=== PATIENT | female | born 1955 | race Caucasian/White ===

== ENCOUNTER 2016-10-19 19:25 | Inpatient (IN) | payer OTHER, MEDICARE ==
[~2016-10-19] VITALS: Ht 167.6 cm; Wt 72.6 kg
[~2016-10-19 19:25] MED LIST: ACETAMINOPHEN500 M4 PO; ALBUTEROL0.09 MG/A1 INH; AMLODIPINE10 MG PO; AUGMENTIN 875-1 EACH PO; BISACODYL5 M1 PO; CHLORTHALIDONE25 M1 PO; DULCOLAX10 M1 RC; HYDROMORPHONE HC2 M1 PO; HYGROTON 25MG T25 MG PO; LISINOPRIL10 MG PO; LISINOPRIL20 M1 PO; METHADONE H5 MG/5 M2 PO; MIRALAX119 GM PO; MULTI-DAY VITA1 EACH PO; NAPROSYN 500 M500 MG PO; NICODERM CQ1 EAC1 TOP; NICOTINE PATCH1 EAC2 TOP; PRILOSEC 20MG C20 MG PO; PROVENTIL HFA6.7 GM INH; SENNA8.6 M3 PO; TRAMADOL50 MG PO; VIBRAMYCIN100 MG PO
--- NOTE | 2016-10-19 20:26 | ED GENERAL ADULT ---
History of Present Illness General Chief Complaint: Foot or Ankle Injury Stated Complaint: PT HAS SWOLLEN ANKLES AND LEGS WITH FLUID Source: patient Exam Limitations: no limitations Vital Signs & Intake/Output Vital Signs & Intake/Output Vital Signs Date Time Temp Pulse Resp B/P B/P Pulse O2 O2 Flow FiO2 Mean Ox Delivery Rate 10/20 1433 98.9 63 20 130/74 93 Nasal 3.0L Cannula 10/20 0800 Nasal 3.0L Cannula 10/20 0600 97.6 72 24 158/82 94 Nasal 3.0L Cannula 10/20 0519 72 156/82 10/20 0305 168/88 10/20 0134 98.1 79 20 184/100 94 Nasal 3.0L Cannula 10/20 0108 88 Room Air 10/20 0106 97.7 87 20 188/106 10/20 0040 94 Nasal 3.0L Cannula 10/20 0030 97.7 87 20 188/106 Room Air 10/19 2200 98.0 80 18 144/80 97 Room Air 10/19 1948 97.3 87 19 181/97 88 Room Air ED Intake and Output 10/20 0000 10/19 1200 Intake Total 100 Output Total Balance 100 Intake, IV 100 Patient 72.575 kg Weight Weight Estimated Measurement Method Allergies Coded Allergies: NO KNOWN ALLERGIES (01/20/11) Triage Note: RECEIVED 61 YO FEMALE WITH HX OF LOWER EXTREMITY CELLULITS, C/O WORSENING SYMPTOMS WITH SEROUS DRAINAGE ON LOWER EXTREMITY, RIGHT WORSE THAN LEFT. LOWER EXTREMITIES REDDENED, SCALY, FOUL ODOR NOTED. Triage Nurses Notes Reviewed? yes Onset: Gradual Duration: week(s): Timing: recent history Injury Environment: home Severity: moderate Modifying Factors: Improves With: rest. Associated Symptoms: redness, tenderness, swelling HPI: 61 yo woman, h/o recurrent cellulitis, h/o surgical debridement of left heel, h/ o skin graft/venous insufficiency of left leg, presents with redness, warmth, and swelling of her bilateral lower extremities for the past 2 weeks. She notes that Dr. Cross has been managing a left heel ulcer that has been slow to heal. She notes increased drainage from her left heel, as well as increased swelling of her bilateral lower extremities, along with redness and tenderness up to the knees bilaterally. She notes no fever, chills, nausea, vomiting, diarrhea. (CONCHANICKY SANTAMARIA MD) Reconcile Medications Amlodipine Besylate 10 MG TABLET 1 TAB PO DAILY HTN (Reported) Lisinopril 40 MG TABLET 1 TAB PO DAILY HTN (Reported) Methadone HCl 5 MG/5 ML SOLUTION 55 MG PO DAILY MENTAL HEALTH (Reported) Potassium Chloride (Klor-Con Sprinkle) 10 MEQ CAPSULE.ER 10 MEQ PO DAILY SUPPLEMENT (Reported) Prochlorperazine Maleate (Compazine) 10 MG TABLET 10 MG PO Q8 PRN NAUSEA ( Reported) (DOLLY HOWARD MD) Past History Travel History Traveled to [place] past 21 day No Medical History Any Pertinent Medical History? 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 Psychosocial History Who do you live with Daughter Services at Home Home Health Aide What is your primary language Kinyarwanda Tobacco Use: Current Daily Use Daily Tobacco Use Amount/Type: => 5 Cigarettes daily Family History Family History, If Any: FATHER (Diabetes, TIA). . MOTHER (OR, TIA). . Relation not specified for: FH: hypertension Heart attack Hx Contributory? No (NICKY KERN MD) Review of Systems Review of Systems Constitutional: Reports: no symptoms. EENTM: Reports: no symptoms. Respiratory: Reports: no symptoms. Cardiovascular: Reports: no symptoms. GI: Reports: no symptoms. Genitourinary: Reports: no symptoms. Musculoskeletal: Reports: no symptoms. Skin: Reports: no symptoms. Neurological/Psychological: Reports: no symptoms. Hematologic/Endocrine: Reports: no symptoms. Immunologic/Allergic: Reports: no symptoms. All Other Systems: Reviewed and Negative (NICKY KERN MD) Physical Exam Physical Exam General Appearance: well developed/nourished, mild distress Head: atraumatic, normal appearance Eyes: Bilateral: normal appearance. Ears, Nose, Throat: normal pharynx, normal ENT inspection Neck: normal inspection, supple Respiratory: normal breath sounds, chest non-tender, no respiratory distress, quiet respiration Cardiovascular: regular rate/rhythm Gastrointestinal: normal bowel sounds, soft, non-tender Back: normal inspection Extremities: left calcaneous with draining ulceration, very tender to palpation. bilateral extremities with chronic skin changes, severely flaking skin due to fungal infection, also with "rubor, calor, dolor," to the knees bilaterally, with induration, left worse than right. Core Measures ACS in differential dx? No CVA/TIA Diagnosis: No Severe Sepsis Present: No Septic Shock Present: No (CONCHA LARIOS,NICKY Reyes) Progress Differential Diagnoses I considered the following diagnoses in my evaluation of the patient: cellulitis vs abscess vs osteo vs fungal skin infection. Plan of Care: Orders Procedure Date/time Status Regular Diet 10/20 B Active CULTURE,BODY FLUID 10/20 1710 Active SYNOVIAL FLUID CELL COUNT 10/20 1700 Active Lab Add-on Test 10/20 0614 Active PHYSICIAN CONSULT 10/20 0513 Active Skin/Pressure Ulcer Assess (Sk 10/20 0351 Active Skin Integrity Protocol 10/20 0349 Active NUTRITIONAL CONSULT 10/20 0349 Active Teach/Educate 10/20 0306 Active Pain Treatment and Response 10/20 0306 Active Nutritional Intake, Monitor 10/20 0306 Active Isolation 10/20 0306 Active Patient Care Conference 10/20 0306 Active Activity/Ambulation 10/20 0306 Active Pathway - chart 10/20 0059 Active Pathway - chart 10/20 0013 Active XRY-HEEL, LEFT 10/20 UNK Active House Staff 10/20 UNK Active Precautions 10/20 UNK Active Elevate 10/20 UNK Active Patient Data 10/19 2318 Active Saline Lock 10/19 2312 Active Misc Message 10/19 2312 Active ED Holding Orders 10/19 2312 Active Admit to inpatient 10/19 2312 Active Vital Signs 10/19 2312 Active Code Status 10/19 2312 Active Intake & Output 10/19 2218 Active BLOOD CULTURE 10/19 2153 Active C-REACTIVE PROTEIN 10/19 2100 Complete BLOOD CULTURE 10/19 2034 Active BLOOD CULTURE 10/19 2032 Active URINALYSIS 10/20 2031 Complete WESTERGREN SED RATE 10/20 2031 Complete COMPREHENSIVE METABOLIC PANEL 10/20 2031 Complete CBC WITHOUT DIFFERENTIAL 10/20 2031 Complete Current Medications Sig/Ora Start time Last Medication Dose Stop Time Status Admin Nicotine 21 MG DAILY 10/20 1439 AC (Nicoderm) Methadone HCl 55 MG DAILY 10/20 1000 AC 10/20 (Dolophine) 0958 Potassium Chloride 10 MEQ DAILY 10/20 1000 AC 10/20 (K-Dur) 0958 Cefazolin Sodium 1,000 MG Q8 10/20 0600 AC 10/20 (Kefzol-Ancef Inj) 1331 Heparin Sodium 5,000 UNIT Q8 10/20 0600 AC 10/20 (Porcine) 1331 Lisinopril 40 MG DAILY 10/20 0315 AC 10/20 (Prinivil) 0519 Acetaminophen 650 MG Q6P PRN 10/20 0100 AC (Tylenol) Acetaminophen/ 1 TAB Q6P PRN 10/20 0100 AC 10/20 Hydrocodone Bitart 1333 (Vicodin) Amlodipine Besylate 10 MG DAILY 10/20 0100 AC 10/20 (Norvasc) 010 Ketorolac 15 MG Q6P PRN 10/20 0100 AC 10/20 Tromethamine 0258 (Toradol) Laboratory Tests 10/20/16 1700: Fluid WBC Pending, Fld Total RBCs Counted Pending 10/19/16 2100: Anion Gap 7, Estimated GFR > 60, BUN/Creatinine Ratio 26.3 H, Glucose 115 H, Calcium 8.6, Total Bilirubin 0.4, AST 25, ALT 33, Alkaline Phosphatase 52, C- Reactive Prot, Quant < 0.5, Total Protein 7.3, Albumin 3.1 L, Globulin 4.2, Albumin/Globulin Ratio 0.7 L, CBC w Diff NO MAN DIFF REQ, RBC 5.14, MCV 79.7 L , MCH 24.5 L, RDW 15.9 H, MPV 8.1, Gran % 60.0, Lymphocytes % 29.4, Monocytes % 9.2, Eosinophils % 1.1, Basophils % 0.3, Absolute Granulocytes 4.0, Absolute Lymphocytes 2.0, Absolute Monocytes 0.6, Absolute Eosinophils 0.1, Absolute Basophils 0, PUBS MCHC 30.7 L, ESR [place] 31 H, Urinalysis LIGHT H, Urine Color YEL, Urine Clarity CLEAR, Urine pH 6.0, Ur Specific [place] 1.025, Urine Protein >=300 H, Urine Ketones NEG, Urine Nitrite NEG, Urine Bilirubin NEG, Urine Urobilinogen 0.2, Ur Leukocyte Esterase NEG, Ur Microscopic SEDIMENT EXAMINED, Urine RBC RARE, Ur Epithelial Cells FEW, Urine Hemoglobin SMALL H, Urine Glucose NEG Microbiology 10/20 1700 BODY FLUID: Body Fluid Culture - RECD 10/20 170 BODY FLUID: Gram Stain - RECD 10/19 220 BLOOD: Blood Culture - RES 10/19 213 BLOOD: Blood Culture - RES 10/19 2100 BLOOD: Blood Culture - RES Initial ED EKG: none (CONCHA LARIOS,NICKY Reyes) Departure Departure Disposition: STILL A PATIENT Clinical Impression Primary Impression: Cellulitis Secondary Impressions: Chronic ulcer of ankle, Fungal skin infection Departure Forms: Customer Survey General Discharge Information Admission Note Spoke With: RAKEL BE MD Documentation of Exam: Documentation of any treatments & extenuating circumstances including Concerns Regarding Discharge (functional status, medication knowledge or non-compliance, living conditions, etc.) that warrant an admission rather than observation: pt with failure of outpatient antibiotics with dense induration of both lower extremities "rubor, calor, dolor," Pt also with recurrence of cellulitis, with poor circulation, s/p skin grafting due to infection... pt merits iv abx, id consult, podiatry consult... would also treat antifungal component of infection. will try cefazolin and monitor response. (CONCHA LARIOS,NICKY Reyes) Departure Condition: Stable Referrals: NIC PEARCE MD (PCP/Family) (DOLLY HOWARD MD) Critical Care Note Critical Care Note Critical Care Time: non-applicable (CONCHA LARIOS,NICKY Reyes)
[2016-10-19] MEDS ORDERED: METHADONE H5 MG/5 M2 PO (20:35)
[2016-10-19 21:26] LABS: ABSOLUTE BASOPHIL COUNT 0 /CUMM (0.0-0.2); ABSOLUTE EOSINOPHIL COUNT 0.1 /CUMM (0.0-0.7); ABSOLUTE MONOCYTE COUNT 0.6 /CUMM (0.10-0.60); BASOPHIL % 0.3 % (0.0-2.0); EOSINOPHIL % 1.1 % (0-5); MEAN PLATELET VOLUME 8.1 FL (7.4-10.4); PLATELET COUNT 201 /CUMM (130-400)
[2016-10-19 21:56] LABS: MEAN CORPUSCULAR VOLUME 79.7 FL (81.0-99.0); RED BLOOD CELL CT 5.14 /CUMM (4.20-5.40); WHITE BLOOD CELL COUNT 6.4 /CUMM (4.8-10.8)
[2016-10-19 21:57] LABS: MEAN CORPUSCULAR HGB 24.5 PG (27.0-31.0); MEAN CORPUSCULAR HGB CONC 30.7 G/DL (33.0-37.0); RBC DISTRIBUTION WIDTH 15.9 % (11.5-14.5)
--- NOTE | 2016-10-19 23:17 | History & Physical ---
MICAH LARIOS,[facility] [place] 10/19/16 2316: General Information and HPI MD Statement: I have seen and personally examined CHUNG KRISHNA and documented this H&P. The patient is a 61 year old F who presented with a patient stated chief complaint of leg drainage. Source of Information: patient, old records Exam Limitations: poor historian History of Present Illness: Ms. 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 Of note patient is a poor historian, therefore quality of the history is limited. She reports that her legs are very painful but this is baseline for her. Pain is 9 out of 10 in severity, constant and burning in quality, however she does not take any medications for it. She denies fever, chills, nausea or vomiting. Patient has a longstanding history of non-healing wounds affecting her bilateral lower extremities complicated by recurrent episodes of cellulitis requiring multiple operations and skin grafts. Her problems started in 1989, when she developed cellulitis around the site in her left lower extremity where she injected IV drugs and subsequently required skin graft placement. Patient had been following up with high school music instructor Dr. Cross and has received multiple wound care modalities including negative pressure wound therapy and allograft applications without any significant improvement. Since 2012 patient has undergone multiple I&D procedures for bilateral lower extremity nonhealing ulcers performed by Dr. Cross. Her most recent hospitalization was here at [place] approximately one year ago ( 11/16/15-11/23/15) for chronic ulcer of the left heel during which time she underwent I&D and subsequent wound VAC placement. An MRI was performed which was negative for osteomyelitis. After being discharged she followed up with Dr. Cross for placement of skin graft to left heel (01/01/16). However since that procedure she has not been following up with Dr. Cross. She also has not been taking any of her medications, including amlodipine, chlorthalidone and lisinopril, since November 2015. The only medication that she takes on a regular basis is her methadone. Patient has hepatitis C which she states was treated by her PCP Dr. Nic Kasper at some point in the past but she does not recall the details. Allergies/Medications Allergies: Coded Allergies: NO KNOWN ALLERGIES (01/20/11) Home Med list Amlodipine Besylate 10 MG TABLET 1 TAB PO DAILY HTN (Reported) Lisinopril 40 MG TABLET 1 TAB PO DAILY HTN (Reported) Methadone HCl 5 MG/5 ML SOLUTION 55 MG PO DAILY MENTAL HEALTH (Reported) Potassium Chloride (Klor-Con Sprinkle) 10 MEQ CAPSULE.ER 10 MEQ PO DAILY SUPPLEMENT (Reported) Prochlorperazine Maleate (Compazine) 10 MG TABLET 10 MG PO Q8 PRN NAUSEA ( Reported) Compliance With Home Meds: POOR Past History Travel History Traveled to [place] past 21 day No Medical History Neurological: NONE EENT: NONE Cardiovascular: chronic venous insuff, hypertension, PVD Respiratory: COPD Gastrointestinal: NONE Hepatic: hepatitis C Renal: NONE Musculoskeletal: NONE Psychiatric: opioid dependence (maintained on methadone) Endocrine: NONE Blood Disorders: NONE Cancer(s): NONE AUTOMATIC BLOCKER/Reproductive: NONE Other Medical Hx: non-healing ulcers of bilateral lower extremities History of MRSA: No History of VRE: No History of CDIFF: No Surgical History Surgical History: appendectomy, cholecystectomy, hip replacement (left), left lower extremity skin graft placement, right lower extremity I&D, left lower extremity I&D Past Family/Social History Family History Relations & Conditions if any FATHER (Diabetes, TIA). . MOTHER ([place], TIA). . Relation not specified for: FH: hypertension Heart attack Psychosocial History Who Do You Live With? child Services at Home: Home Health Aide Primary Language: Romanian Smoking Status: Current Some Day Smoker (Smokes 1/2 PPD, 24 Pack Years) ETOH Use: denies use (Hx of IVDU,Last Use 20 Yrs Ago) Illicit Drug Use: denies illicit drug use (history of IVDU) Functional Ability ADLs Independent: dressing, eating, toileting, bathing. Ambulation: walker IADLs Independent: shopping, housework, finances, food prep, telephone, transportation , medication admin. Review of Systems Review of Systems Constitutional: Denies: chills, fever. EENTM: Reports: no symptoms. Cardiovascular: Reports: no symptoms. Denies: chest pain, palpitations. Respiratory: Reports: no symptoms. Denies: short of breath. GI: Reports: no symptoms. Denies: abdominal pain. Genitourinary: Reports: no symptoms. Denies: dysuria. Musculoskeletal: Reports: no symptoms. Skin: Reports: see HPI. Neurological/Psychological: Reports: no symptoms. Hematologic/Endocrine: Reports: no symptoms. Immunologic/Allergic: Reports: no symptoms. All Other Systems: Reviewed and Negative Exam & Diagnostic Data Last 24 Hrs of Vital Signs/I&O Vital Signs Date Time Temp Pulse Resp B/P B/P Pulse O2 O2 Flow FiO2 Mean Ox Delivery Rate 10/20 0134 98.1 79 20 184/100 94 Nasal 3.0L Cannula 10/20 0108 88 Room Air 10/20 0106 97.7 87 20 188/106 10/20 0030 97.7 87 20 188/106 Room Air 10/19 2200 98.0 80 18 144/80 97 Room Air 10/19 1948 97.3 87 19 181/97 88 Room Air Intake & Output 10/20 0800 10/20 0000 10/19 1600 Intake Total 100 Output Total Balance 100 Intake, IV 100 Patient 72.575 kg Weight Weight Estimated Measurement Method Physical Exam General Appearance Alert, Oriented X3, No Acute Distress Skin No Rashes HEENT Atraumatic, Mucous Membr. moist/pink Neck Supple Cardiovascular Regular Rate, Normal S1, Normal S2, No Murmurs, Gallops, Rubs Lungs Clear to Auscultation Abdomen Soft, No Tenderness, Positive Bowel Sounds Extremities No Clubbing, No Cyanosis, Bilateral Lower Extremities with Swelling and Serous Drainage, R >> L, Skin Changes Consistent with Chronic Venous Stasis and Thick Scale, Area of Open Denuded Skin on the Lateral Aspect of Right Lower Extremity Noted, Petechial Rash Involving Bilateral Knees, Right Knee Swelling, Bilateral Toenails with Onychomycosis Last 24 Hrs of Labs/Chad: Laboratory Tests 10/19/16 2100: Anion Gap 7, Estimated GFR > 60, BUN/Creatinine Ratio 26.3 H, Glucose 115 H, Calcium 8.6, Total Bilirubin 0.4, AST 25, ALT 33, Alkaline Phosphatase 52, Total Protein 7.3, Albumin 3.1 L, Globulin 4.2, Albumin/Globulin Ratio 0.7 L, CBC w Diff NO MAN DIFF REQ, RBC 5.14, MCV 79.7 L, MCH 24.5 L, RDW 15.9 H, MPV 8.1, Gran % 60.0, Lymphocytes % 29.4, Monocytes % 9.2, Eosinophils % 1.1, Basophils % 0.3, Absolute Granulocytes 4.0, Absolute Lymphocytes 2.0, Absolute Monocytes 0.6 , Absolute Eosinophils 0.1, Absolute Basophils 0, PUBS MCHC 30.7 L, ESR Westergren 31 H, Urinalysis LIGHT H, Urine Color YEL, Urine Clarity CLEAR, Urine pH 6.0, Ur Specific [place] 1.025, Urine Protein >=300 H, Urine Ketones NEG, Urine Nitrite NEG, Urine Bilirubin NEG, Urine Urobilinogen 0.2, Ur Leukocyte Esterase NEG, Ur Microscopic SEDIMENT EXAMINED, Urine RBC RARE, Ur Epithelial Cells FEW, Urine Hemoglobin SMALL H, Urine Glucose NEG Microbiology 10/19 2204 BLOOD: Blood Culture - RECD 10/19 2134 BLOOD: Blood Culture - RECD 10/19 2099 BLOOD: Blood Culture - RECD Assessment/Plan Assessment: Ms. 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 #Right lower extremity cellulitis: Right lower extremity with swelling and serous discharge concerning for cellulitis superimposed on bilateral chronic venous insufficiency, though patient is afebrile and without leukocytosis. Associated with onychomycosis of bilateral toes. Longstanding history of chronic non-healing ulcers involving bilateral lower extremities with recurrent episodes of cellulitis s/p multiple I&D procedures and skin grafts. Patient is noncompliant with follow-up. S/p 1 g of IV cefazolin in the ED. * Admit to General Medicine. * Podiatry and wound care consult to be placed in the AM. Appreciate their recs. * Start cefazolin 1 g IV Q8H. * Check blood cultures. * BLE Doppler US to rule out DVT. * Check CRP. * Right knee XR to evaluate for arthritic changes given right knee swelling on exam. #Uncontrolled HTN: BP elevated to 180s/100s on admission, likely secondary to noncompliance with her antihypertensive medications which she had not been taking since November 2015. * Start [id number] amlodipine 10 mg PO daily and lisinopril 40 mg PO daily. #Lung nodule: CT Chest on previous admission (11/16/15) had shown 2.2 cm mass involving the right middle lobe increased in size compared to 2014, with either PET/CT or biopsy suggested according to Fleischner guidelines. * CXR PA/Lateral for further characterization of lung nodule. * Outpatient referral to pulmonology for follow-up. #Opioid dependence: Maintained on methadone 55 mg PO daily. * Continue [id number] methadone 55 mg PO daily. Diet: Regular Pain: Tylenol 650 mg PO Q6H PRN for mild pain (scale 1-3) Vicodin 1 tab PO Q6H PRN for moderate pain (scale 4-6) Toradol 15 mg IV Q6H PRN for severe pain (scale 7-10) DVT PPx: HSQ for DVT PPx CODE: FULL As Ranked By This Provider Problem List: 1. Cellulitis of right lower extremity 2. Opioid dependence 3. Uncontrolled hypertension 4. Chronic venous insufficiency Core Measures/Miscellaneous Acute Coronary Syndrome ACS Diagnosis: No Cerebrovascular Accident CVA/TIA Diagnosis: No Congestive Heart Failure CHF Diagnosis: No VTE (View Protocol) VTE Risk Factors: Acute medical illness, Age > 40, Smoking [facility] prophylaxis d/t: Dermatitis, LE Edema No VTE Pharm Prophylaxis d/t: No contraindications VTE Diagnosis: No VTE Type: NONE VTE Confirmed by (Test): NONE Sepsis (View Protocol) Severe Sepsis Present: No Septic Shock Septic Shock Present: No Miscellaneous Documentation Attending Case Discussed With: RAKEL BE MD Primary Care Physician: NIC KASPER MD Patient sees these Specialists Assembly Riveter Graham Cross DPM Level of Patient Care: General Medicine KIT CISNEROS 10/20/16 0009: Resident Review Statement Resident Statement: examined this patient, discussed with financial analyst intern, agreed with financial analyst intern, amended to note Other Findings: This is a 61 years old lady with past medical history of recurrent cellulitis, hypertension, IV drug abuse currently on methadone maintenance therapy, lung mass who presented today with 1 week off increased lower limb swelling, pain and discharge. The patient was last admitted here in November 20 with and lower limb wound and was discharged on a wound VAC after which she received a skin graft and volunteers [facility] recovery. Patient is reporting the hospital for the past few weeks she has been experiencing more pain in her legs and for the one week has noted discharge which is clear predominantly from the right lower limb. Pain in the lower limbs is more pronounced with walking 9 out of 10. She reports chills but denies any fevers. The patient is currently on maintenance methadone 55 mg daily and despite having several medication on her claim list she is not taking her antihypertensive medications or any other from the claim list. It is a long time since when she saw Dr. Tay johnson although she cannot give specific time span or dates. Patient denies any chest pain palpitation or shortness of breath. She has no dizziness lightheadedness or blurring of vision. She has no change in urine frequency or dysuria. Vitals on arrival: Afebrile 97.3 pulse of 87 respiration 19 blood pressure 181/ 97 saturating 97% on room air Physical examination: Seated comfortably on the bed not in any acute distress alert and oriented to time place and person Chest: Transmitted sounds bilaterally no overt crackles on and off coughing during examination Heart: RRR, S1-S2 normal no murmurs Extremities: Bilateral scales extending to just below the knee joint right lower limb more swollen than the left no overt new skin opening, onychomycosis involving several toe nails. Both posterior tibialis arteries are not palpable dorsalis pedis on the right has good pulse but is weak on the left. The right knee is more swollen than the left. Labs: Normal white count of 6.4, H&H 12.6 and 41.0 MCV 79.1 slightly low, high BUN of 21 with increased BUN/creatinine ratio of 26.3 UA positive for proteinuria and hemoglobin Assessment and plan This is a 61 years old lady with recurrent cellulitis, peripheral vascular disease who is an active smoker and presenting with one-week history of discharge from the right lower limb associated with chills but no fevers. On the same duration has noted slightly swelling of her lower limbs and increase in pain. Cellulitis Fungal infection of the toe nails Peripheral vascular disease with decreased pulses Hypertension not adherent to medications Admitted to general medicine floor, vital signs every shift Continue cefurozamine 1000 mg every 8 Right knee x-ray and bilateral Doppler ultrasound to rule out DVT Restart antihypertensive medication amlodipine tonight at 10 mg and if pressures remain on the higher side start lisinopril at home dose of 40 mg daily Continue methadone 55 mg daily Podiatry review, wound consult a.m. Heparin for DVT prophylaxis Patient is full code Pain pathway HAILE LARIOS, [facility] 10/20/16 0014: Attending MD Review Statement Attending Statement Attending MD Statement: examined this patient, discuss w/resident/PA/CITY PLANNING ENGINEER, agreed w/resident/PA/CITY PLANNING ENGINEER Attending Assessment/Plan: 61 yo F smoker, with h/o HTN, previous IVDA now on methadone maintenance, Hep C (?untreated), venous insufficiency, chronic wounds of both LE with recurrent cellulitis, chronic nonhealing left heel ulcer s/p skin graft (2016), who never followed up with Dr. Cross, is here with c/o bilateral LE erythema, pain, swelling and recently noted serous discharge from right lower extremity. She is noncompliant with her BP meds. Patient denies any chest pain palpitation or shortness of breath. She has no dizziness lightheadedness or blurring of vision. She has no change in urine frequency or dysuria. Vitals stable except for uncontrolled BP 184/100 --> 168/88. LE: bilateral LE chronic venous stasis changes with desquamation of skin, edema++, open denuded skin to right lateral aspect of lower extremity, left calcaneus chronic wound but no draining ulcer as noted in ER documentation. Right knee swollen, no erythema or tenderness. Labs: no leukocytosis, ESR 31, BUN 21. UA proteinuria. 1. Bilateral LE chronic venous insufficiency with venous stasis, with superimposed LE cellulitis (R>L) associated with onychomycosis. GM admit, blood culture, check CRP, continue IV cefazolin for now, obtain Podiatry and Wound consult. Check LE doppler to rule out DVT. Obtain right knee Xray to assess for effusion/ arthritis/ pseudogout. 2. Uncontrolled hypertension. Resume home meds amlodipine and lisinopril. 3. Nonproductive cough in this patient who is a smoker. Patient has a h/o lung nodule (noted in 2016), this needs outpatient Pulmonary and CT follow up. For now, will obtain CXR. Smoking cessation counseling. 4. Resume methadone 55 mg APT foundation. DVT ppx Hep SC. Full code.
[2016-10-20] MEDS ORDERED: LISINOPRIL40 M1 PO (00:14)
[2016-10-20] MEDS ORDERED: AMLODIPINE BESY10 M1 PO (00:15)
--- NOTE | 2016-10-20 00:15 | Admission Certification ---
Admission Certification Certification Statement - As attending physician, I certify that at the time of - admission, based on clinical presentation, severity of - symptoms, need for further diagnostic testing and - therapeutic interventions, and risk of adverse outcomes - without in-hospital treatment, in my clinical assessment, - this patient requires an acute hospital stay for a minimum - of two nights or longer. I have also considered psychsocial - factors such as support system, advanced age, financial - issues, cognitive issues, and failed out-patient treatments, - past re-admission history, safety of patient, and lack of - compliance as applicable. Specific rationale supporting this admission is: Lower extremity cellulitis.
[2016-10-20] MEDS ORDERED: [UNRECOGNIZED DRUG - OTHER] PO (00:16)
[2016-10-20] MEDS ORDERED: COMPAZINE10 M1 PO (00:17)
[2016-10-20 01:34] VITALS: BP 184/100
[2016-10-20 03:05] VITALS: BP 168/88
[2016-10-20 06:00] VITALS: BP 158/82
--- NOTE | 2016-10-20 07:33 | PN- Housestaff ---
Subjective Follow-up For: Bilateral leg weeping wounds; cellulitis Subjective: I followed up and examined the patient today. She is resting comfortably in bed , with both her legs elevated. She is not in apparent distress, does not offer any complaints. Her vitals have been stable overnight except for blood pressure which has been maximum of 188/106. She is asymptomatic, and afebrile. Review of Systems Constitutional: Reports: see HPI. Objective Last 24 Hrs of Vital Signs/I&O Vital Signs Date Time Temp Pulse Resp B/P B/P Pulse O2 O2 Flow FiO2 Mean Ox Delivery Rate 10/20 1433 98.9 63 20 130/74 93 Nasal 3.0L Cannula 10/20 0800 Nasal 3.0L Cannula 10/20 0600 97.6 72 24 158/82 94 Nasal 3.0L Cannula 10/20 0519 72 156/82 10/20 0305 168/88 10/20 0134 98.1 79 20 184/100 94 Nasal 3.0L Cannula 10/20 0108 88 Room Air 10/20 0106 97.7 87 20 188/106 10/20 0040 94 Nasal 3.0L Cannula 10/20 0030 97.7 87 20 188/106 Room Air 10/19 2200 98.0 80 18 144/80 97 Room Air 10/19 1948 97.3 87 19 181/97 88 Room Air Intake & Output 10/20 1600 10/20 0800 10/20 0000 Intake Total 500 200 100 Output Total 500 Balance 0 200 100 Intake, IV 100 Intake, Oral 500 200 Number 0 Bowel Movements Output, Urine 500 Patient 72.575 kg 72.575 kg 72.575 kg Weight Weight Reported by Patient Estimated Measurement Method Physical Exam General Appearance: Alert, Oriented X3, Cooperative, No Acute Distress Other Physical Findings: Skin skin lesions consistent with chronic venous statis in b/l lower ext. with thisck scaly lesions. HEENT Atraumatic, Mucous Membr. moist/pink Neck Supple Cardiovascular Regular Rate, Normal S1, Normal S2, No Murmurs Lungs Clear to Auscultation Abdomen Soft, No Tenderness, Positive Bowel Sounds Extremities No Clubbing, No Cyanosis, Bilateral Lower Extremities with Swelling (decreasing) and Serous Drainage, Skin Changes Consistent with Chronic Venous Stasis and Thick Scale, One Ulcer Noted at the base of left heel, Right Knee Swelling, Bilateral Toenails with severe Onychomycosis and toe deformity. Current Medications: Current Medications Sig/Ora Start time Last Medication Dose Route Stop Time Status Admin Acetaminophen 650 MG Q6P PRN 10/20 010 AC PO Acetaminophen/ 1 TAB Q6P PRN 10/20 0100 AC 10/20 Hydrocodone Bitart PO 1903 Amlodipine Besylate 0 .STK-MED ONE 10/20 0107 DC PO Amlodipine Besylate 10 MG DAILY 10/20 0100 AC 10/20 PO 0106 Cefazolin Sodium 1,000 MG Q8 10/20 06 AC 10/20 IV 1331 Cefazolin Sodium 1,000 MG ONCE ONE 10/19 2044 DC 10/19 IV 10/19 2045 2217 Ceftriaxone Sodium 0 .STK-MED ONE 10/19 2155 DC .ROUTE Clotrimazole 1 JULIA ONCE ONE 10/19 2315 DC 10/20 TOP 10/19 231 0135 Heparin Sodium 5,000 UNIT Q8 10/20 599 10/20 (Porcine) SC 1331 Ketorolac 30 MG .STK-MED ONE 10/20 0255 DC Tromethamine IM 10/20 0256 Ketorolac 15 MG Q6P PRN 10/20 0100 AC 10/20 Tromethamine IV 0258 Lisinopril 40 MG DAILY 10/20 1000 DC PO Lisinopril 40 MG DAILY 10/20 0315 AC 10/20 PO 0519 Methadone HCl 55 MG DAILY 10/20 1000 AC 10/20 PO 0958 Nicotine 21 MG DAILY 10/20 1439 AC TOP Potassium Chloride 10 MEQ DAILY 10/20 1000 AC 10/20 PO 0958 Last 24 Hrs of Lab/Chad Results Last 24 Hrs of Labs/Mics: Laboratory Tests 10/20/16 1700: Lymphocytes 22, % Normal PMNs 30, Misc Hematology Test , Fluid WBC 203 H, Fld Total RBCs Counted 411 H 10/19/16 2100: Anion Gap 7, Estimated GFR > 60, BUN/Creatinine Ratio 26.3 H, Glucose 115 H, Calcium 8.6, Total Bilirubin 0.4, AST 25, ALT 33, Alkaline Phosphatase 52, C- Reactive Prot, Quant < 0.5, Total Protein 7.3, Albumin 3.1 L, Globulin 4.2, Albumin/Globulin Ratio 0.7 L, CBC w Diff NO MAN DIFF REQ, RBC 5.14, MCV 79.7 L , MCH 24.5 L, RDW 15.9 H, MPV 8.1, Gran % 60.0, Lymphocytes % 29.4, Monocytes % 9.2, Eosinophils % 1.1, Basophils % 0.3, Absolute Granulocytes 4.0, Absolute Lymphocytes 2.0, Absolute Monocytes 0.6, Absolute Eosinophils 0.1, Absolute Basophils 0, PUBS MCHC 30.7 L, ESR Westergren 31 H, Urinalysis LIGHT H, Urine Color YEL, Urine Clarity CLEAR, Urine pH 6.0, Ur Specific [place] 1.025, Urine Protein >=300 H, Urine Ketones NEG, Urine Nitrite NEG, Urine Bilirubin NEG, Urine Urobilinogen 0.2, Ur Leukocyte Esterase NEG, Ur Microscopic SEDIMENT EXAMINED, Urine RBC RARE, Ur Epithelial Cells FEW, Urine Hemoglobin SMALL H, Urine Glucose NEG Microbiology 10/20 170 BODY FLUID: Body Fluid Culture - RECD 10/20 170 BODY FLUID: Gram Stain - RECD 10/19 2205 BLOOD: Blood Culture - RES 10/19 2135 BLOOD: Blood Culture - RES 10/19 2100 BLOOD: Blood Culture - RES Assessment/Plan Assessment: 61-year-old female with past medical history of chronic venous insufficiency and nonhealing ulcers of both lower extremities, peripheral vascular disease, hepatitis C, IV drug abuse, is currently being managed in the general medical floor for the following issues: #Possible cellulitis DVT of lower ext ruled out by b/l Doppler studies. Clinically, appeared to be cellulitis thus was placed on cefazolin 1 g every 8 hours IV. We'll continue the antibiotic pending blood cultures. Continue leg elevation. #Chronic nonhealing ulcers, including over heel Patient has chronic nonhealing ulcers, secondary to peripheral vascular disease and chronic venous stasis. Dr. Cross has been consulting on the patient in the past. Awaiting recommendations. #Right knee swelling/pain Patient has long-standing history of right knee osteoarthritis but her swelling and pain has worsened in the last month. X-ray of her right knee shows effusion on the suprapatellar space. Orthopedic service with Dr Mason has been consulted for the same reason. Osteoarthritis with effusion is likely. On clinical examination, the joint does not appear to be septic (no warmth, redness ) locally. #Right lung mass According to radiologist, the right lung mass is enlarging and there is a possibility of some lymphadenopathy. He should have been recommended outpatient PET scan in 2016. Records not available to us currently. Pulmonary consultation placed for the same reason. Awaiting recommendations. #Pain management: Vicodin dose increased for moderate pain as necessary. #Diet regular diet #DVT prophylaxis with SQ Heparin #CODE STATUS: Full code Problem List: 1. Cellulitis of left lower extremity 2. Cellulitis of right lower extremity 3. Skin ulcer 4. Mass of right lung 5. Fungal skin infection 6. Opioid dependence 7. PVD (peripheral vascular disease) 8. Chronic venous stasis dermatitis of both lower extremities 9. History of hepatitis C Pain Ratin Pain Location: b/l legs Pain Goal: Pain 4 or less Pain Plan: prn, vicodin dose increased today Tomorrow's Labs & Rationales: CBC to follow up in infection
--- NOTE | 2016-10-20 11:09 | ULTRASOUND REPORT ---
EXAMINATION: US TRIPLEX OF LOWER EXTREMITIES, BILATERAL CLINICAL INFORMATION: Swollen, tender legs. COMPARISON: 04/23/2016 TECHNIQUE: Color-flow triplex imaging with spectral analysis and compression Doppler were performed on the lower extremities. FINDINGS: The common femoral vein is compressible and exhibits a normal phasic waveform, bilaterally; this suggests that the iliac veins are widely patent above. Within each proximal thigh, the visualized profunda femoris vein is patent. The visualized greater saphenous vein and saphenofemoral junction are normal, bilaterally. Superficial femoral vein is patent in the proximal, mid and distal aspect of each thigh. Popliteal vein appears normal to the level of the trifurcation, bilaterally, and on color Doppler images the visualized calf veins are grossly unremarkable. No evidence of Morrison's cyst. IMPRESSION: No evidence of deep vein thrombosis in either lower extremity.
--- NOTE | 2016-10-20 12:02 | PN- Att Addend ---
See Addendum Attending Addendum Attending Brief Note Patient seen and examined, not feeling well. She still remaining in pain in her bilateral lower extremities. Currently she is ordered Toradol as well as Vicodin for pain management. Lower extremity Doppler is negative. Patient has bilateral lower extremity cellulitis. Vital Signs Date Time Temp Pulse Resp B/P B/P Pulse O2 O2 Flow FiO2 Mean Ox Delivery Rate 10/20 0800 Nasal 3.0L Cannula 10/20 0600 97.6 72 24 158/82 94 Nasal 3.0L Cannula 10/20 0519 72 156/82 10/20 0305 168/88 10/20 0134 98.1 79 20 184/100 94 Nasal 3.0L Cannula 10/20 0108 88 Room Air 10/20 0106 97.7 87 20 188/106 10/20 0040 94 Nasal 3.0L Cannula 10/20 0030 97.7 87 20 188/106 Room Air 10/19 2200 98.0 80 18 144/80 97 Room Air 10/19 1948 97.3 87 19 181/97 88 Room Air on exam; aox3, mild distress 2/2 to pain. cv; s1,s2, rrr resp; clear abd; soft, nt bs+ ext + 2+ edema. skin; + erythema, scaling with cracks on b/l lower ext. Laboratory Tests 10/19 2100 Chemistry Sodium (137 - 145 mmol/L) 138 Potassium (3.5 - 5.1 mmol/L) 3.7 Chloride (98 - 107 mmol/L) 96 L Carbon Dioxide (22 - 30 mmol/L) 35 H Anion Gap (5 - 16) 7 BUN (7 - 17 mg/dL) 21 H Creatinine (0.5 - 1.0 mg/dL) 0.8 Estimated GFR (>60 ml/min) > 60 BUN/Creatinine Ratio (7 - 25 %) 26.3 H Glucose (65 - 99 mg/dL) 115 H Calcium (8.4 - 10.2 mg/dL) 8.6 Total Bilirubin (0.2 - 1.3 mg/dL) 0.4 AST (14 - 36 U/L) 25 ALT (9 - 52 U/L) 33 Alkaline Phosphatase (<127 U/L) 52 C-Reactive Prot, Quant (<1.0 mg/dL) < 0.5 Total Protein (6.3 - 8.2 g/dL) 7.3 Albumin (3.5 - 5.0 g/dL) 3.1 L Globulin (1.9 - 4.2 gm/dL) 4.2 Albumin/Globulin Ratio (1.1 - 2.2 %) 0.7 L Hematology CBC w Diff NO MAN DIFF REQ WBC (4.8 - 10.8 /CUMM) 6.4 RBC (4.20 - 5.40 /CUMM) 5.14 Hgb (12.0 - 16.0 G/DL) 12.6 Hct (37 - 47 %) 41.0 MCV (81.0 - 99.0 FL) 79.7 L MCH (27.0 - 31.0 PG) 24.5 L RDW (11.5 - 14.5 %) 15.9 H Plt Count (130 - 400 /CUMM) 201 MPV (7.4 - 10.4 FL) 8.1 Gran % (42.2 - 75.2 %) 60.0 Lymphocytes % (20.5 - 51.1 %) 29.4 Monocytes % (1.7 - 9.3 %) 9.2 Eosinophils % (0 - 5 %) 1.1 Basophils % (0.0 - 2.0 %) 0.3 Absolute Granulocytes (1.4 - 6.5 /CUMM) 4.0 Absolute Lymphocytes (1.2 - 3.4 /CUMM) 2.0 Absolute Monocytes (0.10 - 0.60 /CUMM) 0.6 Absolute Eosinophils (0.0 - 0.7 /CUMM) 0.1 Absolute Basophils (0.0 - 0.2 /CUMM) 0 PUBS MCHC (33.0 - 37.0 G/DL) 30.7 L ESR Westergren (0 - 20 MM) 31 H Urines Urinalysis LIGHT H Urine Color (YEL,AMB,STR) YEL Urine Clarity (CLEAR) CLEAR Urine pH (5.0 - 8.0) 6.0 Ur Specific [place] (1.001 - 1.035) 1.025 Urine Protein (NEG,<30 MG/DL) >=300 H Urine Ketones (NEG) NEG Urine Nitrite (NEG) NEG Urine Bilirubin (NEG) NEG Urine Urobilinogen (0.1 - 1.0 EU/dl) 0.2 Ur Leukocyte Esterase (NEG) NEG Ur Microscopic SEDIMENT EXAMINED Urine RBC (0 - 5 /HPF) RARE Ur Epithelial Cells (NONE,FEW) FEW Urine Hemoglobin (NEG) SMALL H Urine Glucose (N MG/DL) NEG A/P; 61 F with pmh sig for 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 She also has nonhealing wound at the left heel. Patient currently treated with cefazolin. Follow-up on blood cultures. Lower extremities Doppler negative. She needs wound care consult. Podiatry consult is ordered. Please increase her Vicodin to 2 tablets every 6 hours when necessary. Patient still remains in pain, but my need to add a second narcotic as she is on methadone and opiates likely are not working as well for her. DVT px; hep sq.
--- NOTE | 2016-10-20 12:49 | RADIOLOGY REPORT ---
EXAMINATION: XR KNEE, RIGHT CLINICAL INFORMATION: Swollen knee. Knee arthritis. COMPARISON: None TECHNIQUE: Four views of the right knee performed on 5 images. FINDINGS: Diffuse osteopenia. No acute fracture or dislocation. Large suprapatellar knee joint effusion. Severe degenerative change in the patellofemoral and lateral femoral compartments with joint space narrowing, bulky spur formation, and sclerotic and cystic changes seen. There is chondrocalcinosis in the medial femoral compartment with associated moderate spurring and mild cystic changes of the medial femoral condyle and medial tibial plateau and slight widening of the medial joint space height. No erosive changes are noted. Arteriovascular calcifications is seen in the soft tissues. IMPRESSION: 1. Osteopenia. No acute fracture or dislocation. 2. Moderate size suprapatellar knee joint effusion. 3. Advanced osteoarthritic change in the patellofemoral and lateral femoral compartments. 4. Chondrocalcinosis and mild degenerative change in medial femoral compartment.
--- NOTE | 2016-10-20 13:49 | RADIOLOGY REPORT ---
EXAMINATION: XR CHEST CLINICAL INFORMATION: Pulmonary nodule. Rule out infection. Cough. COMPARISON: CT scan of the chest dated 11/16/2015. Portable chest x-ray dated 11/16/2015 and 07/26/2013. TECHNIQUE: 2 views of the chest were obtained on 3 images. FINDINGS: The cardiomediastinal silhouette is borderline enlarged. Calcification of the aortic arch is seen. Fullness of the right pulmonary hilum is seen, suspicious for adenopathy. There has been marked interval increase in size of the previously seen right middle lobe mass, now measuring 8.4 x 6.5 cm versus 2.5 x 2.4 cm on 11/16/2015. The small pleural-based nodular density seen on prior CT scan in the posterior right lung apex is not appreciated on plain film. No pleural effusion or pneumothorax is seen. Osteopenia with multilevel degenerative changes in the mid and lower thoracic spine are noted. There is severe destruction of the left shoulder joint with flattening, complex cystic and sclerotic changes of the humeral head and associated glenohumeral joint space narrowing and calcifications, unchanged from prior CT scan. IMPRESSION: Interval significant increase in size of right middle lobe mass is seen, highly suspicious for a growing lung cancer. There is likely associated right hilar adenopathy. Findings discussed with Dr. Sophy Aguilar 10/20/2016, 1:15 PM.
[2016-10-20 14:33] VITALS: BP 130/74
--- NOTE | 2016-10-20 17:14 | Cons- Orthopedic ---
General Information and HPI Consulting Request Date of Consult: 10/20/16 Requested By: HAILE LARIOS,RAKEL History of Present Illness: 61 year old female with long standing right knee pain. She has had worsening pain over the last month. She is admitted with bilateral lower extremity cellulitis. I have been asked to evaluate the patient for possible septic joint. She denies any fevers or chills. She has a history of hepatitis C from IV drug abuse. She has chronic venous insufficiency with nonhealing ulcers in her lower extremity. Allergies/Medications Allergies: Coded Allergies: NO KNOWN ALLERGIES (01/20/11) Home Med List: Amlodipine Besylate 10 MG TABLET 1 TAB PO DAILY HTN (Reported) Lisinopril 40 MG TABLET 1 TAB PO DAILY HTN (Reported) Methadone HCl 5 MG/5 ML SOLUTION 55 MG PO DAILY MENTAL HEALTH (Reported) Potassium Chloride (Klor-Con Sprinkle) 10 MEQ CAPSULE.ER 10 MEQ PO DAILY SUPPLEMENT (Reported) Prochlorperazine Maleate (Compazine) 10 MG TABLET 10 MG PO Q8 PRN NAUSEA ( Reported) Past History Medical History Blood Transfusion Hx: No Neurological: NONE EENT: NONE Cardiovascular: chronic venous insuff, hypertension, PVD Respiratory: COPD Gastrointestinal: NONE Hepatic: hepatitis C Renal: NONE Musculoskeletal: NONE Psychiatric: opioid dependence (maintained on methadone) Endocrine: NONE Blood Disorders: NONE Cancer(s): NONE COPY LATHE TENDER/Reproductive: NONE Other Medical Hx: non-healing ulcers of bilateral lower extremities Surgical History Pertinent Surgical History: appendectomy, cholecystectomy, hip replacement (left ), left lower extremity skin graft placement right lower extremity I&D left lower extremity I&D Family History Relations & Conditions If Any: FATHER (Diabetes, TIA). . MOTHER (SC, TIA). . Relation not specified for: FH: hypertension Heart attack Psychosocial History Where Do You Live? Home Who Do You Live With? child Services at Home: Home Health Aide Primary Language: Romansh Smoking Status: Current Some Day Smoker (Smokes 1/2 PPD, 24 Pack Years) ETOH Use: denies use (Hx of IVDU,Last Use 20 Yrs Ago) Illicit Drug Use: denies illicit drug use (history of IVDU) Functional Ability ADLs Independent: dressing, eating, toileting, bathing. Ambulation: walker IADLs Independent: shopping, housework, finances, food prep, telephone, transportation , medication admin. Review of Systems Review of Systems Musculoskeletal: Reports: see HPI, joint pain, joint swelling. Skin: Reports: change in skin color. All Other Systems: Reviewed and Negative Exam & Diagnostic Data Vital Signs and I&O Vital Signs Date Time Temp Pulse Resp B/P B/P Pulse O2 O2 Flow FiO2 Mean Ox Delivery Rate 10/20 1433 98.9 63 20 130/74 93 Nasal 3.0L Cannula 10/20 0800 Nasal 3.0L Cannula 10/20 0600 97.6 72 24 158/82 94 Nasal 3.0L Cannula 10/20 0519 72 156/82 10/20 0305 168/88 10/20 0134 98.1 79 20 184/100 94 Nasal 3.0L Cannula 10/20 0108 88 Room Air 10/20 0106 97.7 87 20 188/106 10/20 0040 94 Nasal 3.0L Cannula 10/20 0030 97.7 87 20 188/106 Room Air 10/19 2200 98.0 80 18 144/80 97 Room Air 10/19 1948 97.3 87 19 181/97 88 Room Air Intake & Output 10/20 1600 10/20 0800 10/20 0000 10/19 1600 10/19 0800 10/19 0000 Intake Total 500 200 100 Output Total 500 Balance 0 200 100 Intake, IV 100 Intake, Oral 500 200 Number 0 Bowel Movements Output, Urine 500 Patient 160 lb 160 lb 160 lb Weight Weight Reported by Patient Estimated Measurement Method Physical Exam: Right knee has mild warmth. Moderate effusion is palpable. She has full extension. Flexion to 90. He is tender to palpation over the lateral joint line. Mild erythema is noted over the anterior patella. Knee stable to varus and valgus stress of full extension 30 of flexion. Bilateral lower extremities demonstrates cellulitis and chronic venous insufficiency changes from the proximal tibia distal. Imaging Results: Right knee x-ray demonstrates severe knee DJD Assessment/Plan Assessment/Plan This is a 61 year olf with right knee DJD, bilateral lower extremity cellulitis. She does not appear to have an infected knee joint. The right knee was aspirated under sterile conditions of 20 mL of straw-colored fluid. We'll send this to the lab for culture, cell count, crystal analysis. If negative she we treated conservatively with anti-inflammatories. Consult Acknowledgment - Thank you for your consult request.
[2016-10-20 20:13] VITALS: BP 110/58
--- NOTE | 2016-10-20 22:23 | RADIOLOGY REPORT ---
EXAMINATION: XR CALCANEUS, LEFT CLINICAL INFORMATION: Nonhealing left heel ulcer. COMPARISON: 10/17/2015 TECHNIQUE: Lateral and axial views of the left calcaneus were obtained. FINDINGS: A smaller superficial wound is identified overlying the calcaneal tuberosity without evidence of cortical destruction to suggest osteomyelitis at this time. There are small osseous spurs with possible tiny osseous fragments most notably inferiorly with focal lucency at the inferior aspect of the calcaneal tuberosity which could represent postoperative versus evolving osteomyelitis. These findings are new compared with the previous exam. IMPRESSION: No definite cortical destruction, questionable lucency and small osseous fragments. MR or 3-phase bone scan imaging could be performed to further evaluate.
[2016-10-20 23:04] VITALS: BP 154/99
[2016-10-21 06:30] VITALS: BP 153/84
--- NOTE | 2016-10-21 07:12 | PN- Housestaff ---
MARY LOU LARIOS,HENRIETTA 10/21/16 0712: Subjective Follow-up For: Bilateral leg weeping wounds; cellulitis; left heel ulcer. Complaints: pain over legs Subjective: I followed up and examined the patient today. She is resting in bed, appears in mild distress due to pain in her legs. She mentioned that her pain is not completely control. Her blood pressure is still running high, this morning at 153/84, rest of vitals are normal. No overnight issues. Legs remain elevated. Review of Systems Constitutional: Reports: no symptoms. Objective Last 24 Hrs of Vital Signs/I&O Vital Signs Date Time Temp Pulse Resp B/P B/P Pulse O2 O2 Flow FiO2 Mean Ox Delivery Rate 10/21 1446 93 Nasal 2.0L Cannula 10/21 1420 Nasal 1.0L Cannula 10/21 1411 98.0 71 20 154/86 90 Nasal 1.0L Cannula 10/21 1345 Nasal 1.0L Cannula 10/21 0914 93 Nasal 1.0L Cannula 10/21 0911 97 Nasal 3.0L Cannula 10/21 0907 68 140/80 10/21 0907 68 140/80 10/21 0800 Nasal 3.0L Cannula 10/21 0630 97.9 64 20 153/84 92 Nasal 3.0L Cannula 10/21 0000 Nasal 3.0L Cannula 10/20 2304 98.5 67 20 154/99 97 Nasal 3.0L Cannula 10/20 2012 98.7 97 20 110/58 98 Room Air Intake & Output 10/21 1600 10/21 0800 10/21 0000 Intake Total 400 20 Output Total Balance 400 20 Intake, IV 0 20 Intake, Oral 400 Number 0 Bowel Movements Physical Exam General Appearance: Alert, Oriented X3, Cooperative, Mild Distress (due to pain) Other Physical Findings: Skin skin lesions consistent with chronic venous statis in b/l lower ext. with thick scaly lesions. Scales are much reduced from the nursing and wound care this morning. HEENT Atraumatic, Mucous Membr. moist/pink Neck Supple Cardiovascular Regular Rate, Normal S1, Normal S2, No Murmurs Lungs Clear to Auscultation Abdomen Soft, No Tenderness, Positive Bowel Sounds Extremities No Clubbing, No Cyanosis, Bilateral Lower Extremities with Swelling (decreasing) and Serous Drainage, Skin Changes Consistent with Chronic Venous Stasis and Thick Scale, One Ulcer Noted at the base of left heel, Right Knee Swelling, Bilateral Toenails with severe Onychomycosis and toe deformity. Current Medications: Current Medications Sig/Ora Start time Last Medication Dose Route Stop Time Status Admin Acetaminophen 650 MG Q6P PRN 10/20 0100 AC PO Acetaminophen/ 2 TAB Q6P PRN 10/20 1930 AC 10/21 Hydrocodone Bitart PO 0609 Acetaminophen/ 1 TAB Q6P PRN 10/20 0100 DC 10/20 Hydrocodone Bitart PO 1903 Amlodipine Besylate 10 MG DAILY 10/20 0100 AC 10/21 PO 0907 Cefazolin Sodium 1,000 MG Q8 10/20 06 AC 10/21 IV 1358 Heparin Sodium 5,000 UNIT Q8 10/20 06 AC 10/21 (Porcine) SC 1358 Hydromorphone HCl 0.4 MG Q6P PRN 10/21 1000 AC 10/21 IV 1126 Ketorolac 30 MG .STK-MED ONE 10/20 2129 DC Tromethamine IM 10/20 2130 Ketorolac 15 MG Q6P PRN 10/20 0100 DC 10/21 Tromethamine IV 0752 Lisinopril 40 MG DAILY 10/20 0315 AC 10/21 PO 0907 Methadone HCl 55 MG DAILY 10/20 1000 AC 10/21 PO 0907 Nicotine 21 MG DAILY 10/20 1439 AC 10/21 TOP 0907 Potassium Chloride 10 MEQ DAILY 10/20 1000 AC 10/21 PO 0907 Last 24 Hrs of Lab/Chad Results Last 24 Hrs of Labs/Mics: Laboratory Tests 10/21/16 0635: CBC w Diff NO MAN DIFF REQ, RBC 4.99, MCV 81.3, MCH 24.6 L, RDW 16.7 H, MPV 8.5, Gran % 53.9, Lymphocytes % 33.4, Monocytes % 9.5 H, Eosinophils % 2.8, Basophils % 0.4, Absolute Granulocytes 3.2, Absolute Lymphocytes 2.0, Absolute Monocytes 0.6, Absolute Eosinophils 0.2, Absolute Basophils 0, PUBS MCHC 30.3 L 10/20/16 1700: Lymphocytes 22, % Normal PMNs 30, Misc Hematology Test , Fluid WBC 203 H, Fld Total RBCs Counted 411 H Microbiology 10/20 170 BODY FLUID: Body Fluid Culture - RES 10/20 1699 BODY FLUID: Gram Stain - RES Assessment/Plan Assessment: 61-year-old female with past medical history of chronic venous insufficiency and nonhealing ulcers of both lower extremities, peripheral vascular disease, hepatitis C, IV drug abuse, is currently being managed in the general medical floor for the following issues: #Possible cellulitis DVT of lower ext ruled out by b/l Doppler studies. Clinically, appeared to be cellulitis thus was placed on cefazolin 1 g every 8 hours IV. We'll continue the antibiotic pending blood cultures. One set of blood culture collected on is growing gram-positive david today. Continue leg elevation. #Chronic nonhealing ulcers, including over heel Patient has chronic nonhealing ulcers, secondary to peripheral vascular disease and chronic venous stasis. Dr. Cross has been consulting on the patient in the past. Awaiting recommendations. #Right knee swelling/pain Patient has long-standing history of right knee osteoarthritis but her swelling and pain has worsened in the last month. X-ray of her right knee showed effusion on the suprapatellar space which was drained and sent for studies by Orthopedic surgeon Dr Mason. Negative for septic arthritis. Osteoarthritis with effusion is the likely diagnosis. This can be followed up as an outpatient basis. #Right lung mass Her right lung mass has increased significantly from 2-8 cm over the course of one year, for which she was supposed to follow up with Dr. Romo. She only saw Dr. Romo once, when she was recommended a PET scan by him. She did not receive PET scan, and nor did follow up with a lung doctor. This time, her right lung lesion appears to be much bigger in size, raising suspicion of malignancy. She understands the condition, but is still not fully motivated to comply for that reason. Pulmonary consultation requested, appreciated. * Per pulmonary consultation, patient is getting CAT scan of chest with IV contrast to assess for the tumor, possible biopsy later. #Pain management: As necessary. #Diet regular diet #DVT prophylaxis with SQ Heparin #CODE STATUS: Full code Problem List: 1. Cellulitis of right lower extremity 2. Cellulitis of left lower extremity 3. Skin ulcer 4. Mass of right lung 5. Fungal skin infection 6. Opioid dependence 7. PVD (peripheral vascular disease) 8. Chronic venous stasis dermatitis of both lower extremities 9. History of hepatitis C 10. Lung nodule Pain Ratin Pain Location: b/l legs/feet Pain Goal: Pain 4 or less Pain Plan: prn, pain meds increased to dilaudid Tomorrow's Labs & Rationales: CBC for low plt, and BEP for high BUN and BUN/cr ratio f/u VASU LARIOSZI 10/21/16 1204: Attending Review Statement Attending Statement Attending MD Statement: examined this patient, discuss w/resident/PA/GOVERNMENT GUARD, agreed w/resident/PA/GOVERNMENT GUARD, reviewed EMR data (avail), discussed with nursing, discussed with case mgmt, reviewed images, amended to note Attending Assessment/Plan: Patient seen and examined, still complaining of significant amount of pain in bilateral lower extremities. I discussed with patient about her lung mass which and distends. She said that she was upstairs to hard for her to come downstairs for follow-up with a doctor. She continues to smoke and understands that smoking is putting her at a very high risk of developing lung cancer. She still does not want to quit smoking because according to her "everybody in the house smokes". Patient is originally admitted with cellulitis of bilateral lower extremities. Had arthrocentesis of the right knee done yesterday but Dr. Mason. Fluid was not consistent with septic joint. No crystal studies were sent. Patient is currently getting treated with IV cefazolin. We'll continue that and follow-up on cultures. Podiatry has been consulted. Wound care has been consulted. Please follow recommendations. Appreciate pulmonology input, outpatient workup including PET scan and CT-guided biopsy was recommended by Dr. Ramos. Patient was already on Vicodin for her pain management. We have stopped her Toradol and added low-dose IV Dilaudid as her pain was not controlled and she was going 8-10 on the pain score. DVT prophylaxis: Heparin subcutaneous. Please obtain PT evaluation.
[2016-10-21 08:25] LABS: ABSOLUTE BASOPHIL COUNT 0 /CUMM (0.0-0.2); ABSOLUTE EOSINOPHIL COUNT 0.2 /CUMM (0.0-0.7); ABSOLUTE GRANULOCYTE CT 3.2 /CUMM (1.4-6.5); ABSOLUTE MONOCYTE COUNT 0.6 /CUMM (0.10-0.60); BASOPHIL % 0.4 % (0.0-2.0); EOSINOPHIL % 2.8 % (0-5); GRANULOCYTE % 53.9 % (42.2-75.2); HEMATOCRIT 40.6 % (37-47); MEAN CORPUSCULAR HGB 24.6 PG (27.0-31.0); MEAN CORPUSCULAR HGB CONC 30.3 G/DL (33.0-37.0); MEAN CORPUSCULAR VOLUME 81.3 FL (81.0-99.0); MEAN PLATELET VOLUME 8.5 FL (7.4-10.4); PLATELET COUNT 172 /CUMM (130-400); RBC DISTRIBUTION WIDTH 16.7 % (11.5-14.5); RED BLOOD CELL CT 4.99 /CUMM (4.20-5.40); WHITE BLOOD CELL COUNT 5.9 /CUMM (4.8-10.8)
--- NOTE | 2016-10-21 10:07 | Discharge Summary ---
Visit Information Visit Dates Admission Date: 10/19/16 Discharge Date: 11/07/2016 Hospital Course Course Attending Physician: AISLINN VILLARREAL MD Primary Care Physician: NIC PEARCE MD Hospital Course: 61 yo F smoker, with h/o HTN, previous IVDA now on methadone maintenance, Hep C (?untreated), venous insufficiency, chronic wounds of both LE with recurrent cellulitis, chronic nonhealing left heel ulcer s/p skin graft (2016), who never followed up with Dr. Cross, is here with c/o bilateral LE erythema, pain, swelling and recently noted serous discharge from right lower extremity. She is noncompliant with her BP meds. Patient was admitted and treated for the following medical problems/findings. List of active problems 1. Osteomyelitis of left heel MRI done on 10/22/16 showed osteomyelitis of left heel. Graham Cross DPM, web site developer, suggested holding antibiotics, pending further decision for left heel debridement, biopsy and culture; and a ID consult request. Per ID consult, antibiotics should be stopped ideally for at least 72 hours to get a good yield of bacteria from the bone culture, but given the short duration of exposure, she can go for surgery after 48 hrs as well. by podiatery service. Bone debridement on 10/28/2016 was done and results from the OR tissues were sent to guide the antibiotic therapy. Samples grew STAPH COAGULASE NEGATIVE and blood Cx grew Diphtheroids. Patient was kept off antibiotics. * Con't follow up with wound care and podiatry * Con't to follow off antibiotics 2. right middle lobe mass: On October 21 pulmonology consult was requested for chrnic cough. cxr was obtained that showed growing lung mass from 2 cm on previous CXr to 8 cm to recent CXR. Considering her prololnged Hx of heavy smoking and active smoking, pulmonology consultanat request a CT-scan guided biopsy of the lung mass. On10/24/2016 patient underwent the needle biopsy of the lung under Ct giude, which was complicated with which was complicated by hemorrhage and hemothorax and hypoxia. Patient was trasfered to ICU for further management from 10/24-to-10/26. During her ICU stay patient was mainly treated with pain management management medication for right sidede pluritic chest pain and also hypoxia. Patient remained stable. On 26 of October, repeat CXray showed stable hemothorax and patient was down graded to GM floor. Her clinical status rmained stable but failry serious, considering her multiple co-morbid conditions and newly discovered lung mass. 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 Patient was seen by hemotologist/ oncologist on 10/27/2016 who requested brain MRI for staging of the CA and R/O brain meetastasis. Patient remained stable and on 10/28 she underwent bone debridment of the the Left lower extremities with web site developer. Per oncology recommendation MRI of the brain was obtained (on ), which was remarkable for " Scattered enhancing brain parenchymal lesions as described with associatedvasogenic edema. No significant mass effect or midline shift. Imaging findings are most suspicious for intracranial metastatic disease". pATIENT WAS clinically stage IV considering sinclair to brain. Samples from lung biopsy was sent to [place] for pathology re-confirmation, which came back + for small cell carcinoma. The goal of care and prognosis was discussed with the daughter and the patient. Patient decided to persue full treatement, which consisits of chemoradiation. On 10/30 patient was assessed by STEPHANIE LARIOS,MARY GRACE Ahmadi MD, radio-oncologist. On 10/31 patient was taken for, accordingly, whole brain radiation [address] stimulation in [facility]. Has port placed for chemo on 11/05. * Follow up with oncologist for chemotherapy * Follow up with radiation-onc for radiation Still requiring O2 and should stay on O2. 3. Right knee swelling/pain: Osteoarthritis vs pseudogout Patient has long-standing history of right knee osteoarthritis but her swelling and pain has worsened in the last month. X-ray of her right knee showed effusion on the suprapatellar space which was drained and sent for studies by Orthopedic surgeon Dr Mason. Negative for septic arthritis. Osteoarthritis with effusion, or pseudogout is the likely diagnosis. This can be followed up as an outpatient basis. * Follow up outpatient. Chronic methadone dependence: Continue Methadone at home dose. HTn: was uncontrolld initially, later improved with adjustment of antihypertensive regimen. Complications: none Allergies: Coded Allergies: NO KNOWN ALLERGIES (01/20/11) Disposition Summary Disposition Principal Diagnosis: SCC stage IV Additional Diagnosis: opiate dependence Uncontrolled HTN Discharge Disposition: SNF Discharge Instructions General Discharge Information Code Status: Full Code Patient's Diet: HEART HEALTHY DIET Patient's Activity: TOLERATED Follow-Up Instructions/Appts: WITH Dr. Cross Follow up with Dr. Florinda Graf MD Follow up Dr. Romo Medications at Discharge Discharge Medications: Continue taking these medications: Methadone HCl (Methadone HCl) 5 MG/5 ML SOLUTION 55 Milligram ORAL DAILY Comments: Last Taken: 11/07/16 Time: 10AM Lisinopril (Lisinopril) 40 MG TABLET 1 Tablet ORAL DAILY Comments: Last Taken: 11/07/16 Time: 10AM Amlodipine Besylate (Amlodipine Besylate) 10 MG TABLET 1 Tablet ORAL DAILY Comments: Last Taken: 11/07/16 Time: 10AM Potassium Chloride (Klor-Con Sprinkle) 10 MEQ CAPSULE.ER 10 Millequivalent ORAL DAILY Qty = 30 Comments: Last Taken: 11/07/16 Time: 10AM Prochlorperazine Maleate (Compazine) 10 MG TABLET 10 Milligram ORAL EVERY 8 HOURS as needed for NAUSEA Qty = 30 Comments: NOT GIVEN IN HOSPITAL Start taking the following new medications: Insulin Regular, Human (NovoLIN R) 100 UNIT/ML VIAL 0 Units Inject into fatty tissue EVERY SIX HOURS as needed for STEROID INDUCED HYPERGLYCEMIA Qty = 1 Refills = 3 Instructions: BEFORE MEALS Blood Insulin Sugar Units <80 0 81-100 0 101-200 1 201-250 2 251-300 3 301-350 4 351-400 5 >400 Call Doctor AT BEDTIME Blood Insulin Sugar Units <80 0 81-100 0 101-200 0 201-250 1 251-300 2 301-350 3 351-400 4 >400 Call Doctor Comments: Last Taken: 11/07/16 Time: 1 PM Chlorthalidone (Chlorthalidone) 25 MG TABLET 12.5 Milligram ORAL DAILY Qty = 30 No Refills Comments: Last Taken: 11/07/16 Time: 10AM Hydrocodone/Acetaminophen (Hydrocodon-Acetaminophen 5-325) 5 MG-325 MG TABLET 2 Tablet ORAL EVERY SIX HOURS NEEDED as needed for PAIN SCALE 4-6 ( MODERATE) Qty = 24 No Refills Comments: Last Taken: 11/07/16 Time: 1245 PM Dexamethasone (Dexamethasone) 4 MG TABLET 4 Milligram ORAL SEE ADMIN Qty = 30 No Refills Instructions: On Take 11/07-11/10 3 TAB. FOR 12 MG/DAY 11/11-11/15 2 TAB. FOR 8 MG/DAY 11/16-11/20 1 TAB. FOR 4 MG/DAY 11/21-11/25 EVERY OTHER DAY 1 TAB. FOR 4 MG EVERY OTHER DAY THEN STOP Comments: Last Taken: 11/07/16 Time: 1400 Copies To: NIC PEARCE MD Attending Review Statement Documenting Attending: AISLINN VILLARREAL MD Other Findings: PATIENT: CHUNG KRISHNA PRESENT AGE: 61 PATIENT ACCOUNT NO: [id number] : 54 LOCATION: 2NA ORDERING PHYSICIAN: HENRIETTA BARRETO MD SERVICE DATE: 10/29/16- EXAM TYPE: MRI - MRI-HEAD W & W/O PRO EXAMINATION: MR BRAIN WITHOUT AND WITH CONTRAST CLINICAL INFORMATION: Rule out metastatic disease from lung cancer. COMPARISON: None. TECHNIQUE: Multiplanar, multisequence imaging of the brain was performed before and after the intravenous administration of 7.5 mL of Gadavist. The study is limited due to patient motion artifacts. FINDINGS: Scattered enhancing lesions are present in the brain parenchyma, most suspicious for metastatic disease. There is a 1.2 cm cortically based lesion in the right occipital lobe with mild surrounding vasogenic edema. A 1 cm lesion is present in the subcortical white matter of the posterior right parietal lobe with mild vasogenic edema. There is a dominant 1.3 x 1.5 cm enhancing mass in the premotor cortex of the right frontal lobe at the high convexity with a moderate amount of surrounding edema. There is a small 0.3 cm lesion anterior right frontal lobe subcortical white matter. A 0.3 cm enhancing lesion is visible in the right aspect of the posterior body of the corpus callosum. There is a 0.7 cm lesion in the subcortical frontal lobe. Additional small subtle lesions may be present, though assessment is limited by motion. No diffusion abnormalities are identified to suggest an acute or subacute infarct. The ventricles are normal in size. No significant mass effect or midline shift is seen. Nonspecific mild white matter signal changes are noted. No extra-axial fluid collections are seen. The brainstem and cerebellum are normal. On postcontrast imaging, there is no abnormal leptomeningeal enhancement. There is a mild amount of susceptibility artifact in the dominant right frontal lobe lesion which may be due to intratumoral blood products. The craniovertebral junction, marrow signal, and midline structures are normal. The major intracranial flow voids at the level of the jamul of [place] are preserved. The dural venous sinus flow voids are maintained. The mastoid air cells and paranasal sinuses are well aerated. IMPRESSION: Scattered enhancing brain parenchymal lesions as described with associated vasogenic edema. No significant mass effect or midline shift. Imaging findings are most suspicious for intracranial metastatic disease. DICTATED BY: LIBRADO BALLARD MD DATE/TIME DICTATED:10/29/16931 MARINE CARGO SPECIALIST:OLIVIER DATE/TIME TRANSCRIBED:10/29/16931 CONFIDENTIAL, DO NOT COPY WITHOUT APPROPRIATE AUTHORIZATION. <Electronically signed in Other Vendor System> SIGNED BY: LIBRADO BALLARD MD [id number]
--- NOTE | 2016-10-21 10:55 | Cons- Pulmonary ---
General Information and HPI Consulting Request Date of Consult: 10/21/16 Requested By: cody Reason for Consult: Right lung mass History of Present Illness: Patient is 61-year-old woman with COPD actively smoking admitted for ongoing issues related to chronic lower extremity ulceration. In 2016 she had a 2.2 cm right middle lobe mass. Chest x-ray today now shows it to have increased to approximately 8 cm. Patient has a dry cough but denies hemoptysis. Patient was to have had a PET scan which does not appear to have been performed. Patient reports that she will be going to short-term rehabilitation. Allergies/Medications Allergies: Coded Allergies: NO KNOWN ALLERGIES (01/20/11) Home Med List: Amlodipine Besylate 10 MG TABLET 1 TAB PO DAILY HTN (Reported) Lisinopril 40 MG TABLET 1 TAB PO DAILY HTN (Reported) Methadone HCl 5 MG/5 ML SOLUTION 55 MG PO DAILY MENTAL HEALTH (Reported) Potassium Chloride (Klor-Con Sprinkle) 10 MEQ CAPSULE.ER 10 MEQ PO DAILY SUPPLEMENT (Reported) Prochlorperazine Maleate (Compazine) 10 MG TABLET 10 MG PO Q8 PRN NAUSEA ( Reported) Review of Systems Review of Systems Constitutional: Denies: chills, fever. Cardiovascular: Denies: chest pain. Respiratory: Reports: cough, short of breath. Denies: hemoptysis. GI: Denies: abdominal pain, diarrhea, melena. Past History Travel History Traveled to [place] past 21 day No Medical History Blood Transfusion Hx: No Neurological: NONE EENT: NONE Cardiovascular: chronic venous insuff, hypertension, PVD Respiratory: COPD Gastrointestinal: NONE Hepatic: hepatitis C Renal: NONE Musculoskeletal: NONE Psychiatric: opioid dependence (maintained on methadone) Endocrine: NONE Blood Disorders: NONE Cancer(s): NONE PROGRAM/MUSIC DIRECTOR/Reproductive: NONE Other Medical Hx: non-healing ulcers of bilateral lower extremities Surgical History Surgical History: appendectomy, cholecystectomy, hip replacement (left), left lower extremity skin graft placement right lower extremity I&D left lower extremity I&D Family History Relations & Conditions If Any: FATHER (Diabetes, TIA). . MOTHER ([place], TIA). . Relation not specified for: FH: hypertension Heart attack Psychosocial History Where Do You Live? Home Who Do You Live With? child Services at Home: Home Health Aide Primary Language: Paraguayan Smoking Status: Current Some Day Smoker (Smokes 1/2 PPD, 24 Pack Years) ETOH Use: denies use (Hx of IVDU,Last Use 20 Yrs Ago) Illicit Drug Use: denies illicit drug use (history of IVDU) Functional Ability ADLs Independent: dressing, eating, toileting, bathing. Ambulation: walker IADLs Independent: shopping, housework, finances, food prep, telephone, transportation , medication admin. Exam & Diagnostic Data Last 24 Hrs of Vital Signs/I&O Vital Signs Date Time Temp Pulse Resp B/P B/P Pulse O2 O2 Flow FiO2 Mean Ox Delivery Rate 10/21 0914 93 Nasal 1.0L Cannula 10/21 0911 97 Nasal 3.0L Cannula 10/21 0907 68 140/80 10/21 0907 68 140/80 10/21 0800 Nasal 3.0L Cannula 10/21 0630 97.9 64 20 153/84 92 Nasal 3.0L Cannula 10/21 0000 Nasal 3.0L Cannula 10/20 2304 98.5 67 20 154/99 97 Nasal 3.0L Cannula 10/20 2012 98.7 97 20 110/58 98 Room Air 10/20 1433 98.9 63 20 130/74 93 Nasal 3.0L Cannula Intake & Output 10/21 1600 10/21 0800 10/21 0000 Intake Total 20 Output Total Balance 20 Intake, IV 20 Oxygen saturation 1 L 93% exam for chest shows decreased breath sounds are no wheezes cardiac exam shows regular S1 and S2 abdomen is soft nontender. Extremities have edema and weeping wounds Last 48 Hrs of Labs/Chad: Laboratory Tests 10/21/16 0635: CBC w Diff NO MAN DIFF REQ, RBC 4.99, MCV 81.3, MCH 24.6 L, RDW 16.7 H, MPV 8.5, Gran % 53.9, Lymphocytes % 33.4, Monocytes % 9.5 H, Eosinophils % 2.8, Basophils % 0.4, Absolute Granulocytes 3.2, Absolute Lymphocytes 2.0, Absolute Monocytes 0.6, Absolute Eosinophils 0.2, Absolute Basophils 0, PUBS MCHC 30.3 L 10/20/16 1700: Lymphocytes 22, % Normal PMNs 30, Misc Hematology Test , Fluid WBC 203 H, Fld Total RBCs Counted 411 H 10/19/16 2100: Anion Gap 7, Estimated GFR > 60, BUN/Creatinine Ratio 26.3 H, Glucose 115 H, Calcium 8.6, Total Bilirubin 0.4, AST 25, ALT 33, Alkaline Phosphatase 52, C- Reactive Prot, Quant < 0.5, Total Protein 7.3, Albumin 3.1 L, Globulin 4.2, Albumin/Globulin Ratio 0.7 L, CBC w Diff NO MAN DIFF REQ, RBC 5.14, MCV 79.7 L , MCH 24.5 L, RDW 15.9 H, MPV 8.1, Gran % 60.0, Lymphocytes % 29.4, Monocytes % 9.2, Eosinophils % 1.1, Basophils % 0.3, Absolute Granulocytes 4.0, Absolute Lymphocytes 2.0, Absolute Monocytes 0.6, Absolute Eosinophils 0.1, Absolute Basophils 0, PUBS MCHC 30.7 L, ESR Westergren 31 H, Urinalysis LIGHT H, Urine Color YEL, Urine Clarity CLEAR, Urine pH 6.0, Ur Specific Minerva 1.025, Urine Protein >=300 H, Urine Ketones NEG, Urine Nitrite NEG, Urine Bilirubin NEG, Urine Urobilinogen 0.2, Ur Leukocyte Esterase NEG, Ur Microscopic SEDIMENT EXAMINED, Urine RBC RARE, Ur Epithelial Cells FEW, Urine Hemoglobin SMALL H, Urine Glucose NEG Assessment/Plan Impression/Plan: 61-year-old actively smoking COPD apparently not follow-up with a 2 cm right lung nodule which now is an 8 cm mass worrisome for primary lung cancer. Patient will need PET scanning and biopsy. In view of its size CT-guided needle biopsy would be appropriate. Recommendations: Recommend follow-up with Dr. Romo after discharge to short-term rehabilitation for PET scan and CT guided biopsy. Would repeat CT scan of the chest in preparation for biopsy. Patient is been counseled regarding the need for smoking cessation Consult Acknowledgment - Thank you for your consult request.
--- NOTE | 2016-10-21 12:13 | PN- Orthopedic ---
Subjective Subjective: - Objective Vital Signs and I&Os Vital Signs Date Time Temp Pulse Resp B/P B/P Pulse O2 O2 Flow FiO2 Mean Ox Delivery Rate 10/21 0914 93 Nasal 1.0L Cannula 10/21 0911 97 Nasal 3.0L Cannula 10/21 0907 68 140/80 10/21 0907 68 140/80 10/21 0800 Nasal 3.0L Cannula 10/21 0630 97.9 64 20 153/84 92 Nasal 3.0L Cannula 10/21 0000 Nasal 3.0L Cannula 10/20 2304 98.5 67 20 154/99 97 Nasal 3.0L Cannula 10/20 2012 98.7 97 20 110/58 98 Room Air 10/20 1433 98.9 63 20 130/74 93 Nasal 3.0L Cannula Intake & Output 10/21 1600 10/21 0800 10/21 0000 10/20 1600 10/20 0800 10/20 0000 Intake Total 20 500 200 100 Output Total 500 Balance 20 0 200 100 Intake, IV 20 100 Intake, Oral 500 200 Number 0 Bowel Movements Output, Urine 500 Patient 160 lb 160 lb 160 lb Weight Weight Reported by Patient Estimated Measurement Method Assessment/Plan Assessment/Plan Right knee pain - osteoarthrisits Tap negative. No orthopaedic intervention at this time. Can treat with antiinflammatories. Follow up as needed.
[2016-10-21 14:11] VITALS: BP 154/86
--- NOTE | 2016-10-21 20:19 | CT SCAN REPORT ---
EXAMINATION: CT CHEST WITH CONTRAST CLINICAL INFORMATION: Chronic cough in a smoker with increasing right middle lobe mass on plain films. COMPARISON: CT dated 11/16/2015. TECHNIQUE: Multidetector volumetric CT imaging of the chest was obtained after the administration of 95 mL of Optiray 320 intravenous contrast without immediate adverse reactions. Axial MIP volume rendering provided. Sagittal and coronal reformatted images were obtained. DLP: 189 mGy-cm FINDINGS: The right middle lobe mass has increased in size currently measuring 7 cm in maximal AP dimension by 6 cm in maximal transverse dimension with surrounding moderate groundglass opacity at the remaining right middle lobe which is is nonspecific and may represent evolving infiltrate and/or atelectasis in the proper clinical setting. Lymphangitic spread of tumor is not entirely excluded. Clinical correlation recommended. There is new subcarinal lymphadenopathy measuring 3 cm AP dimension by 4.4 cm transverse dimension on image 26 series 2. A smaller right hilar node is also suspected. Findings are highly concerning for malignancy. There is no evidence of other suspicious appearing pulmonary nodules or nodules to suggest metastatic disease. Imaging through the heart suggests circumferential right ventricular hypertrophy. No focal destructive or sclerotic lesions are identified to suggest metastatic osseous lesions. AXILLA: No lymphadenopathy is identified. There is nonspecific soft tissue stranding involving the left breast compared with the right. Clinical correlation recommended. UPPER ABDOMEN: No evidence of metastatic disease. Liver and spleen appear at least mildly enlarged. OSSEOUS STRUCTURES: No aggressive appearing osseous lesions to suggest metallic metastatic disease. There are advanced degenerative changes in the left shoulder. IMPRESSION: 1. There is a right middle lobe mass which is increased in size compared with the previous examination with nonspecific surrounding groundglass opacity, question inflammatory or atelectasis versus lymphangitic spread of tumor. 2. Subcarinal and right hilar adenopathy concerning for metastatic disease. 3. Asymmetry in the breast parenchyma on the left more than right. This is also a new finding. 4. Circumferential ventricular hypertrophy, question cardiomyopathy.
[2016-10-21 23:18] VITALS: BP 155/85
--- NOTE | 2016-10-22 06:26 | PN- Housestaff ---
MARY LOU LARIOS,HENRIETTA 10/22/16 0626: Subjective Follow-up For: Bilateral leg weeping wounds; cellulitis; left heel ulcer; right lung mass. Complaints: no complaints Subjective: I followed up and examined the patient today. She is resting comfortably in her bed, not in distress, does not offer any complaints. Vitals have been stable overnight. I spoke at length about her right lung mass that has increased in size significantly since last year. Patient seems to understand the situation, but somewhat not interested in pursuing a follow-up. HTN at 0840 hrs: I was called by nursing staff because patient blood pressure was 200/100. She was asymptomatic, and her repeat blood pressure was still high at 170/92, she was still asymptomatic. After discussing with attending, we added a blood pressure medication chlorthalidone 12.5 mg PO daily starting today. Review of Systems Constitutional: Reports: no symptoms. Objective Last 24 Hrs of Vital Signs/I&O Vital Signs Date Time Temp Pulse Resp B/P B/P Pulse O2 O2 Flow FiO2 Mean Ox Delivery Rate 10/22 1314 94 Nasal 2.0L Cannula 10/22 0842 80 190/100 10/22 0841 80 190/100 10/22 0800 94 Nasal 2.5L Cannula 10/22 0630 98.2 70 20 175/80 96 Nasal 2.0L Cannula 10/22 0000 95 Nasal 2.0L Cannula 10/21 2318 98.6 68 18 155/85 95 Nasal 2.0L Cannula 10/21 1931 94 Nasal 2.0L Cannula Intake & Output 10/22 1600 10/22 0800 10/22 0000 Intake Total 120 725 Output Total 400 Balance -400 120 725 Intake, Oral 120 725 Number 2 Bowel Movements Output, Urine 400 Physical Exam General Appearance: Alert, Oriented X3, Cooperative, No Acute Distress Other Physical Findings: Skin skin lesions consistent with chronic venous statis in b/l lower ext. SCALES ARE SIGNIFICANTLY LESS TODAY DUE TO WOUND CARE AND NURSING CARE. HEENT Atraumatic, Mucous Membr. moist/pink Neck Supple Cardiovascular Regular Rate, Normal S1, Normal S2, No Murmurs Lungs Clear to Auscultation, except for occ crepts over right lung, no wheeze though, pt NOT in resp distress. Abdomen Soft, No Tenderness, Positive Bowel Sounds Extremities No Clubbing, No Cyanosis, Bilateral Lower Extremities with Swelling (decreasing) and Serous Drainage, Skin Changes Consistent with Chronic Venous Stasis and Thick Scale, One Ulcer Noted at the base of left heel, Right Knee Swelling, Bilateral Toenails with severe Onychomycosis and toe deformity. Current Medications: Current Medications Sig/Ora Start time Last Medication Dose Route Stop Time Status Admin Acetaminophen 650 MG Q6P PRN 10/20 0100 AC PO Acetaminophen/ 2 TAB Q6P PRN 10/20 1930 AC 10/22 Hydrocodone Bitart PO 1624 Albuterol Sulfate 3 ML Q4P PRN 10/21 1930 AC 10/21 INH 1928 Amlodipine Besylate 10 MG DAILY 10/20 0100 AC 10/22 PO 0841 Cefazolin Sodium 1,000 MG Q8 10/20 0600 AC 10/22 IV 1616 Chlorthalidone 12.5 MG DAILY 10/22 1350 AC 10/22 PO 1616 Heparin Sodium 5,000 UNIT Q8 10/20 0600 AC 10/22 (Porcine) SC 1616 Hydromorphone HCl 2 MG Q6P PRN 10/22 1430 AC PO Hydromorphone HCl 0.4 MG Q4P PRN 10/21 1615 DC 10/22 IV 0913 Lisinopril 40 MG DAILY 10/20 0315 AC 10/22 PO 0842 Methadone HCl 55 MG DAILY 10/20 1000 AC 10/22 PO 1102 Nicotine 21 MG DAILY 10/20 1439 AC 10/22 TOP 1102 Potassium Chloride 10 MEQ DAILY 10/20 1000 AC 10/22 PO 1101 Last 24 Hrs of Lab/Chad Results Last 24 Hrs of Labs/Mics: Laboratory Tests 10/22/16 0630: Anion Gap 1 L, Estimated GFR > 60, BUN/Creatinine Ratio 22.9, CBC w Diff NO MAN DIFF REQ, RBC 5.16, MCV 80.5 L, MCH 24.6 L, RDW 17.0 H, MPV 8.4, Gran % 60.5, Lymphocytes % 28.3, Monocytes % 8.3, Eosinophils % 2.6, Basophils % 0.3, Absolute Granulocytes 3.3, Absolute Lymphocytes 1.5, Absolute Monocytes 0.4, Absolute Eosinophils 0.1, Absolute Basophils 0, PUBS MCHC 30.5 L Assessment/Plan Assessment: 61-year-old female with past medical history of chronic venous insufficiency and nonhealing ulcers of both lower extremities, peripheral vascular disease, hepatitis C, IV drug abuse, is currently being managed in the general medical floor for the following issues: #Osteomyelitis of left heel MRI done today shows osteomyelitis of left heel. Patient is currently on IV antibiotics. Patient will need possible debridement/bone biopsy and culture. However question remains whether antibiotics should be stopped for at least 72 hours to get a good yield of bacteria from the bone culture or to continue it. Dr. Cross from podiatry services on board, will give us the recommendations. #Possible cellulitis DVT of lower ext ruled out by b/l Doppler studies. Clinically, appeared to be cellulitis thus was placed on cefazolin 1 g every 8 hours IV. We'll continue the antibiotic pending blood cultures. One set of blood culture collected on grew Diptheroids, possible a contaminant. Continue leg elevation. #Chronic nonhealing ulcers Patient has chronic nonhealing ulcers, secondary to peripheral vascular disease and chronic venous stasis. Wound nurse has been taking care of the ulcers. Appreciate the input. #Right knee swelling/pain Patient has long-standing history of right knee osteoarthritis but her swelling and pain has worsened in the last month. X-ray of her right knee showed effusion on the suprapatellar space which was drained and sent for studies by Orthopedic surgeon Dr Mason. Negative for septic arthritis. Osteoarthritis with effusion is the likely diagnosis. This can be followed up as an outpatient basis. #Right lung mass Her right lung mass has increased significantly from 2-8 cm over the course of one year, for which she was supposed to follow up with Dr. Romo. She only saw Dr. Romo once, when she was recommended a PET scan by him. She did not receive PET scan, and nor did follow up with a lung doctor. This time, her right lung lesion appears to be much bigger in size, raising suspicion of malignancy. She understands the condition, but is still not fully motivated to comply for that reason. Pulmonary consultation requested, appreciated. * Per pulmonary consultation, patient got CAT scan of chest which shows progression of the mass, possibly malignant tumor, with lymphatic spread, along with interval breast size change. This finding has been shared with the patient, who understands the condition and agrees to follow up with Recovery Coordinator and get a biopsy of the tissue for further plan of care. However, she does not seem to be much concerned at this point. Will reassess her understanding the seriousness of the situation again. #Pain management: As necessary. #Diet regular diet #DVT prophylaxis with SQ Heparin #CODE STATUS: Full code Problem List: 1. Osteomyelitis 2. Cellulitis 3. PVD (peripheral vascular disease) 4. Chronic venous stasis dermatitis of both lower extremities 5. History of hepatitis C 6. Lung nodule 7. Ulcer 8. Uncontrolled hypertension Pain Ratin Pain Location: b/l feet Pain Goal: Pain 4 or less Pain Plan: prn Tomorrow's Labs & Rationales: - ZI LEONE MD 10/22/16 1306: Attending MD Review Statement Attending Statement Attending MD Statement: examined this patient, discuss w/resident/PA/CONTRACT ASSOCIATE MANAGER, agreed w/resident/PA/CONTRACT ASSOCIATE MANAGER, discussed with family, reviewed EMR data (avail), discussed with nursing, discussed with case mgmt, reviewed images, amended to note Attending Assessment/Plan: Patient seen and examined, claims that she feels the same. Her legs are less swollen and less erythematous but she claims that she's feeling the same. Still waiting for podiatry evaluation. BP was very high this am, pt recieved her BP meds. on exam; the b/l lower ext are less swolln and less erythematous. Laboratory Tests 10/22 0630 Chemistry Sodium (137 - 145 mmol/L) 139 Potassium (3.5 - 5.1 mmol/L) 4.7 Chloride (98 - 107 mmol/L) 98 Carbon Dioxide (22 - 30 mmol/L) 40 H Anion Gap (5 - 16) 1 L BUN (7 - 17 mg/dL) 16 Creatinine (0.5 - 1.0 mg/dL) 0.7 Estimated GFR (>60 ml/min) > 60 BUN/Creatinine Ratio (7 - 25 %) 22.9 Hematology CBC w Diff NO MAN DIFF REQ WBC (4.8 - 10.8 /CUMM) 5.4 RBC (4.20 - 5.40 /CUMM) 5.16 Hgb (12.0 - 16.0 G/DL) 12.7 Hct (37 - 47 %) 41.5 MCV (81.0 - 99.0 FL) 80.5 L MCH (27.0 - 31.0 PG) 24.6 L RDW (11.5 - 14.5 %) 17.0 H Plt Count (130 - 400 /CUMM) 171 MPV (7.4 - 10.4 FL) 8.4 Gran % (42.2 - 75.2 %) 60.5 Lymphocytes % (20.5 - 51.1 %) 28.3 Monocytes % (1.7 - 9.3 %) 8.3 Eosinophils % (0 - 5 %) 2.6 Basophils % (0.0 - 2.0 %) 0.3 Absolute Granulocytes (1.4 - 6.5 /CUMM) 3.3 Absolute Lymphocytes (1.2 - 3.4 /CUMM) 1.5 Absolute Monocytes (0.10 - 0.60 /CUMM) 0.4 Absolute Eosinophils (0.0 - 0.7 /CUMM) 0.1 Absolute Basophils (0.0 - 0.2 /CUMM) 0 PUBS MCHC (33.0 - 37.0 G/DL) 30.5 L A/P; 61 F with pmh sig for HCV 2/2 IVDA, PVD, ch methadone dependance, chronic venous insufficiency c/b non-healing ulcers of both lower extremities admitted with bilateral lower extremity cellulitis. She also has nonhealing wound at the left heel found to have enlarging lung mass on imaging and seen by pulmonology. At this point awaiting podiatry/wound care evaluation. Continue current antibiotics. Blood pressure was very high this morning. Patient received medications. These check repeat blood pressure and and if continues to remain high then add low- dose thiazide diuretics. We'll try to switch her IV Dilaudid to oral 2 mg every 6 hours when necessary. Pending podiatry eval, will make further decisions about patient's disposition plan. PT recommends rehabilitation. Podiatry does not recommend any further intervention patient be ready for discharge soon. Her pulmonology workup will be done as an outpatient which includes PET scan as well as lung biopsy. DVt px: hep sq.
[2016-10-22 06:30] VITALS: BP 175/80
--- NOTE | 2016-10-22 07:44 | PN- Pulmonary ---
Subjective HPI/Critical Care Issues: She feels well without complaints CAT scan reviewed which showed significant increase in right lung mass associated adenopathy Objective Current Medications: Current Medications Sig/Ora Start time Last Medication Dose Route Stop Time Status Admin Acetaminophen 650 MG Q6P PRN 10/20 0100 AC PO Acetaminophen/ 2 TAB Q6P PRN 10/20 1930 AC 10/22 Hydrocodone Bitart PO 0531 Albuterol Sulfate 3 ML Q4P PRN 10/21 1930 AC 10/21 INH 1928 Amlodipine Besylate 10 MG DAILY 10/20 0100 AC 10/21 PO 0907 Cefazolin Sodium 1,000 MG Q8 10/20 0600 AC 10/22 IV 0630 Heparin Sodium 5,000 UNIT Q8 10/20 0600 AC 10/22 (Porcine) SC 0527 Hydromorphone HCl 0.4 MG Q4P PRN 10/21 1615 AC 10/22 IV 0300 Hydromorphone HCl 0.4 MG Q6P PRN 10/21 1000 DC 10/21 IV 1126 Ketorolac 30 MG .STK-MED ONE 10/21 0751 DC Tromethamine IM 10/21 0752 Ketorolac 15 MG Q6P PRN 10/20 0100 DC 10/21 Tromethamine IV 0752 Lisinopril 40 MG DAILY 10/20 0315 AC 10/21 PO 0907 Methadone HCl 55 MG DAILY 10/20 1000 AC 10/21 PO 0907 Nicotine 21 MG DAILY 10/20 1439 AC 10/21 TOP 0907 Potassium Chloride 10 MEQ DAILY 10/20 1000 AC 10/21 PO 0907 Vital Signs & I&O Last 24 Hrs of Vitals and I&O: Vital Signs Date Time Temp Pulse Resp B/P B/P Pulse O2 O2 Flow FiO2 Mean Ox Delivery Rate 10/22 0000 95 Nasal 2.0L Cannula 10/21 2318 98.6 68 18 155/85 95 Nasal 2.0L Cannula 10/21 1931 94 Nasal 2.0L Cannula 10/21 1600 Nasal 2.0L Cannula 10/21 1446 93 Nasal 2.0L Cannula 10/21 1420 Nasal 1.0L Cannula 10/21 1411 98.0 71 20 154/86 90 Nasal 1.0L Cannula 10/21 1345 Nasal 1.0L Cannula 10/21 0914 93 Nasal 1.0L Cannula 10/21 0911 97 Nasal 3.0L Cannula 10/21 0907 68 140/80 10/21 0907 68 140/80 10/21 0800 Nasal 3.0L Cannula Intake & Output 10/22 0800 10/22 0000 10/21 1600 Intake Total 120 725 400 Output Total Balance 120 725 400 Intake, IV 0 Intake, Oral 120 725 400 Number 0 Bowel Movements Oxygen saturation on 2 L 95% exam for chest shows no focal wheezing Impression/Plan Impression/Plan Impression/Plan: 61-year-old actively smoking COPD apparently not follow-up with a 2 cm right lung nodule which now is an 8 cm mass worrisome for primary lung cancer. Patient will need PET scanning and biopsy. In view of its size CT-guided needle biopsy would be appropriate. The patient is to remain in the hospital CT-guided biopsy of right lung mass should easily afford a diagnosis. Note coagulation studies would need to be done prior to biopsy Recommendations: Recommend follow-up with Dr. Romo after discharge to short-term rehabilitation for PET scan and CT guided biopsy. Would repeat CT scan of the chest in preparation for biopsy. Patient is been counseled regarding the need for smoking cessation
[2016-10-22 08:08] LABS: ABSOLUTE BASOPHIL COUNT 0 /CUMM (0.0-0.2); ABSOLUTE EOSINOPHIL COUNT 0.1 /CUMM (0.0-0.7); ABSOLUTE GRANULOCYTE CT 3.3 /CUMM (1.4-6.5); ABSOLUTE LYMPH COUNT 1.5 /CUMM (1.2-3.4); ABSOLUTE MONOCYTE COUNT 0.4 /CUMM (0.10-0.60); BASOPHIL % 0.3 % (0.0-2.0); EOSINOPHIL % 2.6 % (0-5); GRANULOCYTE % 60.5 % (42.2-75.2); HEMATOCRIT 41.5 % (37-47); MEAN CORPUSCULAR HGB 24.6 PG (27.0-31.0); MEAN CORPUSCULAR HGB CONC 30.5 G/DL (33.0-37.0); MEAN CORPUSCULAR VOLUME 80.5 FL (81.0-99.0); MEAN PLATELET VOLUME 8.4 FL (7.4-10.4); PLATELET COUNT 171 /CUMM (130-400); RED BLOOD CELL CT 5.16 /CUMM (4.20-5.40); WHITE BLOOD CELL COUNT 5.4 /CUMM (4.8-10.8)
[2016-10-22] MEDS ORDERED: CHLORTHALIDONE25 M1 PO (14:32)
--- NOTE | 2016-10-22 16:45 | MRI REPORT ---
EXAMINATION: MRI FOOT WITHOUT CONTRAST, LEFT CLINICAL INFORMATION: 61-year-old female with left heel pain. Nonhealing ulcer. Evaluate for osteomyelitis. COMPARISON: Radiographs of the heel from 10/20/2016. MRI of the left foot from 11/19/2015. TECHNIQUE: Noncontrast multiplanar, multisequence MR imaging examination of the left foot was performed on a high-field 1.5 Delfina magnet. The images were focused on the hindfoot region. FINDINGS: Muscles/tendons: Chronic, moderate atrophy and partial fatty replacement of the examined muscles of the extremity. The muscles demonstrate T2 signal hyperintensity, as may be seen in diabetic neuropathy/myopathy. Edema within subcutaneous tissues without focal, organized fluid collection. The Achilles tendon is intact. Mild tendinosis of the peroneus brevis and longus. The flexor, extensor and tibialis tendons are unremarkable. Sinus tarsi , tarsal tunnel and plantar fascia: Fat signal is preserved within the sinus tarsi. Tarsal tunnel is unremarkable. Plantar calcaneal enthesophyte. Central cord of plantar aponeurosis measures 0.6 cm thick adjacent to its calcaneal insertion and there is T2 signal hyperintensity from focal tear in the aponeurosis (image 12, series 3). Bones and joints: Soft tissue ulcer of the heel extends to the surface of the calcaneal tuberosity and plantar surface of the calcaneus where there is cortical erosion and underlying bone marrow edema, consistent with osteomyelitis. The talar dome is well-positioned within the intact ankle mortise. Small, physiologic amount of fluid is present in the ankle joint and there is no evidence of ankle synovitis. There are small osteophytes of the subtalar joint. Again noted is osteophyte formation at degenerated talonavicular, naviculocuneiform and calcaneocuboid joints. There is chronic hindfoot valgus deformity. IMPRESSION: 1. Deep soft tissue ulcer of the heel and osteomyelitis involving the plantar aspect of the calcaneal tuberosity. 2. Chronic plantar fasciosis and focal tear in the plantar aponeurosis adjacent to its calcaneal attachment (image 12, series 3). 3. Chronic atrophy and fatty replacement of muscles of the examined extremity/foot, possibly on the basis of diabetic neuropathy. 4. Other findings, as note above.
--- NOTE | 2016-10-22 17:56 | Cons- Podiatry ---
General Information and HPI Consulting Request Date of Consult: 10/22/16 Requested By: HAILE LARIOS,RAKEL History of Present Illness: Magda is a 61-year-old female with an extensive past medical history, including prolonged history of bilateral venous stasis disease with associated ulcerations. The patient was admitted for bilateral lower extremity cellulitis. Patient has also been complaining of pain to the plantar aspect of the left heel. Patient denies systemic signs of infection. Patient denies nausea vomiting fever chills. Allergies/Medications Allergies: Coded Allergies: NO KNOWN ALLERGIES (01/20/11) Home Med List: Amlodipine Besylate 10 MG TABLET 1 TAB PO DAILY HTN (Reported) Chlorthalidone 25 MG TABLET 12.5 MG PO DAILY HIGH BLOOD PRESSURE Lisinopril 40 MG TABLET 1 TAB PO DAILY HTN (Reported) Methadone HCl 5 MG/5 ML SOLUTION 55 MG PO DAILY MENTAL HEALTH (Reported) Potassium Chloride (Klor-Con Sprinkle) 10 MEQ CAPSULE.ER 10 MEQ PO DAILY SUPPLEMENT (Reported) Prochlorperazine Maleate (Compazine) 10 MG TABLET 10 MG PO Q8 PRN NAUSEA ( Reported) Past History Medical History Blood Transfusion Hx: No Neurological: NONE EENT: NONE Cardiovascular: chronic venous insuff, hypertension, PVD Respiratory: COPD Gastrointestinal: NONE Hepatic: hepatitis C Renal: NONE Musculoskeletal: NONE Psychiatric: opioid dependence (maintained on methadone) Endocrine: NONE Blood Disorders: NONE Cancer(s): NONE VASCULAR SPECIALISTS/Reproductive: NONE Other Medical Hx: non-healing ulcers of bilateral lower extremities Surgical History Pertinent Surgical History: appendectomy, cholecystectomy, hip replacement (left ), left lower extremity skin graft placement right lower extremity I&D left lower extremity I&D Family History Relations & Conditions If Any: FATHER (Diabetes, TIA). . MOTHER (IA, TIA). . Relation not specified for: FH: hypertension Heart attack Psychosocial History Where Do You Live? Home Who Do You Live With? child Services at Home: Home Health Aide Primary Language: Gambian Smoking Status: Current Some Day Smoker (Smokes 1/2 PPD, 24 Pack Years) ETOH Use: denies use (Hx of IVDU,Last Use 20 Yrs Ago) Illicit Drug Use: denies illicit drug use (history of IVDU) Functional Ability ADLs Independent: dressing, eating, toileting, bathing. Ambulation: walker IADLs Independent: shopping, housework, finances, food prep, telephone, transportation , medication admin. Review of Systems Review of Systems: Unremarkable except for that noted discharge as well as Exam & Diagnostic Data Vital Signs and I&O Vital Signs Date Time Temp Pulse Resp B/P B/P Pulse O2 O2 Flow FiO2 Mean Ox Delivery Rate 10/22 1314 94 Nasal 2.0L Cannula 10/22 0842 80 190/100 10/22 0841 80 190/100 10/22 0800 94 Nasal 2.5L Cannula 10/22 0630 98.2 70 20 175/80 96 Nasal 2.0L Cannula 10/22 0000 95 Nasal 2.0L Cannula 10/21 2318 98.6 68 18 155/85 95 Nasal 2.0L Cannula 10/21 1931 94 Nasal 2.0L Cannula Intake & Output 10/22 1600 10/22 0800 10/22 0000 10/21 1600 10/21 0800 10/21 0000 Intake Total 120 725 400 20 Output Total 400 Balance -400 120 725 400 20 Intake, IV 0 20 Intake, Oral 120 725 400 Number 2 0 Bowel Movements Output, Urine 400 Physical Exam: Necrotic ulcer noted to the plantar aspect of the left heel with probing identified centrally. Moderate amount of serous drainage identified into the dressings. No crepitus or fluctuance identified. Assessment/Plan Assessment/Plan Nonhealing ulcer left heel with underlying osteomyelitis. Recommend discontinuing the IV antibiotics effective immediately. Patient will require a bone biopsy to be performed either Thursday or Thursday pending and put from the infectious disease service. For now continue offloading and daily Xeroform and dry sterile dressing changes. Consult Acknowledgment - Thank you for your consult request. Attending MD Review Statement Attending Statement Attending MD Statement: examined this patient
[2016-10-22 22:37] VITALS: BP 172/90
[2016-10-23 03:11] VITALS: BP 154/80
[2016-10-23 07:05] VITALS: BP 158/116
--- NOTE | 2016-10-23 07:26 | PN- Housestaff ---
MARY LOU LARIOS,HENRIETTA 10/23/16 0726: Subjective Follow-up For: Bilateral leg weeping wounds; cellulitis; left heel ulcer; right lung mass. Complaints: no complaints Subjective: I followed up and examined the patient today. She is resting comfortably in bed , bilateral legs elevated, says that she still has pain on moving her legs. Vitals have been stable overnight, with blood pressure getting better on the additional blood pressure medication that was started yesterday. No overnight issues. Graham Cross DPM (licsw) saw her yesterday, and is planning a surgery soon, after consulting ID. Review of Systems Constitutional: Reports: no symptoms. Objective Last 24 Hrs of Vital Signs/I&O Vital Signs Date Time Temp Pulse Resp B/P B/P Pulse O2 O2 Flow FiO2 Mean Ox Delivery Rate 10/23 1356 98.3 70 18 154/80 93 Nasal Cannula 10/23 1121 96 Nasal 2.0L Cannula 10/23 0823 158/80 10/23 0822 158/80 10/23 0800 Nasal 2.0L Cannula 10/23 0705 97.6 74 20 158/116 95 Nasal Cannula 10/23 0311 154/80 10/23 0000 Nasal 2.0L Cannula 10/22 2237 98.0 81 20 172/90 95 Nasal Cannula 10/22 2100 97 Nasal 2.0L Cannula 10/22 1600 Nasal 2.0L Cannula Intake & Output 10/23 1600 10/23 0800 10/23 0000 Intake Total 950 480 120 Output Total 600 500 250 Balance 350 -20 -130 Intake, Oral 950 480 120 Output, Urine 600 500 250 Physical Exam General Appearance: Alert, Oriented X3, Cooperative, Mild Distress (because of pain) Other Physical Findings: Skin skin lesions consistent with chronic venous statis in b/l lower ext. SCALES ARE SIGNIFICANTLY LESS TODAY DUE TO WOUND CARE AND NURSING CARE. HEENT Atraumatic, Mucous Membr. moist/pink Neck Supple Cardiovascular Regular Rate, Normal S1, Normal S2, No Murmurs Lungs Clear to Auscultation, except for occ crepts over right lung, no wheeze though, pt NOT in resp distress. Abdomen Soft, No Tenderness, Positive Bowel Sounds Extremities No Clubbing, No Cyanosis, Bilateral Lower Extremities with Swelling (decreasing) and Serous Drainage, Skin Changes Consistent with Chronic Venous Stasis and Thick Scale, One Ulcer 2x2 cm ulcer noted at the base of left heel, Right Knee Swelling, Bilateral Toenails with severe Onychomycosis and toe deformity. Current Medications: Current Medications Sig/Ora Start time Last Medication Dose Route Stop Time Status Admin Acetaminophen 650 MG Q6P PRN 10/20 0100 AC PO Acetaminophen/ 2 TAB Q6P PRN 10/20 1930 AC 10/23 Hydrocodone Bitart PO 1225 Albuterol Sulfate 3 ML Q4P PRN 10/21 1930 AC 10/21 INH 1928 Amlodipine Besylate 10 MG DAILY 10/20 0100 AC 10/23 PO 0822 Cefazolin Sodium 1,000 MG Q8 10/20 0600 DC 10/22 IV 1616 Chlorthalidone 12.5 MG DAILY 10/22 1350 AC 10/23 PO 0823 Dextrose/Sodium 1,000 ML Q10H 10/24 0000 AC Chloride IV Dextrose/Sodium 1,000 ML Q10H 10/23 0915 DC Chloride IV Heparin Sodium 5,000 UNIT Q8 10/20 0600 AC 10/23 (Porcine) SC 10/24 0000 1225 Hydromorphone HCl 2 MG Q6P PRN 10/22 1430 AC 10/23 PO 0846 Lisinopril 40 MG DAILY 10/20 0315 AC 10/23 PO 0823 Methadone HCl 55 MG DAILY 10/20 1000 AC 10/23 PO 0823 Nicotine 21 MG DAILY 10/20 1439 AC 10/23 TOP 0823 Potassium Chloride 10 MEQ DAILY 10/20 1000 AC 10/23 PO 0825 Last 24 Hrs of Lab/[place] Results Last 24 Hrs of Labs/Mics: Laboratory Tests 10/23/16 0912: PT 10.8, INR 1.03 Assessment/Plan Assessment: 61-year-old female with past medical history of chronic venous insufficiency and nonhealing ulcers of both lower extremities, peripheral vascular disease, hepatitis C, IV drug abuse, is currently being managed in the general medical floor for the following issues: #Osteomyelitis of left heel MRI done on 10/22/16 showed osteomyelitis of left heel. Graham Cross DPM, licsw, suggested holding antibiotics, pending further decision for left heel debridement, biopsy and culture; and a ID consult request. Per ID consult, antibiotics should be stopped ideally for at least 72 hours to get a good yield of bacteria from the bone culture, but given the short duration of exposure, she can go for surgery after 48 hrs as well. Appreciate Podiatry and ID recommendations. * Patient has been kept nothing by mouth, and plan for surgery tomorrow afternoon in place. #Possible cellulitis DVT of lower ext ruled out by b/l Doppler studies. Patient's presentation initially resembled cellulitis clinically, but was never febrile, or had leukocytosis, suggesting possible changes due to chronic venous stasis. IV antibiotics have been held since yesterday afternoon. Will watch her off antibiotics for now. Of note, one set of blood culture collected on 10/19/2016 grew Diptheroids, possible a contaminant. Continue leg elevation. #Chronic nonhealing ulcers Patient has chronic nonhealing ulcers, secondary to peripheral vascular disease and chronic venous stasis. Wound nurse has been taking care of the ulcers. Appreciate the input. #Right knee swelling/pain Patient has long-standing history of right knee osteoarthritis but her swelling and pain has worsened in the last month. X-ray of her right knee showed effusion on the suprapatellar space which was drained and sent for studies by Orthopedic surgeon Dr Mason. Negative for septic arthritis. Osteoarthritis with effusion is the likely diagnosis. This can be followed up as an outpatient basis. #Right lung mass Her right lung mass has increased significantly from 2-8 cm over the course of one year, for which she was supposed to follow up with Dr. Romo. She only saw Dr. Romo once, when she was recommended a PET scan by him. She did not receive PET scan, and nor did follow up with a lung doctor. This time, her right lung lesion appears to be much bigger in size, raising suspicion of malignancy. She understands the condition, but is still not fully motivated to comply for that reason. Pulmonary consultation requested, appreciated. * Per pulmonary consultation, patient got CAT scan of chest which shows progression of the mass, possibly malignant tumor, with lymphatic spread, along with interval breast size change. This finding has been shared with the patient, who understands the condition and agrees to follow up with [employer]. * Patient is scheduled to go for interventional radiology she did, CT-guided right lung biopsy tomorrow morning. #Pain management: adjusting per patient's feedback. #Diet regular diet, NPO from [place]. #DVT prophylaxis with SQ Heparin #CODE STATUS: Full code Problem List: 1. Osteomyelitis 2. Lung nodule 3. Chronic venous stasis dermatitis of both lower extremities 4. History of hepatitis C 5. Ulcer 6. Cellulitis 7. PVD (peripheral vascular disease) Pain Ratin Pain Location: feet, lt heel Pain Goal: Pain 4 or less Pain Plan: prn Tomorrow's Labs & Rationales: CBC, BEP pre operative. VASU LARIOS,ZI 10/23/16 1342: Attending MD Review Statement Attending Statement Attending MD Statement: examined this patient, discuss w/resident/PA/RIB KNITTER, agreed w/resident/PA/RIB KNITTER, reviewed EMR data (avail), discussed with nursing, discussed with case mgmt, reviewed images, amended to note Attending Assessment/Plan: Patient seen and examined, she claims that she still and pain. She is getting Dilaudid as well as Vicodin for pain. She is also on methadone. MRI of the left foot yesterday showed osteomyelitis. As discussed with Dr. Cross, he is planning to take her to our tomorrow. Also as per infectious disease recommendations, antibiotics were held yesterday and it is okay to proceed with surgery tomorrow. Patient will undergo CT-guided lung biopsy for the lung mass. Continue current regimen. Blood pressure has improved after the addition off from has a diuretic. Continue all other current medications. DVT prophylaxis: Heparin subcutaneous
--- NOTE | 2016-10-23 08:52 | PN- Pulmonary ---
Subjective HPI/Critical Care Issues: Patient feels well and denies short of breath she is willing to undergo CT- guided biopsy of right lung mass. Objective Current Medications: Current Medications Sig/Ora Start time Last Medication Dose Route Stop Time Status Admin Acetaminophen 650 MG Q6P PRN 10/20 0100 AC PO Acetaminophen/ 2 TAB Q6P PRN 10/20 1930 AC 10/23 Hydrocodone Bitart PO 0630 Albuterol Sulfate 3 ML Q4P PRN 10/21 1930 AC 10/21 INH 1928 Amlodipine Besylate 10 MG DAILY 10/20 0100 AC 10/23 PO 0822 Cefazolin Sodium 1,000 MG Q8 10/20 0600 DC 10/22 IV 1616 Chlorthalidone 12.5 MG DAILY 10/22 1350 AC 10/23 PO 0823 Heparin Sodium 5,000 UNIT Q8 10/20 0600 AC 10/23 (Porcine) SC 0536 Hydromorphone HCl 2 MG Q6P PRN 10/22 1430 AC 10/23 PO 0846 Hydromorphone HCl 0.4 MG Q4P PRN 10/21 1615 DC 10/22 IV 0913 Lisinopril 40 MG DAILY 10/20 0315 AC 10/23 PO 0823 Methadone HCl 55 MG DAILY 10/20 1000 AC 10/23 PO 0823 Nicotine 21 MG DAILY 10/20 1439 AC 10/23 TOP 0823 Potassium Chloride 10 MEQ DAILY 10/20 1000 AC 10/23 PO 0825 Vital Signs & I&O Last 24 Hrs of Vitals and I&O: Vital Signs Date Time Temp Pulse Resp B/P B/P Pulse O2 O2 Flow FiO2 Mean Ox Delivery Rate 10/23 0823 158/80 10/23 0822 158/80 10/23 0705 97.6 74 20 158/116 95 Nasal Cannula 10/23 0311 154/80 10/23 0000 Nasal 2.0L Cannula 10/22 2237 98.0 81 20 172/90 95 Nasal Cannula 10/22 2100 97 Nasal 2.0L Cannula 10/22 1600 Nasal 2.0L Cannula 10/22 1314 94 Nasal 2.0L Cannula Intake & Output 10/23 1600 10/23 0800 10/23 0000 Intake Total 480 120 Output Total 500 250 Balance -20 -130 Intake, Oral 480 120 Output, Urine 500 250 Oxygen saturation 2 L 95% exam for chest shows diminished breath sounds are no wheezes heard Impression/Plan Impression/Plan Impression/Plan: .61-year-old actively smoking COPD apparently not follow-up with a 2 cm right lung nodule which now is an 8 cm mass worrisome for primary lung cancer. Patient will need PET scanning and biopsy. In view of its size CT-guided needle biopsy would be appropriate. The patient is to remain in the hospital CT-guided biopsy of right lung mass should easily afford a diagnosis. Note coagulation studies would need to be done prior to biopsy. If patient is to remain in the hospital and arrange for CT-guided lung biopsy if she is to be discharged today this will be pursued as an outpatient Recommendations: Recommend follow-up with Dr. Romo after discharge to short-term rehabilitation for PET scan and CT guided biopsy. Would repeat CT scan of the chest in preparation for biopsy. Patient is been counseled regarding the need for smoking cessation
[2016-10-23 10:42] LABS: PT 10.8 SEC (9.4-12.5)
[2016-10-23 13:56] VITALS: BP 154/80
--- NOTE | 2016-10-23 15:01 | Patient Discharge Instructions ---
Discharge Instructions General Discharge Information You were seen/treated for: Left heel osteomyelitis; Right chest mass; Cellulitis. You had these procedures: CT guided right lung biopsy Left heel chronic ulcer debridement, biopsy, and culture Port-a-cath placement Whole brain radiation Watch for these problems: fever cp nausea vomiting seizure Special Instructions: 1. Follow up with your oncologist in one week 2. Follow up with you pcp in one week 3. follow up with wound care and podiatry for foot Diet Continue normal diet: Yes Activity Activity Self Limited: Yes Acute Coronary Syndrome Inclusion Criteria At DC or during hospital stay patient has or had the following: ACS DIAGNOSIS No Discharge Core Measures Meds if any: Prescribed or Continued at Discharge Meds if any: NOT Prescribed or Continued at Discharge Congestive Heart Failure Inclusion Criteria At DC or during hospital stay patient has or had the following: CHF DIAGNOSIS No Discharge Core Measures Meds if any: Prescribed or Continued at Discharge Meds if any: NOT Prescribed or Continued at Discharge Cerebrovascular accident Inclusion Criteria At DC or during hospital stay patient has or had the following: CVA/TIA Diagnosis No Discharge Core Measures Meds if any: Prescribed or Continued at Discharge Meds if any: NOT Prescribed or Continued at Discharge Venous thromboembolism Inclusion Criteria VTE Diagnosis No VTE Type NONE VTE Confirmed by (Test) NONE Discharge Core Measures - Per Current guidelines, there needs to be overlap - treatment for the first 5 days of Warfarin therapy. - If discharged on Warfarin prior to 5 days of - overlap therapy, the patient will need to be - assessed for post discharge needs including - *Post discharge parental anticoagulation - *Warfarin and/or parental anticoagulation education - *Follow up date to check INR post discharge At least 5 days overlap therapy as Inpatient No Meds if any: Prescribed or Continued at Discharge Note: Overlap Therapy is Warfarin and Anticoagulant Meds if any: NOT Prescribed or Continued at Discharge
--- NOTE | 2016-10-23 16:35 | Cons- Infect Disease ---
General Information and HPI Consulting Request Date of Consult: 10/23/16 Requested By: HAILE LARIOS,RAKEL Reason for Consult: Left heel osteomyelitis Source of Information: patient, old records History of Present Illness: This is a 61-year-old woman with venous insufficiency, chronic bilateral lower extremity ulcerations and recurrent cellulitis of both lower extremities, last hospitalized one year prior to admission with a left heel infection, with MRI negative for osteomyelitis, status post I&D of the superficial tissues of her left heel, followed by one week of antibiotics, with a CT of the chest on that admission revealing a right middle lobe mass concerning for malignancy, with further workup recommended but not followed by patient, status post split thickness skin graft to the left heel one month after discharge, with a nonhealing left heel wound since then, admitted on October 19 with bilateral lower extremity erythema, scaliness and foul-smelling drainage and chronic right knee pain and swelling. On admission she was afebrile. Laboratory data revealed a white blood count of 6000, ESR 31, BUN/creatinine 21 and 0.8, with normal liver enzymes. Urinalysis rare RBCs. Dopplers of both lower extremities were negative for DVT. X-ray of the right knee revealed a moderate-sized suprapatellar joint effusion, advanced osteoarthritic changes and chondrocalcinosis in the medial femoral compartment. Chest x-ray revealed an interval significant increase in size of the right middle lobe mass. X-ray of the left heel revealed no definite cortical destruction, but did reveal a questionable lucency at the inferior aspect of the calcaneal tuberosity and small osseous fragments most notable inferiorly. She was given Ceftriaxone in the emergency room and was then placed on Cefazolin. An MRI of the left foot October 22 revealed a soft tissue ulcer extending to the surface of the calcaneal tuberosity and plantar surface of the calcaneus, with cortical erosion and underlying bone marrow edema consistent with osteomyelitis. She was evaluated by Podiatry and the Cefazolin was discontinued in anticipation of a possible bone biopsy. She has been afebrile since admission and her white blood cell count has remained normal. She complains of chronic pain in the left heel and both legs. Allergies/Medications Allergies: Coded Allergies: NO KNOWN ALLERGIES (01/20/11) Home Med List: Amlodipine Besylate 10 MG TABLET 1 TAB PO DAILY HTN (Reported) Chlorthalidone 25 MG TABLET 12.5 MG PO DAILY HIGH BLOOD PRESSURE Lisinopril 40 MG TABLET 1 TAB PO DAILY HTN (Reported) Methadone HCl 5 MG/5 ML SOLUTION 55 MG PO DAILY MENTAL HEALTH (Reported) Potassium Chloride (Klor-Con Sprinkle) 10 MEQ CAPSULE.ER 10 MEQ PO DAILY SUPPLEMENT (Reported) Prochlorperazine Maleate (Compazine) 10 MG TABLET 10 MG PO Q8 PRN NAUSEA ( Reported) Past History Travel History Traveled to [place] past 21 day No Medical History Blood Transfusion Hx: No Neurological: NONE EENT: NONE Cardiovascular: chronic venous insuff, hypertension Respiratory: COPD Gastrointestinal: NONE Hepatic: hepatitis C Renal: NONE Musculoskeletal: NONE Psychiatric: opioid dependence (maintained on methadone) Endocrine: NONE Blood Disorders: NONE Cancer(s): NONE DATA MODELING ARCHITECT/Reproductive: NONE Other Medical Hx: non-healing ulcers of bilateral lower extremities History of MRSA: No History of VRE: No History of CDIFF: No Isolation History: Standard Surgical History Surgical History: appendectomy, cholecystectomy, hip replacement (left), left lower extremity skin graft placement, status post multiple surgeries on both lower extremities Family History Relations & Conditions If Any: FATHER (Diabetes, TIA). . MOTHER (CA, TIA). . Relation not specified for: FH: hypertension Heart attack Psychosocial History Where Do You Live? Home Who Do You Live With? child Services at Home: Home Health Aide Primary Language: Arabic Smoking Status: Current Some Day Smoker (Smokes 1/2 PPD, 24 Pack Years) ETOH Use: denies use (Hx of IVDU,Last Use 20 Yrs Ago) Illicit Drug Use: denies illicit drug use (history of IVDU) Functional Ability ADLs Independent: dressing, eating, toileting, bathing. Ambulation: walker IADLs Independent: shopping, housework, finances, food prep, telephone, transportation , medication admin. Review of Systems Review of Systems All Other Systems: Reviewed and Negative Exam & Diagnostic Data Last 24 Hrs of Vital Signs/I&O Vital Signs Date Time Temp Pulse Resp B/P B/P Pulse O2 O2 Flow FiO2 Mean Ox Delivery Rate 10/23 1356 98.3 70 18 154/80 93 Nasal Cannula 10/23 1121 96 Nasal 2.0L Cannula 10/23 0823 158/80 10/23 0822 158/80 10/23 0800 Nasal 2.0L Cannula 10/23 0705 97.6 74 20 158/116 95 Nasal Cannula 10/23 0311 154/80 10/23 0000 Nasal 2.0L Cannula 10/22 2237 98.0 81 20 172/90 95 Nasal Cannula 10/22 2100 97 Nasal 2.0L Cannula Intake & Output 10/23 1600 10/23 0800 10/23 0000 Intake Total 950 480 120 Output Total 600 500 250 Balance 350 -20 -130 Intake, Oral 950 480 120 Output, Urine 600 500 250 Physical Exam Other Physical Findings: She is awake and alert in no acute distress. She is afebrile. Skin reveals no rash. HEENT exam is negative. Neck is supple with no adenopathy. Lungs scattered rhonchi bilaterally. Heart regular rhythm with no murmur. Abdomen is soft, tender over the epigastrium, with positive bowel sounds. Back no CVA tenderness. Extremities superficial ulcerations both lower extremities, with diffuse mild erythema; left heel wound with no surrounding inflammation, tender to palpation; right knee mild swelling and warmth, with no erythema or tenderness, but with some limitation to full range of motion. Neuro is without focality. Last 24 Hours of Lab Results: Laboratory Tests 10/23 0912 Coagulation PT (9.4 - 12.5 SEC) 10.8 INR (0.90 - 1.19) 1.03 Last 24 Hours of [place] Results: Blood cultures October 19 1 bottle positive for diphtheroids with 2 additional sets negative Right knee synovial fluid culture October 20 negative Diagnostic Data Recent Imaging Findings: Dopplers of both lower extremities October 20 negative for DVT. X-ray of the right knee October 20 revealed a moderate-sized suprapatellar joint effusion, advanced osteoarthritic changes and chondrocalcinosis in the medial femoral compartment. Chest x-ray October 20 revealed an interval significant increase in size of the right middle lobe mass. X-ray of the left heel October 20 revealed no definite cortical destruction, but did reveal a questionable lucency at the inferior aspect of the calcaneal tuberosity and small osseous fragments, most notable inferiorly. CT of the chest October 21 reveals a right middle lobe mass which has increased in size compared with the previous exam, with subcarinal and right hilar adenopathy concerning for metastatic disease MRI of the left foot October 22 revealed a soft tissue ulcer extending to the surface of the calcaneal tuberosity and plantar surface of the calcaneus, with cortical erosion and underlying bone marrow edema consistent with osteomyelitis. Assessment/Plan Assessment/Plan Impression: This is a 61-year-old woman with venous insufficiency, chronic bilateral lower extremity ulcerations and a chronic, nonhealing left heel wound, last hospitalized one year prior to admission for debridement of the left heel, with an MRI at that time negative for osteomyelitis, and with a chest x-ray and CT of the chest at that time revealing a right middle lobe mass suspicious for malignancy, with no follow-up pursued by the patient, admitted on October 19 with increasing pain, erythema and edema of both lower extremities, treated initially for cellulitis, and with an MRI of the left heel suspicious for osteomyelitis. She has little evidence at this time for cellulitis, with no fever or leukocytosis and with what appears to be chronic changes of both lower extremities; therefore feel she can continue to be followed off antibodies. She will require a bone biopsy of the left heel to rule out osteomyelitis and this is scheduled for the a.m.. As she was only on antibiotics for several days this hopefully will not affect her bone cultures, though, ideally, she should be off antibiotics for 72 hours. Her right knee inflammation may represent pseudogout, with chondrocalcinosis seen on the x-ray. Her right middle lobe mass has been evaluated by Pulmonary, with plans for workup, possibly on this admission. Suggestion: 1. Await bone biopsy of the left heel in the a.m. 2. Consider treatment for pseudogout of the right knee 3. Further evaluation of the right middle lobe mass per Pulmonary 4. Continue to follow off antibiotics pending above Consult Acknowledgment - Thank you for your consult request.
[2016-10-23 22:25] VITALS: BP 140/82
[2016-10-24 06:25] VITALS: BP 148/89
[2016-10-24 08:44] LABS: ABSOLUTE BASOPHIL COUNT 0 /CUMM (0.0-0.2); GRANULOCYTE % 55.8 % (42.2-75.2); MEAN CORPUSCULAR VOLUME 80.1 FL (81.0-99.0); MEAN PLATELET VOLUME 7.9 FL (7.4-10.4)
--- NOTE | 2016-10-24 08:45 | PN- Housestaff ---
MARY LOU LARIOS,HENRIETTA 10/24/16 0845: Subjective Follow-up For: Bilateral leg weeping wounds; cellulitis; left heel osteomyelitis; right lung mass. Complaints: no complaints Subjective: I followed up and examined the patient today. She is resting comfortably in bed , legs elevated, still has the pain on moving around. Vitals are stable, no overnight issues. She is currently nothing by mouth, pending CT-guided Rt sided lung biopsy this AM, then after Left heel debridement, biopsy, culture later this PM. Review of Systems Constitutional: Reports: no symptoms. Objective Last 24 Hrs of Vital Signs/I&O Vital Signs Date Time Temp Pulse Resp B/P B/P Pulse O2 O2 Flow FiO2 Mean Ox Delivery Rate 10/24 0925 Nasal 1.0L Cannula 10/24 0821 77 148/89 10/24 0821 77 148/89 10/24 0800 Nasal 2.0L Cannula 10/24 0625 98.9 77 22 148/89 95 Nasal 2.0L Cannula 10/24 0000 Nasal 2.0L Cannula 10/23 2225 99.0 73 20 140/82 94 Nasal 2.0L Cannula 10/23 1940 95 Nasal 2.0L Cannula 10/23 1356 98.3 70 18 154/80 93 Nasal Cannula Intake & Output 10/24 1600 10/24 0800 10/24 0000 Intake Total 600 Output Total 400 Balance 600 -400 Intake, IV 600 Output, Urine 400 Physical Exam General Appearance: Alert, Oriented X3, Cooperative, No Acute Distress Other Physical Findings: Skin skin lesions consistent with chronic venous statis in b/l lower ext. SCALES ARE SIGNIFICANTLY LESS TODAY DUE TO WOUND CARE AND NURSING CARE. HEENT Atraumatic, Mucous Membr. moist/pink Neck Supple Cardiovascular Regular Rate, Normal S1, Normal S2, No Murmurs Lungs Clear to Auscultation, except for occ crepts over right lung, no wheeze though, pt NOT in resp distress. Abdomen Soft, No Tenderness, Positive Bowel Sounds Extremities No Clubbing, No Cyanosis, Bilateral Lower Extremities with Swelling (decreasing) and Serous Drainage, Skin Changes Consistent with Chronic Venous Stasis and Thick Scale, One Ulcer 2x2 cm ulcer noted at the base of left heel, Right Knee Swelling, Bilateral Toenails with severe Onychomycosis and toe deformity. Current Medications: Current Medications Sig/Ora Start time Last Medication Dose Route Stop Time Status Admin Acetaminophen 650 MG .STK-MED ONE 10/23 1921 DC PO 10/23 192 Acetaminophen 650 MG Q6P PRN 10/20 0100 AC 10/23 PO 1922 Acetaminophen/ 2 TAB Q6P PRN 10/20 1930 AC 10/24 Hydrocodone Bitart PO 0600 Albuterol Sulfate 3 ML Q4P PRN 10/21 1930 AC 10/23 INH 1940 Amlodipine Besylate 10 MG DAILY 10/20 0100 AC 10/24 PO 0821 Chlorthalidone 12.5 MG DAILY 10/22 1350 AC 10/24 PO 0820 Dextrose/Sodium 1,000 ML Q10H 10/24 0000 AC 10/24 Chloride IV 0833 Fentanyl Citrate 0 .STK-MED ONE 10/24 1134 DC .ROUTE Heparin Sodium 5,000 UNIT Q8 10/20 0600 DC 10/23 (Porcine) SC 10/24 0000 2059 Hydromorphone HCl 2 MG Q6P PRN 10/22 1430 10/24 PO 0300 Lisinopril 40 MG DAILY 10/20 0315 AC 10/24 PO 0821 Methadone HCl 55 MG DAILY 10/20 1000 AC 10/24 PO 0826 Midazolam HCl 0 .STK-MED ONE 10/24 1134 DC .ROUTE Nicotine 21 MG DAILY 10/20 1439 10/24 TOP 0821 Potassium Chloride 10 MEQ DAILY 10/20 1000 AC 10/24 PO 0821 Last 24 Hrs of Lab/Chad Results Last 24 Hrs of Labs/Mics: Laboratory Tests 10/24/16 0650: Anion Gap 4 L, Estimated GFR > 60, BUN/Creatinine Ratio 21.7, CBC w Diff NO MAN DIFF REQ, RBC 5.54 H, MCV 80.1 L, MCH 24.6 L, RDW 16.4 H, MPV 7.9, Gran % 55.8, Lymphocytes % 29.2, Monocytes % 11.4 H, Eosinophils % 3.1, Basophils % 0.5, Absolute Granulocytes 2.6, Absolute Lymphocytes 1.4, Absolute Monocytes 0.5 , Absolute Eosinophils 0.1, Absolute Basophils 0, PUBS MCHC 30.7 L Microbiology 10/24 1313 UPPER RESP: Surveillance Culture - ORD 10/24 131 GI: Surveillance Culture - ORD Assessment/Plan Assessment: 61-year-old female with past medical history of chronic venous insufficiency and nonhealing ulcers of both lower extremities, peripheral vascular disease, hepatitis C, IV drug abuse, is currently being managed in the general medical floor for the following issues: #Osteomyelitis of left heel MRI done on 10/22/16 showed osteomyelitis of left heel. Graham Cross DPM, silk spreader, suggested holding antibiotics, pending further decision for left heel debridement, biopsy and culture; and a ID consult request. Per ID consult, antibiotics should be stopped ideally for at least 72 hours to get a good yield of bacteria from the bone culture, but given the short duration of exposure, she can go for surgery after 48 hrs as well. Appreciate Podiatry and ID recommendations. * Patient has been kept nothing by mouth since midnight, with a plan for surgery. * Surgery cancelled due to patient's hemothorax complication during CT guided lung biopsy. * patient is being transferred to the ICU. #Right lung mass #Hemothorax and hypoxia following Ct guided Right lung biopsy Her right lung mass has increased significantly from 2-8 cm over the course of one year, for which she was supposed to follow up with Dr. Romo. She only saw Dr. Romo once, when she was recommended a PET scan by him. She did not receive PET scan, and nor did follow up with a lung doctor. This time, her right lung lesion appears to be much bigger in size, raising suspicion of malignancy. She understands the condition, but is still not fully motivated to comply for that reason. Pulmonary consultation requested, appreciated. * Per pulmonary consultation with Dr Ramos, patient got CAT scan of chest which shows progression of the mass, possibly malignant tumor, with lymphatic spread, along with interval breast size change. This finding has been shared with the patient, who understands the condition and agrees to follow up with Auto Mechanic Supervisor. * Patient went for interventional radiology procedure (CT-guided right lung biopsy) this morning. According to the radiologist, who contacted the primary team immediately, the patient appears to have right sided hemothorax and hypoxia following the procedure. * This critical finding was shared with the attending, and a decision made to transfer the patient to ICU directly from the recovery room. * ICU team has been signed out about the condition of the patient, and the patient's plan of care. #Possible cellulitis DVT of lower ext ruled out by b/l Doppler studies. Patient's presentation initially resembled cellulitis clinically, but was never febrile, or had leukocytosis, suggesting possible changes due to chronic venous stasis. IV antibiotics have been held since 10/22/16 4pm. Will watch her off antibiotics for now. Of note, one set of blood culture collected on 10/19/2016 grew Diptheroids, possible a contaminant. Continue leg elevation. Continuing pain management. #Chronic nonhealing ulcers Patient has chronic nonhealing ulcers, secondary to peripheral vascular disease and chronic venous stasis. Wound nurse has been taking care of the ulcers. Appreciate the input. Continue the care. #Chronic fungal nail infection Not pursuing any retirement antifungal treatment currently. #Right knee swelling/pain: Osteoarthritis vs pseudogout Patient has long-standing history of right knee osteoarthritis but her swelling and pain has worsened in the last month. X-ray of her right knee showed effusion on the suprapatellar space which was drained and sent for studies by Orthopedic surgeon Dr Mason. Negative for septic arthritis. Osteoarthritis with effusion, or pseudogout is the likely diagnosis. This can be followed up as an outpatient basis. #Pain management: adjusting per patient's feedback. This has been achallenge, as the patient says she is fine with the current regimen, but is still reporting pain of 8-9/10 most of the times to the nurse. She is on Methadone, and we had to start her on Dilaudid due to severe pain initially. Plan to tailor according to the patient. #Diet regular diet, NPO from [place]. #DVT prophylaxis with SQ Heparin, HELD FROM THIS AM FOR THE PROCEDURE. Would hold now given the hemothorax. ALPS would be the choice of DVT prophylaxis now. #CODE STATUS: Full code. Problem List: 1. Osteomyelitis 2. Lung nodule 3. Chronic venous stasis dermatitis of both lower extremities 4. PVD (peripheral vascular disease) 5. History of hepatitis C 6. Uncontrolled hypertension 7. Fungal skin infection Pain Ratin Pain Location: over the legs, and only upon movement Pain Goal: Pain 4 or less Pain Plan: as noted above Tomorrow's Labs & Rationales: CBC in the evening to recheck H/H status. CXR to follow up in the evening with hemithorax. ABG if vitals detiriotating. ORDERS TO BE PLACED BY THE ICU ETAM PER THEIR DISCRETION. SIGNED OUT THE SUGGESTIONS TO THE TEAM ALREADY. VASU LARIOS,ZI 10/24/16 1312: Attending MD Review Statement Attending Statement Attending MD Statement: examined this patient, discuss w/resident/PA/FUNERAL ARRANGER, agreed w/resident/PA/FUNERAL ARRANGER, reviewed EMR data (avail), discussed with nursing, reviewed images, amended to note Attending Assessment/Plan: Patient seen and examined earlier today. She felt almost the same and continued to complain of pain in her lower extremities. She has been kept on Dilaudid as well as Vicodin. Patient scheduled for CT-guided lung biopsy for the lung mass as well as bone biopsy for osteomyelitis of the left foot. Vital Signs Date Time Temp Pulse Resp B/P B/P Pulse O2 O2 Flow FiO2 Mean Ox Delivery Rate 10/24 0925 Nasal 1.0L Cannula 10/24 0821 77 148/89 10/24 0821 77 148/89 10/24 0800 Nasal 2.0L Cannula 10/24 0625 98.9 77 22 148/89 95 Nasal 2.0L Cannula 10/24 0000 Nasal 2.0L Cannula 10/23 2225 99.0 73 20 140/82 94 Nasal 2.0L Cannula 10/23 1940 95 Nasal 2.0L Cannula 10/23 1356 98.3 70 18 154/80 93 Nasal Cannula on exam; aox3, nad. cv; s1,s2, rrr resp; clear abd; soft, nt, bs+ ext; edema improvedso is the erythema. dresisngs on b/l legs. Laboratory Tests 10/24 0650 Chemistry Sodium (137 - 145 mmol/L) 138 Potassium (3.5 - 5.1 mmol/L) 4.5 Chloride (98 - 107 mmol/L) 92 L Carbon Dioxide (22 - 30 mmol/L) 42 H Anion Gap (5 - 16) 4 L BUN (7 - 17 mg/dL) 13 Creatinine (0.5 - 1.0 mg/dL) 0.6 Estimated GFR (>60 ml/min) > 60 BUN/Creatinine Ratio (7 - 25 %) 21.7 Hematology CBC w Diff NO MAN DIFF REQ WBC (4.8 - 10.8 /CUMM) 4.7 L RBC (4.20 - 5.40 /CUMM) 5.54 H Hgb (12.0 - 16.0 G/DL) 13.6 Hct (37 - 47 %) 44.3 MCV (81.0 - 99.0 FL) 80.1 L MCH (27.0 - 31.0 PG) 24.6 L RDW (11.5 - 14.5 %) 16.4 H Plt Count (130 - 400 /CUMM) 163 MPV (7.4 - 10.4 FL) 7.9 Gran % (42.2 - 75.2 %) 55.8 Lymphocytes % (20.5 - 51.1 %) 29.2 Monocytes % (1.7 - 9.3 %) 11.4 H Eosinophils % (0 - 5 %) 3.1 Basophils % (0.0 - 2.0 %) 0.5 Absolute Granulocytes (1.4 - 6.5 /CUMM) 2.6 Absolute Lymphocytes (1.2 - 3.4 /CUMM) 1.4 Absolute Monocytes (0.10 - 0.60 /CUMM) 0.5 Absolute Eosinophils (0.0 - 0.7 /CUMM) 0.1 Absolute Basophils (0.0 - 0.2 /CUMM) 0 PUBS MCHC (33.0 - 37.0 G/DL) 30.7 L A/P; 61 F with pmh sig for HCV 2/2 IVDA, PVD and chronic venous insufficiency c/b non-healing ulcers of both lower extremities admitted with bilateral lower extremity cellulitis. Patient also had a nonhealing left heel wound which is found to be ostial pneumonitis according to MRI and she was originally scheduled for bone biopsy today with Dr. Cross. She had been followed by Dr. Mohamud for the enlarging lung mass who had recommended initially to get a CT chest and then the CT-guided lung biopsy which patient underwent today. Unfortunately the procedure but complicated by bleeding into the pleural space and hemothorax. I had spoken with interventional radiologist Dr. Marshall. At this point the bone biopsy has been canceled. Patient will be transferred to ICU secondary to developing hemothorax as well as more hypoxia. I have also notified Dr. Waldron from pulmonology who was covering Dr. Ramos today. Patient will require urgent CT surgery consult. Dr. Stone mention that she will call Dr. Lockwood. Overall her blood pressure was better after the addition of chlorthalidone. Her antibiotics were held 2 days ago in anticipation for this bone biopsy. Further management off hemothorax will be as per pulmonology as well as CT surgery. DVT px; Hep sq which was held in anticipation for the above mentioned procedure.
[2016-10-24 08:53] LABS: ABSOLUTE EOSINOPHIL COUNT 0.1 /CUMM (0.0-0.7); ABSOLUTE GRANULOCYTE CT 2.6 /CUMM (1.4-6.5); ABSOLUTE LYMPH COUNT 1.4 /CUMM (1.2-3.4); ABSOLUTE MONOCYTE COUNT 0.5 /CUMM (0.10-0.60); BASOPHIL % 0.5 % (0.0-2.0); EOSINOPHIL % 3.1 % (0-5); HEMATOCRIT 44.3 % (37-47); MEAN CORPUSCULAR HGB 24.6 PG (27.0-31.0); MEAN CORPUSCULAR HGB CONC 30.7 G/DL (33.0-37.0); PLATELET COUNT 163 /CUMM (130-400); RBC DISTRIBUTION WIDTH 16.4 % (11.5-14.5); RED BLOOD CELL CT 5.54 /CUMM (4.20-5.40); WHITE BLOOD CELL COUNT 4.7 /CUMM (4.8-10.8)
--- NOTE | 2016-10-24 13:19 | Cons- CRCU ---
See Addendum General Information and HPI Consulting Request Date of Consult: 10/24/16 Requested By: MD VASU Exam Limitations: no limitations History of Present Illness: This is a 61-year-old woman with venous insufficiency, chronic bilateral lower extremity ulcerations and recurrent cellulitis of both lower extremities, last hospitalized one year prior to admission with a left heel infection, with MRI negative for osteomyelitis, status post I&D of the superficial tissues of her left heel, followed by one week of antibiotics, with a CT of the chest on that admission revealing a right middle lobe mass concerning for malignancy, with further workup recommended but not followed by patient, status post split thickness skin graft to the left heel one month after discharge, with a nonhealing left heel wound since then, admitted on October 19 with bilateral lower extremity erythema, scaliness and foul-smelling drainage and chronic right knee pain and swelling. On admission she was afebrile. Allergies/Medications Allergies: Coded Allergies: NO KNOWN ALLERGIES (01/20/11) Home Med List: Amlodipine Besylate 10 MG TABLET 1 TAB PO DAILY HTN (Reported) Chlorthalidone 25 MG TABLET 12.5 MG PO DAILY HIGH BLOOD PRESSURE Lisinopril 40 MG TABLET 1 TAB PO DAILY HTN (Reported) Methadone HCl 5 MG/5 ML SOLUTION 55 MG PO DAILY MENTAL HEALTH (Reported) Potassium Chloride (Klor-Con Sprinkle) 10 MEQ CAPSULE.ER 10 MEQ PO DAILY SUPPLEMENT (Reported) Prochlorperazine Maleate (Compazine) 10 MG TABLET 10 MG PO Q8 PRN NAUSEA ( Reported) Past History Travel History Traveled to [place] past 21 day No Medical History Blood Transfusion Hx: No Neurological: NONE EENT: NONE Cardiovascular: chronic venous insuff, hypertension, PVD Respiratory: COPD Gastrointestinal: NONE Hepatic: hepatitis C Renal: NONE Musculoskeletal: NONE Psychiatric: opioid dependence (maintained on methadone) Endocrine: NONE Blood Disorders: NONE Cancer(s): NONE 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 . MOTHER (MD, TIA). . Relation not specified for: FH: hypertension Heart attack Psychosocial History Where Do You Live? Home Who Do You Live With? child Services at Home: Home Health Aide Primary Language: [place] Zealander Smoking Status: Current Some Day Smoker (Smokes 1/2 PPD, 24 Pack Years) ETOH Use: denies use (Hx of IVDU,Last Use 20 Yrs Ago) Illicit Drug Use: denies illicit drug use (history of IVDU) Functional Ability ADLs Independent: dressing, eating, toileting, bathing. Ambulation: walker IADLs Independent: shopping, housework, finances, food prep, telephone, transportation , medication admin. Exam & Diagnostic Data Last 24 Hrs of Vital Signs/I&O Vital Signs Date Time Temp Pulse Resp B/P B/P Pulse O2 O2 Flow FiO2 Mean Ox Delivery Rate 10/24 0925 Nasal 1.0L Cannula 10/24 0821 77 148/89 10/24 0821 77 148/89 10/24 0800 Nasal 2.0L Cannula 10/24 0625 98.9 77 22 148/89 95 Nasal 2.0L Cannula 10/24 0000 Nasal 2.0L Cannula 10/23 2225 99.0 73 20 140/82 94 Nasal 2.0L Cannula 10/23 1940 95 Nasal 2.0L Cannula 10/23 1356 98.3 70 18 154/80 93 Nasal Cannula Intake & Output 10/24 1600 10/24 0800 10/24 0000 Intake Total 600 Output Total 400 Balance 600 -400 Intake, IV 600 Output, Urine 400 Assessment/Plan Impression/Plan: #Osteomyelitis of left heel MRI done on 10/22/16 showed osteomyelitis of left heel. Graham Cross DPM, fabrication technician, suggested holding antibiotics, pending further decision for left heel debridement, biopsy and culture; and a ID consult request. Per ID consult, antibiotics should be stopped ideally for at least 72 hours to get a good yield of bacteria from the bone culture, but given the short duration of exposure, she can go for surgery after 48 hrs as well. Appreciate Podiatry and ID recommendations. * Patient has been kept nothing by mouth, and plan for surgery today afternoon in place. #Possible cellulitis DVT of lower ext ruled out by b/l Doppler studies. Patient's presentation initially resembled cellulitis clinically, but was never febrile, or had leukocytosis, suggesting possible changes due to chronic venous stasis. IV antibiotics have been held since yesterday afternoon. Will watch her off antibiotics for now. Of note, one set of blood culture collected on 10/19/2016 grew Diptheroids, possible a contaminant. Continue leg elevation. #Chronic nonhealing ulcers Patient has chronic nonhealing ulcers, secondary to peripheral vascular disease and chronic venous stasis. Wound nurse has been taking care of the ulcers. Appreciate the input. #Right knee swelling/pain Patient has long-standing history of right knee osteoarthritis but her swelling and pain has worsened in the last month. X-ray of her right knee showed effusion on the suprapatellar space which was drained and sent for studies by Orthopedic surgeon Dr Mason. Negative for septic arthritis. Osteoarthritis with effusion is the likely diagnosis. This can be followed up as an outpatient basis. #Right lung mass Her right lung mass has increased significantly from 2-8 cm over the course of one year, for which she was supposed to follow up with Dr. Romo. She only saw Dr. Romo once, when she was recommended a PET scan by him. She did not receive PET scan, and nor did follow up with a lung doctor. This time, her right lung lesion appears to be much bigger in size, raising suspicion of malignancy. She understands the condition, but is still not fully motivated to comply for that reason. Pulmonary consultation requested, appreciated. * Per pulmonary consultation, patient got CAT scan of chest which shows progression of the mass, possibly malignant tumor, with lymphatic spread, along with interval breast size change. This finding has been shared with the patient, who understands the condition and agrees to follow up with Bushing And Broach Operator. * Patient is scheduled to go for interventional radiology she did, CT-guided right lung biopsy tomorrow morning. Consult Acknowledgment - Thank you for your consult request.
[2016-10-24 13:20] VITALS: BP 172/84
--- NOTE | 2016-10-24 15:16 | Acceptance Note - Resident/Int ---
IZABEL LARIOS,TONY 10/24/16 1500: Subjective Background: 61-year-old female with past medical history of chronic venous insufficiency and nonhealing ulcers of both lower extremities, peripheral vascular disease, hepatitis C, IV drug abuse,Pulmonary nodule and active smoker,was admitted to general medicine floor for management of cellulitis and osteomyelitis. Pt had MRI finding of Osteomyelitis. He was scheduled for Debridement today. However, she has right lung mass that she was suppose to follow up previously. Medical team had pt undergo a CT guided biopsy for assesment of her mass. The procedure was complicated by possible hemothorax, therefore pt was transferred to ICU for close monitoring of hemothorax. #Hemothorax and hypoxia following Ct guided Right lung biopsy Her right lung mass has increased significantly from 2-8 cm over the course of one year, for which she was supposed to follow up with Dr. Romo. She understands the condition, but is still not fully motivated to comply for that reason. Pulmonary consultation requested, appreciated. * Per pulmonary consultation with Dr Ramos, patient got CAT scan of chest which shows progression of the mass, possibly malignant tumor, with lymphatic spread, along with interval breast size change. This finding has been shared with the patient, who understands the condition and agrees to follow up with Pipe Buffer. * Patient went for interventional radiology procedure (CT-guided right lung biopsy) this morning. According to the radiologist, who contacted the primary team immediately, the patient appears to have right sided hemothorax and hypoxia following the procedure. * This critical finding was shared with the attending, and a decision made to transfer the patient to ICU directly from the recovery room. * Will obtain serial CXR 1 HR AND 4 HR Later to assess possible growth of hemothorax. #Osteomyelitis of left heel MRI done on 10/22/16 showed osteomyelitis of left heel. Graham Cross DPM, framing machine tender, suggested holding antibiotics, pending further decision for left heel debridement, biopsy and culture; and a ID consult request. Per ID consult, antibiotics should be stopped ideally for at least 72 hours to get a good yield of bacteria from the bone culture, but given the short duration of exposure, she can go for surgery after 48 hrs as well. Appreciate Podiatry and ID recommendations. * Patient has been kept nothing by mouth since midnight, with a plan for surgery. * Surgery cancelled due to patient's hemothorax complication during CT guided lung biopsy. * patient is being transferred to the ICU. #Right lung mass #Possible cellulitis DVT of lower ext ruled out by b/l Doppler studies. Patient's presentation initially resembled cellulitis clinically, but was never febrile, or had leukocytosis, suggesting possible changes due to chronic venous stasis. IV antibiotics have been held since 10/22/16 4pm. Will watch her off antibiotics for now. Of note, one set of blood culture collected on 10/19/2016 grew Diptheroids, possible a contaminant. Continue leg elevation. Continuing pain management. #Chronic nonhealing ulcers Patient has chronic nonhealing ulcers, secondary to peripheral vascular disease and chronic venous stasis. Wound nurse has been taking care of the ulcers. Appreciate the input. Continue the care. #Chronic fungal nail infection Not pursuing any penitentiary antifungal treatment currently. #Right knee swelling/pain: Osteoarthritis vs pseudogout Patient has long-standing history of right knee osteoarthritis but her swelling and pain has worsened in the last month. X-ray of her right knee showed effusion on the suprapatellar space which was drained and sent for studies by Orthopedic surgeon Dr Mason. Negative for septic arthritis. Osteoarthritis with effusion, or pseudogout is the likely diagnosis. This can be followed up as an outpatient basis. #Pain management: adjusting per patient's feedback. This has been achallenge, as the patient says she is fine with the current regimen, but is still reporting pain of 8-9/10 most of the times to the nurse. She is on Methadone, and we had to start her on Dilaudid due to severe pain initially. Plan to tailor according to the patient. Review of Systems Constitutional: Reports: see HPI. Objective Last 24 Hrs of Vital Signs/I&O Vital Signs Date Time Temp Pulse Resp B/P B/P Pulse O2 O2 Flow FiO2 Mean Ox Delivery Rate 10/24 1419 94 Nasal 5.0L Cannula 10/24 0925 Nasal 1.0L Cannula 10/24 0821 77 148/89 10/24 0821 77 148/89 10/24 0800 Nasal 2.0L Cannula 10/24 0625 98.9 77 22 148/89 95 Nasal 2.0L Cannula 10/24 0000 Nasal 2.0L Cannula 10/23 2225 99.0 73 20 140/82 94 Nasal 2.0L Cannula 10/23 1940 95 Nasal 2.0L Cannula Intake & Output 10/24 1600 10/24 0800 10/24 0000 Intake Total 600 Output Total 400 Balance 600 -400 Intake, IV 600 Output, Urine 400 Physical Exam General Appearance: awake and alert Other Physical Findings: Skin skin lesions consistent with chronic venous statis in b/l lower ext. SCALES ARE SIGNIFICANTLY LESS TODAY DUE TO WOUND CARE AND NURSING CARE. HEENT Atraumatic, Mucous Membr. moist/pink Neck Supple Cardiovascular Regular Rate, Normal S1, Normal S2, No Murmurs Lungs Clear to Auscultation, except for occ crepts over right lung, no wheeze though, pt NOT in resp distress. Abdomen Soft, No Tenderness, Positive Bowel Sounds Extremities No Clubbing, No Cyanosis, Bilateral Lower Extremities with Swelling (decreasing) and Serous Drainage, Skin Changes Consistent with Chronic Venous Stasis and Thick Scale, One Ulcer 2x2 cm ulcer noted at the base of left heel, Right Knee Swelling, Bilateral Toenails with severe Onychomycosis and toe deformity. Current Medications: Current Medications Sig/Ora Start time Last Medication Dose Route Stop Time Status Admin Acetaminophen 650 MG .STK-MED ONE 10/23 1921 DC PO 10/23 1922 Acetaminophen 650 MG Q6P PRN 10/20 0100 AC 10/23 PO 1922 Acetaminophen/ 2 TAB Q6P PRN 10/20 1930 10/24 Hydrocodone Bitart PO 0600 Albuterol Sulfate 3 ML BID 10/24 2200 AC INH Albuterol Sulfate 3 ML Q4P PRN 10/21 1930 DC 10/24 INH 1347 Amlodipine Besylate 10 MG DAILY 10/20 0100 10/24 PO 0821 Chlorthalidone 12.5 MG DAILY 10/22 1350 AC 10/24 PO 0820 Dextrose/Sodium 1,000 ML Q10H 10/24 0000 AC 10/24 Chloride IV 0833 Fentanyl Citrate 0 .STK-MED ONE 10/24 1134 DC .ROUTE Heparin Sodium 5,000 UNIT Q8 10/20 06 DC 10/23 (Porcine) SC 10/24 0000 2059 Hydromorphone HCl 2 MG Q6P PRN 10/22 1430 AC 10/24 PO 0300 Lidocaine 1 ML .STK-MED ONE 10/24 1341 DC ID 10/24 1342 Lisinopril 40 MG DAILY 10/20 0315 10/24 PO 0821 Methadone HCl 55 MG DAILY 10/20 1000 AC 10/24 PO 0826 Midazolam HCl 0 .STK-MED ONE 10/24 1134 DC .ROUTE Morphine Sulfate 2 MG ONCE ONE 10/24 1400 DC 10/24 IV 10/24 1401 1355 Nicotine 21 MG DAILY 10/20 1439 AC 10/24 TOP 0821 Potassium Chloride 10 MEQ DAILY 10/20 1000 AC 10/24 PO 0821 Last 24 Hrs of Lab/Chad Results Last 24 Hrs of Labs/Mics: Laboratory Tests 10/24/16 0650: Anion Gap 4 L, Estimated GFR > 60, BUN/Creatinine Ratio 21.7, CBC w Diff NO MAN DIFF REQ, RBC 5.54 H, MCV 80.1 L, MCH 24.6 L, RDW 16.4 H, MPV 7.9, Gran % 55.8, Lymphocytes % 29.2, Monocytes % 11.4 H, Eosinophils % 3.1, Basophils % 0.5, Absolute Granulocytes 2.6, Absolute Lymphocytes 1.4, Absolute Monocytes 0.5 , Absolute Eosinophils 0.1, Absolute Basophils 0, PUBS MCHC 30.7 L Microbiology 10/24 1330 UPPER RESP: Surveillance Culture - RECD 10/24 1329 GI: Surveillance Culture - RECD Assessment/Plan Assessment: 61-year-old female with past medical history of chronic venous insufficiency and nonhealing ulcers of both lower extremities, peripheral vascular disease, hepatitis C, IV drug abuse, is currently being managed in the general medical floor for the following issues: #Osteomyelitis of left heel MRI done on 10/22/16 showed osteomyelitis of left heel. Graham Cross DPM, framing machine tender, suggested holding antibiotics, pending further decision for left heel debridement, biopsy and culture; and a ID consult request. Per ID consult, antibiotics should be stopped ideally for at least 72 hours to get a good yield of bacteria from the bone culture, but given the short duration of exposure, she can go for surgery after 48 hrs as well. Appreciate Podiatry and ID recommendations. * Patient has been kept nothing by mouth since midnight, with a plan for surgery. * Surgery cancelled due to patient's hemothorax complication during CT guided lung biopsy. * patient is being transferred to the ICU. #Right lung mass #Hemothorax and hypoxia following Ct guided Right lung biopsy Her right lung mass has increased significantly from 2-8 cm over the course of one year, for which she was supposed to follow up with Dr. Romo. She only saw Dr. Romo once, when she was recommended a PET scan by him. She did not receive PET scan, and nor did follow up with a lung doctor. This time, her right lung lesion appears to be much bigger in size, raising suspicion of malignancy. She understands the condition, but is still not fully motivated to comply for that reason. Pulmonary consultation requested, appreciated. * Per pulmonary consultation with Dr Ramos, patient got CAT scan of chest which shows progression of the mass, possibly malignant tumor, with lymphatic spread, along with interval breast size change. This finding has been shared with the patient, who understands the condition and agrees to follow up with Pipe Buffer. * Patient went for interventional radiology procedure (CT-guided right lung biopsy) this morning. According to the radiologist, who contacted the primary team immediately, the patient appears to have right sided hemothorax and hypoxia following the procedure. * This critical finding was shared with the attending, and a decision made to transfer the patient to ICU directly from the recovery room. * ICU team has been signed out about the condition of the patient, and the patient's plan of care. #Possible cellulitis DVT of lower ext ruled out by b/l Doppler studies. Patient's presentation initially resembled cellulitis clinically, but was never febrile, or had leukocytosis, suggesting possible changes due to chronic venous stasis. IV antibiotics have been held since 10/22/16 4pm. Will watch her off antibiotics for now. Of note, one set of blood culture collected on 10/19/2016 grew Diptheroids, possible a contaminant. Continue leg elevation. Continuing pain management. #Chronic nonhealing ulcers Patient has chronic nonhealing ulcers, secondary to peripheral vascular disease and chronic venous stasis. Wound nurse has been taking care of the ulcers. Appreciate the input. Continue the care. #Chronic fungal nail infection Not pursuing any rat exterminator antifungal treatment currently. #Right knee swelling/pain: Osteoarthritis vs pseudogout Patient has long-standing history of right knee osteoarthritis but her swelling and pain has worsened in the last month. X-ray of her right knee showed effusion on the suprapatellar space which was drained and sent for studies by Orthopedic surgeon Dr Mason. Negative for septic arthritis. Osteoarthritis with effusion, or pseudogout is the likely diagnosis. This can be followed up as an outpatient basis. #Pain management: adjusting per patient's feedback. This has been achallenge, as the patient says she is fine with the current regimen, but is still reporting pain of 8-9/10 most of the times to the nurse. She is on Methadone, and we had to start her on Dilaudid due to severe pain initially. Plan to tailor according to the patient. #Diet regular diet, NPO from [place]. #DVT prophylaxis with SQ Heparin, HELD FROM THIS AM FOR THE PROCEDURE. Would hold now given the hemothorax. ALPS would be the choice of DVT prophylaxis now. #CODE STATUS: Full code. Problem List: 1. Osteomyelitis 2. Lung nodule Pain Ratin Pain Location: DIFFUSE Pain Goal: Pain 4 or less Pain Plan: PER PATHWAY Tomorrow's Labs & Rationales: ICU BUNDLE AJ LARIOS,Ally GWEN 10/24/16 1528: Attending MD Review Statement Attending Statement Attending MD Statement: examined this patient, discuss w/resident/PA/BLUE LINE HANGER, agreed w/resident/PA/BLUE LINE HANGER, reviewed EMR data (avail), reviewed images
--- NOTE | 2016-10-24 15:17 | PN- Infect Dx ---
Subjective Subjective: Afebrile. She complains of pain in the right chest status post a CT-guided lung biopsy earlier today. She also continues to complain of left heel pain. Objective Last 24 Hrs of Vital Signs/I&O Vital Signs Date Time Temp Pulse Resp B/P B/P Pulse O2 O2 Flow FiO2 Mean Ox Delivery Rate 10/24 1419 94 Nasal 5.0L Cannula 10/24 0925 Nasal 1.0L Cannula 10/24 0821 77 148/89 10/24 0821 77 148/89 10/24 0800 Nasal 2.0L Cannula 10/24 0625 98.9 77 22 148/89 95 Nasal 2.0L Cannula 10/24 0000 Nasal 2.0L Cannula 10/23 2225 99.0 73 20 140/82 94 Nasal 2.0L Cannula 10/23 1940 95 Nasal 2.0L Cannula Intake & Output 10/24 1600 10/24 0800 10/24 0000 Intake Total 600 Output Total 400 Balance 600 -400 Intake, IV 600 Output, Urine 400 Physical Exam Other Physical Findings: She appears in mild distress secondary to pain Lungs decreased breath sounds bilaterally Heart regular rhythm with no murmur Extremities left foot dressing intact Results Last 24 Hours of Lab Results: Laboratory Tests 10/24 0650 Chemistry Sodium (137 - 145 mmol/L) 138 Potassium (3.5 - 5.1 mmol/L) 4.5 Chloride (98 - 107 mmol/L) 92 L Carbon Dioxide (22 - 30 mmol/L) 42 H Anion Gap (5 - 16) 4 L BUN (7 - 17 mg/dL) 13 Creatinine (0.5 - 1.0 mg/dL) 0.6 Estimated GFR (>60 ml/min) > 60 BUN/Creatinine Ratio (7 - 25 %) 21.7 Hematology CBC w Diff NO MAN DIFF REQ WBC (4.8 - 10.8 /CUMM) 4.7 L RBC (4.20 - 5.40 /CUMM) 5.54 H Hgb (12.0 - 16.0 G/DL) 13.6 Hct (37 - 47 %) 44.3 MCV (81.0 - 99.0 FL) 80.1 L MCH (27.0 - 31.0 PG) 24.6 L RDW (11.5 - 14.5 %) 16.4 H Plt Count (130 - 400 /CUMM) 163 MPV (7.4 - 10.4 FL) 7.9 Gran % (42.2 - 75.2 %) 55.8 Lymphocytes % (20.5 - 51.1 %) 29.2 Monocytes % (1.7 - 9.3 %) 11.4 H Eosinophils % (0 - 5 %) 3.1 Basophils % (0.0 - 2.0 %) 0.5 Absolute Granulocytes (1.4 - 6.5 /CUMM) 2.6 Absolute Lymphocytes (1.2 - 3.4 /CUMM) 1.4 Absolute Monocytes (0.10 - 0.60 /CUMM) 0.5 Absolute Eosinophils (0.0 - 0.7 /CUMM) 0.1 Absolute Basophils (0.0 - 0.2 /CUMM) 0 PUBS MCHC (33.0 - 37.0 G/DL) 30.7 L Last 24 Hours of Chad Results: No recent cultures Assessment/Plan Impression: Respiratory distress status post CT-guided biopsy of the right middle lobe mass earlier today, which was complicated by a hemothorax. She was originally scheduled for a bone biopsy of the left heel today to rule out osteomyelitis, but this has been deferred. She remains afebrile with white blood cell count normal now off antibiotics, and she can continue to be followed off antibiotics pending the bone biopsy. Suggestion: 1. Await thoracic surgery evaluation regarding her hemothorax 1. Await bone biopsy of the left heel next week 3. Continue to follow off antibiotics pending above
--- NOTE | 2016-10-24 15:38 | RADIOLOGY REPORT ---
PROCEDURE: CT GUIDED BIOPSY, LUNG CLINICAL INFORMATION: 7.3 cm lung mass in the right minimal lobe. Presents for biopsy.. COMPARISON: CT chest with contrast 10/21/2016 CONSENT: Informed consent was obtained from the patient prior to the procedure. During this process, the procedure and potential alternatives were explained, along with the intended outcome and benefits. The risks of the procedure, including pneumothorax with the potential for chest tube placement, were discussed. Additionally, the risks of not doing the procedure were discussed. The patient was given the opportunity to ask questions regarding the procedure and appeared competent to make medical decisions. A signed consent form which documents this discussion was Placed in the medical record. DLP: 618 mGy-cm. TECHNIQUE/FINDINGS: Following obtaining informed consent, the patient was placed in supine with the right side up position on the CT table. Using sterile technique, under local anesthesia, a 20-gauge core biopsy needle was advanced into the lung nodule. Confirmation of the optimal position of the needle tip was performed using real-time CT fluoroscopy. Subsequently, 2 core biopsies were obtained from the nodule. Both core biopsies were placed in formalin and was sent to the pathology department for further evaluation. Post biopsy CT scan revealed the a small hemothorax. There was no immediate pneumothorax. The patient complained of mild right-sided chest pain with a drop in O2 saturation to 85% on 2 L oxygen post biopsy. Given the symptomatic hemothorax, the patient was quickly repositioned to a right lateral decubitus position on top of a towel roll at the site of biopsy. Repeat CT exams were performed at 12:30, 12:42, at 12:57, which demonstrates stabilization of the hemothorax. The patient improved on a Venti mask with oxygen saturation achieved between 94-97%. Case was discussed with the attending physician on the inpatient floor, who felt more comfortable with ICU monitoring for a short period of time. A follow-up PA chest x-ray was performed one hour postprocedure, which demonstrated expected postbiopsy changes with a small right pleural effusion, not changed in size compared to CT guided for modality.. Additionally, a chest x-ray 4 hours post biopsy is planned. COMPLICATIONS: Small hemothorax. MONITORING: SEDATION: The procedure was performed with intravenous conscious sedation, standard monitoring with a certified nurse for a total of 6.2 minutes. 0.5 mg Versed and 25 mcg Fentanyl were utilized. IMPRESSION: 1. Technically successful biopsy of a 7 cm lung mass in the right middle lobe. 2. Small postbiopsy hemothorax developed, which stabilized under intermittent CT monitoring for 40 minutes post procedure. 3. One hour post biopsy CXR demonstrates expected postbiopsy changes with a small pleural effusion, compatible with stable hemothorax. There is no pneumothorax
[2016-10-24 16:00] VITALS: BP 176/80
--- NOTE | 2016-10-24 16:45 | Cons- Thoracic Surgery ---
General Information and HPI Consulting Request Date of Consult: 10/24/16 Requested By: HAILE LARIOS,RAKEL Reason for Consult: Evaluation of a right lung mass which is now complicated by a procedural related hemothorax. Source of Information: patient, old records, PCP Exam Limitations: no limitations History of Present Illness: I was asked to evaluate the patient was 61-year-old woman admitted with lower extremity and foot problems. The patient had been evaluated 1 year ago by pulmonary with a finding of a right middle lobe lung mass that was a new finding on a chest x-ray. She was recommended for outpatient follow-up with did not keep those plans. She is admitted this time primarily with lower extremity, complications and was scheduled for up podiatric procedure today. Pulmonary consultation was obtained when the right lung mass had grown significantly in size. Recommendations was made for CT-guided needle biopsy which was done earlier today and complicated by some degree of bleeding. Thoracic surgical evaluation is asked for help in management and treatment. Allergies/Medications Allergies: Coded Allergies: NO KNOWN ALLERGIES (01/20/11) Home Med List: Amlodipine Besylate 10 MG TABLET 1 TAB PO DAILY HTN (Reported) Chlorthalidone 25 MG TABLET 12.5 MG PO DAILY HIGH BLOOD PRESSURE Lisinopril 40 MG TABLET 1 TAB PO DAILY HTN (Reported) Methadone HCl 5 MG/5 ML SOLUTION 55 MG PO DAILY MENTAL HEALTH (Reported) Potassium Chloride (Klor-Con Sprinkle) 10 MEQ CAPSULE.ER 10 MEQ PO DAILY SUPPLEMENT (Reported) Prochlorperazine Maleate (Compazine) 10 MG TABLET 10 MG PO Q8 PRN NAUSEA ( Reported) Current Medications: Current Medications Sig/Ora Start time Last Medication Dose Route Stop Time Status Admin Acetaminophen 650 MG .STK-MED ONE 10/23 1920 DC PO 10/23 1921 Acetaminophen 650 MG Q6P PRN 10/20 0100 AC 10/23 PO 192 Acetaminophen/ 2 TAB Q6P PRN 10/20 193 AC 10/24 Hydrocodone Bitart PO 0600 Albuterol Sulfate 3 ML BID 10/24 2200 AC INH Albuterol Sulfate 3 ML Q4P PRN 10/21 1930 DC 10/24 INH 1347 Amlodipine Besylate 10 MG DAILY 10/20 0100 AC 10/24 PO 0821 Chlorthalidone 12.5 MG DAILY 10/22 1350 AC 10/24 PO 0820 Dextrose/Sodium 1,000 ML Q10H 10/24 0000 AC 10/24 Chloride IV 0833 Fentanyl Citrate 0 .STK-MED ONE 10/24 1134 DC .ROUTE Heparin Sodium 5,000 UNIT Q8 10/20 0600 DC 10/23 (Porcine) SC 10/24 0000 2059 Hydromorphone HCl 2 MG Q6P PRN 10/22 1430 AC 10/24 PO 0300 Lidocaine 1 ML .STK-MED ONE 10/24 1341 DC ID 10/24 1342 Lisinopril 40 MG DAILY 10/20 0315 AC 10/24 PO 0821 Methadone HCl 55 MG DAILY 10/20 1000 AC 10/24 PO 0826 Midazolam HCl 0 .STK-MED ONE 10/24 1134 DC .ROUTE Morphine Sulfate 2 MG ONCE ONE 10/24 1400 DC 10/24 IV 10/24 1401 1355 Nicotine 21 MG DAILY 10/20 1439 10/24 TOP 0821 Potassium Chloride 10 MEQ DAILY 10/20 1000 AC 10/24 PO 0821 Past History Medical History Blood Transfusion Hx: No Neurological: NONE EENT: NONE Cardiovascular: chronic venous insuff, hypertension, PVD Respiratory: COPD Gastrointestinal: NONE Hepatic: hepatitis C Renal: NONE Musculoskeletal: NONE Psychiatric: opioid dependence (maintained on methadone) Endocrine: NONE Blood Disorders: NONE Cancer(s): NONE 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 . MOTHER (AR, TIA). . Relation not specified for: FH: hypertension Heart attack Psychosocial History Where Do You Live? Home Who Do You Live With? child Services at Home: Home Health Aide Primary Language: Montenegrin Smoking Status: Current Some Day Smoker (Smokes 1/2 PPD, 24 Pack Years) ETOH Use: denies use (Hx of IVDU,Last Use 20 Yrs Ago) Illicit Drug Use: denies illicit drug use (history of IVDU) Functional Ability ADLs Independent: dressing, eating, toileting, bathing. Ambulation: walker IADLs Independent: shopping, housework, finances, food prep, telephone, transportation , medication admin. Review of Systems Review of Systems: This systems notable for her right now having no significant respirations symptoms. She is having no dyspnea and no pleuritic chest pain. Her symptoms are mainly relate related to her lower extremity with weeping and significant increase in edema. The rest of the 12 point review of systems unremarkable. Exam & Diagnostic Data Vital Signs and I&O Vital Signs Date Time Temp Pulse Resp B/P B/P Pulse O2 O2 Flow FiO2 Mean Ox Delivery Rate 10/24 1419 94 Nasal 5.0L Cannula 10/24 1320 92 Venti Mask 40% 10/24 1320 98.6 81 24 172/84 92 Venti Mask 40% 10/24 0925 Nasal 1.0L Cannula 10/24 0821 77 148/89 10/24 0821 77 148/89 10/24 0800 Nasal 2.0L Cannula 10/24 0625 98.9 77 22 148/89 95 Nasal 2.0L Cannula 10/24 0000 Nasal 2.0L Cannula 10/23 2225 99.0 73 20 140/82 94 Nasal 2.0L Cannula 10/23 1940 95 Nasal 2.0L Cannula Intake & Output 10/24 1600 10/24 0800 10/24 0000 10/23 1600 10/23 0800 10/23 0000 Intake Total 300 600 950 480 120 Output Total 700 400 600 500 250 Balance -400 600 -400 350 -20 -130 Intake, IV 300 600 Intake, Oral 950 480 120 Output, Urine 700 400 600 500 250 Physical Exam: Physical examination she is lying in bed breathing comfortably. Her skin is warm and well perfused no suspicious lesions noted. The sclerae are anicteric and mucous membranes are moist. There is no cervical or subclavicular lymphadenopathy. Her breath sounds are fairly clear bilaterally and I do not appreciate any wheezes or rhonchi. Cardiac exam shows regular rhythm and rate with no murmurs or sounds. Her abdomen is soft and nontender with no masses. The periphery shows significant lower extremity edema with the wrappings that I did not take down. By report are showing significant weepage. Her neurologic exam is grossly normal motor and sensory function. Last 24 Hours of Labs: Laboratory Tests 10/24 0650 Chemistry Sodium (137 - 145 mmol/L) 138 Potassium (3.5 - 5.1 mmol/L) 4.5 Chloride (98 - 107 mmol/L) 92 L Carbon Dioxide (22 - 30 mmol/L) 42 H Anion Gap (5 - 16) 4 L BUN (7 - 17 mg/dL) 13 Creatinine (0.5 - 1.0 mg/dL) 0.6 Estimated GFR (>60 ml/min) > 60 BUN/Creatinine Ratio (7 - 25 %) 21.7 Hematology CBC w Diff NO MAN DIFF REQ WBC (4.8 - 10.8 /CUMM) 4.7 L RBC (4.20 - 5.40 /CUMM) 5.54 H Hgb (12.0 - 16.0 G/DL) 13.6 Hct (37 - 47 %) 44.3 MCV (81.0 - 99.0 FL) 80.1 L MCH (27.0 - 31.0 PG) 24.6 L RDW (11.5 - 14.5 %) 16.4 H Plt Count (130 - 400 /CUMM) 163 MPV (7.4 - 10.4 FL) 7.9 Gran % (42.2 - 75.2 %) 55.8 Lymphocytes % (20.5 - 51.1 %) 29.2 Monocytes % (1.7 - 9.3 %) 11.4 H Eosinophils % (0 - 5 %) 3.1 Basophils % (0.0 - 2.0 %) 0.5 Absolute Granulocytes (1.4 - 6.5 /CUMM) 2.6 Absolute Lymphocytes (1.2 - 3.4 /CUMM) 1.4 Absolute Monocytes (0.10 - 0.60 /CUMM) 0.5 Absolute Eosinophils (0.0 - 0.7 /CUMM) 0.1 Absolute Basophils (0.0 - 0.2 /CUMM) 0 PUBS MCHC (33.0 - 37.0 G/DL) 30.7 L Imaging Results: CT scan of the chest shows significant increase in the right middle lobe lung mass with now significant subcarinal lymphadenopathy. Status post CT-guided needle biopsy there is a stable chest x-ray with no significant right pleural effusion. There is a mild rim of fluid on the CT lung biopsy film. Assessment/Plan Assessment/Plan In regards to the current problem which is a procedural related bleeding I think given the location of the lesion other will clearly be tympanotomy and no concerns about further problems. We will follow with serial hematocrits and a chest x-ray in the morning. The patient became unstable we would need to consider allergy coiling of the brachial artery supplying the lesion. In regards to the right lung biopsy this is clearly a neoplasm with now mediastinal lymph node involvement. I will would get a oncology evaluation and if staging mediastinoscopy is necessary we can do that as part of her hospitalization. For now serial hematocrits and a chest x-ray in the morning to rule out any further hemothorax. Consult Acknowledgment - Thank you for your consult request.
[2016-10-24 18:44] LABS: ABSOLUTE BASOPHIL COUNT 0 /CUMM (0.0-0.2); ABSOLUTE EOSINOPHIL COUNT 0.1 /CUMM (0.0-0.7); ABSOLUTE GRANULOCYTE CT 3.4 /CUMM (1.4-6.5); ABSOLUTE MONOCYTE COUNT 0.4 /CUMM (0.10-0.60); BASOPHIL % 0.5 % (0.0-2.0); EOSINOPHIL % 1.6 % (0-5); GRANULOCYTE % 69.1 % (42.2-75.2); MEAN CORPUSCULAR HGB 24.5 PG (27.0-31.0); MEAN CORPUSCULAR HGB CONC 30.9 G/DL (33.0-37.0); MEAN CORPUSCULAR VOLUME 79.3 FL (81.0-99.0); MEAN PLATELET VOLUME 7.7 FL (7.4-10.4); PLATELET COUNT 176 /CUMM (130-400); RBC DISTRIBUTION WIDTH 16.4 % (11.5-14.5); RED BLOOD CELL CT 5.08 /CUMM (4.20-5.40); WHITE BLOOD CELL COUNT 4.9 /CUMM (4.8-10.8)
--- NOTE | 2016-10-24 18:50 | RADIOLOGY REPORT ---
EXAMINATION:\H\ \N\XR CHEST CLINICAL INFORMATION: Follow-up right lung biopsy. COMPARISON: 10/24/2016 at 1417 hours TECHNIQUE: AP erect portable view of the chest was obtained. FINDINGS: Heart appears enlarged. No pneumothorax or evidence of effusion. Large mass right lower lung with associated atelectasis less likely infiltrate. Left lung remains clear. There are degenerative changes left shoulder. IMPRESSION: No pneumothorax or effusion.
[2016-10-24 18:52] LABS: HEMATOCRIT 40.2 % (37-47)
[2016-10-25] VITALS: BP 160/80
[2016-10-25 01:53] LABS: ABSOLUTE BASOPHIL COUNT 0 /CUMM (0.0-0.2); ABSOLUTE EOSINOPHIL COUNT 0.1 /CUMM (0.0-0.7); ABSOLUTE MONOCYTE COUNT 0.5 /CUMM (0.10-0.60); EOSINOPHIL % 1.8 % (0-5)
[2016-10-25 02:05] LABS: ABSOLUTE LYMPH COUNT 1.5 /CUMM (1.2-3.4); BASOPHIL % 0.6 % (0.0-2.0); GRANULOCYTE % 59.5 % (42.2-75.2); HEMATOCRIT 40.2 % (37-47); MEAN CORPUSCULAR HGB 24.7 PG (27.0-31.0); MEAN CORPUSCULAR HGB CONC 30.9 G/DL (33.0-37.0); MEAN CORPUSCULAR VOLUME 79.8 FL (81.0-99.0); MEAN PLATELET VOLUME 7.9 FL (7.4-10.4); PLATELET COUNT 176 /CUMM (130-400); RBC DISTRIBUTION WIDTH 16.6 % (11.5-14.5); RED BLOOD CELL CT 5.05 /CUMM (4.20-5.40); WHITE BLOOD CELL COUNT 5.1 /CUMM (4.8-10.8)
[2016-10-25 08:00] VITALS: BP 170/80
--- NOTE | 2016-10-25 08:42 | PN- Resident CRCU ---
Subjective HPI/CRCU Issues: Afebrile, hemodynamically stable, saturating well 4 L of oxygen. No acute overnight events were reported. Lateral inferior side chest pain. Her dyspnea improved and she denies any other current active complaints. Objective Vital Signs & I&O Last 8 Hrs of Vitals and I&O: Vital Signs Date Time Temp Pulse Resp B/P B/P Pulse O2 O2 Flow FiO2 Mean Ox Delivery Rate 10/25 1144 92 Nasal 4.0L Cannula 10/25 1000 80 165/76 10/25 1000 80 160/76 10/25 0831 94 Nasal 5.0L Cannula 10/25 0800 99.6 77 16 170/80 93 Nasal 4.0L Cannula 10/25 0800 88 Nasal 4.0L Cannula 10/25 0400 94 Nasal 4.0L Cannula 10/25 0000 99.0 80 18 160/80 92 Nasal 5.0L Cannula 10/25 0000 92 Nasal 5.0L Cannula 10/24 2147 92 Nasal 5.0L Cannula 10/24 2000 92 Nasal 5.0L Cannula 10/24 1600 97.9 79 18 176/80 95 Nasal 5.0L Cannula 10/24 1600 95 Nasal 5.0L Cannula 10/24 1419 94 Nasal 5.0L Cannula 10/24 1320 92 Venti Mask 40% 10/24 1320 98.6 81 24 172/84 92 Venti Mask 40% Intake & Output 10/25 1600 10/25 0800 10/25 0000 Intake Total 60 400 Output Total 1650 1550 Balance -1590 -1150 Intake, IV 400 Intake, Oral 60 0 Number 0 0 Bowel Movements Output, Urine 1650 1550 Exam General Appearance: no apparent distress, alert, awake, comfortable Head: atraumatic, normal appearance Cardiovascular: regular rate/rhythm Gastrointestinal: soft, non-tender Extremities: no edema, mild erythema over both knees, legs are covered with dressing below knee level Current Medications: Current Medications Sig/Ora Start time Last Medication Dose Route Stop Time Status Admin Acetaminophen 650 MG .STK-MED ONE 10/25 0057 DC PO 10/25 0058 Acetaminophen 650 MG Q6P PRN 10/20 0100 AC 10/25 PO 0056 Acetaminophen/ 2 TAB Q6P PRN 10/20 1930 AC 10/25 Hydrocodone Bitart PO 0751 Albuterol Sulfate 3 ML BID 10/24 2200 AC 10/25 INH 0829 Albuterol Sulfate 3 ML Q4P PRN 10/21 1930 DC 10/24 INH 1347 Amlodipine Besylate 10 MG DAILY 10/20 0100 AC 10/25 PO 1000 Chlorthalidone 12.5 MG DAILY 10/22 1350 AC 10/25 PO 1000 Dextrose/Sodium 1,000 ML Q10H 10/24 0000 DC 10/24 Chloride IV 0833 Fentanyl Citrate 100 MCG .STK-MED ONE 10/24 1236 DC IM 10/24 1237 Hydromorphone HCl 2 MG Q6P PRN 10/22 1430 AC 10/25 PO 1148 Ketorolac 15 MG ONCE ONE 10/25 0845 DC 10/25 Tromethamine IV 10/25 0846 0851 Lidocaine 1 ML .STK-MED ONE 10/24 1341 DC ID 10/24 1342 Lisinopril 40 MG DAILY 10/20 0315 AC 10/25 PO 1000 Magnesium Oxide 400 MG .STK-MED ONE 10/25 0007 DC PO 10/25 0008 Magnesium Sulfate 2 GM .STK-MED ONE 10/25 0009 DC IV 10/25 0010 Magnesium Sulfate 1 GM Q2H 10/24 2345 DC 10/25 Dextrose/Water 100 ML IV 10/25 0344 0115 Methadone HCl 55 MG DAILY 10/20 1000 AC 10/25 PO 1001 Midazolam HCl 2 MG .STK-MED ONE 10/24 1236 DC IM 10/24 1237 Morphine Sulfate 2 MG ONCE ONE 10/24 1400 DC 10/24 IV 10/24 1401 1355 Nicotine 21 MG DAILY 10/20 1439 AC 10/25 TOP 1000 Potassium Chloride 10 MEQ DAILY 10/20 1000 AC 10/25 PO 1000 Impression/Plan Impression/Problem List Impression: 61-year-old female with past medical history of chronic venous insufficiency and nonhealing ulcers of both lower extremities, peripheral vascular disease, hepatitis C, IV drug abuse,Pulmonary nodule and active smoker,was admitted to general medicine floor for management of cellulitis and osteomyelitis. Pt had MRI finding of Osteomyelitis. He was scheduled for Debridement today. However, she has right lung mass that she was suppose to follow up previously. Medical team had pt undergo a CT guided biopsy for assesment of her mass. The procedure was complicated by possible hemothorax, therefore pt was transferred to ICU for close monitoring of hemothorax. #Lung biopsy status post status post lung biopsy dated by Hemothorax She was found to have a small mass one year ago, she did not follow up as was instructed that time, mass increased significantly on size since then, patient was send for lung biopsy yesterday and the procedure was complicated with hemothorax * We repeat chest x-ray this morning * We will follow pathology results * Avoid oversedation * We'll follow oncology recommendations #Osteomyelitis of left heel MRI done on 10/22/16 showed osteomyelitis of left heel. 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 * She will be rescheduled to obtain the biopsy #Possible cellulitis DVT of lower ext ruled out by b/l Doppler studies. Patient's presentation initially resembled cellulitis clinically, but was never febrile, or had leukocytosis, suggesting possible changes due to chronic venous stasis. IV antibiotics have been held since 10/22/16 4pm. Will watch her off antibiotics for now. Of note, one set of blood culture collected on 10/19/2016 grew Diptheroids, possible a contaminant. Continue leg elevation. Continuing pain management. #Chronic nonhealing ulcers Patient has chronic nonhealing ulcers, secondary to peripheral vascular disease and chronic venous stasis. Wound nurse has been taking care of the ulcers. Appreciate the input. Continue the care. #Chronic fungal nail infection Not pursuing any adult education teacher antifungal treatment currently. #Right knee swelling/pain: Osteoarthritis vs pseudogout Patient has long-standing history of right knee osteoarthritis but her swelling and pain has worsened in the last month. X-ray of her right knee showed effusion on the suprapatellar space which was drained and sent for studies by Orthopedic surgeon Dr Mason. Negative for septic arthritis. Osteoarthritis with effusion, or pseudogout is the likely diagnosis. * Followed up as an outpatient. Regular diet Full code Problem List: 1. Osteomyelitis Pain Ratin Tomorrow's Labs & Rationales: CBC and ICU bundle Plan DVT/Prophylaxis: mechanical, pharmacological Pain Ratin Tomorrow's Labs & Rationales: CBC and ICU bundle Plan DVT/Prophylaxis: mechanical, pharmacological
--- NOTE | 2016-10-25 08:51 | PN- CRCU ---
Subjective HPI/Critical Care Issues: The patient is awake and alert. She continues to have ongoing right-sided chest pain, noting she is receiving Dilaudid and Toradol. She feels less short of breath today. Overall, she feels that she is improving and offers no new complaints today. Objective Current Medications: Current Medications Sig/Ora Start time Last Medication Dose Route Stop Time Status Admin Acetaminophen 650 MG Q6P PRN 10/20 0100 AC 10/25 PO 0056 Acetaminophen/ 2 TAB Q6P PRN 10/20 1930 AC 10/25 Hydrocodone Bitart PO 0751 Albuterol Sulfate 3 ML BID 10/24 2200 AC 10/25 INH 0829 Albuterol Sulfate 3 ML Q4P PRN 10/21 1930 DC 10/24 INH 1347 Amlodipine Besylate 10 MG DAILY 10/20 0100 AC 10/24 PO 0821 Chlorthalidone 12.5 MG DAILY 10/22 1350 AC 10/24 PO 0820 Dextrose/Sodium 1,000 ML Q10H 10/24 0000 DC 10/24 Chloride IV 0833 Fentanyl Citrate 100 MCG .STK-MED ONE 10/24 1236 DC IM 10/24 1237 Fentanyl Citrate 0 .STK-MED ONE 10/24 1134 DC .ROUTE Hydromorphone HCl 2 MG Q6P PRN 10/22 1430 AC 10/25 PO 0546 Ketorolac 15 MG ONCE ONE 10/25 0845 DC Tromethamine IV 10/25 0846 Lidocaine 1 ML .STK-MED ONE 10/24 1341 DC ID 10/24 1342 Lisinopril 40 MG DAILY 10/20 0315 AC 10/24 PO 0821 Magnesium Oxide 400 MG .STK-MED ONE 10/25 0007 DC PO 10/25 0008 Magnesium Sulfate 2 GM .STK-MED ONE 10/25 0009 DC IV 10/25 0010 Magnesium Sulfate 1 GM Q2H 10/24 2345 DC 10/25 Dextrose/Water 100 ML IV 10/25 0344 0115 Methadone HCl 55 MG DAILY 10/20 1000 AC 10/24 PO 0826 Midazolam HCl 2 MG .STK-MED ONE 10/24 1236 DC IM 10/24 1237 Midazolam HCl 0 .STK-MED ONE 10/24 1134 DC .ROUTE Morphine Sulfate 2 MG ONCE ONE 10/24 1400 DC 10/24 IV 10/24 1401 1355 Nicotine 21 MG DAILY 10/20 1439 10/24 TOP 0821 Potassium Chloride 10 MEQ DAILY 10/20 1000 10/24 PO 0821 Vital Signs & I&O Last 24 Hrs of Vitals and I&O: Vital Signs Date Time Temp Pulse Resp B/P B/P Pulse O2 O2 Flow FiO2 Mean Ox Delivery Rate 10/25 0831 94 Nasal 5.0L Cannula 10/25 0800 99.6 77 16 170/80 93 Nasal 4.0L Cannula 10/25 0400 94 Nasal 4.0L Cannula 10/25 0000 99.0 80 18 160/80 92 Nasal 5.0L Cannula 10/25 0000 92 Nasal 5.0L Cannula 10/24 2147 92 Nasal 5.0L Cannula 10/24 2000 92 Nasal 5.0L Cannula 10/24 1600 97.9 79 18 176/80 95 Nasal 5.0L Cannula 10/24 1600 95 Nasal 5.0L Cannula 10/24 1419 94 Nasal 5.0L Cannula 10/24 1320 92 Venti Mask 40% 10/24 1320 98.6 81 24 172/84 92 Venti Mask 40% 10/24 0925 Nasal 1.0L Cannula Intake & Output 10/25 1600 10/25 0800 10/25 0000 Intake Total 60 400 Output Total 1650 1550 Balance -1590 -1150 Intake, IV 400 Intake, Oral 60 0 Number 0 0 Bowel Movements Output, Urine 1650 1550 Physical Exam General Appearance: awake and alert Other Physical Findings: Skin skin lesions consistent with chronic venous statis in b/l lower ext. HEENT Atraumatic, Mucous Membr. moist/pink Neck Supple Cardiovascular Regular Rate, Normal S1, Normal S2, No Murmurs Lungs anterior bilateral rhonchi heard Abdomen Soft, No Tenderness, Positive Bowel Sounds Extremities No Clubbing, No Cyanosis, Bilateral Lower Extremities with Swelling (decreasing) and Serous Drainage, Skin Changes Consistent with Chronic Venous Stasis and Thick Scale, One Ulcer 2x2 cm ulcer noted at the base of left heel, Right Knee Swelling, Bilateral Toenails with severe Onychomycosis and toe deformity. Impression/Plan Impression/Plan Impression/Plan: 1. Right lung mass, with hemothorax status post lung biopsy. Results are pending. The patient's hemoglobin has been stable. 2. Osteomyelitis of the left heel. 3. Lower extremity cellulitis. 4. Chronic nonhealing ulcers. 5. Chronic fungal nail infection. 6. Chronic pain. Recommendations: * Will continue to follow ID recommendations. * Check a chest x-ray today for monitoring of hemothorax. * Follow-up pathology results. * Continue nebs/TRC. * Continue medications for pain control, but avoid oversedation. * Electrolyte repletion as ordered. * Advance diet as tolerated. * Continue with blood pressure control. * DVT prophylaxis at all times. * Continue all supportive care.
--- NOTE | 2016-10-25 09:40 | RADIOLOGY REPORT ---
EXAMINATION: CHEST 1 VIEW CLINICAL INFORMATION: Increased supplemental oxygen requirement. Chest pain. COMPARISON: 10/24/2016. TECHNIQUE: An AP view of the chest is provided. FINDINGS: The cardiac silhouette is not enlarged. The mediastinal and hilar contours are unremarkable. There are neither pleural effusions nor pneumothoraces. There is a persistent mass identified in the right lung base. There is a slight increase in surrounding airspace disease. The osseous structures are stable. IMPRESSION: Persistent mass within the right lung base. There is a slight increase in adjacent airspace disease.
[2016-10-25 16:00] VITALS: BP 140/60
[2016-10-25 23:00] VITALS: BP 144/78
[2016-10-26 08:00] VITALS: BP 156/80
--- NOTE | 2016-10-26 08:05 | PN- Resident CRCU ---
Subjective HPI/CRCU Issues: Hemothorax status post lung biopsy Osteomyelitis of left heel - off antibiotics Chronic nonhealing lower extremity ulcers with questionable superimposed cellulitis Chronic pain - on methadone 24 Hour Events: She is comfortably sitting on the chair and having her lunch. She claims severe pain in both her lower extremities, not help much with pain medications (On methadone, Vicodin, Tylenol). She denies any difficulty with breathing, chest pain, nausea/vomiting/diarrhea. Her last bowel movement was today morning. No acute overnight events. Objective Vital Signs & I&O Last 8 Hrs of Vitals and I&O: MAXIMUM TEMPERATURE 99.6, heart rate 70-80 normal sinus rhythm, blood pressure 170/80 to 158/84 mmHg, currently on 4 L of nasal cannula Exam General Appearance: well developed/nourished, no apparent distress, alert, awake , comfortable Head: atraumatic, normal appearance Ears, Nose, Throat: normal pharynx Neck: normal inspection, supple Respiratory: chest non-tender, decreased breath sounds, wheezing Cardiovascular: regular rate/rhythm, normal peripheral pulses Gastrointestinal: normal bowel sounds, soft, non-tender Extremities: normal inspection, normal capillary refill, swelling, tenderness, erythema Cranial Nerves: normal hearing, normal speech, PERRL Skin: intact Skin Temp/Moisture Exam: Warm/Dry IV Drips IV Drips: None Nutrition Nutrition: P.O. diet Current Medications: Current Medications Sig/Ora Start time Last Medication Dose Route Stop Time Status Admin Acetaminophen 650 MG Q6P PRN 10/20 0100 AC 10/25 PO 0056 Acetaminophen/ 2 TAB Q6P PRN 10/20 1930 AC 10/26 [place]codone Bitart PO 0811 Albuterol Sulfate 3 ML BID 10/24 2200 AC 10/26 INH 1105 Amlodipine Besylate 10 MG DAILY 10/20 0100 AC 10/26 PO 0928 Chlorthalidone 12.5 MG DAILY 10/22 1350 AC 10/26 PO 0929 Hydromorphone HCl 2 MG Q6P PRN 10/22 1430 AC 10/26 PO 0633 Lisinopril 40 MG DAILY 10/20 0315 AC 10/26 PO 0928 Magnesium Oxide 400 MG BID 10/26 1000 AC 10/26 PO 10/26 2201 1121 Methadone HCl 55 MG DAILY 10/20 1000 AC 10/26 PO 0929 Nicotine 21 MG DAILY 10/20 1439 AC 10/26 [facility] 0928 Potassium Chloride 10 MEQ DAILY 10/20 1000 AC 10/26 PO 0928 Antibiotics Antibiotics? none Results Results: 1 set of Blood cultures positive for gram-positive rods (diphtheroids) on October 19 --possibly contaminant. CXR Findings: IMPRESSION: Persistent right lung mass with stable adjacent airspace disease. Impression/Plan Impression/Problem List Impression: 61-year-old female with PMH of chronic venous insufficiency and nonhealing ulcers of bilateral lower extremities, PVD, hepatitis C secondary to IV drug abuse,Pulmonary nodule and active smoker,was admitted to general medicine floor for management of cellulitis and osteomyelitis. MRI of foot on 10/22/16 were consistent with heel osteomyelitis - however debridment was postponed as patient received 3 day course of cefazolin. she has right lung mass that she was suppose to follow up previously, but wasnt and the mass increased from 2.2 to 7cm in size within a year. She underwent CT guided biopsy for assesment of her mass. The procedure was complicated by hemothorax, therefore pt was transferred to ICU for closer monitoring. Hemothorax s/p CT guided biopsy She was found to have a 2.2cm nodule an year ago, she did not follow up as was instructed that time, mass increased significantly to 7cm in the right middle lobe since then, patient was send for CT guided lung biopsy (10/24/16) and the procedure was complicated with hemothorax * Thoracic surgery consulted - recommended coiling of brachial artery in the setting of decompensation/becoming unstable. * oncology consult requested in case staging medianoscopy necessary in this admission. * CXR - shows stable hemothorax today * Daily CBC - monitor serial hemtocrits ---stable so far H&H today * Follow up pathology results * Avoid oversedation Osteomyelitis of left heel MRI done on 10/22/16 showed osteomyelitis of left heel. Intially patient received a 3 day course of antibiotics. Insulation Power Unit Tender and ID recommended holding antibiotic until biopsy and culture obtained, Surgery was planned yesterday however it was cancelled complication developed secondary to lung biopsy. * She will be rescheduled for debridement and biopsy -- probably thursday Possible cellulitis DVT of lower ext ruled out by b/l Doppler studies. she remianed afebrile without leukocytosis since admission suggesting possible changes due to chronic venous stasis, however cellulitis is one of the differentials. IV antibiotics have been held since 10/22/16 4pm. Will watch her off antibiotics for now. Of note, one set of blood culture collected on 10/19/2016 grew Diptheroids, possible a contaminant. Continue leg elevation. Continuing pain management. * Pain management with Tylenol, Vicodin 2 tab Q6, Methadone 55mg daily Chronic nonhealing ulcers Patient has chronic nonhealing ulcers, secondary to peripheral vascular disease and chronic venous stasis. Wound care with daily dressing Appreciate the input. Continue the care. Chronic fungal nail infection Not pursuing any long term care administrator antifungal treatment currently. Right knee swelling/pain: Osteoarthritis Patient has long-standing history of right knee osteoarthritis but her swelling and pain has worsened in the last month. X-ray of her right knee showed effusion on the suprapatellar space which was drained and sent for studies by Orthopedic surgeon Dr Mason. Negative for septic arthritis. Osteoarthritis with effusion is the most likely diagnosis. * Ibuprofen 400mg Q6PRN for pain * Followed up as an outpatient. Regular diet DVT prophylaxis -- NONE (hemothorax with leg wounds) Full code Problem List: 1. Skin ulcer 2. Mass of right lung 3. Acute osteomyelitis of left calcaneus 4. Fungal skin infection 5. PVD (peripheral vascular disease) 6. Opioid dependence 7. History of hepatitis C Pain Ratin Pain Goal: Pain 4 or less Pain Plan: Tyelnol Vicodine Methadone Tomorrow's Labs & Rationales: cbc and ICU bundle Plan DVT/Prophylaxis: mechanical, pharmacological possible a contaminant. Continue leg elevation. Continuing pain management. #Chronic nonhealing ulcers Patient has chronic nonhealing ulcers, secondary to peripheral vascular disease and chronic venous stasis. Wound nurse has been taking care of the ulcers. Appreciate the input. Continue the care. #Chronic fungal nail infection Not pursuing any long term care administrator antifungal treatment currently. #Right knee swelling/pain: Osteoarthritis vs pseudogout Patient has long-standing history of right knee osteoarthritis but her swelling and pain has worsened in the last month. X-ray of her right knee showed effusion on the suprapatellar space which was drained and sent for studies by Orthopedic surgeon Dr Mason. Negative for septic arthritis. Osteoarthritis with effusion, or pseudogout is the likely diagnosis. * Followed up as an outpatient. Regular diet Full code Plan DVT/Prophylaxis: mechanical, pharmacological
--- NOTE | 2016-10-26 08:43 | PN- CRCU ---
Subjective HPI/Critical Care Issues: The patient is awake and alert. She denies any new complaints. There were no overnight events reported. Objective Current Medications: Current Medications Sig/Ora Start time Last Medication Dose Route Stop Time Status Admin Acetaminophen 650 MG Q6P PRN 10/20 0100 AC 10/25 PO 0056 Acetaminophen/ 2 TAB Q6P PRN 10/20 1930 AC 10/26 Hydrocodone Bitart PO 0811 Albuterol Sulfate 3 ML BID 10/24 2200 AC 10/25 INH 7 Amlodipine Besylate 10 MG DAILY 10/20 0100 AC 10/25 PO 1000 Chlorthalidone 12.5 MG DAILY 10/22 1350 AC 10/25 PO 1000 Hydromorphone HCl 2 MG Q6P PRN 10/22 1430 AC 10/26 PO 0633 Ketorolac 15 MG ONCE ONE 10/25 0845 DC 10/25 Tromethamine IV 10/25 0846 0851 Lisinopril 40 MG DAILY 10/20 0315 AC 10/25 PO 1000 Methadone HCl 55 MG DAILY 10/20 1000 AC 10/25 PO 1001 Nicotine 21 MG DAILY 10/20 1439 AC 10/25 TOP 1000 Potassium Chloride 10 MEQ DAILY 10/20 1000 AC 10/25 PO 1000 Vital Signs & I&O Last 24 Hrs of Vitals and I&O: Vital Signs Date Time Temp Pulse Resp B/P B/P Pulse O2 O2 Flow FiO2 Mean Ox Delivery Rate 10/26 0800 93 Nasal 4.0L Cannula 10/26 0800 99.6 74 24 156/80 91 Nasal 4.0L Cannula 10/26 0400 91 Nasal 4.0L Cannula 10/26 0000 94 Nasal 4.0L Cannula 10/25 2300 98.8 71 20 144/78 91 Nasal 4.0L Cannula 10/25 2039 94 Nasal 4.0L Cannula 10/25 2000 Nasal 4.0L Cannula 10/25 1600 95 Nasal 4.0L Cannula 10/25 1600 98.0 77 20 140/60 97 Nasal 4.0L Cannula 10/25 1144 92 Nasal 4.0L Cannula 10/25 1000 80 165/76 10/25 1000 80 160/76 Intake & Output 10/26 1600 10/26 0800 10/26 0000 Intake Total 500 150 Output Total 1200 200 Balance -700 -50 Intake, IV Intake, Oral 500 150 Output, Urine 1200 200 Physical Exam General Appearance: awake and alert Other Physical Findings: Skin skin lesions consistent with chronic venous statis in b/l lower ext. HEENT Atraumatic, Mucous Membr. moist/pink Neck Supple Cardiovascular Regular Rate, Normal S1, Normal S2, No Murmurs Lungs anterior bilateral rhonchi heard Abdomen Soft, No Tenderness, Positive Bowel Sounds Extremities No Clubbing, No Cyanosisth Swelling Results Last 24 Hrs of Lab Results: Laboratory Tests 10/26/16 0530: Sodium Pending, Potassium Pending, Chloride Pending, Carbon Dioxide Pending, Anion Gap Pending, BUN Pending, Creatinine Pending, Glucose Pending, Calcium Pending, Phosphorus Pending, Magnesium Pending, Total Bilirubin Pending, AST Pending, ALT Pending, Albumin Pending, CBC w Diff Pending, WBC Pending, RBC Pending, Hgb Pending, Hct Pending, MCV Pending, MCH Pending, RDW Pending, Plt Count Pending, MPV Pending, PUBS MCHC Pending Impression/Plan Impression/Plan Impression/Plan: 1. Right lung mass, with hemothorax status post lung biopsy. Results are pending. The patient's hemoglobin has been stable. 2. Osteomyelitis of the left heel. 3. Lower extremity cellulitis. 4. Chronic nonhealing ulcers. 5. Chronic fungal nail infection. 6. Chronic pain. Recommendations: * Will continue to follow ID recommendations. Await bone biopsy of the left heel next week. * Check a chest x-ray today once again, for monitoring of hemothorax. * Follow-up pathology results. * Continue nebs/TRC. * Continue medications for pain control, but avoid oversedation. * Continue with blood pressure control. * DVT prophylaxis at all times. * Out of bed to chair. * Continue all supportive care. * If the patient's chest x-ray does not show an increasing hemothorax, will downgrade later today.
[2016-10-26 09:14] LABS: ABSOLUTE BASOPHIL COUNT 0 /CUMM (0.0-0.2); ABSOLUTE EOSINOPHIL COUNT 0.1 /CUMM (0.0-0.7); ABSOLUTE GRANULOCYTE CT 2.7 /CUMM (1.4-6.5); ABSOLUTE LYMPH COUNT 1.5 /CUMM (1.2-3.4); ABSOLUTE MONOCYTE COUNT 0.5 /CUMM (0.10-0.60); BASOPHIL % 0.4 % (0.0-2.0); EOSINOPHIL % 2.5 % (0-5); GRANULOCYTE % 54.4 % (42.2-75.2); HEMATOCRIT 41.9 % (37-47); MEAN CORPUSCULAR HGB 24.7 PG (27.0-31.0); MEAN CORPUSCULAR HGB CONC 30.7 G/DL (33.0-37.0); MEAN CORPUSCULAR VOLUME 80.4 FL (81.0-99.0); PLATELET COUNT 173 /CUMM (130-400); RBC DISTRIBUTION WIDTH 16.7 % (11.5-14.5); RED BLOOD CELL CT 5.21 /CUMM (4.20-5.40); WHITE BLOOD CELL COUNT 4.9 /CUMM (4.8-10.8)
--- NOTE | 2016-10-26 09:26 | RADIOLOGY REPORT ---
EXAMINATION: CHEST 1 VIEW CLINICAL INFORMATION: Follow-up abnormal exam. Follow-up hemothorax. Right lung mass. COMPARISON: Multiple prior exams are reviewed. The most recent is from 10/25/2016. TECHNIQUE: An AP view of the chest is provided. FINDINGS: The cardiac silhouette is not enlarged. The mediastinal and hilar contours are unremarkable. There is a persistent mass at the right lung base with stable adjacent airspace disease. The osseous structures are stable with degenerative change noted in the left glenohumeral joint. IMPRESSION: Persistent right lung mass with stable adjacent airspace disease.
[2016-10-26 15:48] VITALS: BP 110/68
[2016-10-26 17:30] VITALS: BP 120/68
[2016-10-26 22:34] VITALS: BP 130/70
--- NOTE | 2016-10-27 07:19 | PN- Housestaff ---
MARY LOU LARIOS,HENRIETTA 10/27/16 0718: Subjective Follow-up For: Hemothorax status post right lung biopsy; Osteomyelitis of left heel; Chronic pain on methadone; Bilateral leg swelling, chronic venous stasis Complaints: no complaints Subjective: I followed up and examined the patient today. She is resting comfortably in bed , having her breakfast, does not appear to be in distress, does not have any complaints. Overnight her vitals have been stable, she is still using additional oxygen via nasal cannula at 4 L/m. Review of Systems Constitutional: Reports: no symptoms. Objective Last 24 Hrs of Vital Signs/I&O Vital Signs Date Time Temp Pulse Resp B/P B/P Pulse O2 O2 Flow FiO2 Mean Ox Delivery Rate 10/27 0721 98.0 79 20 130/70 92 Nasal 4.0L Cannula 10/27 0000 Nasal 4.0L Cannula 10/26 2234 98.1 78 20 130/70 90 Nasal Cannula 10/26 1938 93 Nasal 4.0L Cannula 10/26 1730 97.9 74 19 120/68 91 Nasal 4.0L Cannula 10/26 1548 98.7 82 18 110/68 92 Nasal 4.0L Cannula 10/26 1544 94 Nasal 4.0L Cannula 10/26 1126 92 Nasal 4.0L Cannula 10/26 1100 90 Nasal 4.0L Cannula 10/26 0928 75 155/71 10/26 0928 75 155/71 Intake & Output 10/27 1600 10/27 0800 10/27 0000 Intake Total 240 240 Output Total 100 Balance 240 140 Intake, Oral 240 240 Number 0 Bowel Movements Output, Urine 100 Physical Exam General Appearance: Alert, Oriented X3, Cooperative, No Acute Distress Other Physical Findings: Skin skin lesions consistent with chronic venous statis in b/l lower ext. HEENT Atraumatic, Mucous Membr. moist/pink Neck Supple Cardiovascular Regular Rate, Normal S1, Normal S2, No Murmurs Lungs Clear to Auscultation, except for occ crepts over right lung, pt NOT in resp distress. Abdomen Soft, No Tenderness, Positive Bowel Sounds Extremities No Clubbing, No Cyanosis, Bilateral Lower Extremities with Swelling (decreasing) and Serous Drainage, Chronic Venous Stasis and Thick Scale, dressing over left ankle, Right Knee Swelling, Bilateral Toenails with severe Onychomycosis and toe deformity. Current Medications: Current Medications Sig/Ora Start time Last Medication Dose Route Stop Time Status Admin Acetaminophen 650 MG Q6P PRN 10/20 0100 AC 10/25 PO 0056 Acetaminophen/ 2 TAB Q6P PRN 10/20 1930 AC 10/27 Hydrocodone Bitart PO 0315 Albuterol Sulfate 3 ML BID 10/24 2200 AC 10/26 INH 1934 Amlodipine Besylate 10 MG DAILY 10/20 0100 AC 10/26 PO 0928 Chlorthalidone 12.5 MG DAILY 10/22 1350 AC 10/26 PO 0929 Hydromorphone HCl 2 MG Q6P PRN 10/22 1430 AC 10/27 PO 0655 Ibuprofen 400 MG Q6P PRN 10/26 1330 AC 10/26 PO 1750 Lisinopril 40 MG DAILY 10/20 0315 AC 10/26 PO 0928 Magnesium Oxide 400 MG BID 10/26 1000 DC 10/26 PO 10/26 2201 2101 Methadone HCl 55 MG DAILY 10/20 1000 AC 10/26 PO 0929 Nicotine 21 MG DAILY 10/20 1439 AC 10/26 TOP 0928 Potassium Chloride 10 MEQ DAILY 10/20 1000 AC 10/26 PO 0928 Last 24 Hrs of Lab/Chad Results Last 24 Hrs of Labs/Mics: Laboratory Tests 10/27/16 0712: Sodium Pending, Potassium Pending, Chloride Pending, Carbon Dioxide Pending, Anion Gap Pending, BUN Pending, Creatinine Pending, Glucose Pending, Calcium Pending, Phosphorus Pending, Magnesium Pending, Total Bilirubin Pending, AST Pending, ALT Pending, Albumin Pending, CBC w Diff Pending, WBC Pending, RBC Pending, Hgb Pending, Hct Pending, MCV Pending, MCH Pending, RDW Pending, Plt Count Pending, MPV Pending, PUBS MCHC Pending Assessment/Plan Assessment: 61-year-old female with PMH of chronic venous insufficiency and nonhealing ulcers of bilateral lower extremities, PVD, hepatitis C secondary to IV drug abuse,Pulmonary nodule and active smoker,was admitted to general medicine floor for management of cellulitis and osteomyelitis. MRI of foot on 10/22/16 were consistent with heel osteomyelitis - however debridment was postponed as patient received 3 day course of cefazolin. she has right lung mass that she was suppose to follow up previously, but wasnt and the mass increased from 2.2 to 7cm in size within a year. She underwent CT guided biopsy for assesment of her mass. The procedure was complicated by hemothorax, therefore pt was transferred to ICU for closer monitoring. later after the patient stablized, she was transferred back to the general medical floor. Currently she is being managed in the general medical floor for the following issues: Hemothorax s/p CT guided biopsy She was found to have a 2.2cm nodule an year ago, she did not follow up as was instructed that time, mass increased significantly to 7cm in the right middle lobe since then, patient was send for CT guided lung biopsy (10/24/16) and the procedure was complicated with hemothorax. * Thoracic surgery consulted - recommended coiling of brachial artery in the setting of decompensation/becoming unstable. * Oncology consult requested in case staging medianoscopy necessary in this admission. * CXR -no large pleural effusion, no pneumothorax and persistent right lung mass seen. * Daily CBC - monitor serial hemtocrits --stable so far H&H today is 12.8/41.9 * Follow up pathology results * Avoid oversedation Osteomyelitis of left heel MRI done on 10/22/16 showed osteomyelitis of left heel. Intially patient received a 3 day course of antibiotics. Risk Control Product Liability Director and ID recommended holding antibiotic until biopsy and culture obtained, Surgery was planned yesterday however it was cancelled complication developed secondary to lung biopsy. * She will be rescheduled for debridement and biopsy -- tomorrow on thursday * Patient has been ordered to be kept nothing by mouth from midnight. Possible cellulitis DVT of lower ext ruled out by b/l Doppler studies. she remianed afebrile without leukocytosis since admission suggesting possible changes due to chronic venous stasis, however cellulitis is one of the differentials. IV antibiotics have been held since 10/22/16 4pm. Will watch her off antibiotics for now. Of note, one set of blood culture collected on 10/19/2016 grew Diptheroids, possible a contaminant. Continue leg elevation. Continuing pain management. * Pain management with Tylenol, Vicodin 2 tab Q6, Methadone 55mg daily, dilaudid 2mg q6P PO as well. Chronic nonhealing ulcers Patient has chronic nonhealing ulcers, secondary to peripheral vascular disease and chronic venous stasis. Wound care with daily dressing Appreciate the input. Continue the care. Chronic fungal nail infection Not pursuing any custodial antifungal treatment currently. Right knee swelling/pain: Osteoarthritis Patient has long-standing history of right knee osteoarthritis but her swelling and pain has worsened in the last month. X-ray of her right knee showed effusion on the suprapatellar space which was drained and sent for studies by Orthopedic surgeon Dr Mason. Negative for septic arthritis. Osteoarthritis with effusion is the most likely diagnosis. * Ibuprofen 400mg Q6PRN for pain * Followed up as an outpatient. Regular diet DVT prophylaxis -- NONE (hemothorax with leg wounds) Full code Problem List: 1. Hemothorax on right 2. Osteomyelitis 3. Lung nodule 4. PVD (peripheral vascular disease) 5. History of hepatitis C 6. Chronic venous stasis dermatitis of both lower extremities Pain Ratin Pain Location: feet Pain Goal: Pain 4 or less Pain Plan: prn, including dilaudid and methadone Tomorrow's Labs & Rationales: CBC, BEP pre op baseline AISLINN VILLARREAL MD 10/27/16 4713: Attending MD Review Statement Attending Statement Attending MD Statement: examined this patient, discuss w/resident/PA/SOFTWARE QA SYSTEM SPECIALIST, agreed w/resident/PA/SOFTWARE QA SYSTEM SPECIALIST, reviewed EMR data (avail), discussed with nursing, amended to note Attending Assessment/Plan: The patient was seen and discussed with house staff. Agree with the plan of care as outlined. Await Podiatry input/surgery on foot.
[2016-10-27 07:21] VITALS: BP 130/70
--- NOTE | 2016-10-27 08:09 | RADIOLOGY REPORT ---
EXAMINATION: XR PORTABLE CHEST CLINICAL INFORMATION: Follow-up hemothorax. COMPARISON: Multiple chest x-rays, the most recent from 10/26/2016. TECHNIQUE: Portable AP 45 degree semierect view of the chest was obtained. FINDINGS: The study redemonstrates the mass at the right base, with adjacent slightly more confluent airspace disease. The cardiac silhouette is normal in size. The aortic arch is calcified. The central structures appear normal. There are no large pleural effusions. No pneumothorax is demonstrated. There are no acute osseous findings; there are severe degenerative changes in the left glenohumeral joint. IMPRESSION: 1. Slightly more confluent airspace disease at the right lung base. 2. Persistent right lung mass.
[2016-10-27 09:25] LABS: ABSOLUTE BASOPHIL COUNT 0 /CUMM (0.0-0.2); ABSOLUTE EOSINOPHIL COUNT 0.1 /CUMM (0.0-0.7); ABSOLUTE GRANULOCYTE CT 2.7 /CUMM (1.4-6.5); ABSOLUTE LYMPH COUNT 1.7 /CUMM (1.2-3.4); ABSOLUTE MONOCYTE COUNT 0.6 /CUMM (0.10-0.60); BASOPHIL % 0.4 % (0.0-2.0); EOSINOPHIL % 2.7 % (0-5); GRANULOCYTE % 52.6 % (42.2-75.2); HEMATOCRIT 41.9 % (37-47); MEAN CORPUSCULAR HGB 24.5 PG (27.0-31.0); MEAN CORPUSCULAR HGB CONC 30.6 G/DL (33.0-37.0); MEAN CORPUSCULAR VOLUME 80.3 FL (81.0-99.0); MEAN PLATELET VOLUME 7.9 FL (7.4-10.4); PLATELET COUNT 160 /CUMM (130-400); RBC DISTRIBUTION WIDTH 17.2 % (11.5-14.5); RED BLOOD CELL CT 5.22 /CUMM (4.20-5.40); WHITE BLOOD CELL COUNT 5.2 /CUMM (4.8-10.8)
--- NOTE | 2016-10-27 10:12 | Cons- Oncology ---
General Information and HPI Consulting Request Date of Consult: 10/27/16 Requested By: AISLINN VILLARREAL MD Reason for Consult: Lung cancer Source of Information: patient, old records Exam Limitations: no limitations History of Present Illness: Ms. Louie is a 61-year-old female with history HCV, chronic venous insufficiency complicated by recurrent cellulitis and ulcerations of the lower extremity, hypertension, COPD, and tobacco user who presented to the hospital with leg pain, swelling, and drainage for 1 week. She has a history of non- healing wound in her lower extremities and is followed by Dr. Cross. She was admitted for evaluation of cellulitis. MRI of the left heel was done and concerning for possible osteomyelitis. ID is following patient. She is tentatively scheduled to have bone biopsy of the left heel. During admission, she had chest x-ray done which demonstrated an interval increase in the size of a known right middle lobe mass. Chest x-ray on 2016 demonstarted an 8.4 x 6.5 cm mass which was 2.5 x 2.4 cm in 11/16/2015. Follow up CT scan on 10/21/2016 demonstrated a right middle lobe mass with subcarinal and right hilar adenopathy. She underwent CT guided biopsy on 2016 but proceed was complicated by hemothorax. Thoracic surgery was consulted and following patient. Her hemoglobin and hematocrit were stable. She remains on 4 L NC. Allergies/Medications Allergies: Coded Allergies: NO KNOWN ALLERGIES (01/20/11) Home Med List: Amlodipine Besylate 10 MG TABLET 1 TAB PO DAILY HTN (Reported) Chlorthalidone 25 MG TABLET 12.5 MG PO DAILY HIGH BLOOD PRESSURE Lisinopril 40 MG TABLET 1 TAB PO DAILY HTN (Reported) Methadone HCl 5 MG/5 ML SOLUTION 55 MG PO DAILY MENTAL HEALTH (Reported) Potassium Chloride (Klor-Con Sprinkle) 10 MEQ CAPSULE.ER 10 MEQ PO DAILY SUPPLEMENT (Reported) Prochlorperazine Maleate (Compazine) 10 MG TABLET 10 MG PO Q8 PRN NAUSEA ( Reported) Current Medications: Current Medications Sig/Ora Start time Last Medication Dose Route Stop Time Status Admin Acetaminophen 650 MG Q6P PRN 10/20 0100 AC 10/25 PO 0056 Acetaminophen/ 2 TAB Q6P PRN 10/20 1930 AC 10/27 Hydrocodone Bitart PO 0315 Albuterol Sulfate 3 ML BID 10/24 2200 AC 10/26 INH 1934 Amlodipine Besylate 10 MG DAILY 10/20 0100 AC 10/26 PO 0928 Chlorthalidone 12.5 MG DAILY 10/22 1350 AC 10/26 PO 0929 Hydromorphone HCl 2 MG Q6P PRN 10/22 1430 AC 10/27 PO 0655 Ibuprofen 400 MG Q6P PRN 10/26 1330 AC 10/26 PO 1750 Lisinopril 40 MG DAILY 10/20 0315 AC 10/26 PO 0928 Magnesium Oxide 400 MG BID 10/26 1000 DC 10/26 PO 10/26 2201 2101 Methadone HCl 55 MG DAILY 10/20 1000 AC 10/26 PO 0929 Nicotine 21 MG DAILY 10/20 1439 AC 10/26 TOP 0928 Potassium Chloride 10 MEQ DAILY 10/20 1000 AC 10/26 PO 0928 Review of Systems Review of Systems Constitutional: Reports: weakness. Denies: chills, fever. Cardiovascular: Denies: chest pain. Respiratory: Denies: short of breath. GI: Denies: abdominal pain. Genitourinary: Denies: dysuria. Musculoskeletal: Reports: back pain, joint pain. Skin: Reports: lesions. Hematologic/Endocrine: Denies: bruising, bleeding. 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 . MOTHER (RI, TIA). . Relation not specified for: FH: hypertension Heart attack Psychosocial History Where Do You Live? Home Who Do You Live With? child Services at Home: Home Health Aide Primary Language: Maltese Smoking Status: Current Some Day Smoker (Smokes 1/2 PPD, 24 Pack Years) ETOH Use: denies use (Hx of IVDU,Last Use 20 Yrs Ago) Illicit Drug Use: denies illicit drug use (history of IVDU) Functional Ability ADLs Independent: dressing, eating, toileting, bathing. Ambulation: walker IADLs Independent: shopping, housework, finances, food prep, telephone, transportation , medication admin. Exam & Diagnostic Data Vital Signs and I&O Vital Signs Date Time Temp Pulse Resp B/P B/P Pulse O2 O2 Flow FiO2 Mean Ox Delivery Rate 10/27 0721 98.0 79 20 130/70 92 Nasal 4.0L Cannula 10/27 0000 Nasal 4.0L Cannula 10/26 2234 98.1 78 20 130/70 90 Nasal Cannula 10/26 1938 93 Nasal 4.0L Cannula 10/26 1730 97.9 74 19 120/68 91 Nasal 4.0L Cannula 10/26 1548 98.7 82 18 110/68 92 Nasal 4.0L Cannula 10/26 1544 94 Nasal 4.0L Cannula 10/26 1126 92 Nasal 4.0L Cannula 10/26 1100 90 Nasal 4.0L Cannula 10/26 0928 75 155/71 10/26 0928 75 155/71 Intake & Output 10/27 1600 10/27 0800 10/27 0000 Intake Total 240 240 Output Total 100 Balance 240 140 Intake, Oral 240 240 Number 0 Bowel Movements Output, Urine 100 Physical Exam General Appearance: no apparent distress, alert, awake, comfortable Head: atraumatic Eyes: Bilateral: PERRL. Ears, Nose, Throat: normal pharynx Neck: supple Respiratory: chest non-tender, no respiratory distress, quiet respiration, decreased breath sounds (RLL), crackles Cardiovascular: regular rate/rhythm Gastrointestinal: normal bowel sounds, soft, non-tender, no organomegaly Extremities: pedal edema, swelling, tenderness, dressing in bilateral lower extremities Neurologic/Psych: awake, alert, oriented x 3 Lymphatic: no anterior cervical jana Last 48 Hours of Lab Results: Laboratory Tests 10/27 10/26 0712 0530 Chemistry Sodium (137 - 145 mmol/L) Pending 137 Potassium (3.5 - 5.1 mmol/L) Pending 4.3 Chloride (98 - 107 mmol/L) Pending 92 L Carbon Dioxide (22 - 30 mmol/L) Pending 41 H Anion Gap (5 - 16) Pending 4 L BUN (7 - 17 mg/dL) Pending 16 Creatinine (0.5 - 1.0 mg/dL) Pending 0.8 Estimated GFR (>60 ml/min) > 60 Glucose (65 - 99 mg/dL) Pending 100 H Calcium (8.4 - 10.2 mg/dL) Pending 8.3 L Phosphorus (2.5 - 4.5 mg/dL) Pending 3.8 Magnesium (1.6 - 2.3 mg/dL) Pending 1.7 Total Bilirubin (0.2 - 1.3 mg/dL) Pending 0.3 AST (14 - 36 U/L) Pending 40 H ALT (9 - 52 U/L) Pending 35 Albumin (3.5 - 5.0 g/dL) Pending 2.9 L Hematology CBC w Diff Pending NO MAN DIFF REQ WBC (4.8 - 10.8 /CUMM) Pending 4.9 RBC (4.20 - 5.40 /CUMM) Pending 5.21 Hgb (12.0 - 16.0 G/DL) Pending 12.9 Hct (37 - 47 %) Pending 41.9 MCV (81.0 - 99.0 FL) Pending 80.4 L MCH (27.0 - 31.0 PG) Pending 24.7 L RDW (11.5 - 14.5 %) Pending 16.7 H Plt Count (130 - 400 /CUMM) Pending 173 MPV (7.4 - 10.4 FL) Pending 8.0 Gran % (42.2 - 75.2 %) 54.4 Lymphocytes % (20.5 - 51.1 %) 31.7 Monocytes % (1.7 - 9.3 %) 11.0 H Eosinophils % (0 - 5 %) 2.5 Basophils % (0.0 - 2.0 %) 0.4 Absolute Granulocytes (1.4 - 6.5 /CUMM) 2.7 Absolute Lymphocytes (1.2 - 3.4 /CUMM) 1.5 Absolute Monocytes (0.10 - 0.60 /CUMM) 0.5 Absolute Eosinophils (0.0 - 0.7 /CUMM) 0.1 Absolute Basophils (0.0 - 0.2 /CUMM) 0 PUBS MCHC (33.0 - 37.0 G/DL) Pending 30.7 L Imaging/Other Studies: CT chest 10/21/2016: 1. There is a right middle lobe mass which is increased in size compared with the previous examination with nonspecific surrounding groundglass opacity, question inflammatory or atelectasis versus lymphangitic spread of tumor. 2. Subcarinal and right hilar adenopathy concerning for metastatic disease. 3. Asymmetry in the breast parenchyma on the left more than right. This is also a new finding. 4. Circumferential ventricular hypertrophy, question cardiomyopathy. CT chest 11/16/2015: 2.2 cm mass involving the right middle lobe abutting the major fissure. Given interval development since 2013, either PET/CT or biopsy is suggested. Fleischner guidelines are listed below. 6 mm nodule abutting the posterior pleural surface within the right upper lobe. MRI foot 10/22/2016: 1. Deep soft tissue ulcer of the heel and osteomyelitis involving the plantar aspect of the calcaneal tuberosity. 2. Chronic plantar fasciosis and focal tear in the plantar aponeurosis adjacent to its calcaneal attachment (image 12, series 3). 3. Chronic atrophy and fatty replacement of muscles of the examined extremity/ foot, possibly on the basis of diabetic neuropathy. Assessment/Plan Assessment: Ms. Louie is a 61-year female with PVD complicated by recurrent cellulitis and ulcerations, HCV, lung nodule, and tobacco abuse who presented to the hospital with worsening left leg edema, drainage, and pain. MRI of the left foot is concerning for osteomyelitis. Bone biopsy is pending. During admission, chest x-ray demonstrated worsening of known right middle lobe lung mass. She had chest x-ray and CT scan in 11/2014 with a 2.2 cm RML mass. She was lost to follow up. CT scan currently demonstrated a 7 cm mass with right hilar and subcarinal mass. Biopsy was done on 11/23/2016. This was complicated by hemothorax. Currently, she is clinically stage IIIA disease with subcarinal adenopathy. She will need to complete staging scan with PET scan and MRI of the brain. If this is small cell, she would likely not need mediastinal staging. She would need pathologic confirmation if it is non-small cell. If it is stage IIIA, she will need definitive chemoradiation. Recommendations: Lung neoplasm: 1. Follow up on pathology on biopsy 2. MRI brain with and without contrast for metastatic evaluation 3. PET scan to evaluate metastatic disease 4. Pending pathology (NSCLC vs SCLC), she may need mediastinal staging 5. Likely will need definitive concurrent chemoradiation Problem List: 1. Hemothorax on right 2. Osteomyelitis 3. Lung nodule 4. History of hepatitis C 5. Chronic venous stasis dermatitis of both lower extremities Other Findings/Comments: Please call [phone] with any questions or concerns. Consult Acknowledgment - Thank you for your consult request.
--- NOTE | 2016-10-27 10:39 | PN- Pulmonary ---
Subjective HPI/Critical Care Issues: The patient is alert and oriented. She offers no new complaints today. She denies any increased shortness of breath or chest pain. She feels she is improving overall. Pathology is pending. Objective Current Medications: Current Medications Sig/Ora Start time Last Medication Dose Route Stop Time Status Admin Acetaminophen 650 MG Q6P PRN 10/20 0100 AC 10/25 PO 0056 Acetaminophen/ 2 TAB Q6P PRN 10/20 1930 AC 10/27 Hydrocodone Bitart PO 0315 Albuterol Sulfate 3 ML BID 10/24 2200 AC 10/27 INH 1017 Amlodipine Besylate 10 MG DAILY 10/20 0100 AC 10/26 PO 0928 Chlorthalidone 12.5 MG DAILY 10/22 1350 AC 10/26 PO 0929 Hydromorphone HCl 2 MG Q6P PRN 10/22 1430 AC 10/27 PO 0655 Ibuprofen 400 MG Q6P PRN 10/26 1330 AC 10/26 PO 1750 Lisinopril 40 MG DAILY 10/20 0315 AC 10/26 PO 0928 Magnesium Oxide 400 MG BID 10/26 1000 DC 10/26 PO 10/26 2201 2101 Methadone HCl 55 MG DAILY 10/20 1000 AC 10/26 PO 0929 Nicotine 21 MG DAILY 10/20 1439 AC 10/26 TOP 0928 Potassium Chloride 10 MEQ DAILY 10/20 1000 AC 10/26 PO 0928 Vital Signs & I&O Last 24 Hrs of Vitals and I&O: Vital Signs Date Time Temp Pulse Resp B/P B/P Pulse O2 O2 Flow FiO2 Mean Ox Delivery Rate 10/27 1022 92 Nasal 4.0L Cannula 10/27 0721 98.0 79 20 130/70 92 Nasal 4.0L Cannula 10/27 0000 Nasal 4.0L Cannula 10/26 2234 98.1 78 20 130/70 90 Nasal Cannula 10/26 1938 93 Nasal 4.0L Cannula 10/26 1730 97.9 74 19 120/68 91 Nasal 4.0L Cannula 10/26 1548 98.7 82 18 110/68 92 Nasal 4.0L Cannula 10/26 1544 94 Nasal 4.0L Cannula 10/26 1126 92 Nasal 4.0L Cannula 10/26 1100 90 Nasal 4.0L Cannula Intake & Output 10/27 1600 10/27 0800 10/27 0000 Intake Total 240 240 Output Total 400 100 Balance -400 240 140 Intake, Oral 240 240 Number 0 Bowel Movements Output, Urine 400 100 Physical Exam General Appearance: awake and alert Other Physical Findings: Skin skin lesions consistent with chronic venous statis in b/l lower ext. HEENT Atraumatic, Mucous Membr. moist/pink Neck Supple Cardiovascular Regular Rate, Normal S1, Normal S2, No Murmurs Lungs anterior bilateral rhonchi heard Abdomen Soft, No Tenderness, Positive Bowel Sounds Extremities No Clubbing, No Cyanosis, Bilateral Lower Extremities with dressings in place Results Last 24 Hrs of Lab Results: Laboratory Tests 10/27/16 0712: Anion Gap 4 L, Estimated GFR > 60, Glucose 77, Calcium 8.7, Phosphorus 3.6, Magnesium 2.0, Total Bilirubin 0.3, AST 39 H, ALT 32, Albumin 2.9 L, CBC w Diff NO MAN DIFF REQ, RBC 5.22, MCV 80.3 L, MCH 24.5 L, RDW 17.2 H, MPV 7.9, Gran % 52.6, Lymphocytes % 32.6, Monocytes % 11.7 H, Eosinophils % 2.7, Basophils % 0.4, Absolute Granulocytes 2.7, Absolute Lymphocytes 1.7, Absolute Monocytes 0.6, Absolute Eosinophils 0.1, Absolute Basophils 0, PUBS MCHC 30.6 L Impression/Plan Impression/Plan Impression/Plan: 1. Right lung mass, with hemothorax status post lung biopsy. Results are pending. The patient's hemoglobin has been stable and the hemothorax does not appear to have clinically progressed. 2. Osteomyelitis of the left heel. 3. Lower extremity cellulitis. 4. Chronic nonhealing ulcers. 5. Chronic fungal nail infection. 6. Chronic pain. Recommendations: * Will continue to follow ID recommendations, monitor off antibiotics. Await bone biopsy of the left heel. * Follow-up pathology results. * Continue nebs/TRC. * Continue medications for pain control, avoid oversedation. * Continue with blood pressure control. * DVT prophylaxis at all times. * Out of bed to chair. * Continue all supportive care.
--- NOTE | 2016-10-27 13:45 | PN- Infect Dx ---
Subjective Subjective: Afebrile. She notes some right chest discomfort. She also continues to complain of left foot pain. Objective Last 24 Hrs of Vital Signs/I&O Vital Signs Date Time Temp Pulse Resp B/P B/P Pulse O2 O2 Flow FiO2 Mean Ox Delivery Rate 10/27 1047 79 130/70 10/27 1046 79 130/70 10/27 1022 92 Nasal 4.0L Cannula 10/27 0800 93 Nasal 4.0L Cannula 10/27 0721 98.0 79 20 130/70 92 Nasal 4.0L Cannula 10/27 0000 Nasal 4.0L Cannula 10/26 2234 98.1 78 20 130/70 90 Nasal Cannula 10/26 1938 93 Nasal 4.0L Cannula 10/26 1730 97.9 74 19 120/68 91 Nasal 4.0L Cannula 10/26 1548 98.7 82 18 110/68 92 Nasal 4.0L Cannula 10/26 1544 94 Nasal 4.0L Cannula Intake & Output 10/27 1600 10/27 0800 10/27 0000 Intake Total 240 240 Output Total 600 100 Balance -600 240 140 Intake, Oral 240 240 Number 0 Bowel Movements Output, Urine 600 100 Physical Exam Other Physical Findings: She appears comfortable in no acute distress Lungs decreased breath sounds at the right base Heart regular rhythm with no murmur Extremities left foot dressing intact Results Last 24 Hours of Lab Results: Laboratory Tests 10/28 711 Chemistry Sodium (137 - 145 mmol/L) 138 Potassium (3.5 - 5.1 mmol/L) 4.5 Chloride (98 - 107 mmol/L) 92 L Carbon Dioxide (22 - 30 mmol/L) 42 H Anion Gap (5 - 16) 4 L BUN (7 - 17 mg/dL) 20 H Creatinine (0.5 - 1.0 mg/dL) 0.8 Estimated GFR (>60 ml/min) > 60 Glucose (65 - 99 mg/dL) 77 Calcium (8.4 - 10.2 mg/dL) 8.7 Phosphorus (2.5 - 4.5 mg/dL) 3.6 Magnesium (1.6 - 2.3 mg/dL) 2.0 Total Bilirubin (0.2 - 1.3 mg/dL) 0.3 AST (14 - 36 U/L) 39 H ALT (9 - 52 U/L) 32 Albumin (3.5 - 5.0 g/dL) 2.9 L Hematology CBC w Diff NO MAN DIFF REQ WBC (4.8 - 10.8 /CUMM) 5.2 RBC (4.20 - 5.40 /CUMM) 5.22 Hgb (12.0 - 16.0 G/DL) 12.8 Hct (37 - 47 %) 41.9 MCV (81.0 - 99.0 FL) 80.3 L MCH (27.0 - 31.0 PG) 24.5 L RDW (11.5 - 14.5 %) 17.2 H Plt Count (130 - 400 /CUMM) 160 MPV (7.4 - 10.4 FL) 7.9 Gran % (42.2 - 75.2 %) 52.6 Lymphocytes % (20.5 - 51.1 %) 32.6 Monocytes % (1.7 - 9.3 %) 11.7 H Eosinophils % (0 - 5 %) 2.7 Basophils % (0.0 - 2.0 %) 0.4 Absolute Granulocytes (1.4 - 6.5 /CUMM) 2.7 Absolute Lymphocytes (1.2 - 3.4 /CUMM) 1.7 Absolute Monocytes (0.10 - 0.60 /CUMM) 0.6 Absolute Eosinophils (0.0 - 0.7 /CUMM) 0.1 Absolute Basophils (0.0 - 0.2 /CUMM) 0 PUBS MCHC (33.0 - 37.0 G/DL) 30.6 L Last 24 Hours of [place] Results: No recent cultures Recent Imaging Studies: Chest x-ray October 27, personally reviewed, reveals a persistent right lung mass with slightly more confluent airspace disease at the right lung base Assessment/Plan Impression: Stable with temperatures and white blood cell count remaining normal off antibiotics status post CT-guided biopsy of her right middle lobe mass 3 days ago, which was complicated by a hemothorax, but with her respiratory status stable. Her pathology results are pending, but she has been evaluated by Oncology. She is awaiting bone biopsy of the left heel, possibly in the a.m., to rule out osteomyelitis. Suggestion: 1. Await bone biopsy of the left heel 2. Continue to follow off antibiotics pending above
[2016-10-27 14:18] VITALS: BP 140/60
[2016-10-27 22:20] VITALS: BP 154/80
[2016-10-28 06:30] VITALS: BP 150/80
--- NOTE | 2016-10-28 07:13 | PN- Housestaff ---
MARY LOU LARIOS,HENRIETTA 10/28/16 0713: Subjective Follow-up For: Hemothorax status post right lung biopsy; Osteomyelitis of left heel; Chronic pain on methadone; Bilateral leg swelling, chronic venous stasis Complaints: no complaints Subjective: I followed up and examined the patient today. She is resting comfortably in bed , does not appear to be in distress, does not have any complaints. Overnight her vitals have been stable, she is still using additional oxygen via nasal cannula at 4 L/m. I examined the patient along with Oncologist today. She is kpet NPO pending Podiatry surgery later today. Review of Systems Constitutional: Reports: no symptoms. Objective Last 24 Hrs of Vital Signs/I&O Vital Signs Date Time Temp Pulse Resp B/P B/P Pulse O2 O2 Flow FiO2 Mean Ox Delivery Rate 10/28 1315 98.1 78 18 142/72 94 Nasal 4.0L Cannula 10/28 1010 94 Nasal 4.0L Cannula 10/28 0949 74 158/80 10/28 0800 Nasal Cannula 10/28 0630 98.0 79 20 150/80 92 Nasal 4.0L Cannula 10/28 0000 90 Nasal 4.0L Cannula 10/27 2220 98.3 64 20 154/80 90 10/27 2000 93 Nasal 4.0L Cannula 10/27 1600 Nasal 4.0L Cannula 10/27 1418 98.0 78 20 140/60 93 Nasal 4.0L Cannula Intake & Output 10/28 1600 10/28 0800 10/28 0000 Intake Total 300 250 530 Output Total 654 523 7441 Balance -350 -250 -670 Intake, IV 300 0 Intake, Oral 250 530 Number 0 Bowel Movements Output, Stool 0 Output, Urine 407 390 0783 Physical Exam General Appearance: Alert, Oriented X3, Cooperative, No Acute Distress Other Physical Findings: Skin skin lesions consistent with chronic venous statis in b/l lower ext. HEENT Atraumatic, Mucous Membr. moist/pink Neck Supple Cardiovascular Regular Rate, Normal S1, Normal S2, No Murmurs Lungs Clear to Auscultation, except for occ crepts over right lung, pt NOT in resp distress. Abdomen Soft, No Tenderness, Positive Bowel Sounds Extremities No Clubbing, No Cyanosis, Bilateral Lower Extremities with Swelling (decreasing) and Serous Drainage, Chronic Venous Stasis and Thick Scale, dressing over left ankle, Right Knee Swelling, Bilateral Toenails with severe Onychomycosis and toe deformity. Current Medications: Current Medications Sig/Ora Start time Last Medication Dose Route Stop Time Status Admin Acetaminophen 650 MG Q6P PRN 10/20 0100 AC 10/25 PO 0056 Acetaminophen/ 2 TAB Q6P PRN 10/20 1930 AC 10/28 Hydrocodone Bitart PO 0645 Albuterol Sulfate 3 ML BID 10/24 2200 AC 10/28 INH 1008 Amlodipine Besylate 10 MG DAILY 10/20 0100 AC 10/28 PO 0949 Chlorthalidone 12.5 MG DAILY 10/22 1350 AC 10/28 PO 0949 Hydromorphone HCl 2 MG Q6P PRN 10/22 1430 AC 10/28 PO 1002 Ibuprofen 400 MG Q6P PRN 10/26 1330 AC 10/26 PO 1750 Lisinopril 40 MG DAILY 10/20 0315 AC 10/28 PO 0949 Methadone HCl 55 MG DAILY 10/20 1000 AC 10/28 PO 0950 Nicotine 21 MG DAILY 10/20 1439 AC 10/27 TOP 1047 Potassium Chloride 10 MEQ DAILY 10/20 1000 AC 10/28 PO 0949 Sodium Chloride 1,000 ML ONCE ONE 10/28 0845 AC 10/28 IV 10/28 2204 0950 Last 24 Hrs of Lab/Chad Results Last 24 Hrs of Labs/Mics: Laboratory Tests 10/28/16 0730: Anion Gap 5, Estimated GFR > 60, BUN/Creatinine Ratio 35.0 H, CBC w Diff NO MAN DIFF REQ, RBC 5.18, MCV 79.8 L, MCH 24.6 L, RDW 16.5 H, MPV 7.9, Gran % 52.6, Lymphocytes % 32.1, Monocytes % 11.6 H, Eosinophils % 3.0, Basophils % 0.7, Absolute Granulocytes 2.5, Absolute Lymphocytes 1.5, Absolute Monocytes 0.6, Absolute Eosinophils 0.1, Absolute Basophils 0, PUBS MCHC 30.8 L Assessment/Plan Assessment: 61-year-old female with PMH of chronic venous insufficiency and nonhealing ulcers of bilateral lower extremities, PVD, hepatitis C secondary to IV drug abuse,Pulmonary nodule and active smoker,was admitted to general medicine floor for management of cellulitis and osteomyelitis. MRI of foot on 10/22/16 were consistent with heel osteomyelitis - however debridment was postponed as patient received 3 day course of cefazolin. she has right lung mass that she was suppose to follow up previously, but wasnt and the mass increased from 2.2 to 7cm in size within a year. She underwent CT guided biopsy for assesment of her mass. The procedure was complicated by hemothorax, therefore pt was transferred to ICU for closer monitoring. later after the patient stablized, she was transferred back to the general medical floor. Currently she is being managed in the general medical floor for the following issues: Hemothorax s/p CT guided biopsy, stable now She was found to have a 2.2cm nodule an year ago, she did not follow up as was instructed that time, mass increased significantly to 7cm in the right middle lobe since then, patient was send for CT guided lung biopsy (10/24/16) and the procedure was complicated with hemothorax. * Thoracic surgery consulted - recommended coiling of brachial artery in the setting of decompensation/becoming unstable. * Oncology consult requested in case staging medianoscopy necessary in this admission. * CXR -no large pleural effusion, no pneumothorax and persistent right lung mass seen. 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 Will follow recommendations. * Avoid oversedation Osteomyelitis of left heel, surgery today MRI done on 10/22/16 showed osteomyelitis of left heel. Intially patient received a 3 day course of antibiotics. Marble Carver and ID recommended holding antibiotic until biopsy and culture obtained, Surgery was planned yesterday however it was cancelled complication developed secondary to lung biopsy. * She is scheduled for debridement and biopsy TODAY. * Patient has been kept nothing by mouth from midnight. Possible cellulitis DVT of lower ext ruled out by b/l Doppler studies. she remianed afebrile without leukocytosis since admission suggesting possible changes due to chronic venous stasis, however cellulitis is one of the differentials. IV antibiotics have been held since 10/22/16 4pm. Will watch her off antibiotics for now. Of note, one set of blood culture collected on 10/19/2016 grew Diptheroids, possible a contaminant. Continue leg elevation. Continuing pain management. * Pain management with Tylenol, Vicodin 2 tab Q6, Methadone 55mg daily, dilaudid 2mg q6P PO as well. Chronic nonhealing ulcers Patient has chronic nonhealing ulcers, secondary to peripheral vascular disease and chronic venous stasis. Wound care with daily dressing Appreciate the input. Continue the care. Chronic fungal nail infection Not pursuing any retirement antifungal treatment currently. Right knee swelling/pain: Osteoarthritis Patient has long-standing history of right knee osteoarthritis but her swelling and pain has worsened in the last month. X-ray of her right knee showed effusion on the suprapatellar space which was drained and sent for studies by Orthopedic surgeon Dr Mason. Negative for septic arthritis. Osteoarthritis with effusion is the most likely diagnosis. * Ibuprofen 400mg Q6PRN for pain * Followed up as an outpatient. Regular diet DVT prophylaxis -- NONE (hemothorax with leg wounds) Full code Problem List: 1. Osteomyelitis 2. Lung cancer 3. Hemothorax on right Pain Ratin Pain Location: feet Pain Goal: Pain 4 or less Pain Plan: prn Tomorrow's Labs & Rationales: bep, cbc PHIL LARIOS,AISLINN 10/28/162055: Attending MD Review Statement Attending Statement Attending MD Statement: examined this patient, discuss w/resident/PA/CERTIFIED MEDICAL CODING SPECIALIST, agreed w/resident/PA/CERTIFIED MEDICAL CODING SPECIALIST, reviewed EMR data (avail), discussed with case mgmt, amended to note Attending Assessment/Plan: The patient was seen and discussed with house staff. Agree with the plan of care as outlined. Patient has small cell cancer. Will obtain MRI of brain tomorrow. Need to have goals of care discussion with family.
[2016-10-28 08:29] LABS: ABSOLUTE BASOPHIL COUNT 0 /CUMM (0.0-0.2); ABSOLUTE EOSINOPHIL COUNT 0.1 /CUMM (0.0-0.7); ABSOLUTE GRANULOCYTE CT 2.5 /CUMM (1.4-6.5); ABSOLUTE LYMPH COUNT 1.5 /CUMM (1.2-3.4); ABSOLUTE MONOCYTE COUNT 0.6 /CUMM (0.10-0.60); BASOPHIL % 0.7 % (0.0-2.0); GRANULOCYTE % 52.6 % (42.2-75.2); HEMATOCRIT 41.3 % (37-47); MEAN CORPUSCULAR HGB 24.6 PG (27.0-31.0); MEAN CORPUSCULAR HGB CONC 30.8 G/DL (33.0-37.0); MEAN CORPUSCULAR VOLUME 79.8 FL (81.0-99.0); MEAN PLATELET VOLUME 7.9 FL (7.4-10.4); PLATELET COUNT 163 /CUMM (130-400); RBC DISTRIBUTION WIDTH 16.5 % (11.5-14.5); RED BLOOD CELL CT 5.18 /CUMM (4.20-5.40); WHITE BLOOD CELL COUNT 4.8 /CUMM (4.8-10.8)
--- NOTE | 2016-10-28 09:09 | PN- Oncology ---
Subjective Subjective: She continues to have pain in the feet. Her breathing is about the same. She has no new symptoms. Review of Systems: Constitutional: Reports: weakness. Denies: chills, fever. Cardiovascular: Denies: chest pain. Respiratory: Denies: short of breath. GI: Denies: abdominal pain. Genitourinary: Denies: dysuria. Musculoskeletal: Reports: back pain, joint pain. Hematologic/Endocrine: Denies: bruising, bleeding. All Other Systems: Reviewed and Negative Objective Vital Signs and I&Os Vital Signs Date Time Temp Pulse Resp B/P B/P Pulse O2 O2 Flow FiO2 Mean Ox Delivery Rate 10/28 0630 98.0 79 20 150/80 92 Nasal 4.0L Cannula 10/28 0000 90 Nasal 4.0L Cannula 10/27 2220 98.3 64 20 154/80 90 10/27 2000 93 Nasal 4.0L Cannula 10/27 1600 Nasal 4.0L Cannula 10/27 1418 98.0 78 20 140/60 93 Nasal 4.0L Cannula 10/27 1047 79 130/70 10/27 1046 79 130/70 10/27 1022 92 Nasal 4.0L Cannula Intake & Output 10/28 1600 10/28 0800 10/28 0000 10/27 1600 10/27 0800 10/27 0000 Intake Total 100 530 480 240 240 Output Total 500 1200 800 100 Balance -400 -670 -320 240 140 Intake, IV 0 Intake, Oral 100 530 480 240 240 Number 0 2 0 Bowel Movements Output, Stool 0 Output, Urine 500 1200 800 100 Physical Exam: General Appearance: no apparent distress, alert, awake, comfortable Ears, Nose, Throat: normal pharynx Respiratory: chest non-tender, no respiratory distress, quiet respiration, decreased breath sounds (RLL), crackles Cardiovascular: regular rate/rhythm Gastrointestinal: normal bowel sounds, soft, non-tender, no organomegaly Extremities: pedal edema, swelling, tenderness, dressing in bilateral lower extremities Neurologic/Psych: awake, alert, oriented Lymphatic: no anterior cervical jana Current Medications: Current Medications Sig/Ora Start time Last Medication Dose Route Stop Time Status Admin Acetaminophen 650 MG Q6P PRN 10/20 0100 AC 10/25 PO 0056 Acetaminophen/ 2 TAB Q6P PRN 10/20 1930 AC 10/28 Hydrocodone Bitart PO 0645 Albuterol Sulfate 3 ML BID 10/24 2200 AC 10/27 INH 2000 Amlodipine Besylate 10 MG DAILY 10/20 0100 AC 10/27 PO 1047 Chlorthalidone 12.5 MG DAILY 10/22 1350 AC 10/27 PO 1047 Hydromorphone HCl 2 MG Q6P PRN 10/22 1430 AC 10/28 PO 0255 Ibuprofen 400 MG Q6P PRN 10/26 1330 AC 10/26 PO 1750 Lisinopril 40 MG DAILY 10/20 0315 AC 10/27 PO 1046 Methadone HCl 55 MG DAILY 10/20 1000 AC 10/27 PO 1047 Nicotine 21 MG DAILY 10/20 1439 AC 10/27 TOP 1047 Patient Medication 1 ED .STK-MED ONE 10/27 1357 DC Teaching ED 10/27 1358 Potassium Chloride 10 MEQ DAILY 10/20 1000 AC 10/27 PO 1046 Sodium Chloride 1,000 ML ONCE ONE 10/28 0845 AC IV 10/28 2204 Results Last 24 Hours of Lab Results: Laboratory Tests 10/28 0730 Chemistry Sodium (137 - 145 mmol/L) 137 Potassium (3.5 - 5.1 mmol/L) 4.5 Chloride (98 - 107 mmol/L) 92 L Carbon Dioxide (22 - 30 mmol/L) 40 H Anion Gap (5 - 16) 5 BUN (7 - 17 mg/dL) 21 H Creatinine (0.5 - 1.0 mg/dL) 0.6 Estimated GFR (>60 ml/min) > 60 BUN/Creatinine Ratio (7 - 25 %) 35.0 H Hematology CBC w Diff NO MAN DIFF REQ WBC (4.8 - 10.8 /CUMM) 4.8 RBC (4.20 - 5.40 /CUMM) 5.18 Hgb (12.0 - 16.0 G/DL) 12.7 Hct (37 - 47 %) 41.3 MCV (81.0 - 99.0 FL) 79.8 L MCH (27.0 - 31.0 PG) 24.6 L RDW (11.5 - 14.5 %) 16.5 H Plt Count (130 - 400 /CUMM) 163 MPV (7.4 - 10.4 FL) 7.9 Gran % (42.2 - 75.2 %) 52.6 Lymphocytes % (20.5 - 51.1 %) 32.1 Monocytes % (1.7 - 9.3 %) 11.6 H Eosinophils % (0 - 5 %) 3.0 Basophils % (0.0 - 2.0 %) 0.7 Absolute Granulocytes (1.4 - 6.5 /CUMM) 2.5 Absolute Lymphocytes (1.2 - 3.4 /CUMM) 1.5 Absolute Monocytes (0.10 - 0.60 /CUMM) 0.6 Absolute Eosinophils (0.0 - 0.7 /CUMM) 0.1 Absolute Basophils (0.0 - 0.2 /CUMM) 0 PUBS MCHC (33.0 - 37.0 G/DL) 30.8 L Assessment/Plan Assessment/Recommendations: Ms. Louie is a 61-year female with PVD complicated by recurrent cellulitis and ulcerations, HCV, lung nodule, and tobacco abuse who presented to the hospital with worsening left leg edema, drainage, and pain. MRI of the left foot is concerning for osteomyelitis. Bone biopsy is pending. During admission, chest x-ray demonstrated worsening of known right middle lobe lung mass. She had chest x-ray and CT scan in 11/2014 with a 2.2 cm RML mass. She was lost to follow up. CT scan currently demonstrated a 7 cm mass with right hilar and subcarinal mass. Biopsy was done on 11/23/2016. This was complicated by hemothorax. Currently, she is clinically stage IIIA (T3N2Mx) disease with subcarinal adenopathy. Prelim result suggest necrotic tissue with possible small cell histology. She will need complete staging with MRI brain with contrast and PET scan. Mediastinal staging may not be needed if it is truly small cell. She would need pathologic confirmation if it is non-small cell. If it is stage IIIA, she will need definitive chemoradiation. Recommendations: Lung neoplasm: 1. Follow up on pathology on biopsy 2. MRI brain with and without contrast for metastatic evaluation 3. PET scan to evaluate metastatic disease Please call [phone] with any question or concerns. Problem List: 1. Osteomyelitis 2. Hemothorax on right 3. PVD (peripheral vascular disease) 4. Chronic venous stasis dermatitis of both lower extremities 5. Mass of right lung 6. History of hepatitis C
--- NOTE | 2016-10-28 10:51 | PN- Pulmonary ---
Subjective HPI/Critical Care Issues: pt seen and examined she appears comfortable she is on 4LNC her legs are in dressings she understands that she likely has a malignancy Objective Current Medications: Current Medications Sig/Ora Start time Last Medication Dose Route Stop Time Status Admin Acetaminophen 650 MG Q6P PRN 10/20 0100 AC 10/25 PO 0056 Acetaminophen/ 2 TAB Q6P PRN 10/20 1930 AC 10/28 Hydrocodone Bitart PO 0645 Albuterol Sulfate 3 ML BID 10/24 2200 AC 10/28 INH 1008 Amlodipine Besylate 10 MG DAILY 10/20 0100 AC 10/28 PO 0949 Chlorthalidone 12.5 MG DAILY 10/22 1350 AC 10/28 PO 0949 Hydromorphone HCl 2 MG Q6P PRN 10/22 1430 AC 10/28 PO 1002 Ibuprofen 400 MG Q6P PRN 10/26 1330 AC 10/26 PO 1750 Lisinopril 40 MG DAILY 10/20 0315 AC 10/28 PO 0949 Methadone HCl 55 MG DAILY 10/20 1000 AC 10/28 PO 0950 Nicotine 21 MG DAILY 10/20 1439 10/27 TOP 1047 Patient Medication 1 ED .STK-MED ONE 10/27 1357 DC Teaching ED 10/27 1358 Potassium Chloride 10 MEQ DAILY 10/20 1000 AC 10/28 PO 0949 Sodium Chloride 1,000 ML ONCE ONE 10/28 0845 AC 10/28 IV 10/28 2204 0950 Vital Signs & I&O Last 24 Hrs of Vitals and I&O: Vital Signs Date Time Temp Pulse Resp B/P B/P Pulse O2 O2 Flow FiO2 Mean Ox Delivery Rate 10/28 1010 94 Nasal 4.0L Cannula 10/28 0949 74 158/80 10/28 0630 98.0 79 20 150/80 92 Nasal 4.0L Cannula 10/28 0000 90 Nasal 4.0L Cannula 10/27 2220 98.3 64 20 154/80 90 10/28 1999 93 Nasal 4.0L Cannula 10/27 1600 Nasal 4.0L Cannula 10/27 1418 98.0 78 20 140/60 93 Nasal 4.0L Cannula 10/27 1047 79 130/70 10/27 1046 79 130/70 Intake & Output 10/28 1600 10/28 0800 10/28 0000 Intake Total 250 530 Output Total 500 1200 Balance -250 -670 Intake, IV 0 Intake, Oral 250 530 Number 0 Bowel Movements Output, Stool 0 Output, Urine 500 1200 Exam Other Physical Findings: gen awake and alert heent ncat cvs s1, s2 lungs bibasilar rhonchi abd soft bs+ ext dressings intact Results Last 24 Hrs of Lab Results: Laboratory Tests 10/28/16 0730: Anion Gap 5, Estimated GFR > 60, BUN/Creatinine Ratio 35.0 H, CBC w Diff NO MAN DIFF REQ, RBC 5.18, MCV 79.8 L, MCH 24.6 L, RDW 16.5 H, MPV 7.9, Gran % 52.6, Lymphocytes % 32.1, Monocytes % 11.6 H, Eosinophils % 3.0, Basophils % 0.7, Absolute Granulocytes 2.5, Absolute Lymphocytes 1.5, Absolute Monocytes 0.6, Absolute Eosinophils 0.1, Absolute Basophils 0, PUBS MCHC 30.8 L Impression/Plan Impression/Plan Impression/Plan: Impression 61 year old woman * osteomyelitis * right hemothorax * right lung mass Plan -patient unclear if she would want therapy for likely malignancy, however in the meantime please follow up Dr. Neely's recommendations for an MRI brain w/wo contrast and PET scan -taper o2 as allowed DVT prophylaxis at all times
[2016-10-28 13:15] VITALS: BP 142/72
--- NOTE | 2016-10-28 14:36 | Operative Report ---
Operative/Inv Procedure Report Surgery Date: 10/28/16 Name of Procedure: 1 open incision and drainage deep to the deep fascia with exposure of the flexor tendon tension multiple sites plantar left heel 2 closure of nonhealing ulcer plantar left heel 3 debridement of necrotic bone left heel 4 intraoperative administration of ankle block anesthesia 5 excisional debridement Pre-Operative Diagnosis: 1 open necrotic wound left heel 2 osteomyelitis left heel 3 peripheral arterial disease Post-Operative Diagnosis: The same Estimated Blood Loss: less than 50ml Surgeon/Head Of Sales: ROBERT MORENO DPM Anesthesia: moderate sedation, block Operative/Procedure Note Note: After obtaining informed consent the patient was brought to the operating room and placed on the operating table in the supine position. The patient was then securely fastened to the operating table utilizing safety belt. After administration of IV sedation, 10 mL of 0.5% Marcaine plain was infiltrated about the patient's left ankle. Left foot and ankle within scrubbed prepped and draped in usual aseptic manner. Attention was directed to the plantar aspect the left heel where a full-thickness necrotic was identified. A 15 blade visualized sharply revised skin margins. The dissection was then carried down deep to the fashion with exposure of the flexor tendon and tendon sheath multiple sites, both proximally and distally. All necrotic nonviable infected tissue sharply evacuated from the wound bed. Centrally, exposed bone was identified and this was debrided and specimen was harvested for both microbiologic and pathologic inspection. The open wound was then irrigated with 3 L of normal sterile saline fissure 50,000 units of bacitracin. Following this , the foot was redraped and the surgeon's top was changed clean gloves. Any bleeding vessels identified were cauterized or ligated as encountered. A plantar distal and plantar proximal flap was then developed with undermining, release of the morning ligaments and mobilization adjacent tissues. The distal plantar flap was rotated proximally and secured at its central aspect with 3-0 Vicryl. The proximal plantar flap was mobilized and rotated distally and again held at its central aspect with 3-0 Vicryl. The skin edges were then reapproximated with 3-0 nylon. Incision was dressed with Xeroform 4 x 4's Kerlix and an Imer wrap. The patient was noted to tolerate both procedure and anesthesia well and the patient was transported from the operating room to recovery with vital signs stable best assess intact all digits left foot.
[2016-10-28 17:00] VITALS: BP 134/74
[2016-10-28 19:00] VITALS: BP 154/78
[2016-10-28 21:00] VITALS: BP 146/76
[2016-10-29 06:39] VITALS: BP 138/80
--- NOTE | 2016-10-29 08:37 | PN- Housestaff ---
MICHELE LARIOS,MAGDA 10/29/16 0837: Subjective Follow-up For: Anmol Heel osteomyelitis scc cancer Subjective: Saw pt at bedside this AM. She is still confused. She went for MRI this AM for further staging of her cancer. No acute overnight events and no complaints. prelim cx of heel results are showing gram positive cocci. Objective Last 24 Hrs of Vital Signs/I&O Vital Signs Date Time Temp Pulse Resp B/P B/P Pulse O2 O2 Flow FiO2 Mean Ox Delivery Rate 10/29 1436 Nasal 1.0L Cannula 10/29 1415 98.0 72 20 152/72 91 10/29 1102 92 Nasal 4.0L Cannula 10/29 0910 74 136/82 10/29 0910 72 136/84 10/29 0800 Nasal 4.0L Cannula 10/29 0639 98.2 85 20 138/80 96 Nasal Cannula 10/29 0000 97 Nasal 4.0L Cannula 10/28 2100 98.5 81 20 146/76 97 Nasal 1.5L Cannula 10/28 2031 92 Nasal 4.0L Cannula 10/28 1900 98.7 83 24 154/78 91 Nasal 4.0L Cannula 10/28 1700 94 Nasal 3.0L Cannula 10/28 1700 98.4 76 20 134/74 95 Nasal 3.0L Cannula Intake & Output 10/29 1600 10/29 0800 10/29 0000 Intake Total 475 600 Output Total 850 700 Balance -375 -100 Intake, IV 375 600 Intake, Oral 100 0 Number 0 1 Bowel Movements Output, Urine 850 700 Physical Exam General Appearance: Alert, No Acute Distress Skin: LLE has significant venous stasis changes. wrapped in bandage HEENT: Atraumatic, PERRLA, EOMI Neck: Supple Cardiovascular: Normal S1, Normal S2 Lungs: Normal Air Movement Abdomen: Soft, No Tenderness Current Medications: Current Medications Sig/Ora Start time Last Medication Dose Route Stop Time Status Admin Acetaminophen 650 MG Q6P PRN 10/20 010 AC 10/25 PO 0056 Acetaminophen/ 2 TAB Q6P PRN 10/20 1930 AC 10/29 Hydrocodone Bitart PO 0952 Albuterol Sulfate 3 ML BID 10/24 2200 AC 10/29 INH 1059 Amlodipine Besylate 10 MG DAILY 10/20 010 AC 10/29 PO 0910 Chlorthalidone 12.5 MG DAILY 10/22 1350 AC 10/29 PO 0911 Hydromorphone HCl 2 MG Q6P PRN 10/22 1430 10/29 PO 1258 Ibuprofen 400 MG Q6P PRN 10/26 1330 10/26 PO 1750 Lisinopril 40 MG DAILY 10/20 0315 10/29 PO 0910 Methadone HCl 55 MG DAILY 10/20 1000 AC 10/29 PO 0909 Nicotine 21 MG DAILY 10/20 1439 10/29 TOP 0909 Patient Medication 1 ED .STK-MED ONE 10/29 1335 DC Teaching ED 10/29 1336 Potassium Chloride 10 MEQ DAILY 10/20 1000 10/29 PO 0910 Sodium Chloride 1,000 ML ONCE ONE 10/28 0845 DC 10/28 IV 10/28 2204 0950 Last 24 Hrs of Lab/[place] Results Last 24 Hrs of Labs/Mics: Laboratory Tests 10/29/16 1054: Anion Gap 6, Estimated GFR > 60, BUN/Creatinine Ratio 22.9, CBC w Diff NO MAN DIFF REQ, RBC 5.40, MCV 79.6 L, MCH 24.6 L, RDW 16.6 H, MPV 7.9, Gran % 64.3, Lymphocytes % 23.3, Monocytes % 10.0 H, Eosinophils % 1.9, Basophils % 0.5, Absolute Granulocytes 2.9, Absolute Lymphocytes 1.0 L, Absolute Monocytes 0.4, Absolute Eosinophils 0.1, Absolute Basophils 0, PUBS MCHC 30.9 L Assessment/Plan Assessment: 61-year-old female with PMH of chronic venous insufficiency and nonhealing ulcers of bilateral lower extremities, PVD, hepatitis C secondary to IV drug abuse,Pulmonary nodule and active smoker,was admitted to general medicine floor for management of cellulitis and osteomyelitis. MRI of foot on 10/22/16 were consistent with heel osteomyelitis - however debridment was postponed as patient received 3 day course of cefazolin. she has right lung mass that she was suppose to follow up previously, but wasnt and the mass increased from 2.2 to 7cm in size within a year. She underwent CT guided biopsy for assesment of her mass. The procedure was complicated by hemothorax, therefore pt was transferred to ICU for closer monitoring. later after the patient stablized, she was transferred back to the general medical floor. Currently she is being managed in the general medical floor for the following issues: Hemothorax s/p CT guided biopsy, stable now She was found to have a 2.2cm nodule an year ago, she did not follow up as was instructed that time, mass increased significantly to 7cm in the right middle lobe since then, patient was send for CT guided lung biopsy (10/24/16) and the procedure was complicated with hemothorax. * Thoracic surgery consulted - recommended coiling of brachial artery in the setting of decompensation/becoming unstable. * Oncology consult requested in case staging medianoscopy necessary in this admission. * CXR -no large pleural effusion, no pneumothorax and persistent right lung mass seen. 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 Will follow recommendations. * Went for MRI of brain 10/29 * Pending PET scan * Avoid oversedation Osteomyelitis of left heel MRI done on 10/22/16 showed osteomyelitis of left heel. Intially patient received a 3 day course of antibiotics. Accounts Supervisor and ID recommended holding antibiotic until biopsy and culture obtained. * Prelim culture showing GPC (Likely coag negative staph). Remain off abx * Thank you for ID recs Chronic nonhealing ulcers Patient has chronic nonhealing ulcers, secondary to peripheral vascular disease and chronic venous stasis. Wound care with daily dressing Appreciate the input. Continue the care. Chronic fungal nail infection Not pursuing any mcc antifungal treatment currently. Right knee swelling/pain: Osteoarthritis Patient has long-standing history of right knee osteoarthritis but her swelling and pain has worsened in the last month. X-ray of her right knee showed effusion on the suprapatellar space which was drained and sent for studies by Orthopedic surgeon Dr Mason. Negative for septic arthritis. Osteoarthritis with effusion is the most likely diagnosis. * Ibuprofen 400mg Q6PRN for pain * Followed up as an outpatient. Regular diet DVT prophylaxis -- NONE (hemothorax with leg wounds) Full code Problem List: 1. Lung cancer 2. Hemothorax on right 3. Osteomyelitis Pain Ratin Pain Location: none Pain Goal: Remain pain free Pain Plan: none Tomorrow's Labs & Rationales: cbc regisp AISLINN VILLARREAL MD 10/29/162110: Subjective Review of Systems Constitutional: Reports: weakness. Attending MD Review Statement Attending Statement Attending MD Statement: examined this patient, discuss w/resident/PA/TEACHERS AIDE, agreed w/resident/PA/TEACHERS AIDE, reviewed EMR data (avail), discussed with nursing, discussed with case mgmt, reviewed images, amended to note Attending Assessment/Plan: The patient was seen and discussed with house staff and ID. 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 Bone biopsy/culture done and pending. Observing off of antibiotics as per ID. Will attempt to reach daughter again tomorrow to arrange meeting regarding care and code status with new diagnosis as above.
--- NOTE | 2016-10-29 09:06 | PN- Pulmonary ---
Subjective HPI/Critical Care Issues: pt seen and examined afebrile hemodynamically stable on nc s/p podiatry procedure Objective Current Medications: Current Medications Sig/Ora Start time Last Medication Dose Route Stop Time Status Admin Acetaminophen 650 MG Q6P PRN 10/20 0100 AC 10/25 PO 0056 Acetaminophen/ 2 TAB Q6P PRN 10/20 1930 AC 10/29 Hydrocodone Bitart PO 0330 Albuterol Sulfate 3 ML BID 10/24 2200 AC 10/28 INH 2030 Amlodipine Besylate 10 MG DAILY 10/20 0100 AC 10/28 PO 0949 Chlorthalidone 12.5 MG DAILY 10/22 1350 AC 10/28 PO 0949 Hydromorphone HCl 2 MG Q6P PRN 10/22 1430 AC 10/29 PO 0600 Ibuprofen 400 MG Q6P PRN 10/26 1330 AC 10/26 PO 1750 Lisinopril 40 MG DAILY 10/20 0315 AC 10/28 PO 0949 Methadone HCl 5 MG .STK-MED ONE 10/28 0936 DC PO 10/28 0937 Methadone HCl 55 MG DAILY 10/20 1000 AC 10/28 PO 0950 Midazolam HCl 2 MG .STK-MED ONE 10/28 1347 DC IM 10/28 1348 Nicotine 21 MG DAILY 10/20 1439 AC 10/27 TOP 1047 Potassium Chloride 10 MEQ DAILY 10/20 1000 AC 10/28 PO 0949 Sodium Chloride 1,000 ML ONCE ONE 10/28 0845 DC 10/28 IV 10/28 2204 0950 Vital Signs & I&O Last 24 Hrs of Vitals and I&O: Vital Signs Date Time Temp Pulse Resp B/P B/P Pulse O2 O2 Flow FiO2 Mean Ox Delivery Rate 10/29 0639 98.2 85 20 138/80 96 Nasal Cannula 10/29 0000 97 Nasal 4.0L Cannula 10/28 2100 98.5 81 20 146/76 97 Nasal 1.5L Cannula 10/28 2031 92 Nasal 4.0L Cannula 10/28 1900 98.7 83 24 154/78 91 Nasal 4.0L Cannula 10/28 1700 94 Nasal 3.0L Cannula 10/28 1700 98.4 76 20 134/74 95 Nasal 3.0L Cannula 10/28 1315 98.1 78 18 142/72 94 Nasal 4.0L Cannula 10/28 1010 94 Nasal 4.0L Cannula 10/28 0949 74 158/80 Intake & Output 10/29 1600 10/29 0800 10/29 0000 Intake Total 375 600 Output Total 600 700 Balance -225 -100 Intake, IV 375 600 Intake, Oral 0 Number 0 1 Bowel Movements Output, Urine 600 700 Exam Other Physical Findings: gen awake and alert heent ncat cvs s1, s2 lungs bibasilar rhonchi abd soft bs+ ext dressings intact Impression/Plan Impression/Plan Impression/Plan: Impression 61 year old woman * osteomyelitis * right hemothorax * right lung mass Plan -patient unclear if she would want therapy for likely malignancy, however in the meantime please follow up Dr. Neely's recommendations for an MRI brain w/wo contrast and PET scan -taper o2 as allowed DVT prophylaxis at all times
--- NOTE | 2016-10-29 09:55 | MRI REPORT ---
EXAMINATION: MR BRAIN WITHOUT AND WITH CONTRAST CLINICAL INFORMATION: Rule out metastatic disease from lung cancer. COMPARISON: None. TECHNIQUE: Multiplanar, multisequence imaging of the brain was performed before and after the intravenous administration of 7.5 mL of Gadavist. The study is limited due to patient motion artifacts. FINDINGS: Scattered enhancing lesions are present in the brain parenchyma, most suspicious for metastatic disease. There is a 1.2 cm cortically based lesion in the right occipital lobe with mild surrounding vasogenic edema. A 1 cm lesion is present in the subcortical white matter of the posterior right parietal lobe with mild vasogenic edema. There is a dominant 1.3 x 1.5 cm enhancing mass in the premotor cortex of the right frontal lobe at the high convexity with a moderate amount of surrounding edema. There is a small 0.3 cm lesion anterior right frontal lobe subcortical white matter. A 0.3 cm enhancing lesion is visible in the right aspect of the posterior body of the corpus callosum. There is a 0.7 cm lesion in the subcortical frontal lobe. Additional small subtle lesions may be present, though assessment is limited by motion. No diffusion abnormalities are identified to suggest an acute or subacute infarct. The ventricles are normal in size. No significant mass effect or midline shift is seen. Nonspecific mild white matter signal changes are noted. No extra-axial fluid collections are seen. The brainstem and cerebellum are normal. On postcontrast imaging, there is no abnormal leptomeningeal enhancement. There is a mild amount of susceptibility artifact in the dominant right frontal lobe lesion which may be due to intratumoral blood products. The craniovertebral junction, marrow signal, and midline structures are normal. The major intracranial flow voids at the level of the [place] are preserved. The dural venous sinus flow voids are maintained. The mastoid air cells and paranasal sinuses are well aerated. IMPRESSION: Scattered enhancing brain parenchymal lesions as described with associated vasogenic edema. No significant mass effect or midline shift. Imaging findings are most suspicious for intracranial metastatic disease.
--- NOTE | 2016-10-29 09:56 | PN- Oncology ---
Subjective Subjective: She feels about the same. She underwent I&D yesterday. Review of Systems: Constitutional: Reports: weakness. Denies: chills, fever. Cardiovascular: Denies: chest pain. Respiratory: Denies: short of breath. GI: Denies: abdominal pain. Genitourinary: Denies: dysuria. Musculoskeletal: Reports: back pain, joint pain. Hematologic/Endocrine: Denies: bruising, bleeding. All Other Systems: Reviewed and Negative Objective Vital Signs and I&Os Vital Signs Date Time Temp Pulse Resp B/P B/P Pulse O2 O2 Flow FiO2 Mean Ox Delivery Rate 10/29 0910 74 136/82 10/29 0910 72 136/84 10/29 0639 98.2 85 20 138/80 96 Nasal Cannula 10/29 0000 97 Nasal 4.0L Cannula 10/28 2100 98.5 81 20 146/76 97 Nasal 1.5L Cannula 10/28 2031 92 Nasal 4.0L Cannula 10/28 1900 98.7 83 24 154/78 91 Nasal 4.0L Cannula 10/28 1700 94 Nasal 3.0L Cannula 10/28 1700 98.4 76 20 134/74 95 Nasal 3.0L Cannula 10/28 1315 98.1 78 18 142/72 94 Nasal 4.0L Cannula 10/28 1010 94 Nasal 4.0L Cannula Intake & Output 10/29 1600 10/29 0800 10/29 0000 10/28 1600 10/28 0800 10/28 0000 Intake Total 475 600 300 250 530 Output Total 850 700 785 436 9525 Balance -375 -100 -350 -250 -670 Intake, IV 375 600 300 0 Intake, Oral 100 0 250 530 Number 0 1 0 Bowel Movements Output, Stool 0 Output, Urine 850 700 010 658 2351 Physical Exam: General Appearance: no apparent distress, alert, awake, comfortable Ears, Nose, Throat: normal pharynx Respiratory: chest non-tender, no respiratory distress, quiet respiration, decreased breath sounds (RLL), crackles Cardiovascular: regular rate/rhythm Gastrointestinal: normal bowel sounds, soft, non-tender, no organomegaly Extremities: trace pedal edema, swelling, tenderness, dressing in bilateral lower extremities, EL dression on LLE Neurologic/Psych: awake, alert, oriented Lymphatic: no anterior cervical jana Current Medications: Current Medications Sig/Ora Start time Last Medication Dose Route Stop Time Status Admin Acetaminophen 650 MG Q6P PRN 10/20 0100 AC 10/25 PO 0056 Acetaminophen/ 2 TAB Q6P PRN 10/20 1930 AC 10/29 Hydrocodone Bitart PO 0330 Albuterol Sulfate 3 ML BID 10/24 2200 AC 10/28 INH 2030 Amlodipine Besylate 10 MG DAILY 10/20 0100 AC 10/29 PO 0910 Chlorthalidone 12.5 MG DAILY 10/22 1350 AC 10/29 PO 0911 Hydromorphone HCl 2 MG Q6P PRN 10/22 1430 AC 10/29 PO 0600 Ibuprofen 400 MG Q6P PRN 10/26 1330 AC 10/26 PO 1750 Lisinopril 40 MG DAILY 10/20 0315 AC 10/29 PO 0910 Methadone HCl 55 MG DAILY 10/20 1000 AC 10/29 PO 0909 Midazolam HCl 2 MG .STK-MED ONE 10/28 1347 DC IM 10/28 1348 Nicotine 21 MG DAILY 10/20 1439 AC 10/29 TOP 0909 Potassium Chloride 10 MEQ DAILY 10/20 1000 AC 10/29 PO 0910 Sodium Chloride 1,000 ML ONCE ONE 10/28 0845 DC 10/28 IV 10/28 2204 0950 Assessment/Plan Assessment/Recommendations: Ms. Louie is a 61-year female with PVD complicated by recurrent cellulitis and ulcerations, HCV, lung nodule, and tobacco abuse who presented to the hospital with worsening left leg edema, drainage, and pain. MRI of the left foot is concerning for osteomyelitis. Bone biopsy is pending. During admission, chest x-ray demonstrated worsening of known right middle lobe lung mass. She had chest x-ray and CT scan in 11/2014 with a 2.2 cm RML mass. She was lost to follow up. CT scan currently demonstrated a 7 cm mass with right hilar and subcarinal mass. Biopsy was done on 11/23/2016. This was complicated by hemothorax. Currently, she is clinically stage IIIA (T3N2Mx) disease with subcarinal adenopathy. Prelim result suggests possible small cell histology but still pending staining and review. She will need complete staging with MRI brain with contrast and PET scan. Lung neoplasm: 1. Follow up on pathology on biopsy 2. MRI brain with and without contrast for metastatic evaluation 3. PET scan to evaluate metastatic disease Left LLE osteomyelitis: 1. ID following 2. Podiatry following 3. Off antibiotic Please call [phone] with any question or concerns. Problem List: 1. Osteomyelitis 2. Lung cancer
[2016-10-29 11:40] LABS: ABSOLUTE BASOPHIL COUNT 0 /CUMM (0.0-0.2); ABSOLUTE EOSINOPHIL COUNT 0.1 /CUMM (0.0-0.7); ABSOLUTE GRANULOCYTE CT 2.9 /CUMM (1.4-6.5); MEAN PLATELET VOLUME 7.9 FL (7.4-10.4); WHITE BLOOD CELL COUNT 4.5 /CUMM (4.8-10.8)
[2016-10-29 11:43] LABS: ABSOLUTE MONOCYTE COUNT 0.4 /CUMM (0.10-0.60); BASOPHIL % 0.5 % (0.0-2.0); EOSINOPHIL % 1.9 % (0-5); GRANULOCYTE % 64.3 % (42.2-75.2); MEAN CORPUSCULAR HGB 24.6 PG (27.0-31.0); MEAN CORPUSCULAR VOLUME 79.6 FL (81.0-99.0); PLATELET COUNT 180 /CUMM (130-400); RBC DISTRIBUTION WIDTH 16.6 % (11.5-14.5)
[2016-10-29 12:03] LABS: MEAN CORPUSCULAR HGB CONC 30.9 G/DL (33.0-37.0)
--- NOTE | 2016-10-29 13:09 | PN- Infect Dx ---
Subjective Subjective: Afebrile. She continues to complain of left heel and bilateral lower extremity pain. She has no further chest pain. Objective Last 24 Hrs of Vital Signs/I&O Vital Signs Date Time Temp Pulse Resp B/P B/P Pulse O2 O2 Flow FiO2 Mean Ox Delivery Rate 10/29 1102 92 Nasal 4.0L Cannula 10/29 0910 74 136/82 10/29 0910 72 136/84 10/29 0800 Nasal 4.0L Cannula 10/29 0639 98.2 85 20 138/80 96 Nasal Cannula 10/29 0000 97 Nasal 4.0L Cannula 10/28 2100 98.5 81 20 146/76 97 Nasal 1.5L Cannula 10/28 2031 92 Nasal 4.0L Cannula 10/28 1900 98.7 83 24 154/78 91 Nasal 4.0L Cannula 10/28 1700 94 Nasal 3.0L Cannula 10/28 1700 98.4 76 20 134/74 95 Nasal 3.0L Cannula 10/28 1315 98.1 78 18 142/72 94 Nasal 4.0L Cannula Intake & Output 10/29 1600 10/29 0800 10/29 0000 Intake Total 475 600 Output Total 850 700 Balance -375 -100 Intake, IV 375 600 Intake, Oral 100 0 Number 0 1 Bowel Movements Output, Urine 850 700 Physical Exam Other Physical Findings: She appears comfortable in no acute distress Lungs bilateral wheezes Heart regular rhythm with no murmur Extremities left foot dressing intact Results Last 24 Hours of Lab Results: Laboratory Tests 10/29 1054 Chemistry Sodium (137 - 145 mmol/L) 136 L Potassium (3.5 - 5.1 mmol/L) 4.2 Chloride (98 - 107 mmol/L) 91 L Carbon Dioxide (22 - 30 mmol/L) 39 H Anion Gap (5 - 16) 6 BUN (7 - 17 mg/dL) 16 Creatinine (0.5 - 1.0 mg/dL) 0.7 Estimated GFR (>60 ml/min) > 60 BUN/Creatinine Ratio (7 - 25 %) 22.9 Hematology CBC w Diff NO MAN DIFF REQ WBC (4.8 - 10.8 /CUMM) 4.5 L RBC (4.20 - 5.40 /CUMM) 5.40 Hgb (12.0 - 16.0 G/DL) 13.3 Hct (37 - 47 %) 43.0 MCV (81.0 - 99.0 FL) 79.6 L MCH (27.0 - 31.0 PG) 24.6 L RDW (11.5 - 14.5 %) 16.6 H Plt Count (130 - 400 /CUMM) 180 MPV (7.4 - 10.4 FL) 7.9 Gran % (42.2 - 75.2 %) 64.3 Lymphocytes % (20.5 - 51.1 %) 23.3 Monocytes % (1.7 - 9.3 %) 10.0 H Eosinophils % (0 - 5 %) 1.9 Basophils % (0.0 - 2.0 %) 0.5 Absolute Granulocytes (1.4 - 6.5 /CUMM) 2.9 Absolute Lymphocytes (1.2 - 3.4 /CUMM) 1.0 L Absolute Monocytes (0.10 - 0.60 /CUMM) 0.4 Absolute Eosinophils (0.0 - 0.7 /CUMM) 0.1 Absolute Basophils (0.0 - 0.2 /CUMM) 0 PUBS MCHC (33.0 - 37.0 G/DL) 30.9 L Last 24 Hours of [place] Results: Left heel bone culture October 28 positive for coag-negative Staph Recent Imaging Studies: MRI of the head October 29 reveals scattered enhancing brain parenchymal lesions suspicious for metastatic disease Assessment/Plan Impression: Stable with temperatures and white blood cell count remaining normal off antibiotics status post CT-guided biopsy of her right middle lobe mass 3 days ago, complicated by a hemothorax, with the pathology suggesting possible small cell histology and with the MRI of the head suggesting metastatic disease. She did undergo a left heel bone biopsy yesterday to rule out osteomyelitis, with the preliminary culture growing coag-negative Staph, suggestive of a contaminant , and, therefore, feel that she can be followed off antibiotics pending final cultures. Suggestion: 1. Follow-up final cultures and pathology of the left heel bone biopsy 2. Continue to follow off antibiotics pending above
[2016-10-29 14:15] VITALS: BP 152/72
[2016-10-29 23:04] VITALS: BP 150/74
[2016-10-30 06:51] VITALS: BP 144/82
--- NOTE | 2016-10-30 07:05 | PN- Housestaff ---
See Addendum Subjective Follow-up For: SCC of R lung, mets to brain; Hemothorax status post right lung biopsy; better Osteomyelitis of left heel; Chronic pain on methadone; Bilateral leg swelling, chronic venous stasis. Complaints: no complaints Subjective: I followed up and examined the patient today. She is resting comfortably in her bed, not in distress, requiring oxygen via nasal cannula at 4 L/m. She does not offer any complaints, but the overnight nurse reported frequency in micturition. When questioned, patient denies any burning or pain sensation, but does say that she "just has to pee multiple times" (?hyperactive bladder). Vitals otherwise have remained stable. Review of Systems Constitutional: Reports: see HPI. Genitourinary: Reports: frequency, nocturia, urgency. Denies: dysuria, hematuria, pain. Objective Last 24 Hrs of Vital Signs/I&O Vital Signs Date Time Temp Pulse Resp B/P B/P Pulse O2 O2 Flow FiO2 Mean Ox Delivery Rate 10/30 0858 92 Nasal 4.0L Cannula 10/30 0651 98.0 69 20 144/82 94 Nasal 4.0L Cannula 10/29 2304 99.0 75 20 150/74 93 Nasal Cannula 10/29 1846 97 Nasal 4.0L Cannula 10/29 1600 Nasal 4.0L Cannula 10/29 1436 Nasal 1.0L Cannula 10/29 1415 98.0 72 20 152/72 91 10/29 1102 92 Nasal 4.0L Cannula 10/29 0910 74 136/82 10/29 0910 72 136/84 Intake & Output 10/30 1600 10/30 0800 10/30 0000 Intake Total Output Total 500 Balance -500 Output, Urine 500 Physical Exam General Appearance: Alert, Oriented X3, Cooperative, No Acute Distress Other Physical Findings: Skin skin lesions consistent with chronic venous statis in b/l lower ext. HEENT Atraumatic, Mucous Membr. moist/pink Neck Supple Cardiovascular Regular Rate, Normal S1, Normal S2, No Murmurs Lungs Clear to Auscultation, except for occ crepts over right lung, pt NOT in resp distress. Abdomen Soft, No Tenderness, Positive Bowel Sounds Extremities No Clubbing, No Cyanosis, Bilateral Lower Extremities with Swelling (decreasing) and Serous Drainage, Chronic Venous Stasis and Thick Scale, dressing over left ankle, Right Knee Swelling, Bilateral Toenails with severe Onychomycosis and toe deformity. Psychiatric Patient is calm, coherant, is able to understand her condition. No agitation, anxiety, no hallucination, or delusion. Current Medications: Current Medications Sig/Ora Start time Last Medication Dose Route Stop Time Status Admin Acetaminophen 650 MG Q6P PRN 10/20 0100 AC 10/25 PO 0056 Acetaminophen/ 2 TAB Q6P PRN 10/20 1930 AC 10/30 Hydrocodone Bitart PO 0615 Albuterol Sulfate 3 ML BID 10/24 2200 AC 10/30 INH 0836 Amlodipine Besylate 10 MG DAILY 10/20 0100 AC 10/29 PO 0910 Chlorthalidone 12.5 MG DAILY 10/22 1350 AC 10/29 PO 0911 Hydromorphone HCl 2 MG Q6P PRN 10/22 1430 AC 10/30 PO 0833 Ibuprofen 400 MG Q6P PRN 10/26 1330 AC 10/26 PO 1750 Lisinopril 40 MG DAILY 10/20 0315 AC 10/29 PO 0910 Methadone HCl 55 MG DAILY 10/20 1000 AC 10/29 PO 0909 Nicotine 21 MG DAILY 10/20 1439 10/29 TOP 0909 Patient Medication 1 ED .STK-MED ONE 10/29 1335 DC Teaching ED 10/29 1336 Potassium Chloride 10 MEQ DAILY 10/20 1000 AC 10/29 PO 0910 Last 24 Hrs of Lab/Chad Results Last 24 Hrs of Labs/Mics: Laboratory Tests 10/30/16 0705: Anion Gap 4 L, Estimated GFR > 60, BUN/Creatinine Ratio 24.3, CBC w Diff NO MAN DIFF REQ, RBC 5.46 H, MCV 79.5 L, MCH 24.6 L, RDW 16.9 H, MPV 8.0, Gran % 54.4, Lymphocytes % 32.4, Monocytes % 10.4 H, Eosinophils % 2.4, Basophils % 0.4, Absolute Granulocytes 2.7, Absolute Lymphocytes 1.6, Absolute Monocytes 0.5 , Absolute Eosinophils 0.1, Absolute Basophils 0, PUBS MCHC 30.9 L 10/29/16 1054: Anion Gap 6, Estimated GFR > 60, BUN/Creatinine Ratio 22.9, CBC w Diff NO MAN DIFF REQ, RBC 5.40, MCV 79.6 L, MCH 24.6 L, RDW 16.6 H, MPV 7.9, Gran % 64.3, Lymphocytes % 23.3, Monocytes % 10.0 H, Eosinophils % 1.9, Basophils % 0.5, Absolute Granulocytes 2.9, Absolute Lymphocytes 1.0 L, Absolute Monocytes 0.4, Absolute Eosinophils 0.1, Absolute Basophils 0, PUBS MCHC 30.9 L Assessment/Plan Assessment: 61-year-old female with PMH of chronic venous insufficiency and nonhealing ulcers of bilateral lower extremities, PVD, hepatitis C secondary to IV drug abuse, Pulmonary nodule and active smoker, was admitted to general medicine floor for management of cellulitis and osteomyelitis. MRI of foot on 10/22/16 were consistent with heel osteomyelitis - however debridment was postponed as patient received 3 day course of cefazolin. She has right lung mass that she was supposed to follow up but didn't and the mass now has increased from 2.2 to 7cm in size within a year. She underwent CT guided biopsy for assesment of her mass. The procedure was complicated by hemothorax, therefore pt was transferred to ICU for closer monitoring. Later after the patient stablized, she was transferred back to the general medical floor. Currently she is being managed in the general medical floor for the following issues: # Hemothorax s/p CT guided biopsy, stable now Stable now. * Thoracic surgery consulted - recommended coiling of brachial artery in the setting of decompensation/becoming unstable. * Daily CBC - monitor serial hemtocrits --stable so far H&H today is 13.4/43.4. #Small cell carcinoma with mets Patient's right lung biopsy revealed small cell carcinoma. Patient has been told about, and discussed about the cancer multiple times by multiple providers during this admission, but the patient either does not seem interested, or does not understand the gravity of the situation. Patient's family member/daughter has been contacted several times by my attending physician, with no success. We need to have a meeting regarding future plan of care, as compliance is an issue with the patient, one with this diagnosis she still holds a full code. * MRI of brain 10/29 shows mets * Pending PET scan, probably will be done as an out patient as this is done only on Tuesdays here, and also does not change the current management dractically. * Avoid oversedation * The patient complains of severe headache, she might require steroids * We'll consider neurosurgical input if she has focal symptoms. Osteomyelitis of left heel MRI done on 10/22/16 showed osteomyelitis of left heel. Intially patient received a 3 day course of antibiotics. [facility] Track and ID recommended holding antibiotic until biopsy and culture obtained. * Culture showing GPC (coag negative staph). Remain off abx * Thank you for ID recs Chronic nonhealing ulcers Patient has chronic nonhealing ulcers, secondary to peripheral vascular disease and chronic venous stasis. Wound care with daily dressing Appreciate the input. Continue the care. Chronic fungal nail infection Not pursuing any jail antifungal treatment currently. Right knee swelling/pain: Osteoarthritis Patient has long-standing history of right knee osteoarthritis but her swelling and pain has worsened in the last month. X-ray of her right knee showed effusion on the suprapatellar space which was drained and sent for studies by Orthopedic surgeon Dr Mason. Negative for septic arthritis. Osteoarthritis with effusion is the most likely diagnosis. * Ibuprofen 400mg Q6PRN for pain * Followed up as an outpatient. Regular diet DVT prophylaxis -- NONE (hemothorax with leg wounds) Full code Problem List: 1. Osteomyelitis 2. Lung cancer 3. Mass of brain Pain Ratin Pain Location: legs Pain Goal: Pain 4 or less Pain Plan: prn, as of today Tomorrow's Labs & Rationales: CBC
[2016-10-30 07:56] LABS: ABSOLUTE BASOPHIL COUNT 0 /CUMM (0.0-0.2); ABSOLUTE EOSINOPHIL COUNT 0.1 /CUMM (0.0-0.7); ABSOLUTE GRANULOCYTE CT 2.7 /CUMM (1.4-6.5); ABSOLUTE LYMPH COUNT 1.6 /CUMM (1.2-3.4); ABSOLUTE MONOCYTE COUNT 0.5 /CUMM (0.10-0.60); BASOPHIL % 0.4 % (0.0-2.0); EOSINOPHIL % 2.4 % (0-5); GRANULOCYTE % 54.4 % (42.2-75.2); HEMATOCRIT 43.4 % (37-47); MEAN CORPUSCULAR HGB 24.6 PG (27.0-31.0); MEAN CORPUSCULAR HGB CONC 30.9 G/DL (33.0-37.0); MEAN CORPUSCULAR VOLUME 79.5 FL (81.0-99.0); PLATELET COUNT 178 /CUMM (130-400); RBC DISTRIBUTION WIDTH 16.9 % (11.5-14.5); RED BLOOD CELL CT 5.46 /CUMM (4.20-5.40); WHITE BLOOD CELL COUNT 4.9 /CUMM (4.8-10.8)
--- NOTE | 2016-10-30 08:53 | PN- Pulmonary ---
Subjective HPI/Critical Care Issues: pt seen and examined MRI - Scattered enhancing brain parenchymal lesions as described with associated vasogenic edema. No significant mass effect or midline shift. Imaging findings are most suspicious for intracranial metastatic disease. afebrile, on 4LNC Objective Current Medications: Current Medications Sig/Ora Start time Last Medication Dose Route Stop Time Status Admin Acetaminophen 650 MG Q6P PRN 10/20 0100 AC 10/25 PO 0056 Acetaminophen/ 2 TAB Q6P PRN 10/20 1930 AC 10/30 Hydrocodone Bitart PO 0615 Albuterol Sulfate 3 ML BID 10/24 2200 AC 10/30 INH 0836 Amlodipine Besylate 10 MG DAILY 10/20 0100 AC 10/29 PO 0910 Chlorthalidone 12.5 MG DAILY 10/22 1350 AC 10/29 PO 0911 Hydromorphone HCl 2 MG Q6P PRN 10/22 1430 AC 10/30 PO 0833 Ibuprofen 400 MG Q6P PRN 10/26 1330 AC 10/26 PO 1750 Lisinopril 40 MG DAILY 10/20 0315 AC 10/29 PO 0910 Methadone HCl 55 MG DAILY 10/20 1000 AC 10/29 PO 0909 Nicotine 21 MG DAILY 10/20 1439 10/29 TOP 0909 Patient Medication 1 ED .STK-MED ONE 10/29 1335 DC Teaching ED 10/29 1336 Potassium Chloride 10 MEQ DAILY 10/20 1000 10/29 PO 0910 Vital Signs & I&O Last 24 Hrs of Vitals and I&O: Vital Signs Date Time Temp Pulse Resp B/P B/P Pulse O2 O2 Flow FiO2 Mean Ox Delivery Rate 10/30 0651 98.0 69 20 144/82 94 Nasal 4.0L Cannula 10/29 2304 99.0 75 20 150/74 93 Nasal Cannula 10/29 1846 97 Nasal 4.0L Cannula 10/29 1600 Nasal 4.0L Cannula 10/29 1436 Nasal 1.0L Cannula 10/29 1415 98.0 72 20 152/72 91 10/29 1102 92 Nasal 4.0L Cannula 10/29 0910 74 136/82 10/29 0910 72 136/84 Intake & Output 10/30 1600 10/30 0800 10/30 0000 Intake Total Output Total 500 Balance -500 Output, Urine 500 Exam Other Physical Findings: gen awake and alert heent ncat cvs s1, s2 lungs bibasilar rhonchi abd soft bs+ ext dressings intact Results Last 24 Hrs of Lab Results: Laboratory Tests 10/30/16 0705: Anion Gap 4 L, Estimated GFR > 60, BUN/Creatinine Ratio 24.3, CBC w Diff NO MAN DIFF REQ, RBC 5.46 H, MCV 79.5 L, MCH 24.6 L, RDW 16.9 H, MPV 8.0, Gran % 54.4, Lymphocytes % 32.4, Monocytes % 10.4 H, Eosinophils % 2.4, Basophils % 0.4, Absolute Granulocytes 2.7, Absolute Lymphocytes 1.6, Absolute Monocytes 0.5 , Absolute Eosinophils 0.1, Absolute Basophils 0, PUBS MCHC 30.9 L 10/29/16 1054: Anion Gap 6, Estimated GFR > 60, BUN/Creatinine Ratio 22.9, CBC w Diff NO MAN DIFF REQ, RBC 5.40, MCV 79.6 L, MCH 24.6 L, RDW 16.6 H, MPV 7.9, Gran % 64.3, Lymphocytes % 23.3, Monocytes % 10.0 H, Eosinophils % 1.9, Basophils % 0.5, Absolute Granulocytes 2.9, Absolute Lymphocytes 1.0 L, Absolute Monocytes 0.4, Absolute Eosinophils 0.1, Absolute Basophils 0, PUBS MCHC 30.9 L Impression/Plan Impression/Plan Impression/Plan: Impression 61 year old woman * osteomyelitis * right hemothorax * right lung mass Plan -MRI suggestive of intracranial metastatic disease, f/u oncology recs -patient unclear of goals of care, recommend addressing full goals of care with patient at this time -taper o2 as allowed DVT prophylaxis at all times
--- NOTE | 2016-10-30 10:54 | PN- Oncology ---
Subjective Subjective: She has no new pain. Pain is still in the feet. She has no fever or chills. She has no nausea or vomiting. She denies any confusion. She has no new weakness or numbness. Review of Systems Constitutional: Reports: weakness. Denies: chills, fever. Cardiovascular: Denies: chest pain. Gastrointestinal: Denies: abdominal pain. Musculoskeletal: Reports: back pain, muscle pain, muscle stiffness. Neurological/Psychological: Denies: anxiety, headache, numbness, paresthesia, tingling. Hematologic/Endocrine: Denies: bruising, bleeding. Immunologic/Allergic: Denies: lymphadenopathy. All Other Systems: Reviewed and Negative Objective Vital Signs and I&Os Vital Signs Date Time Temp Pulse Resp B/P B/P Pulse O2 O2 Flow FiO2 Mean Ox Delivery Rate 10/30 09 74 132/82 10/30 0922 74 132/82 10/30 0858 92 Nasal 4.0L Cannula 10/30 0651 98.0 69 20 144/82 94 Nasal 4.0L Cannula 10/29 2304 99.0 75 20 150/74 93 Nasal Cannula 10/29 1846 97 Nasal 4.0L Cannula 10/29 1600 Nasal 4.0L Cannula 10/29 1436 Nasal 1.0L Cannula 10/29 1415 98.0 72 20 152/72 91 10/29 1102 92 Nasal 4.0L Cannula Intake & Output 10/30 1600 10/30 0800 10/30 0000 10/29 1600 10/29 0800 10/29 0000 Intake Total 700 475 600 Output Total 500 450 850 700 Balance -500 250 -375 -100 Intake, IV 375 600 Intake, Oral 700 100 0 Number 1 0 1 Bowel Movements Output, Urine 500 450 850 700 Physical Exam: General Appearance: no apparent distress, alert, awake, comfortable Ears, Nose, Throat: normal pharynx Respiratory: chest non-tender, no respiratory distress, quiet respiration, decreased breath sounds (RLL), crackles Cardiovascular: regular rate/rhythm Gastrointestinal: normal bowel sounds, soft, non-tender, no organomegaly Extremities: trace pedal edema, swelling, tenderness, dressing in bilateral lower extremities, EL dression on LLE Neurologic/Psych: awake, alert, oriented Lymphatic: no anterior cervical jana Current Medications: Current Medications Sig/Ora Start time Last Medication Dose Route Stop Time Status Admin Acetaminophen 650 MG Q6P PRN 10/20 0100 AC 10/25 PO 0056 Acetaminophen/ 2 TAB Q6P PRN 10/20 1930 AC 10/30 Hydrocodone Bitart PO 0615 Albuterol Sulfate 3 ML BID 10/24 2200 AC 10/30 INH 0836 Amlodipine Besylate 10 MG DAILY 10/20 0100 AC 10/30 PO 0922 Chlorthalidone 12.5 MG DAILY 10/22 1350 AC 10/30 PO 0922 Hydromorphone HCl 2 MG Q6P PRN 10/22 1430 AC 10/30 PO 0833 Ibuprofen 400 MG Q6P PRN 10/26 1330 AC 10/26 PO 1750 Lisinopril 40 MG DAILY 10/20 0315 AC 10/30 PO 0922 Methadone HCl 55 MG DAILY 10/20 1000 AC 10/30 PO 0921 Nicotine 21 MG DAILY 10/20 1439 AC 10/30 TOP 0921 Patient Medication 1 ED .STK-MED ONE 10/29 1335 LA Teaching ED 10/29 1336 Potassium Chloride 10 MEQ DAILY 10/20 1000 AC 10/30 PO 0922 Results Last 24 Hours of Lab Results: Laboratory Tests 10/30 10/29 0705 1054 Chemistry Sodium (137 - 145 mmol/L) 137 136 L Potassium (3.5 - 5.1 mmol/L) 4.2 4.2 Chloride (98 - 107 mmol/L) 92 L 91 L Carbon Dioxide (22 - 30 mmol/L) 41 H 39 H Anion Gap (5 - 16) 4 L 6 BUN (7 - 17 mg/dL) 17 16 Creatinine (0.5 - 1.0 mg/dL) 0.7 0.7 Estimated GFR (>60 ml/min) > 60 > 60 BUN/Creatinine Ratio (7 - 25 %) 24.3 22.9 Hematology CBC w Diff NO MAN DIFF REQ NO MAN DIFF REQ WBC (4.8 - 10.8 /CUMM) 4.9 4.5 L RBC (4.20 - 5.40 /CUMM) 5.46 H 5.40 Hgb (12.0 - 16.0 G/DL) 13.4 13.3 Hct (37 - 47 %) 43.4 43.0 MCV (81.0 - 99.0 FL) 79.5 L 79.6 L MCH (27.0 - 31.0 PG) 24.6 L 24.6 L RDW (11.5 - 14.5 %) 16.9 H 16.6 H Plt Count (130 - 400 /CUMM) 178 180 MPV (7.4 - 10.4 FL) 8.0 7.9 Gran % (42.2 - 75.2 %) 54.4 64.3 Lymphocytes % (20.5 - 51.1 %) 32.4 23.3 Monocytes % (1.7 - 9.3 %) 10.4 H 10.0 H Eosinophils % (0 - 5 %) 2.4 1.9 Basophils % (0.0 - 2.0 %) 0.4 0.5 Absolute Granulocytes (1.4 - 6.5 /CUMM) 2.7 2.9 Absolute Lymphocytes (1.2 - 3.4 /CUMM) 1.6 1.0 L Absolute Monocytes (0.10 - 0.60 /CUMM) 0.5 0.4 Absolute Eosinophils (0.0 - 0.7 /CUMM) 0.1 0.1 Absolute Basophils (0.0 - 0.2 /CUMM) 0 0 PUBS MCHC (33.0 - 37.0 G/DL) 30.9 L 30.9 L Recent Imaging Studies: MRI brain 10/29/2016: Scattered enhancing brain parenchymal lesions as described with associated vasogenic edema. No significant mass effect or midline shift. Imaging findings are most suspicious for intracranial metastatic disease. Assessment/Plan Assessment/Recommendations: Ms. Louie is a 61-year female with PVD complicated by recurrent cellulitis and ulcerations, HCV, lung nodule, and tobacco abuse who presented to the hospital with worsening left leg edema, drainage, and pain. MRI of the left foot is concerning for osteomyelitis. Bone biopsy is pending. During admission, chest x-ray demonstrated worsening of known right middle lobe lung mass. She had chest x-ray and CT scan in 11/2014 with a 2.2 cm RML mass. She was lost to follow up. CT scan currently demonstrated a 7 cm mass with right hilar and subcarinal mass. Biopsy was done on 11/23/2016. This was complicated by hemothorax. MRI demonstrated numerous brain lesion concerning for metastatic disease. She likely has T3N2M1 disease. One concern would be if these lesion can be infectious in nature given osteomyelitis. Radiology and ID can be asked to help weigh in on this. Given the brain metastasis, she should have radiation oncology see the patient. Pending evaluation, she may need to start on steroid. She is asymptomatic at the moment. If she become symptomatic, she can be started on steroid. Metastatic Lung neoplasm: 1. Follow up on pathology on biopsy 2. Radiation oncology evaluation 3. PET scan to evaluate metastatic disease 4. Radiology/ID review for ? abscess/infectious lesion vs metastatic 5. Possible neurosurgery evaluation 6. Dexamethasone if symptomatic Left LLE osteomyelitis: 1. ID following 2. Podiatry following 3. Off antibiotic Please call [phone] with any question or concerns. Problem List: 1. Lung cancer 2. Osteomyelitis 3. Hemothorax on right
[2016-10-30 14:14] VITALS: BP 110/62
--- NOTE | 2016-10-30 14:55 | Cons- Oncology ---
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 Mass measured up to 7 cm with significant subcarinal adenopathy. She underwent CT lung biopsy with findings consistent with lung carcinoma. Final pathology small cell versus non-small cell carcinoma is pending. Brain imaging revealed multiple lesions consistent with metastatic disease. The patient remains hospitalized for IV antibiotics. She is status post incision and drainage of the left heel. 11/16/15: CT chest 2.2 cm mass involving the right middle lobe abutting the major fissure; PET/CT or biopsy was suggested Status post incision and drainage on 10/18/16 of the left heel 10/21/16: CT chest w IV contrast: Right middle lobe mass has increased in size currently measuring 7 cm x 6 with surrounding moderate groundglass opacity at the remaining right middle lobe which may represent evolving infiltrate or atelectasis; new subcarinal lymphadenopathy measuring 3 x 4.4 cm; smaller right hilar lymph node; no evidence of other suspicious appearing pulmonary nodules or metastatic disease; asymmetry of the right parenchyma breast left greater than the right also new; question cardiomyopathy 10/22/16 MRI heelosteomyelitis : Deep soft tissue ulcer of the heel and osteomyelitis involving the plantar aspect of the calcaneal tuberosity; chronic plantar fascia doses in focal tear in the plantar aponeurosis adjacent to its calcaneal attachment; 10/24/16: CT lung biopsy: Complicated by symptomatic small pneumothorax; technically successful biopsy of a 7 cm mass in the right middle lobe 10/29/16: MRI head with contrast scattered enhancing brain parenchymal lesions with associated vasogenic edema; no significant mass effect or midline shift; 1.2 cm cortically based lesion in the right occipital lobe with mild surrounding vasogenic edema; 1 cm lesion in the subcortical white matter of the posterior right parietal lobe with mild vasogenic edema; dominant 1.3 x 1.5 cm enhancing mass in the pre-motor cortex of the right frontal lobe high convexity with moderate amount of edema; small cerebral 0.3 cm lesion anterior right frontal lobe; 0.3 cm enhancing lesion in the right aspect of the posterior body of the corpus callosum; 0.7 cm lesion in the subcortical frontal lobe; additional small subtle lesions may be present although limited by motion; no abnormal leptomeningeal enhancement Allergies/Medications Allergies: Coded Allergies: NO KNOWN ALLERGIES (01/20/11) Home Med List: Amlodipine Besylate 10 MG TABLET 1 TAB PO DAILY HTN (Reported) Chlorthalidone 25 MG TABLET 12.5 MG PO DAILY HIGH BLOOD PRESSURE Lisinopril 40 MG TABLET 1 TAB PO DAILY HTN (Reported) Methadone HCl 5 MG/5 ML SOLUTION 55 MG PO DAILY MENTAL HEALTH (Reported) Potassium Chloride (Klor-Con Sprinkle) 10 MEQ CAPSULE.ER 10 MEQ PO DAILY SUPPLEMENT (Reported) Prochlorperazine Maleate (Compazine) 10 MG TABLET 10 MG PO Q8 PRN NAUSEA ( Reported) Current Medications: Current Medications Sig/Ora Start time Last Medication Dose Route Stop Time Status Admin Acetaminophen 650 MG Q6P PRN 10/20 0100 AC 10/25 PO 0056 Acetaminophen/ 2 TAB Q6P PRN 10/20 1930 AC 10/30 Hydrocodone Bitart PO 1358 Albuterol Sulfate 3 ML BID 10/24 2200 AC 10/30 INH 0836 Amlodipine Besylate 10 MG DAILY 10/20 0100 AC 10/30 PO 0922 Chlorthalidone 12.5 MG DAILY 10/22 1350 AC 10/30 PO 0922 Hydromorphone HCl 2 MG Q6P PRN 10/22 1430 AC 10/30 PO 0833 Ibuprofen 400 MG Q6P PRN 10/26 1330 AC 10/26 PO 1750 Lisinopril 40 MG DAILY 10/20 0315 AC 10/30 PO 0922 Methadone HCl 55 MG DAILY 10/20 1000 AC 10/30 PO 0921 Nicotine 21 MG DAILY 10/20 1439 AC 10/30 TOP 0921 Patient Medication 1 ED .STK-MED ONE 10/30 1411 DC Teaching ED 10/30 1412 Potassium Chloride 10 MEQ DAILY 10/20 1000 AC 10/30 PO 0922 Review of Systems Review of Systems: Review of Systems CONSTITUTIONAL Negative for weight loss, fever/chills, night sweats. ECOG STATUS: 3 HEENT: Negative for blurred or double vision. Negative for ringing, hoarseness or dysphagia. CARDIOVASCULAR: Negative for fatigue, chest pains, palpitations or claudication. RESPIRATORY Negative for cough, dyspnea, orthopnea, or hemoptysis. GASTROINTESTINAL Negative for anorexia, weight loss, indigestion, nausea, vomiting, constipation or diarrhea. GENITOURINARY: Negative for frequency, nocturia, or hematuria. ENDOCRINE: Negative for diabetes, thyroid, and pituitary problems. MUSCULOSKELETAL: Left heel osteomyelitis SKIN: Negative for itching, bruising, or rashes. NEUROLOGIC: Negative for headaches, dizziness, numbness, tingling, mental status changes. PSYCHIATRIC: Negative for anxiety or depression. HEMATOLOGIC: Negative for history or anemia or thrombocytopenia. PAIN: No pain or discomfort. 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 . MOTHER ([place], TIA). . Relation not specified for: FH: hypertension Heart attack Psychosocial History Where Do You Live? Home Who Do You Live With? child Services at Home: Home Health Aide Primary Language: Libyan Smoking Status: Current Some Day Smoker (Smokes 1/2 PPD, 24 Pack Years) ETOH Use: denies use (Hx of IVDU,Last Use 20 Yrs Ago) Illicit Drug Use: denies illicit drug use (history of IVDU) Functional Ability ADLs Independent: dressing, eating, toileting, bathing. Ambulation: walker IADLs Independent: shopping, housework, finances, food prep, telephone, transportation , medication admin. Exam & Diagnostic Data Vital Signs and I&O Vital Signs Date Time Temp Pulse Resp B/P B/P Pulse O2 O2 Flow FiO2 Mean Ox Delivery Rate 10/30 1414 97.8 72 20 110/62 92 Room Air 10/30 0922 74 132/82 10/30 0922 74 132/82 10/30 0858 92 Nasal 4.0L Cannula 10/30 0651 98.0 69 20 144/82 94 Nasal 4.0L Cannula 10/30 0000 95 Nasal 4.0L Cannula 10/29 2304 99.0 75 20 150/74 93 Nasal Cannula 10/29 1846 97 Nasal 4.0L Cannula 10/29 1600 Nasal 4.0L Cannula Intake & Output 10/30 1600 10/30 0800 10/30 0000 Intake Total 150 Output Total 200 200 500 Balance -200 -50 -500 Intake, IV 0 Intake, Oral 150 Number 1 0 Bowel Movements Output, Urine 200 200 500 Physical Exam Vitals: T: 98 P: 74 R: 20 BP: 150/80 O2 SAT: 92 GENERAL: Thin chronic ill appearing in no acute distress. EYES: Anicteric sclera, EOMI, PERRLA. Conjunctivae pink. ENT: Oral cavity is clear. No evidence of thrush. Uvula is midline. NECK: There is no adenopathy in the head or neck area. No palpable thyroid nodules. HEART: S1, S2 heard. There are no murmurs or rubs Patient has regular rate and rhythm. LUNGS: Clear to auscultation. No wheezes or rales. No dullness to percussion. EXTREMITIES: No clubbing, edema, or cyanosis. SKIN: Left heel wrapped s/p Incision and Drainage LYMPH NODES: No cervical, supraclavicular, axillary and inguinal adenopathy. PSYCHIATRIC: The patient is pleasant and cooperative. No overt signs on anxiety or depression. NEUROLOGICAL: Alert and oriented x3, CN 2-12 intact, Assessment/Plan Assessment: Patient is a 61-year-old female with a history of alcohol and drug abuse admitted with osteomyelitis status post incision and drainage currently on antibiotics down with a large right lung mass consistent with carcinoma. Final pathology pending in regards to small cell versus non-small cell. Discussed pathologic findings with Dr. Olivarez who will provide a pathology report stating the current findings of lung cancer/carcinoma. I reviewed the patients imaging at length and discussed the findings with the patient. We specifically discussed the findings of the brain and the role of whole brain radiation therapy. We discussed undergoing CT simulation followed by daily treatments to 3000 cGy. We reviewed anticipated side effects of the treatments including fatigue, hair loss, and less likely issues such as brain necrosis and memory loss. At this time she will be transferred to the radiation therapy department on 10/31/16 to undergo simulation and to initiate treatments to the whole brain. Recommendations: Whole Brain Radiation 3000cGy CT simulation planned for 10/31/16 9:00am -Cancer Center Consult Acknowledgment - Thank you for your consult request.
[2016-10-30 22:35] VITALS: BP 168/90
[2016-10-31 06:56] VITALS: BP 128/80
--- NOTE | 2016-10-31 07:33 | PN- Housestaff ---
MARY LOU LARIOS,HENRIETTA 10/31/16 0732: Subjective Follow-up For: SCC of R lung, mets to brain; Hemothorax status post right lung biopsy; better Osteomyelitis of left heel; Chronic pain on methadone; Bilateral leg swelling, chronic venous stasis. Complaints: no complaints Subjective: I followed up and examined the patient today. She is resting comfortably in bed , not in distress, requiring oxygen via nasal cannula at 4 L/m. She does not offer any complaints, no overnight issues. Of note, she had given us permission to discuss her case with her daughter, was given a call yesterday and will be here later regarding update, plans of care, and related issues. The step was taken, because despite finding her alert, oriented, and responsive, and have had spoken about her newly diagnosed lung cancer with metastasis multiple times and by multiple providers (attending, resident, oncologist, polisher hand), we were not sure if she completely understood the gravity of the situation. Review of Systems Constitutional: Reports: no symptoms. Objective Last 24 Hrs of Vital Signs/I&O Vital Signs Date Time Temp Pulse Resp B/P B/P Pulse O2 O2 Flow FiO2 Mean Ox Delivery Rate 10/31 0801 130/64 10/31 0656 97.7 73 20 128/80 94 Nasal 4.0L Cannula 10/31 0000 Nasal 4.0L Cannula 10/30 2235 98.8 79 20 168/90 94 Nasal 4.0L Cannula 10/30 1939 93 Nasal 4.0L Cannula 10/30 1600 Nasal 4.0L Cannula 10/30 1414 97.8 72 20 110/62 92 Room Air Intake & Output 10/31 1600 10/31 0800 10/31 0000 Intake Total 360 360 Output Total 975 650 Balance -615 -290 Intake, Oral 360 360 Output, Urine 975 650 Physical Exam General Appearance: Alert, Oriented X3, Cooperative, No Acute Distress Other Physical Findings: Skin skin lesions consistent with chronic venous statis in b/l lower ext. HEENT Atraumatic, Mucous Membr. moist/pink Neck Supple Cardiovascular Regular Rate, Normal S1, Normal S2, No Murmurs Lungs Clear to Auscultation, basal and right lung herrera have occ crepts, pt NOT in resp distress, is on NC Abdomen Soft, No Tenderness, Positive Bowel Sounds Extremities No Clubbing, No Cyanosis, Bilateral Lower Extremities with Swelling (decreasing) and Serous Drainage, Chronic Venous Stasis and Thick Scale, dressing over left ankle, Right Knee Swelling, Bilateral Toenails with severe Onychomycosis and toe deformity. Psychiatric Patient is calm, coherant, is able to understand her condition. No agitation, anxiety, no hallucination, or delusion. Current Medications: Current Medications Sig/Ora Start time Last Medication Dose Route Stop Time Status Admin Acetaminophen 650 MG Q6P PRN 10/20 0100 AC 10/25 PO 0056 Acetaminophen/ 2 TAB Q6P PRN 10/20 1930 AC 10/31 Hydrocodone Bitart PO 0841 Albuterol Sulfate 3 ML BID 10/24 2200 AC 10/30 INH 1939 Amlodipine Besylate 10 MG DAILY 10/20 0100 AC 10/31 PO 0801 Chlorthalidone 12.5 MG DAILY 10/22 1350 AC 10/31 PO 0801 Hydromorphone HCl 2 MG Q6P PRN 10/22 1430 AC 10/31 PO 0550 Ibuprofen 400 MG Q6P PRN 10/26 1330 AC 10/31 PO 0800 Lisinopril 40 MG DAILY 10/20 0315 AC 10/31 PO 0800 Methadone HCl 55 MG DAILY 10/20 1000 AC 10/31 PO 0800 Nicotine 21 MG DAILY 10/20 1439 AC 10/31 TOP 0759 Patient Medication 1 ED .STK-MED ONE 10/30 1411 [place] Teaching ED 10/30 1412 Potassium Chloride 10 MEQ DAILY 10/20 1000 AC 10/31 PO 0800 Last 24 Hrs of Lab/Chad Results Last 24 Hrs of Labs/Mics: Laboratory Tests 10/31/16 0631: CBC w Diff NO MAN DIFF REQ, RBC 5.79 H, MCV 79.1 L, MCH 24.7 L, RDW 17.0 H, MPV 8.9, Gran % 56.2, Lymphocytes % 30.3, Monocytes % 10.7 H, Eosinophils % 2.4 , Basophils % 0.4, Absolute Granulocytes 2.8, Absolute Lymphocytes 1.5, Absolute Monocytes 0.5, Absolute Eosinophils 0.1, Absolute Basophils 0, PUBS MCHC 31.2 L Assessment/Plan Assessment: 61-year-old female with PMH of chronic venous insufficiency and nonhealing ulcers of bilateral lower extremities, PVD, hepatitis C secondary to IV drug abuse, Pulmonary nodule and active smoker, was admitted to general medicine floor for management of cellulitis and osteomyelitis. MRI of foot on 10/22/16 were consistent with heel osteomyelitis - however debridment was postponed as patient received 3 day course of cefazolin. She has right lung mass that she was supposed to follow up but didn't and the mass now has increased from 2.2 to 7cm in size within a year. She underwent CT guided biopsy for assesment of her mass. The procedure was complicated by hemothorax, therefore pt was transferred to ICU for closer monitoring. Later after the patient stablized, she was transferred back to the general medical floor. Currently she is being managed in the general medical floor for the following issues: #Small cell carcinoma with mets Patient's right lung biopsy revealed small cell carcinoma. Patient has been told about, and discussed about the cancer multiple times by multiple providers during this admission, but the patient either does not seem interested, or does not understand the gravity of the situation. Patient's family member/daughter has been contacted several times by my attending physician, with no success. We need to have a meeting regarding future plan of care, as compliance is an issue with the patient, one with this diagnosis she still holds a full code. * MRI of brain 10/29/16 shows metastasis with vasogenic edema. * Pending PET scan, probably will be done as an out patient as this is done only on Tuesdays here * Final biopsy result is pending from [facility] to tell us if this is a SCC. Further management plans would be determined by the type of tumor she has. * Radiation oncology consult appreciated. Patient got radiation for brain mets today. Will get another one tomorrow at [address] Luis to advise regarding starting steroids. Per attending Dr Mendoza, IV Decadron 4mg q6h started as the patient received radiation therapy toda\y, and given her MRI finding of vasogenic edema. * Avoid oversedation * If the patient complains of severe headache, she might require steroids immediately. * We'll consider neurosurgical input if she has focal symptoms. * Family meeting today: Family meeting held after patient gave permission to call her daughter (yesterday) and meet today. Patient's daughter and son-in-law were present in the meeting. Patient's daughter was updated about the cancer, treatment options, and the need to know the type of cancer, further follow up plans, radiation, chemo-therapy. Daughter was also made aware of the existing mass from 2016 and the growth. She understood the gravity of the situation and she might go ahead to get a conservatorship/POA for the patient after speaking with her. # Hemothorax s/p CT guided biopsy, stable now Stable now. * Thoracic surgery consulted - recommended coiling of brachial artery in the setting of decompensation/becoming unstable. * Daily CBC - monitor serial hemtocrits --stable so far H&H today is 14.3/45.8. #Osteomyelitis of left heel MRI done on 10/22/16 showed osteomyelitis of left heel. Intially patient received a 3 day course of antibiotics. Primary Montessori Teacher and ID recommended holding antibiotic until biopsy and culture obtained. * Culture showing GPC (coag negative staph) likely a contamination. Remain off abx * Thank you for ID recs #Chronic nonhealing ulcers Patient has chronic nonhealing ulcers, secondary to peripheral vascular disease and chronic venous stasis. Wound care with daily dressing Appreciate the input. Continue the care. #Chronic fungal nail infection Not pursuing any longterm antifungal treatment currently. #Right knee swelling/pain: Osteoarthritis Patient has long-standing history of right knee osteoarthritis but her swelling and pain has worsened in the last month. X-ray of her right knee showed effusion on the suprapatellar space which was drained and sent for studies by Orthopedic surgeon Dr Mason. Negative for septic arthritis. Osteoarthritis with effusion is the most likely diagnosis. * Ibuprofen 400mg Q6PRN for pain * Followed up as an outpatient. #Diet: Regular diet #DVT prophylaxis -- NONE (hemothorax with leg wounds). Need to reassess the situation about DVT prophylaxis, as the hemothorax is stable and leg swelling is better. #Code status: Full code Problem List: 1. Lung cancer 2. Brain metastases 3. Hemothorax on right 4. Osteomyelitis 5. Chronic venous stasis dermatitis of both lower extremities 6. History of hepatitis C 7. PVD (peripheral vascular disease) 8. Fungal skin infection Pain Ratin Pain Location: legs, left heel Pain Goal: Pain 4 or less Pain Plan: prn as prescribed. she has methadone, and dilaudid. Tomorrow's Labs & Rationales: CBC, BEP, Mg PHIL LARIOS,AISLINN 10/31/16 1301: Attending MD Review Statement Attending Statement Attending MD Statement: examined this patient, discuss w/resident/PA/OCCUPATIONAL THERAPY PROFESSOR, agreed w/resident/PA/OCCUPATIONAL THERAPY PROFESSOR, discussed with family, reviewed EMR data (avail), discussed with case mgmt, amended to note Attending Assessment/Plan: The patient was seen and discussed with house staff. Had lengthy discussion (> 30 min) with family regarding her diagnosis and basic plan of treatment. Her daughter states that although her mother is alert and oriented she has cognitive difficulties and had not told her about the cancer diagnosis. The patient had given her permission for us to speak to her daughter about her diagnoses. Dr. Olivarez from Pathology called and notified me that the official biopsy result is small cell lung cancer. The patient will undergo brain irradiation (was sent to cancer center this morning). Further staging and workup as per Dr. Neely.
--- NOTE | 2016-10-31 08:51 | PN- Oncology ---
Subjective Subjective: She denies any new symptoms today. She has no headaches, dizziness, confusion, or new pain. She continues to have pain in the lower extremities. Review of Systems Constitutional: Denies: chills, fever. Cardiovascular: Denies: chest pain. Respiratory: Denies: short of breath. Gastrointestinal: Denies: abdominal pain. Musculoskeletal: Reports: see HPI, back pain. Neurological/Psychological: Reports: anxiety. Denies: confusion. All Other Systems: Reviewed and Negative Objective Vital Signs and I&Os Vital Signs Date Time Temp Pulse Resp B/P B/P Pulse O2 O2 Flow FiO2 Mean Ox Delivery Rate 10/31 0801 130/64 10/31 0656 97.7 73 20 128/80 94 Nasal 4.0L Cannula 10/31 0000 Nasal 4.0L Cannula 10/30 2235 98.8 79 20 168/90 94 Nasal 4.0L Cannula 10/30 1939 93 Nasal 4.0L Cannula 10/30 1600 Nasal 4.0L Cannula 10/30 1414 97.8 72 20 110/62 92 Room Air 10/30 0922 74 132/82 10/30 0922 74 132/82 10/30 0858 92 Nasal 4.0L Cannula Intake & Output 10/31 1600 10/31 0800 10/31 0000 10/30 1600 10/30 0800 10/30 0000 Intake Total 360 360 500 150 Output Total 975 650 525 200 500 Balance -615 -290 -25 -50 -500 Intake, IV 0 Intake, Oral 360 360 500 150 Number 2 0 Bowel Movements Output, Urine 975 650 525 200 500 Physical Exam: General Appearance: no apparent distress, alert, awake, comfortable Ears, Nose, Throat: normal pharynx Respiratory: chest non-tender, no respiratory distress, quiet respiration, decreased breath sounds (RLL), crackles Cardiovascular: regular rate/rhythm Gastrointestinal: normal bowel sounds, soft, non-tender, no organomegaly Extremities: trace pedal edema, swelling, tenderness, dressing in bilateral lower extremities, EL dression on LLE Neurologic/Psych: awake, alert, oriented, flat affect Lymphatic: no anterior cervical jana Current Medications: Current Medications Sig/Ora Start time Last Medication Dose Route Stop Time Status Admin Acetaminophen 650 MG Q6P PRN 10/20 0100 AC 10/25 PO 0056 Acetaminophen/ 2 TAB Q6P PRN 10/20 1929 AC 10/31 Hydrocodone Bitart PO 0217 Albuterol Sulfate 3 ML BID 10/24 2200 AC 10/30 INH 1939 Amlodipine Besylate 10 MG DAILY 10/20 0100 AC 10/31 PO 0801 Chlorthalidone 12.5 MG DAILY 10/22 1350 AC 10/31 PO 0801 Hydromorphone HCl 2 MG Q6P PRN 10/22 1430 AC 10/31 PO 0550 Ibuprofen 400 MG Q6P PRN 10/26 1330 AC 10/31 PO 0800 Lisinopril 40 MG DAILY 10/20 0315 AC 10/31 PO 0800 Methadone HCl 55 MG DAILY 10/20 1000 AC 10/31 PO 0800 Nicotine 21 MG DAILY 10/20 1439 AC 10/31 TOP 0759 Patient Medication 1 ED .STK-MED ONE 10/30 1411 CO Teaching ED 10/30 1412 Potassium Chloride 10 MEQ DAILY 10/20 1000 AC 10/31 PO 0800 Results Last 24 Hours of Lab Results: Laboratory Tests 10/31 10/30 0631 1037 Hematology CBC w Diff Pending WBC Pending RBC Pending Hgb Pending Hct Pending MCV Pending MCH Pending RDW Pending Plt Count Pending MPV Pending PUBS MCHC Pending Urines Urine Color (YEL,AMB,STR) YEL Urine Clarity (CLEAR) CLEAR Urine pH (5.0 - 8.0) 7.5 Ur Specific [place] (1.001 - 1.035) 1.020 Urine Protein (NEG,<30 MG/DL) 100 H Urine Ketones (NEG) NEG Urine Nitrite (NEG) NEG Urine Bilirubin (NEG) NEG Urine Urobilinogen (0.1 - 1.0 EU/dl) 1.0 Ur Leukocyte Esterase (NEG) NEG Ur Microscopic SEDIMENT EXAMINED Urine RBC (0 - 5 /HPF) 1-3 Urine WBC (0 - 2 /HPF) RARE Ur Epithelial Cells (NONE,FEW) FEW Urine Bacteria (NEG/NONE) MOD H Urine Mucus (FEW,NONE) RARE Urine Hemoglobin (NEG) TRACE-INTACT Urine Glucose (N MG/DL) NEG Assessment/Plan Assessment/Recommendations: Jacy is a 61-year female with PVD complicated by recurrent cellulitis and ulcerations, HCV, lung nodule, and tobacco abuse who presented to the hospital with worsening left leg edema, drainage, and pain. MRI of the left foot is concerning for osteomyelitis. Bone biopsy is pending. During admission, chest x-ray demonstrated worsening of known right middle lobe lung mass. She had chest x-ray and CT scan in 11/2014 with a 2.2 cm RML mass. She was lost to follow up. CT scan currently demonstrated a 7 cm mass with right hilar and subcarinal mass. Biopsy was done on 11/23/2016. This was complicated by hemothorax. MRI demonstrated numerous brain lesion concerning for metastatic disease. She likely has T3N2M1 disease. Pathology is noted to be malignant tumor. Final histologic identification is pending. She was seen by Dr. Luis of radiation oncology yesterday. She will undergo planning and simulation today for WBRT. She is asymptomatic at the moment. She may need steroid if she becomes symptomatic. She will need chemotherapy/immunotherapy pending histologic findings. Overall prognosis is poor for patient with brain metastases with 3-year OS of about 20-25%. Overall trajectory of disease course will depending on her response to therapy. Currently PS is 2-3 secondary to osteomyelitis. Metastatic Lung neoplasm: 1. Follow up on pathology on biopsy 2. Radiation oncology evaluation 3. PET scan to evaluate metastatic disease as outpatient 4. Dexamethasone if symptomatic Left LLE osteomyelitis: 1. ID following 2. Podiatry following 3. Off antibiotic Please call [phone] with any question or concerns. Problem List: 1. Lung cancer 2. Mass of brain 3. Hemothorax on right 4. Osteomyelitis 5. History of hepatitis C
[2016-10-31 09:07] LABS: ABSOLUTE BASOPHIL COUNT 0 /CUMM (0.0-0.2); ABSOLUTE EOSINOPHIL COUNT 0.1 /CUMM (0.0-0.7); ABSOLUTE GRANULOCYTE CT 2.8 /CUMM (1.4-6.5); ABSOLUTE LYMPH COUNT 1.5 /CUMM (1.2-3.4); ABSOLUTE MONOCYTE COUNT 0.5 /CUMM (0.10-0.60); BASOPHIL % 0.4 % (0.0-2.0); EOSINOPHIL % 2.4 % (0-5); GRANULOCYTE % 56.2 % (42.2-75.2); HEMATOCRIT 45.8 % (37-47); MEAN CORPUSCULAR HGB 24.7 PG (27.0-31.0); MEAN CORPUSCULAR HGB CONC 31.2 G/DL (33.0-37.0); MEAN CORPUSCULAR VOLUME 79.1 FL (81.0-99.0); MEAN PLATELET VOLUME 8.9 FL (7.4-10.4); PLATELET COUNT 199 /CUMM (130-400); RED BLOOD CELL CT 5.79 /CUMM (4.20-5.40); WHITE BLOOD CELL COUNT 5.1 /CUMM (4.8-10.8)
[2016-10-31 14:00] VITALS: BP 120/70
--- NOTE | 2016-10-31 14:04 | PN- Infect Dx ---
Subjective Subjective: Afebrile. She continues to complain of pain in the left heel and both legs Objective Last 24 Hrs of Vital Signs/I&O Vital Signs Date Time Temp Pulse Resp B/P B/P Pulse O2 O2 Flow FiO2 Mean Ox Delivery Rate 10/31 0801 130/64 10/31 0800 91 Nasal 4.0L Cannula 10/31 0656 97.7 73 20 128/80 94 Nasal 4.0L Cannula 10/31 0000 Nasal 4.0L Cannula 10/30 2235 98.8 79 20 168/90 94 Nasal 4.0L Cannula 10/30 1939 93 Nasal 4.0L Cannula 10/30 1600 Nasal 4.0L Cannula 10/30 1414 97.8 72 20 110/62 92 Room Air Intake & Output 10/31 1600 10/31 0800 10/31 0000 Intake Total 360 360 Output Total 975 650 Balance -615 -290 Intake, Oral 360 360 Output, Urine 975 650 Physical Exam Other Physical Findings: She appears comfortable in no acute distress Extremities left foot dressing intact Results Last 24 Hours of Lab Results: Laboratory Tests 10/31 630 Hematology CBC w Diff NO MAN DIFF REQ WBC (4.8 - 10.8 /CUMM) 5.1 RBC (4.20 - 5.40 /CUMM) 5.79 H Hgb (12.0 - 16.0 G/DL) 14.3 Hct (37 - 47 %) 45.8 MCV (81.0 - 99.0 FL) 79.1 L MCH (27.0 - 31.0 PG) 24.7 L RDW (11.5 - 14.5 %) 17.0 H Plt Count (130 - 400 /CUMM) 199 MPV (7.4 - 10.4 FL) 8.9 Gran % (42.2 - 75.2 %) 56.2 Lymphocytes % (20.5 - 51.1 %) 30.3 Monocytes % (1.7 - 9.3 %) 10.7 H Eosinophils % (0 - 5 %) 2.4 Basophils % (0.0 - 2.0 %) 0.4 Absolute Granulocytes (1.4 - 6.5 /CUMM) 2.8 Absolute Lymphocytes (1.2 - 3.4 /CUMM) 1.5 Absolute Monocytes (0.10 - 0.60 /CUMM) 0.5 Absolute Eosinophils (0.0 - 0.7 /CUMM) 0.1 Absolute Basophils (0.0 - 0.2 /CUMM) 0 PUBS MCHC (33.0 - 37.0 G/DL) 31.2 L Last 24 Hours of [place] Results: OR culture October 28 left heel bone positive for diphtheroids and coag-negative Staph Assessment/Plan Impression: Stable with temperatures and white blood cell count remaining normal off antibiotics status post bone biopsy of the left heel 3 days ago to rule out osteomyelitis. The culture grew coag-negative Staph and diphtheroids, suggestive of a contaminant, and apparently no specimen was submitted for pathology. Have discussed with Podiatry and, as the wound was closed, there are no plans at this time for a repeat biopsy. Given her recent diagnosis of metastatic small cell lung cancer further evaluation of her left foot can be deferred at this time. Suggestion: 1. Continue to follow off antibiotics Will no longer follow at this time, but please call with any questions
[2016-10-31 22:18] VITALS: BP 140/80
[2016-11-01 06:19] VITALS: BP 140/70
--- NOTE | 2016-11-01 08:10 | PN- Oncology ---
Subjective Subjective: No new complaints Denies headaches, nausea or vomiting Objective Vital Signs and I&Os Vital Signs Date Time Temp Pulse Resp B/P B/P Pulse O2 O2 Flow FiO2 Mean Ox Delivery Rate 11/01 618 98.0 78 18 140/70 94 Nasal Cannula 11/01 0000 94 Nasal 4.0L Cannula 10/31 2218 98.5 80 18 140/80 94 Nasal 3.0L Cannula 10/31 1930 93 Nasal 4.0L Cannula 10/31 1600 91 Nasal 4.0L Cannula 10/31 1400 98.5 79 20 120/70 90 Nasal 4.0L Cannula Intake & Output 11/01 1600 11/01 0800 11/01 0000 10/31 1600 10/31 0800 10/31 0000 Intake Total 340 520 500 360 360 Output Total 600 300 100 975 650 Balance -260 220 400 -615 -290 Intake, IV 100 160 Intake, Oral 240 360 500 360 360 Number 0 Bowel Movements Output, Urine 600 300 100 975 650 Current Medications: Current Medications Sig/Ora Start time Last Medication Dose Route Stop Time Status Admin Acetaminophen 650 MG Q6P PRN 10/20 0100 AC 10/25 PO 0056 Acetaminophen/ 2 TAB Q6P PRN 10/20 1930 AC 11/01 Hydrocodone Bitart PO 0402 Albuterol Sulfate 3 ML BID 10/24 2200 AC 11/01 INH 0759 Amlodipine Besylate 10 MG DAILY 10/20 0100 AC 10/31 PO 0801 Chlorthalidone 12.5 MG DAILY 10/22 1350 AC 10/31 PO 0801 Dexamethasone 4 MG Q6H 11/01 0200 AC 11/01 Dextrose/Water 50 ML IV 0235 Dexamethasone 4 MG Q6 10/31 1802 DC 10/31 Dextrose/Water 50 ML IV 2023 Hydromorphone HCl 2 MG Q6P PRN 10/22 1430 AC 11/01 PO 0235 Ibuprofen 400 MG Q6P PRN 10/26 1330 AC 10/31 PO 0800 Lisinopril 40 MG DAILY 10/20 0315 AC 10/31 PO 0800 Methadone HCl 55 MG DAILY 10/20 1000 AC 10/31 PO 0800 Nicotine 21 MG DAILY 10/20 1439 AC 10/31 TOP 0759 Potassium Chloride 10 MEQ DAILY 10/20 1000 AC 10/31 PO 0800 Assessment/Plan Assessment/Recommendations: Patient was started on whole brain RT on 10/31/16 Patient will continue treatment today 11/01/16 and resume 11/02/16 for a total of 10 fractions.
[2016-11-01 08:40] LABS: ABSOLUTE BASOPHIL COUNT 0 /CUMM (0.0-0.2); ABSOLUTE EOSINOPHIL COUNT 0 /CUMM (0.0-0.7); ABSOLUTE GRANULOCYTE CT 2.7 /CUMM (1.4-6.5); ABSOLUTE LYMPH COUNT 0.6 /CUMM (1.2-3.4); ABSOLUTE MONOCYTE COUNT 0 /CUMM (0.10-0.60); BASOPHIL % 0 % (0.0-2.0); EOSINOPHIL % 0.1 % (0-5); GRANULOCYTE % 81.1 % (42.2-75.2); HEMATOCRIT 48.1 % (37-47); MEAN CORPUSCULAR HGB 24.7 PG (27.0-31.0); MEAN CORPUSCULAR HGB CONC 31.2 G/DL (33.0-37.0); MEAN PLATELET VOLUME 8.5 FL (7.4-10.4); PLATELET COUNT 218 /CUMM (130-400); RBC DISTRIBUTION WIDTH 17.1 % (11.5-14.5); RED BLOOD CELL CT 6.09 /CUMM (4.20-5.40); WHITE BLOOD CELL COUNT 3.3 /CUMM (4.8-10.8)
--- NOTE | 2016-11-01 14:24 | PN- Housestaff ---
Subjective Follow-up For: SCC Stage 4 with brain mets, Osteomyelitis Complaints: pain scale (0-10) (8/10 for leg on pain meds) Subjective: I spoke to and examined the patient today. Patient complains of leg pain. Rates it an 8/10 after receiving pain meds. Pt also complains of L underarm pain. As per nurse patient became sore under her arm after tranfer to wheelchair and transport. Pt denies chest pain, SOB, fever, chills, n/v, headaches or visual changes. Review of Systems Constitutional: Reports: see HPI. Denies: chills, diaphoresis, fever. EENTM: Denies: blurred vision, double vision, visual changes. Cardiovascular: Denies: chest pain. Respiratory: Denies: cough, short of breath. Gastrointestinal: Denies: abdominal pain. Objective Last 24 Hrs of Vital Signs/I&O Vital Signs Date Time Temp Pulse Resp B/P B/P Pulse O2 O2 Flow FiO2 Mean Ox Delivery Rate 11/01 0948 70 124/82 11/01 0947 70 124/82 11/01 0816 92 Nasal 4.0L Cannula 11/01 0800 Nasal 4.0L Cannula 11/01 0619 98.0 78 18 140/70 94 Nasal Cannula 11/01 0000 94 Nasal 4.0L Cannula 10/31 2218 98.5 80 18 140/80 94 Nasal 3.0L Cannula 10/31 1930 93 Nasal 4.0L Cannula 10/31 1600 91 Nasal 4.0L Cannula Intake & Output 11/01 1600 11/01 0800 11/01 0000 Intake Total 400 340 520 Output Total 200 600 300 Balance 200 -260 220 Intake, IV 100 160 Intake, Oral 400 240 360 Number 1 0 Bowel Movements Output, Urine 200 600 300 Physical Exam General Appearance: Alert, Cooperative, No Acute Distress Skin Temp/Moisture Exam: Warm/Dry HEENT: Atraumatic, PERRLA, EOMI, Mucous Membr. 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 MRI of foot on 10/22/16 were consistent with heel osteomyelitis - however debridment was postponed as patient received 3 day course of cefazolin. She has right lung mass that she was supposed to follow up but didn't and the mass now has increased from 2.2 to 7cm in size within a year. She underwent CT guided biopsy for assesment of her mass. The procedure was complicated by hemothorax, therefore pt was transferred to ICU for closer monitoring. Later after the patient stablized, she was transferred back to the general medical floor. Currently she is being managed in the general medical floor for the following issues: 1. 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 With consent of patient, her family was notified of the cancer diagnosis. Daughter is point of contact. Family meeting was held with Dr. Mendoza and daughter is on board with patient's consent for treatment. Final biopsy from [place] showed SCC. * MRI of brain 10/29/16 shows metastasis with vasogenic edema. * Pending PET scan, probably will be done as an out patient as this is done only on Tuesdays here * Being followed by Dr. Pooja Luis: patient is receiving whole brain radiation therapy. Today is Day 2 of 10 treatments. * Patient is on decadron 4mg IV q6h started 10/31 as per attending to prevent worsening of edema. Pt's glucose is being monitored and is on SQ insulin. * Followed by Dr. Dick Neely: will recommend chemotherapy pending histology * Avoid oversedation * We'll consider neurosurgical input if she has focal symptoms. 2. Osteomyelitis of left heel MRI done on 10/22/16 showed osteomyelitis of left heel. Intially patient received a 3 day course of antibiotics. Relaster and ID recommended holding antibiotic until biopsy and culture obtained. * Culture showing GPC (coag negative staph) likely a contamination. Remain off abx * Thank you for ID recs 3. Chronic nonhealing ulcers Patient has chronic nonhealing ulcers, secondary to peripheral vascular disease and chronic venous stasis. Wound care with daily dressing Appreciate the input. Continue the care. 4. Chronic fungal nail infection Not pursuing any long-term antifungal treatment currently. 5. Right knee swelling/pain: Osteoarthritis Patient has long-standing history of right knee osteoarthritis but her swelling and pain has worsened in the last month. X-ray of her right knee showed effusion on the suprapatellar space which was drained and sent for studies by Orthopedic surgeon Dr Mason. Negative for septic arthritis. Osteoarthritis with effusion is the most likely diagnosis. * Ibuprofen 400mg Q6PRN for pain * Followed up as an outpatient. 6. Hemothorax s/p CT guided biopsy -Resolved * Thoracic surgery consulted - recommended coiling of brachial artery in the setting of decompensation/becoming unstable. * H&H today: 15.0/48.1 Diet: Regular diet DVT prophylaxis: ALPS on RLE, pharmalogic ppx held due to brain mets and radiation GI prophylaxis: Omeprazole Code status: Full code Problem List: 1. Acute osteomyelitis of left calcaneus 2. Cellulitis of left lower extremity 3. Lung cancer 4. Brain metastases Pain Ratin Pain Location: Left Leg Pain Goal: Pain 7 or less Pain Plan: Continue pain meds Tomorrow's Labs & Rationales: CBC - monitor WBC (3.1) BEP BG fingerstick - on steroids
[2016-11-01 14:49] VITALS: BP 134/70
--- NOTE | 2016-11-01 15:25 | PN- Att Addend ---
Attending MD Review Statement Attending Statement Attending MD Statement: examined this patient, discuss w/resident/PA/WOODEN TANK ERECTOR, agreed w/resident/PA/WOODEN TANK ERECTOR, reviewed EMR data (avail), discussed w/nursing Attending Assessment/Plan: Laboratory Tests 11/01/16 06: Anion Gap 9, Estimated GFR > 60, BUN/Creatinine Ratio 40.0 H, Glucose 128 H, Magnesium 1.8, CBC w Diff NO MAN DIFF REQ, RBC 6.09 H, MCV 79.0 L, MCH 24.7 L , RDW 17.1 H, MPV 8.5, Gran % 81.1 H, Lymphocytes % 17.3 L, Monocytes % 1.5 L, Eosinophils % 0.1, Basophils % 0 L, Absolute Granulocytes 2.7, Absolute Lymphocytes 0.6 L, Absolute Monocytes 0 L, Absolute Eosinophils 0, Absolute Basophils 0, PUBS MCHC 31.2 L Vital Signs Date Time Temp Pulse Resp B/P B/P Pulse O2 O2 Flow FiO2 Mean Ox Delivery Rate 11/01 1449 98.4 76 16 134/70 94 11/01 0948 70 124/82 11/01 0947 70 124/82 11/01 0816 92 Nasal 4.0L Cannula 11/01 0800 Nasal 4.0L Cannula 11/01 0619 98.0 78 18 140/70 94 Nasal Cannula 11/01 0000 94 Nasal 4.0L Cannula 10/31 2218 98.5 80 18 140/80 94 Nasal 3.0L Cannula 10/31 1930 93 Nasal 4.0L Cannula 10/31 1600 91 Nasal 4.0L Cannula SCC ca of lung with brain mets- started on radiation yesterday on 10/31- got another radiation treatment today on 11/01.Also started on decadron, will order Fingerstick checks and SSI. Stress ulcer prophylaxis- started on PPI. DC motrin. d/w pt the care plan.
[2016-11-01 21:54] VITALS: BP 122/80
[2016-11-02 06:30] VITALS: BP 138/82
--- NOTE | 2016-11-02 09:18 | PN- Housestaff ---
Subjective Follow-up For: SCC Stage 4 with brain mets, Osteomyelitis Subjective: I spoke to and examined the patient this AM. Pt denies any acute events overnight. Pt continues to report leg pain which improves with pain meds. Pt denies any headaches, visual changes, n/v, fever or chills. As per nurse no acute events overnight. Review of Systems Constitutional: Denies: no symptoms, chills, fever, weakness. EENTM: Denies: blurred vision, double vision, visual changes. Cardiovascular: Denies: chest pain. Respiratory: Denies: cough, short of breath. Gastrointestinal: Denies: abdominal pain, nausea, vomiting. Neurological/Psychological: Denies: headache, numbness, tingling. Objective Last 24 Hrs of Vital Signs/I&O Vital Signs Date Time Temp Pulse Resp B/P B/P Pulse O2 O2 Flow FiO2 Mean Ox Delivery Rate 11/02 1028 95 Nasal 3.0L Cannula 11/02 0853 80 128/82 07 0853 80 128/82 11/02 0630 97.7 75 18 138/82 95 Nasal Cannula 11/02 0000 Nasal 4.0L Cannula 11/01 2154 98.4 80 19 122/80 95 Nasal Cannula 11/01 1835 93 Nasal 3.0L Cannula 11/01 1600 Nasal 4.0L Cannula 11/01 1449 98.4 76 16 134/70 94 Intake & Output 11/02 1600 02 0800 07/02 0000 Intake Total 320 220 Output Total 800 Balance -480 220 Intake, IV 80 120 Intake, Oral 240 100 Output, Urine 800 Physical Exam General Appearance: Alert, Cooperative, No Acute Distress HEENT: Atraumatic, PERRLA, EOMI, Mucous Membr. 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 MRI of foot on 10/22/16 were consistent with heel osteomyelitis - however debridment was postponed as patient received 3 day course of cefazolin. She has right lung mass that she was supposed to follow up but didn't and the mass now has increased from 2.2 to 7cm in size within a year. She underwent CT guided biopsy for assesment of her mass. The procedure was complicated by hemothorax, therefore pt was transferred to ICU for closer monitoring. Later after the patient stablized, she was transferred back to the general medical floor. Currently she is being managed in the general medical floor for the following issues: 1. 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 With consent of patient, her family was notified of the cancer diagnosis. Daughter is point of contact. Family meeting was held with Dr. Mendoza and daughter is on board with patient's consent for treatment. Final biopsy from [place] showed SCC. * MRI of brain 10/29/16 shows metastasis with vasogenic edema. * Pending PET scan, probably will be done as an out patient as this is done only on Tuesdays here * Being followed by Dr. Pooja Luis: patient is receiving whole brain radiation therapy. Pt will receive 3rd course of radiation tomorrow. * Patient is on decadron 4mg IV q6h started 10/31 as per attending to prevent worsening of edema. Pt's glucose is being monitored and is on SQ insulin. -glucose has been normal * Followed by Dr. Dick Neely: will recommend chemotherapy pending histology * Avoid oversedation * We'll consider neurosurgical input if she has focal symptoms. No focal neurological symptoms at this time * Respiratory - requiring 3L NC satting in the mid (no oxygen at home). Respiratory therapy onboard and has been giving Neb treatments and reassessing oxygen requirements. 2. Osteomyelitis of left heel MRI done on 10/22/16 showed osteomyelitis of left heel. Intially patient received a 3 day course of antibiotics. * Culture showing GPC (coag negative staph) likely a contamination. Remain off abx * Dressing from OR visit with Dr. Cross. Ordered wound dressing today. 3. Chronic nonhealing ulcers Patient has chronic nonhealing ulcers, secondary to peripheral vascular disease and chronic venous stasis. Wound care with daily dressing. 4. Chronic fungal nail infection Not pursuing any chcf antifungal treatment currently. 5. Right knee swelling/pain: Osteoarthritis Patient has long-standing history of right knee osteoarthritis but her swelling and pain has worsened in the last month. X-ray of her right knee showed effusion on the suprapatellar space which was drained and sent for studies by Orthopedic surgeon Dr Mason. Negative for septic arthritis. Osteoarthritis with effusion is the most likely diagnosis. * Ibuprofen 400mg Q6PRN for pain * Followed up as an outpatient. 6. Hemothorax s/p CT guided biopsy -Resolved * Thoracic surgery consulted - recommended coiling of brachial artery in the setting of decompensation/becoming unstable. H&H today: 15.0/47.3 Diet: Regular diet DVT prophylaxis: ALPs, pharmalogic ppx held due to brain mets and radiation GI prophylaxis: Omeprazole Code status: Full code Problem List: 1. Acute osteomyelitis of left calcaneus 2. Lung cancer 3. Brain metastases Pain Ratin Pain Location: Left leg pain Pain Goal: Pain 7 or less Pain Plan: continue pain meds, taper if tolerated Tomorrow's Labs & Rationales: CBC BEP
[2016-11-02 09:25] LABS: ABSOLUTE BASOPHIL COUNT 0 /CUMM (0.0-0.2); ABSOLUTE EOSINOPHIL COUNT 0 /CUMM (0.0-0.7); ABSOLUTE GRANULOCYTE CT 5.3 /CUMM (1.4-6.5); ABSOLUTE LYMPH COUNT 0.7 /CUMM (1.2-3.4); ABSOLUTE MONOCYTE COUNT 0.1 /CUMM (0.10-0.60); BASOPHIL % 0.1 % (0.0-2.0); EOSINOPHIL % 0 % (0-5); GRANULOCYTE % 86.5 % (42.2-75.2); HEMATOCRIT 47.3 % (37-47); MEAN CORPUSCULAR HGB 24.6 PG (27.0-31.0); MEAN CORPUSCULAR HGB CONC 31.7 G/DL (33.0-37.0); MEAN CORPUSCULAR VOLUME 77.6 FL (81.0-99.0); MEAN PLATELET VOLUME 8.6 FL (7.4-10.4); PLATELET COUNT 256 /CUMM (130-400); RBC DISTRIBUTION WIDTH 17.1 % (11.5-14.5); RED BLOOD CELL CT 6.09 /CUMM (4.20-5.40)
[2016-11-02 10:34] LABS: WHITE BLOOD CELL COUNT 6.1 /CUMM (4.8-10.8)
--- NOTE | 2016-11-02 12:00 | PN- Att Addend ---
Attending MD Review Statement Attending Statement Attending MD Statement: examined this patient, discuss w/resident/PA/WARP TYING MACHINE TENDER, agreed w/resident/PA/WARP TYING MACHINE TENDER, reviewed EMR data (avail), discussed w/nursing Attending Assessment/Plan: Laboratory Tests 11/02/16 0737: Anion Gap 10, Estimated GFR > 60, BUN/Creatinine Ratio 48.6 H, CBC w Diff NO MAN DIFF REQ, RBC 6.09 H, MCV 77.6 L, MCH 24.6 L, RDW 17.1 H, MPV 8.6, Gran % 86.5 H, Lymphocytes % 11.6 L, Monocytes % 1.8, Eosinophils % 0, Basophils % 0.1, Absolute Granulocytes 5.3, Absolute Lymphocytes 0.7 L, Absolute Monocytes 0.1 L, Absolute Eosinophils 0, Absolute Basophils 0, PUBS MCHC 31.7 L Vital Signs Date Time Temp Pulse Resp B/P B/P Pulse O2 O2 Flow FiO2 Mean Ox Delivery Rate 11/02 1028 95 Nasal 3.0L Cannula 11/02 0853 80 128/82 11/02 0853 80 128/82 11/02 0630 97.7 75 18 138/82 95 Nasal Cannula 11/02 0000 Nasal 4.0L Cannula 11/01 2154 98.4 80 19 122/80 95 Nasal Cannula 11/01 1835 93 Nasal 3.0L Cannula 11/01 1600 Nasal 4.0L Cannula 11/01 1449 98.4 76 16 134/70 94 SCC ca of lung with brain mets- started on radiation on 10/31- got another radiation treatment on 11/01 and planned for one today as well on 11/02.Also started on decadron, Fingerstick checks- BS controlled and cont SSI. Stress ulcer prophylaxis- started on PPI. DCed motrin.
[2016-11-02 14:50] VITALS: BP 120/80
[2016-11-02 22:12] VITALS: BP 132/84
[2016-11-03 06:45] VITALS: BP 148/88
--- NOTE | 2016-11-03 07:14 | PN- Housestaff ---
JEANNETTE LARIOS,ANURADHA 11/03/16 0714: Subjective Follow-up For: SCC Stage 4 with brain mets, Osteomyelitis Subjective: I spoke to and examined the patient this AM. Pt denies any acute events overnight. Pt continues to report leg pain which improves with pain meds. Pt denies any headaches, visual changes, n/v, fever or chills. As per nurse no acute events overnight. Review of Systems Constitutional: Denies: no symptoms, see HPI, chills, diaphoresis, fever, malaise, weakness. EENTM: Denies: double vision, visual changes. Cardiovascular: Denies: chest pain, palpitations. Respiratory: Denies: cough, short of breath. Gastrointestinal: Denies: abdominal pain, nausea, vomiting. Neurological/Psychological: Denies: headache, numbness, tingling. Objective Last 24 Hrs of Vital Signs/I&O Vital Signs Date Time Temp Pulse Resp B/P B/P Pulse O2 O2 Flow FiO2 Mean Ox Delivery Rate 11/03 1407 98.2 84 20 132/70 93 Nasal 3.0L Cannula 11/03 1107 92 Nasal 2.0L Cannula 11/03 0910 74 148/88 11/03 0910 74 148/88 11/03 0800 Nasal 4.0L Cannula 11/03 0645 97.6 74 16 148/88 96 Nasal 2.0L Cannula 11/03 0000 Nasal 4.0L Cannula 11/02 2212 98.0 73 20 132/84 91 Nasal 2.0L Cannula 11/02 1830 93 Nasal 2.0L Cannula Intake & Output 11/03 1600 03 0800 11/03 0000 Intake Total 460 310 532 Output Total 400 400 450 Balance 60 -90 82 Intake, IV 100 70 52 Intake, Oral 360 240 480 Number 0 0 Bowel Movements Output, Urine 400 400 450 Physical Exam General Appearance: Alert, Oriented X3, Cooperative, No Acute Distress HEENT: Atraumatic, PERRLA, EOMI, Mucous Membr. moist/pink Cardiovascular: Regular Rate, Normal S1, Normal S2 Lungs: Clear to Auscultation Abdomen: Normal Bowel Sounds, Soft, No Tenderness Extremities: No Cyanosis, No Edema, Normal Pulses Assessment/Plan Assessment: 61-year-old female with PMH of chronic venous insufficiency and nonhealing ulcers of bilateral lower extremities, PVD, hepatitis C secondary to IV drug abuse, Pulmonary nodule and active smoker, was admitted to general medicine floor for management of cellulitis and osteomyelitis. MRI of foot on 10/22/16 were consistent with heel osteomyelitis - however debridment was postponed as patient received 3 day course of cefazolin. She has right lung mass that she was supposed to follow up but didn't and the mass now has increased from 2.2 to 7cm in size within a year. She underwent CT guided biopsy for assesment of her mass. The procedure was complicated by hemothorax, therefore pt was transferred to ICU for closer monitoring. Later after the patient stablized, she was transferred back to the general medical floor. Currently she is being managed in the general medical floor for the following issues: 1. 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 With consent of patient, her family was notified of the cancer diagnosis. Daughter is point of contact. Family meeting was held with Dr. Mendoza and daughter is on board with patient's consent for treatment. Final biopsy from [facility] showed SCC. * MRI of brain 10/29/16 shows metastasis with vasogenic edema. * Pending PET scan, probably will be done as an out patient as this is done only on Tuesdays here * Being followed by Dr. Pooja Luis: patient is receiving whole brain radiation therapy. Pt will receive 3rd course of radiation today. * Patient is on decadron 4mg IV q6h started 10/31 as per attending to prevent worsening of edema. Pt's glucose is being monitored and is on SQ insulin. -glucose has been normal * Followed by Dr. Dick Neely: pt will be receiving chemotherapy (carboplatin with etoposide every 3 weeks) as outpatient. Pt requires port placement. Pt will be kept NPO Thursday night and have IR place port on AM. CT abd/pelvis w /contrast ordered requested by Dr. Neely: showing no evidence of metastatic disease in abdomen/pelvis. * Avoid oversedation * We'll consider neurosurgical input if she has focal symptoms. No focal neurological symptoms at this time * Respiratory - requiring 3L NC satting in the mid 90s (no oxygen at home). Respiratory therapy onboard and has been giving Neb treatments and reassessing oxygen requirements. 2. Osteomyelitis of left heel MRI done on 10/22/16 showed osteomyelitis of left heel. Intially patient received a 3 day course of antibiotics. * Culture showing GPC (coag negative staph) likely a contamination. Remain off abx * Dressing from OR visit with Dr. Cross. Wound dressing ordered 3. Chronic nonhealing ulcers Patient has chronic nonhealing ulcers, secondary to peripheral vascular disease and chronic venous stasis. Wound care with daily dressing. 4. Chronic fungal nail infection Not pursuing any group home antifungal treatment currently. 5. Right knee swelling/pain: Osteoarthritis Patient has long-standing history of right knee osteoarthritis but her swelling and pain has worsened in the last month. X-ray of her right knee showed effusion on the suprapatellar space which was drained and sent for studies by Orthopedic surgeon Dr Mason. Negative for septic arthritis. Osteoarthritis with effusion is the most likely diagnosis. * Ibuprofen 400mg Q6PRN for pain * Followed up as an outpatient. 6. Hemothorax s/p CT guided biopsy -Resolved * Thoracic surgery consulted - recommended coiling of brachial artery in the setting of decompensation/becoming unstable. H&H today: 15.7/49.4 Diet: Regular diet DVT prophylaxis: pt refusing ALPs, pt started on heparin SQ q8h (cleared with radiation oncology) GI prophylaxis: Omeprazole Code status: Full code Problem List: 1. Acute osteomyelitis of left calcaneus 2. Lung cancer 3. Brain metastases Pain Ratin Pain Location: left leg Pain Goal: Pain 7 or less Pain Plan: continue current pain regimen Tomorrow's Labs & Rationales: CBC BEP VASU LARIOS,ZI 11/03/16 1237: Attending MD Review Statement Attending Statement Attending MD Statement: examined this patient, discuss w/resident/PA/FURNITURE ARRANGER, agreed w/resident/PA/FURNITURE ARRANGER, reviewed EMR data (avail), discussed with nursing, discussed with case mgmt, reviewed images, amended to note Attending Assessment/Plan: Patient seen and examined, did not participate much in conversation. Patient went for radiation therapy today. She has total of 10 radiation treatments. Also needs a port for Chemo. Vital Signs Date Time Temp Pulse Resp B/P B/P Pulse O2 O2 Flow FiO2 Mean Ox Delivery Rate 11/03 1107 92 Nasal 2.0L Cannula 11/03 0910 74 148/88 11/03 0910 74 148/88 11/03 0800 Nasal 4.0L Cannula 11/03 0645 97.6 74 16 148/88 96 Nasal 2.0L Cannula 11/03 0000 Nasal 4.0L Cannula 11/02 2212 98.0 73 20 132/84 91 Nasal 2.0L Cannula 11/02 1830 93 Nasal 2.0L Cannula 11/02 1600 Nasal 4.0L Cannula 11/02 1450 98.0 75 18 120/80 94 on exam; awake, nad cv; s1,s2, rrr resp; clear abd; soft, nt, bs+ ext; no edema skin; + rena wrap on the left heel. Laboratory Tests 11/04 611 Chemistry Sodium (137 - 145 mmol/L) 134 L Potassium (3.5 - 5.1 mmol/L) 4.6 Chloride (98 - 107 mmol/L) 89 L Carbon Dioxide (22 - 30 mmol/L) 34 H Anion Gap (5 - 16) 11 BUN (7 - 17 mg/dL) 43 H Creatinine (0.5 - 1.0 mg/dL) 0.7 Estimated GFR (>60 ml/min) > 60 BUN/Creatinine Ratio (7 - 25 %) 61.4 H Hematology CBC w Diff NO MAN DIFF REQ WBC (4.8 - 10.8 /CUMM) 7.9 RBC (4.20 - 5.40 /CUMM) 6.37 H Hgb (12.0 - 16.0 G/DL) 15.7 Hct (37 - 47 %) 49.4 H MCV (81.0 - 99.0 FL) 77.6 L MCH (27.0 - 31.0 PG) 24.6 L RDW (11.5 - 14.5 %) 16.9 H Plt Count (130 - 400 /CUMM) 279 MPV (7.4 - 10.4 FL) 8.5 Gran % (42.2 - 75.2 %) 90.8 H Lymphocytes % (20.5 - 51.1 %) 6.7 L Monocytes % (1.7 - 9.3 %) 2.0 Eosinophils % (0 - 5 %) 0.5 Basophils % (0.0 - 2.0 %) 0 L Absolute Granulocytes (1.4 - 6.5 /CUMM) 7.2 H Absolute Lymphocytes (1.2 - 3.4 /CUMM) 0.5 L Absolute Monocytes (0.10 - 0.60 /CUMM) 0.2 Absolute Eosinophils (0.0 - 0.7 /CUMM) 0 Absolute Basophils (0.0 - 0.2 /CUMM) 0 PUBS MCHC (33.0 - 37.0 G/DL) 31.7 L A/P; 61 F with pmh sig for 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 Found to have osteomyelitis of the left foot/heel. Underwent biopsy and cultures grew coag negative staph. Antibiotics were initially started for cellulitis were not continued later on per infectious disease. Also underwent biopsy of the lung mass and had a complication of hemothorax later on. Was monitored in ICU and later on transferred to the floor. Bx results showed small cell lung carcinoma. Brain MRI also showed metastases to brain. Patient has been started on radiation treatment after seen by oncology. Plan is to put a port in so that chemotherapy can be started. Continue IV Decadron as current dose. Please obtain CT abdomen and pelvis with contrast as recommended by oncology. Radiation therapy per radiation oncology. Patient to get a port which will likely happen in the next 48 hours for the chemotherapy. Blood pressure under acceptable control. Blood sugars are under acceptable control. Patient will need to go to rehabilitation when she is ready after discharge. DVT px; restart heparin subcutaneous as I do not see any further contraindication for pharmacologic DVT prophylaxis.(confirmed with Dr. Kruse Rad Onc) Daughter Amnda: cell: [phone] work: [phone]
[2016-11-03 08:09] LABS: ABSOLUTE BASOPHIL COUNT 0 /CUMM (0.0-0.2); ABSOLUTE EOSINOPHIL COUNT 0 /CUMM (0.0-0.7); ABSOLUTE GRANULOCYTE CT 7.2 /CUMM (1.4-6.5); ABSOLUTE LYMPH COUNT 0.5 /CUMM (1.2-3.4); ABSOLUTE MONOCYTE COUNT 0.2 /CUMM (0.10-0.60); BASOPHIL % 0 % (0.0-2.0); EOSINOPHIL % 0.5 % (0-5); HEMATOCRIT 49.4 % (37-47); MEAN CORPUSCULAR HGB 24.6 PG (27.0-31.0); MEAN CORPUSCULAR HGB CONC 31.7 G/DL (33.0-37.0); MEAN CORPUSCULAR VOLUME 77.6 FL (81.0-99.0); MEAN PLATELET VOLUME 8.5 FL (7.4-10.4); PLATELET COUNT 279 /CUMM (130-400); RBC DISTRIBUTION WIDTH 16.9 % (11.5-14.5); RED BLOOD CELL CT 6.37 /CUMM (4.20-5.40); WHITE BLOOD CELL COUNT 7.9 /CUMM (4.8-10.8)
--- NOTE | 2016-11-03 08:18 | PN- Oncology ---
Subjective Subjective: She denies any new pain. Pain is mostly in the legs. Breathing is about the same. She states she knows about her cancer and that she needs chemotherapy. Review of Systems: Constitutional: Denies: chills, fever. Cardiovascular: Denies: chest pain. Respiratory: Denies: short of breath. Gastrointestinal: Denies: abdominal pain. Musculoskeletal: Reports: feet pain, back pain. Neurological/Psychological: Reports: anxiety. Denies: confusion. All Other Systems: Reviewed and Negative Objective Vital Signs and I&Os Vital Signs Date Time Temp Pulse Resp B/P B/P Pulse O2 O2 Flow FiO2 Mean Ox Delivery Rate 11/03 0645 97.6 74 16 148/88 96 Nasal 2.0L Cannula 11/03 0000 Nasal 4.0L Cannula 11/02 2212 98.0 73 20 132/84 91 Nasal 2.0L Cannula 11/02 1830 93 Nasal 2.0L Cannula 11/02 1600 Nasal 4.0L Cannula 11/02 1450 98.0 75 18 120/80 94 11/02 1028 95 Nasal 3.0L Cannula 11/02 0853 80 128/82 11/02 0853 80 128/82 11/02 0800 Nasal 4.0L Cannula Intake & Output 11/03 0800 11/03 0000 11/02 1600 11/02 0800 11/02 0000 11/01 1600 Intake Total 310 532 820 301 830 1390 Output Total 400 450 600 800 625 Balance -90 82 220 -480 220 625 Intake, IV 70 52 100 80 120 200 Intake, Oral 240 480 720 414 313 0048 Number 0 1 Bowel Movements Output, Urine 400 450 600 800 625 Physical Exam: General Appearance: no apparent distress, alert, awake, comfortable Respiratory: chest non-tender, no respiratory distress, quiet respiration, decreased breath sounds Cardiovascular: regular rate/rhythm Gastrointestinal: normal bowel sounds, soft, non-tender, no organomegaly Extremities: trace pedal edema, swelling, tenderness, dressing in bilateral lower extremities, EL dression on LLE Neurologic/Psych: awake, alert, oriented, flat affect Current Medications: Current Medications Sig/Ora Start time Last Medication Dose Route Stop Time Status Admin Acetaminophen 650 MG Q6P PRN 10/20 0100 AC 11/01 PO 2347 Acetaminophen/ 2 TAB Q6P PRN 10/20 1930 AC 11/03 Hydrocodone Bitart PO 0636 Albuterol Sulfate 3 ML BID 10/24 2200 AC 11/02 INH 1830 Amlodipine Besylate 10 MG DAILY 10/20 0100 AC 11/02 PO 0853 Chlorthalidone 12.5 MG DAILY 10/22 1350 AC 11/02 PO 0854 Dexamethasone 4 MG Q6H 11/01 0200 AC 11/03 Dextrose/Water 50 ML IV 0150 Hydromorphone HCl 2 MG Q6P PRN 10/22 1430 AC 11/03 PO 0239 Insulin Human Regular 2 UNITS .STK-MED ONE 11/02 1738 DC IV 11/02 1739 Insulin Human Regular 2 UNITS .STK-MED ONE 11/02 1126 DC IV 11/02 1127 Insulin Human Regular 0 Q6 11/01 1209 AC 11/03 SC 0632 Lisinopril 40 MG DAILY 10/20 0315 AC 11/02 PO 0853 Methadone HCl 55 MG DAILY 10/20 1000 AC 11/02 PO 0854 Nicotine 21 MG DAILY 10/20 1439 AC 11/02 TOP 0853 Omeprazole 40 MG DAILY AC 11/01 1114 AC 11/03 PO 0632 Potassium Chloride 10 MEQ DAILY 10/20 1000 AC 11/02 PO 0854 Results Last 24 Hours of Lab Results: Laboratory Tests 11/04 611 Chemistry Sodium Pending Potassium Pending Chloride Pending Carbon Dioxide Pending Anion Gap Pending BUN Pending Creatinine Pending BUN/Creatinine Ratio Pending Hematology CBC w Diff Pending WBC Pending RBC Pending Hgb Pending Hct Pending MCV Pending MCH Pending RDW Pending Plt Count Pending MPV Pending PUBS MCHC Pending Pathology: SPECIMEN NUM: [id number] RECEIVED: 10/24/16 RIGHT LUNG, MULTIPLE NEEDLE CORE BIOPSIES: This case was reviewed by Dr. Patricia Tovar of [facility], [address] [place] [address] whose diagnosis was: "CONSISTENT WITH SMALL CELL CARCINOMA." Dr. Tovar notes: The biopsy shows fragments of tissue with extensive necrosis and a few areas of viable tumor cells with high N/C ratios and speckled chromatin. The immunostains performed at our institution show that the tumor cells are positive for synaptophysin, CD56 and TTF-1 while chromogranin is negative. Ki-67 proliferative index is up to 50%. The findings support the diagnosis. This case was shown at the Intradepartmental and Thoracic Pathology Consensus Conference on 10/30/2016." Assessment/Plan Assessment/Recommendations: Ms. Louie is a 61-year female with PVD complicated by recurrent cellulitis and ulcerations, HCV, lung nodule, and tobacco abuse who presented to the hospital with worsening left leg edema, drainage, and pain. MRI of the left foot is concerning for osteomyelitis. Bone biopsy noted staph coagulase negative diphtheroids. During admission, chest x-ray demonstrated worsening of known right middle lobe lung mass. She had chest x-ray and CT scan in 11/2014 with a 2.2 cm RML mass. She was lost to follow up. CT scan currently demonstrated a 7 cm mass with right hilar and subcarinal mass. Biopsy was done on 11/23/2016. This was complicated by hemothorax. MRI demonstrated numerous brain lesion concerning for metastatic disease. Pathology was consistent with small cell carcinoma. She has T3N2M1 disease, extensive stage. With her extensive stage SCLC, she will need chemotherapy. She is currently getting WBRT for her brain metastatis. Chemotherapy should be initiated as soon as possible. She should also have CT of the abdomen and pelvis with contrast. She will also need port placement given her poor veins for prolonged chemotherapy. I discussed the risks associated with treatment which will be carboplatin with etoposide every 3 weeks. I discussed the risk of nasuea, vomiting, diarrhea, fatigue, hair loss, myelosuppression, renal injury, and hepatic injury. She expressed understanding of this and is agreeable to proceed when ready. She may finish up radiation and then start therapy. If she gets discharge, please ensure patient can get outpatient chemotherapy. Otherwise, this may need to be given inpatient. Extensive stage small cell lung cancer to the brain: 1. Continue current WBRT as per radiation oncology 2. CT abdomen/pelvis with contrast 3. Port placement for chemotherapy 4. Continue dexamethasone 5. Chemotherapy (outpatient vs inpatient) after radiation Left LLE osteomyelitis: 1. ID following 2. Podiatry following Please call [phone] with any question or concerns. Problem List: 1. Brain metastases 2. Lung cancer 3. Hemothorax on right 4. Osteomyelitis 5. History of hepatitis C
[2016-11-03 09:24] LABS: GRANULOCYTE % 90.8 % (42.2-75.2)
[2016-11-03 14:07] VITALS: BP 132/70
--- NOTE | 2016-11-03 14:50 | CT SCAN REPORT ---
EXAMINATION: CT ABDOMEN AND PELVIS WITH CONTRAST CLINICAL INFORMATION: Staging of squamous cell carcinoma of the lung. COMPARISON: Chest CT from 10/21/2016. CT of abdomen pelvis from 07/25/2013. TECHNIQUE: Multidetector volumetric imaging was performed of the abdomen and pelvis before and after the IV administration of 95 mL of Optiray 320 intravenous contrast. Sagittal and coronal reformatted images were obtained on the technologist's workstation. DLP: 257 mGy-cm FINDINGS: LUNG BASES: The solid, heterogeneous mass of the right middle lobe bulging into the major fissure is partially included in the [id number]. Trace right pleural effusion. LIVER, GALLBLADDER, AND BILIARY TREE: No evidence of hepatic metastasis. Gallbladder is surgically absent and the common duct is chronically dilated (1 cm diameter); the central intrahepatic bile ducts are chronically, mildly dilated, as well. No CT imaging evidence of choledocholithiasis. PANCREAS: Unremarkable. SPLEEN: Unremarkable. ADRENAL GLANDS: Unremarkable. KIDNEYS AND URETERS: Kidneys are normal in size and enhance symmetrically. Small, subcentimeter sized hypodense foci in the interpolar region of each kidney are likely cysts but are too small to characterize. A simple parapelvic cyst in the left upper pole measures up to 3 cm maximum dimension. No evidence of nephrolithiasis or hydroureteronephrosis. BLADDER: Unremarkable. GASTROINTESTINAL TRACT: Stomach is underdistended. Bowel loops are normal in caliber. No evidence of inflammation or obstruction along the gastrointestinal tract. Diverticulosis of the descending and sigmoid colon without diverticulitis. No ascites or pneumoperitoneum. ABDOMINAL WALL: No abdominal wall mass or hernia. LYMPH NODES: No pathologic sized lymph nodes within the abdomen or pelvis. VASCULAR: Atherosclerotic calcification of the abdominal aorta and branch vessels without aneurysm. PELVIC VISCERA: The uterus is retroflexed. No evidence of adnexal mass or pelvic free fluid. OSSEOUS STRUCTURES: Chondrocalcinosis of the degenerated pubic symphysis, right hip and spine. Chronic multilevel, severe degenerative disc disease and rotatory levoscoliosis of the lumbar spine. The noncemented components of the left total hip arthroplasty are intact. No aggressive osseous lesions. IMPRESSION: 1. No evidence of metastatic disease within the abdomen or pelvis. 2. Status post cholecystectomy with chronic dilatation of the common bile duct and intrahepatic ducts. 3. Diverticulosis of the descending and sigmoid colon without diverticulitis.
[2016-11-03 22:06] VITALS: BP 120/70
[2016-11-04 06:41] VITALS: BP 124/70
--- NOTE | 2016-11-04 08:12 | PN- Housestaff ---
Subjective Follow-up For: SCC w/brain mets receiving WBRT, Osteomyelitis Subjective: I saw and examined the patient this AM. She was resting comfortably in bed. She denies chest pain/SOB/cough/fever/chills. Pt states she has a headache described as a dull ache. Rates the pain an 5/10. Denies eye pain/pressure. Denies visual changes. Denies numbness/tingling. Leg pain is still present but diminishes with pain meds. As per nursing: pt had no acute events. Review of Systems Constitutional: Denies: no symptoms, see HPI, chills, fever, weakness. Cardiovascular: Denies: chest pain, palpitations. Respiratory: Denies: cough, short of breath, sputum production, wheezing. Gastrointestinal: Denies: abdominal pain, nausea, vomiting. Musculoskeletal: Reports: see HPI. Neurological/Psychological: Denies: headache, numbness, paresthesia, tingling. Objective Last 24 Hrs of Vital Signs/I&O Vital Signs Date Time Temp Pulse Resp B/P B/P Pulse O2 O2 Flow FiO2 Mean Ox Delivery Rate 11/04 0908 95 Nasal 3.0L Cannula 11/04 0842 74 126/74 11/04 0842 74 126/74 11/04 0641 98.1 69 19 124/70 95 Nasal 2.0L Cannula 11/04 0000 92 Nasal 3.0L Cannula 11/03 2206 98.9 72 18 120/70 94 Nasal 2.0L Cannula 11/03 1915 92 Nasal 3.0L Cannula 11/03 1407 98.2 84 20 132/70 93 Nasal 3.0L Cannula 11/03 1107 92 Nasal 2.0L Cannula Intake & Output 11/04 1600 11/04 0800 07 0000 Intake Total 310 310 Output Total 200 350 Balance -200 310 -40 Intake, IV 70 70 Intake, Oral 240 240 Number 1 Bowel Movements Output, Urine 200 350 Physical Exam General Appearance: Alert, Cooperative, No Acute Distress HEENT: Atraumatic, PERRLA, EOMI, Mucous Membr. moist/pink Cardiovascular: Regular Rate, Normal S1, Normal S2 Lungs: Clear to Auscultation Abdomen: Normal Bowel Sounds, Soft, No Tenderness Neurological: Strength at 5/5 X4 Ext, Normal Tone, Sensation Intact, Cranial Nerves 3-12 NL Extremities: Normal Pulses, lower extermities are wrapped in dressings Assessment/Plan Assessment: 61-year-old female with PMH of chronic venous insufficiency and nonhealing ulcers of bilateral lower extremities, PVD, hepatitis C secondary to IV drug abuse, Pulmonary nodule and active smoker, was admitted to general medicine floor for management of cellulitis and osteomyelitis. MRI of foot on 10/22/16 were consistent with heel osteomyelitis - however debridment was postponed as patient received 3 day course of cefazolin. She has right lung mass that she was supposed to follow up but didn't and the mass now has increased from 2.2 to 7cm in size within a year. She underwent CT guided biopsy for assesment of her mass. The procedure was complicated by hemothorax, therefore pt was transferred to ICU for closer monitoring. Later after the patient stablized, she was transferred back to the general medical floor. Currently she is being managed in the general medical floor for the following issues: 1. 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 With consent of patient, her family was notified of the cancer diagnosis. Daughter is point of contact. Family meeting was held with Dr. Mendoza and daughter is on board with patient's consent for treatment. Final biopsy from [place] showed SCC. * MRI of brain 10/29/16 shows metastasis with vasogenic edema. * Pending PET scan, probably will be done as an out patient as this is done only on Tuesdays here * Being followed by Dr. Pooja Luis: patient is receiving whole brain radiation therapy. Pt will receive 4th course of radiation tomorrow. * Patient is on decadron 4mg IV q6h started 10/31 as per attending to prevent worsening of edema. Pt's glucose is being monitored and is on SQ insulin. -glucose has been normal * Followed by Dr. Dick Neely: pt will be receiving chemotherapy (carboplatin with etoposide every 3 weeks) as outpatient. Pt requires port placement. * Pt will be kept NPO Thursday night and have IR place port on AM. -pt will receive 1 dose of cefazolin PPX prior in preparation for port placement tomorrow * CT abd/pelvis w/contrast ordered requested by Dr. Neely: showing no evidence of metastatic disease in abdomen/pelvis. * Avoid oversedation * We'll consider neurosurgical input if she has focal symptoms. No focal neurological symptoms at this time * Respiratory - oxygen requirement has decreased from 3L NC to 2L NC satting in the mid 90s (no oxygen at home). Respiratory therapy onboard and has been giving Neb treatments and reassessing oxygen requirements. 2. Osteomyelitis of left heel MRI done on 10/22/16 showed osteomyelitis of left heel. Intially patient received a 3 day course of antibiotics. * Culture showing GPC (coag negative staph) likely a contamination. Remain off abx * Dressing from OR visit with Dr. Cross. Wound dressing ordered. Will check with Dr. Cross. 3. Chronic nonhealing ulcers Patient has chronic nonhealing ulcers, secondary to peripheral vascular disease and chronic venous stasis. Wound care with daily dressing. 4. Chronic fungal nail infection Not pursuing any halfway antifungal treatment currently. 5. Right knee swelling/pain: Osteoarthritis Patient has long-standing history of right knee osteoarthritis but her swelling and pain has worsened in the last month. X-ray of her right knee showed effusion on the suprapatellar space which was drained and sent for studies by Orthopedic surgeon Dr Mason. Negative for septic arthritis. Osteoarthritis with effusion is the most likely diagnosis. * Ibuprofen 400mg Q6PRN for pain * Followed up as an outpatient. 6. Hemothorax s/p CT guided biopsy -Resolved * Thoracic surgery consulted - recommended coiling of brachial artery in the setting of decompensation/becoming unstable. Diet: Regular diet DVT prophylaxis: pt refusing ALPs, pt started on heparin SQ q8h (cleared with radiation oncology) GI prophylaxis: Omeprazole Code status: Full code Problem List: 1. Cellulitis of left lower extremity 2. Lung cancer 3. Brain metastases Pain Ratin Pain Location: leg pain Pain Goal: Pain 4 or less Pain Plan: continue current pain regimen Tomorrow's Labs & Rationales: none
[2016-11-04 14:13] VITALS: BP 122/80
--- NOTE | 2016-11-04 14:25 | PN- Att Addend ---
Attending MD Review Statement Attending Statement Attending MD Statement: examined this patient, discuss w/resident/PA/AIR BRAKE RIGGER, agreed w/resident/PA/AIR BRAKE RIGGER, reviewed EMR data (avail), discussed w/nursing Attending Assessment/Plan: pt seen and examined at bedside. will renew her dilaudid. Pt planned for port placement by IR tomorrow. d/w pt the care plan.
[2016-11-04 22:20] VITALS: BP 140/66
[2016-11-05 06:11] VITALS: BP 138/80
--- NOTE | 2016-11-05 09:07 | PN- Oncology ---
Subjective Subjective: She continues to feel well without new symptoms. She is tolerating radiation well. Breathing is stable. Review of Systems: Constitutional: Denies: chills, fever. Cardiovascular: Denies: chest pain. Respiratory: Denies: short of breath. Gastrointestinal: Denies: abdominal pain. Musculoskeletal: Reports: feet pain, back pain. Neurological/Psychological: Reports: anxiety. Denies: confusion. All Other Systems: Reviewed and Negative Objective Vital Signs and I&Os Vital Signs Date Time Temp Pulse Resp B/P B/P Pulse O2 O2 Flow FiO2 Mean Ox Delivery Rate 11/05 0838 95 Nasal 3.0L Cannula 11/05 0611 97.9 64 20 138/80 100 Nasal 2.0L Cannula 11/05 0000 97 Nasal 3.0L Cannula 11/04 2220 98.2 68 20 140/66 97 11/04 1600 Nasal 3.0L Cannula 11/04 1413 97.9 71 18 122/80 95 Nasal 2.0L Cannula 11/04 0908 95 Nasal 3.0L Cannula Intake & Output 11/05 1600 11/05 0811/05 0000 11/04 1600 11/04 0800 11/04 0000 Intake Total 100 530 700 310 310 Output Total 750 800 400 350 Balance -650 -270 300 310 -40 Intake, IV 100 50 100 70 70 Intake, Oral 480 600 240 240 Number 1 Bowel Movements Output, Urine 750 800 400 350 Physical Exam: General Appearance: no apparent distress, alert, awake, comfortable Respiratory: chest non-tender, no respiratory distress, quiet respiration, decreased breath sounds Cardiovascular: regular rate/rhythm Gastrointestinal: normal bowel sounds, soft, non-tender, no organomegaly Extremities: trace pedal edema which is stable, tenderness, dressing in bilateral lower extremities, EL dression on LLE Neurologic/Psych: awake, alert, oriented, flat affect Current Medications: Current Medications Sig/Ora Start time Last Medication Dose Route Stop Time Status Admin Acetaminophen 650 MG Q6P PRN 10/20 99 AC 11/01 PO 2347 Acetaminophen/ 2 TAB Q6P PRN 10/20 193 AC 11/05 Hydrocodone Bitart PO 010 Albuterol Sulfate 3 ML BID 10/24 2200 AC 11/05 INH 0835 Amlodipine Besylate 10 MG DAILY 10/20 99 AC 11/04 PO 0842 Cefazolin Sodium 1,000 MG 11/05 0800 DC IV 11/05 0801 Chlorthalidone 12.5 MG DAILY 10/22 1350 AC 11/04 PO 0842 Dexamethasone 4 MG Q6H 11/01 0200 AC 11/05 Dextrose/Water 50 ML IV 0103 Hydromorphone HCl 2 MG Q6P PRN 10/22 1430 AC 11/05 PO 0548 Insulin Human Regular 4 UNITS .STK-MED ONE 11/04 1837 DC IV 11/04 1838 Insulin Human Regular 6 UNITS .STK-MED ONE 11/04 1223 DC IV 11/04 1224 Insulin Human Regular 0 Q6 11/01 1209 AC 11/04 SC 1838 Lisinopril 40 MG DAILY 10/20 0315 AC 11/04 PO 0842 Methadone HCl 55 MG DAILY 10/20 1000 AC 11/04 PO 0841 Nicotine 21 MG DAILY 10/20 1439 AC 11/04 TOP 0842 Omeprazole 40 MG DAILY AC 11/01 1114 AC 11/05 PO 0548 Potassium Chloride 10 MEQ DAILY 10/20 1000 AC 11/04 PO 0842 Results Last 24 Hours of Lab Results: Laboratory Tests 11/05 699 Coagulation PT Pending INR Pending APTT Pending Recent Imaging Studies: CT abdomen/pelvis 11/03/2016: 1. No evidence of metastatic disease within the abdomen or pelvis. 2. Status post cholecystectomy with chronic dilatation of the common bile duct and intrahepatic ducts. 3. Diverticulosis of the descending and sigmoid colon without diverticulitis. Assessment/Plan Assessment/Recommendations: Ms. Louie is a 61-year female with PVD complicated by recurrent cellulitis and ulcerations, HCV, lung nodule, and tobacco abuse who presented to the hospital with worsening left leg edema, drainage, and pain. MRI of the left foot is concerning for osteomyelitis. Bone biopsy noted staph coagulase negative diphtheroids. During admission, chest x-ray demonstrated worsening of known right middle lobe lung mass. She had chest x-ray and CT scan in 11/2014 with a 2.2 cm RML mass. She was lost to follow up. CT scan currently demonstrated a 7 cm mass with right hilar and subcarinal mass. Biopsy was done on 11/23/2016. This was complicated by hemothorax. MRI demonstrated numerous brain lesion concerning for metastatic disease. Pathology was consistent with small cell carcinoma. She has T3N2M1 disease, extensive stage. With her extensive stage SCLC, she will need chemotherapy. She is currently getting WBRT for her brain metastatis. She has no disease outside the chest and brain. If she responds well to therapy, she may be a candidate for chest radiation. She is getting port placement today. She will finish up radiation and will start chemotherapy therapy afterward. Extensive stage small cell lung cancer to the brain: 1. Continue current WBRT as per radiation oncology 2. Port placement for chemotherapy 3. Continue dexamethasone, can switch to oral if tolerated 4. Chemotherapy (outpatient vs inpatient depending on coverage) after radiation 5. Follow up as outpatient within 1 week of discharge Left LLE osteomyelitis: 1. ID following 2. Podiatry following Please call [phone] with any question or concerns. Problem List: 1. Brain metastases 2. Lung cancer 3. Osteomyelitis
[2016-11-05 09:37] LABS: PT 9.9 SEC (9.4-12.5); PTT 28 SEC (25-37)
--- NOTE | 2016-11-05 10:39 | PN- Housestaff ---
JEANNETTE LARIOS,ANURADHA 11/05/16 1038: Subjective Follow-up For: SCC w/brain mets receiving WBRT, Osteomyelitis Subjective: Pt states she is doing well. Denies chest pain, SOB, headaches, n/v, fever/ chills. States she still has leg pain but it improves with pain meds. As per nursing: no acute events overnight. Pt has been NPO since midnight for port placement today. Review of Systems Constitutional: Denies: no symptoms, see HPI, chills, diaphoresis, fever, malaise, weakness. Cardiovascular: Denies: chest pain, edema, palpitations. Respiratory: Denies: cough, short of breath. Gastrointestinal: Denies: abdominal pain, nausea, vomiting. Musculoskeletal: Reports: see HPI (left leg pain). Objective Last 24 Hrs of Vital Signs/I&O Vital Signs Date Time Temp Pulse Resp B/P B/P Pulse O2 O2 Flow FiO2 Mean Ox Delivery Rate 11/05 0931 64 138/80 07/ 0931 64 138/80 07/ 0838 95 Nasal 3.0L Cannula 11/05 0611 97.9 64 20 138/80 100 Nasal 2.0L Cannula 07/ 0000 97 Nasal 3.0L Cannula / 2220 98.2 68 20 140/66 97 07/04 1600 Nasal 3.0L Cannula / 1413 97.9 71 18 122/80 95 Nasal 2.0L Cannula Intake & Output 07/05 1600 07/05 0800 07/05 0000 Intake Total 100 530 Output Total 750 800 Balance -650 -270 Intake, IV 100 50 Intake, Oral 480 Output, Urine 750 800 Physical Exam General Appearance: Alert, Cooperative, No Acute Distress HEENT: Atraumatic, PERRLA, Mucous Membr. moist/pink Cardiovascular: Regular Rate, Normal S1, Normal S2 Lungs: Clear to Auscultation Abdomen: Normal Bowel Sounds, Soft, No Tenderness Extremities: Left ankle wrapped in dry dressing, has sutures in place at surgical site which are dry. No erythema, swelling or discharge around the sutures. Vascular: Normal Pulses, Pulses Symmetrical Assessment/Plan Assessment: 61-year-old female with PMH of chronic venous insufficiency and nonhealing ulcers of bilateral lower extremities, PVD, hepatitis C secondary to IV drug abuse, Pulmonary nodule and active smoker, was admitted to general medicine floor for management of cellulitis and osteomyelitis. MRI of foot on 10/22/16 were consistent with heel osteomyelitis - however debridment was postponed as patient received 3 day course of cefazolin. She has right lung mass that she was supposed to follow up but didn't and the mass now has increased from 2.2 to 7cm in size within a year. She underwent CT guided biopsy for assesment of her mass. The procedure was complicated by hemothorax, therefore pt was transferred to ICU for closer monitoring. Later after the patient stablized, she was transferred back to the general medical floor. Currently she is being managed in the general medical floor for the following issues: 1. 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 With consent of patient, her family was notified of the cancer diagnosis. Daughter is point of contact. Family meeting was held with Dr. Mendoza and daughter is on board with patient's consent for treatment. Final biopsy from [place] showed SCC. * MRI of brain 10/29/16 shows metastasis with vasogenic edema. * Pending PET scan, probably will be done as an out patient as this is done only on Tuesdays here * Being followed by Dr. Pooja Luis: patient is receiving whole brain radiation therapy. Pt received 4th course of radiation this AM. * Spoke to Dr. Rodriges (radiation oncologist) today: patient can be switched from IV decadron 4mg IV q6h to PO decadron 4mg TID. Pt's glucose is being monitored and is on SQ insulin. -glucose has been normal * Followed by Dr. Dick Neely: pt will be receiving chemotherapy (carboplatin with etoposide every 3 weeks) requiring port placement. Follow up with Dr. Neely as outpatient within 1 week of discharge. * Pt was kept NPO since midnight and will have port placed this afternoon * spoke to the daughter today to update her on patient's current management -pt received 1 dose of cefazolin PPX prior in preparation for port placement tomorrow * CT abd/pelvis w/contrast ordered requested by Dr. Neely: showing no evidence of metastatic disease in abdomen/pelvis. * Avoid oversedation * We'll consider neurosurgical input if she has focal symptoms. No focal neurological symptoms at this time * Respiratory - oxygen requirement is fluctuating between 2 and 3L NC satting in the mid 90s (no oxygen at home). Respiratory therapy onboard and has been giving Neb treatments and reassessing oxygen requirements. 2. Osteomyelitis of left heel MRI done on 10/22/16 showed osteomyelitis of left heel. Intially patient received a 3 day course of antibiotics. * Culture showing GPC (coag negative staph) likely a contamination. Remain off abx * Dressing from OR visit with Dr. Cross. Wound care came and saw patient. Dressing has been changed to a dry dressing. As per wound care, patient can keep sutures in for 5 more days however if discharging wound care will come to remove them. Notify wound care for suture removal prior to discharge. 3. Chronic nonhealing ulcers Patient has chronic nonhealing ulcers, secondary to peripheral vascular disease and chronic venous stasis. Wound care with daily dressing. 4. Chronic fungal nail infection Not pursuing any skilled nursing antifungal treatment currently. 5. Right knee swelling/pain: Osteoarthritis Patient has long-standing history of right knee osteoarthritis but her swelling and pain has worsened in the last month. X-ray of her right knee showed effusion on the suprapatellar space which was drained and sent for studies by Orthopedic surgeon Dr Mason. Negative for septic arthritis. Osteoarthritis with effusion is the most likely diagnosis. * Ibuprofen 400mg Q6PRN for pain * Followed up as an outpatient. 6. Hemothorax s/p CT guided biopsy -Resolved * Thoracic surgery consulted - recommended coiling of brachial artery in the setting of decompensation/becoming unstable. Diet: Regular diet DVT prophylaxis: pt refusing ALPs, pt started on heparin SQ q8h (cleared with radiation oncology) GI prophylaxis: Omeprazole Code status: Full code Problem List: 1. Brain metastases 2. Lung cancer 3. Chronic venous stasis dermatitis of both lower extremities 4. Osteomyelitis Pain Ratin Pain Location: leg pain Pain Goal: Pain 4 or less Pain Plan: continue pain meds PRN Tomorrow's Labs & Rationales: CBC KAYLYN LEONE MD,ZI 11/05/16 1128: Attending MD Review Statement Attending Statement Attending MD Statement: examined this patient, discuss w/resident/PA/SOLUTIONS SPECIALIST, agreed w/resident/PA/SOLUTIONS SPECIALIST, reviewed EMR data (avail), discussed with nursing, discussed with case mgmt, reviewed images, amended to note Attending Assessment/Plan: Patient seen and examined, feels okay. Her pain is relatively controlled. Patient on methadone and Vicodin. Vital Signs Date Time Temp Pulse Resp B/P B/P Pulse O2 O2 Flow FiO2 Mean Ox Delivery Rate 11/05 0931 64 138/80 11/05 0931 64 138/80 11/05 0838 95 Nasal 3.0L Cannula 11/05 0611 97.9 64 20 138/80 100 Nasal 2.0L Cannula 11/05 0000 97 Nasal 3.0L Cannula 11/04 2220 98.2 68 20 140/66 97 11/04 1600 Nasal 3.0L Cannula 11/04 1413 97.9 71 18 122/80 95 Nasal 2.0L Cannula on exam; awake, nad. cv; s1, s2, rrr resp; clear abd; soft, nt, bs+ ext; no edema. skin: + dressing on the b/l le. Laboratory Tests 11/05 0700 Coagulation PT (9.4 - 12.5 SEC) 9.9 INR (0.90 - 1.19) 0.94 APTT (25 - 37 SEC) 28 A/P: 61 F with pmh sig for 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 Found to have osteomyelitis of the left foot/heel. Underwent biopsy and cultures grew coag negative staph. Antibiotics were initially started for cellulitis, were not continued later on per infectious disease. Also underwent biopsy of the lung mass and had a complication of hemothorax later on. Was monitored in ICU and later on transferred to the floor. Bx results showed small cell lung carcinoma. Brain MRI also showed metastases to brain. Patient has been started on radiation treatment after seen by oncology. Plan is to put a port in so that chemotherapy can be started. Continue on present medications. We'll switch her to oral Decadron. Please call radiation oncology and find out about the dosing and duration. Patient to continue to get radiation treatments. Continue current Antihypertensive regimen. Continue current pain regimen. DVT prophylaxis: Can start the patient on heparin subcutaneous for DVT prophylaxis. I have called Dr. Lucero from radiation oncology on November 03 and he was okay with the patient going on on heparin subcutaneous for DVT prophylaxis despite the site that she has history of brain metastases and underwent radiation treatment. After the Port-A-Cath is placed, patient will be ready for discharge to rehabilitation once there is a bed available. I have discussed this with patient's daughter over the phone.
[2016-11-05 16:59] VITALS: BP 128/78
[2016-11-05 22:32] VITALS: BP 122/78
[2016-11-06 06:49] VITALS: BP 130/82
[2016-11-06 08:27] LABS: ABSOLUTE BASOPHIL COUNT 0 /CUMM (0.0-0.2); ABSOLUTE EOSINOPHIL COUNT 0 /CUMM (0.0-0.7); ABSOLUTE GRANULOCYTE CT 7.4 /CUMM (1.4-6.5); ABSOLUTE LYMPH COUNT 0.6 /CUMM (1.2-3.4); ABSOLUTE MONOCYTE COUNT 0.3 /CUMM (0.10-0.60); BASOPHIL % 0.1 % (0.0-2.0); EOSINOPHIL % 0 % (0-5); GRANULOCYTE % 89.6 % (42.2-75.2); HEMATOCRIT 49.4 % (37-47); MEAN CORPUSCULAR HGB 24.6 PG (27.0-31.0); MEAN CORPUSCULAR HGB CONC 31.9 G/DL (33.0-37.0); MEAN CORPUSCULAR VOLUME 77.2 FL (81.0-99.0); MEAN PLATELET VOLUME 8.6 FL (7.4-10.4); PLATELET COUNT 277 /CUMM (130-400); RBC DISTRIBUTION WIDTH 17.4 % (11.5-14.5)
--- NOTE | 2016-11-06 08:52 | PN- Housestaff ---
JEANNETTE LARIOS,ANURADHA 11/06/16 0851: Subjective Follow-up For: SCC stage 4 brain mets, osteomyelitis Subjective: I saw and examined the patient this AM. Pt had no complaints. Denies headaches, visual changes, n/v, fever, chills. Leg pain is still the same (improves with pain meds). Review of Systems Constitutional: Denies: see HPI. Objective Last 24 Hrs of Vital Signs/I&O Vital Signs Date Time Temp Pulse Resp B/P B/P Pulse O2 O2 Flow FiO2 Mean Ox Delivery Rate 11/06 1626 97 Nasal 3.0L Cannula 11/06 1437 98.2 79 20 120/80 95 Nasal 2.0L Cannula 11/06 0905 73 130/82 11/06 0905 73 130/82 11/06 0850 95 Nasal 3.0L Cannula 11/06 0800 Nasal 3.0L Cannula 11/06 0649 98.7 73 20 130/82 97 Nasal Cannula 11/06 0000 Nasal 3.0L Cannula 11/05 2232 975.0 70 20 122/78 96 Nasal 3.0L Cannula 11/05 2055 96 Nasal 3.0L Cannula Intake & Output 11/06 1600 /06 0800 07/06 0000 Intake Total 600 200 200 Output Total 750 700 Balance 600 -550 -500 Intake, Oral 600 200 200 Number 1 1 1 Bowel Movements Output, Urine 750 700 Physical Exam General Appearance: Alert, Cooperative, No Acute Distress HEENT: Atraumatic, PERRLA, Mucous Membr. moist/pink Cardiovascular: Regular Rate, Normal S1, Normal S2 Lungs: Clear to Auscultation (anteriorly) Abdomen: Normal Bowel Sounds, Soft, No Tenderness Extremities: No Edema, Normal Pulses, Left foot wrapped in dry dressing, sutures in place, incision site is intact with no erythma or discharge Other Physical Findings: port site is below R clavicle, mildly tender to palpation, minimal erythma around incision, which is closed, no discharge present Assessment/Plan Assessment: 61-year-old female with PMH of chronic venous insufficiency and nonhealing ulcers of bilateral lower extremities, PVD, hepatitis C secondary to IV drug abuse, Pulmonary nodule and active smoker, was admitted to general medicine floor for management of cellulitis and osteomyelitis. MRI of foot on 10/22/16 were consistent with heel osteomyelitis - however debridment was postponed as patient received 3 day course of cefazolin. She has right lung mass that she was supposed to follow up but didn't and the mass now has increased from 2.2 to 7cm in size within a year. She underwent CT guided biopsy for assesment of her mass. The procedure was complicated by hemothorax, therefore pt was transferred to ICU for closer monitoring. Later after the patient stablized, she was transferred back to the general medical floor. Currently she is being managed in the general medical floor for the following issues: 1. 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 With consent of patient, her family was notified of the cancer diagnosis. Daughter is point of contact. Family meeting was held with Dr. Mendoza and daughter is on board with patient's consent for treatment. Final biopsy from [facility] showed SCC. * MRI of brain 10/29/16 shows metastasis with vasogenic edema. * Pending PET scan, probably will be done as an out patient as this is done only on Tuesdays here * Being followed by Dr. Pooja Luis: patient is receiving whole brain radiation therapy. Pt received 4th course of radiation this AM. * Spoke to Dr. Luis's nurse (radiation oncologist) today and was told that Dr. Luis would like to taper PO decadron 4mg slowly: - 4 mg TID for 5 days - 4 mg BID for 5 days - 4 mg daily for 5 days - 4 mg every other day for 5 days. * Pt's glucose is being monitored and is on SQ insulin. * Followed by Dr. Dick Neely: pt will be receiving chemotherapy (carboplatin with etoposide every 3 weeks) requiring port placement. Follow up with Dr. Neely as outpatient within 1 week of discharge. Updated daughter this afternoon at approximately 4:30 and informed her patient requires follow up with Dr. Neely within one week of discharge. Daughter states she will make the appointment. * Pt's port was placed yesterday and appears to be healing well. * CT abd/pelvis w/contrast ordered requested by Dr. Neely: showing no evidence of metastatic disease in abdomen/pelvis. * Avoid oversedation * We'll consider neurosurgical input if she has focal symptoms. No focal neurological symptoms at this time * Respiratory - oxygen requirement currently at 3L NC satting in the mid 90s (no oxygen at home). Respiratory therapy onboard and has been giving Neb treatments and reassessing oxygen requirements. 2. Osteomyelitis of left heel MRI done on 10/22/16 showed osteomyelitis of left heel. Intially patient received a 3 day course of antibiotics. * Culture showing GPC (coag negative staph) likely a contamination. Remain off abx * Spoke to Dr. Myrick today, he will come today or tomorrow to determine if sutures need to be removed at this time. As per Dr. Myrick, pts having poor circulation in the location of the calcaneus may require up to 3 weeks of maintaining sutures. 3. Chronic nonhealing ulcers Patient has chronic nonhealing ulcers, secondary to peripheral vascular disease and chronic venous stasis. Wound care with daily dressing. 4. 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 5. Right knee swelling/pain: Osteoarthritis Patient has long-standing history of right knee osteoarthritis but her swelling and pain has worsened in the last month. X-ray of her right knee showed effusion on the suprapatellar space which was drained and sent for studies by Orthopedic surgeon Dr Mason. Negative for septic arthritis. Osteoarthritis with effusion is the most likely diagnosis. * Ibuprofen 400mg Q6PRN for pain * Followed up as an outpatient. 6. Hemothorax s/p CT guided biopsy -Resolved * Thoracic surgery consulted - recommended coiling of brachial artery in the setting of decompensation/becoming unstable. Patient will be discharged to [facility] tomorrow, most likely after radiation Diet: Regular diet DVT prophylaxis: pt refusing ALPs, pt started on heparin SQ q8h (cleared with radiation oncology) GI prophylaxis: Omeprazole Code status: Full code Problem List: 1. Opioid dependence 2. Acute osteomyelitis of left calcaneus 3. Brain metastases 4. Lung cancer Pain Ratin Pain Location: left leg Pain Goal: Pain 4 or less Pain Plan: continue pain meds Tomorrow's Labs & Rationales: CBC KAYLYN LEONE MD,ZI 11/06/16 1122: Attending MD Review Statement Attending Statement Attending MD Statement: examined this patient, discuss w/resident/PA/PILLOWCASE CUTTER, agreed w/resident/PA/PILLOWCASE CUTTER, reviewed EMR data (avail), discussed with nursing, discussed with case mgmt, reviewed images, amended to note Attending Assessment/Plan: Patient seen and examined, denies any complaints. She had her Port-A-Cath placed yesterday. Patient currently denies any pain and said that the pain is relatively controlled with the pain medication. Vital Signs Date Time Temp Pulse Resp B/P B/P Pulse O2 O2 Flow FiO2 Mean Ox Delivery Rate 11/06 904 73 130/82 11/06 0905 73 130/82 11/06 0800 Nasal 3.0L Cannula 11/06 0649 98.7 73 20 130/82 97 Nasal Cannula 11/06 0000 Nasal 3.0L Cannula 11/05 2232 975.0 70 20 122/78 96 Nasal 3.0L Cannula 11/05 2055 96 Nasal 3.0L Cannula 11/05 1659 99.0 60 20 128/78 96 Nasal 3.0L Cannula 11/05 1516 Nasal 1.0L Cannula 11/05 1459 Nasal 1.0L Cannula on exam; aox3, nad. cv; s1,s2, rrr resp; clear abd; soft, nt, bs+ ext; no edema skin; + dressings on both le. Laboratory Tests 11/06 624 Chemistry Sodium (137 - 145 mmol/L) 135 L Potassium (3.5 - 5.1 mmol/L) 4.7 Chloride (98 - 107 mmol/L) 96 L Carbon Dioxide (22 - 30 mmol/L) 28 Anion Gap (5 - 16) 11 BUN (7 - 17 mg/dL) 50 H Creatinine (0.5 - 1.0 mg/dL) 0.8 Estimated GFR (>60 ml/min) > 60 BUN/Creatinine Ratio (7 - 25 %) 62.5 H Hematology CBC w Diff NO MAN DIFF REQ WBC (4.8 - 10.8 /CUMM) 8.3 RBC (4.20 - 5.40 /CUMM) 6.40 H Hgb (12.0 - 16.0 G/DL) 15.8 Hct (37 - 47 %) 49.4 H MCV (81.0 - 99.0 FL) 77.2 L MCH (27.0 - 31.0 PG) 24.6 L RDW (11.5 - 14.5 %) 17.4 H Plt Count (130 - 400 /CUMM) 277 MPV (7.4 - 10.4 FL) 8.6 Gran % (42.2 - 75.2 %) 89.6 H Lymphocytes % (20.5 - 51.1 %) 6.9 L Monocytes % (1.7 - 9.3 %) 3.4 Eosinophils % (0 - 5 %) 0 Basophils % (0.0 - 2.0 %) 0.1 Absolute Granulocytes (1.4 - 6.5 /CUMM) 7.4 H Absolute Lymphocytes (1.2 - 3.4 /CUMM) 0.6 L Absolute Monocytes (0.10 - 0.60 /CUMM) 0.3 Absolute Eosinophils (0.0 - 0.7 /CUMM) 0 Absolute Basophils (0.0 - 0.2 /CUMM) 0 PUBS MCHC (33.0 - 37.0 G/DL) 31.9 L A/P; 61 F with pmh sig for 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 Found to have osteomyelitis of the left foot/heel. Underwent biopsy and cultures grew coag negative staph. Antibiotics were initially started for cellulitis, were not continued later on per infectious disease. Also underwent biopsy of the lung mass and had a complication of hemothorax later on. Was monitored in ICU and later on transferred to the floor. Bx results showed small cell lung carcinoma. Brain MRI also showed metastases to brain. Patient has been started on radiation treatment after seen by oncology. Patient received her Port-A-Cath yesterday. Blood pressure blood sugars are under control. Patient will be getting radiation therapy per radiation oncologist. Patient will need to start chemotherapy per oncology in the near future. Continue methadone and Vicodin for pain management. Patient is awaiting bed availability. Once there is a bed available at rehabilitation she can be discharged to rehabilitation today.
--- NOTE | 2016-11-06 09:01 | PN- Oncology ---
Subjective Subjective: She has right chest port placed yesterday. 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 She has no other new pain. She has no fever or chills. Review of Systems: Constitutional: Denies: chills, fever. Cardiovascular: Denies: chest pain. Respiratory: Denies: short of breath. Gastrointestinal: Denies: abdominal pain. Musculoskeletal: Reports: feet pain, back pain, right port chest pain. Neurological/Psychological: Reports: anxiety. Denies: confusion. All Other Systems: Reviewed and Negative Objective Vital Signs and I&Os Vital Signs Date Time Temp Pulse Resp B/P B/P Pulse O2 O2 Flow FiO2 Mean Ox Delivery Rate 11/06 0649 98.7 73 20 130/82 97 Nasal Cannula 11/06 0000 Nasal 3.0L Cannula 11/05 2232 975.0 70 20 122/78 96 Nasal 3.0L Cannula 11/05 2055 96 Nasal 3.0L Cannula 11/05 1659 99.0 60 20 128/78 96 Nasal 3.0L Cannula 11/05 1516 Nasal 1.0L Cannula 11/05 1459 Nasal 1.0L Cannula 11/05 0931 64 138/80 11/05 0931 64 138/80 Intake & Output 11/06 1600 11/06 0800 07/06 0000 /05 1600 11/05 0800 / 0000 Intake Total 200 200 50 100 530 Output Total 750 700 450 750 800 Balance -550 -500 -400 -650 -270 Intake, IV 100 50 Intake, Oral 200 200 50 480 Number 1 1 0 Bowel Movements Output, Urine 750 700 450 750 800 Physical Exam: General Appearance: no apparent distress, alert, awake, comfortable Respiratory: chest non-tender, no respiratory distress, quiet respiration, decreased breath sounds Cardiovascular: regular rate/rhythm Gastrointestinal: normal bowel sounds, soft, non-tender, no organomegaly Extremities: trace pedal edema which is stable, tenderness, dressing in bilateral lower extremities, EL dression on LLE Neurologic/Psych: awake, alert, oriented, flat affect Skin: right anterior chest port in place, tender to palpation, mild bruising Current Medications: Current Medications Sig/Ora Start time Last Medication Dose Route Stop Time Status Admin Acetaminophen 650 MG Q6P PRN 10/20 0100 AC 11/01 PO 2347 Acetaminophen/ 2 TAB Q6P PRN 10/20 1930 AC 11/06 Hydrocodone Bitart PO 0546 Albuterol Sulfate 3 ML BID 10/24 2200 AC 11/06 INH 0829 Amlodipine Besylate 10 MG DAILY 10/20 0100 AC 11/05 PO 0931 Chlorthalidone 12.5 MG DAILY 10/22 1350 AC 11/05 PO 0931 Dexamethasone 4 MG Q8 11/05 1445 AC 11/06 PO 0547 Dexamethasone 4 MG Q6H 11/01 0200 DC 07 Dextrose/Water 50 ML IV 0930 Fentanyl Citrate 0 .STK-MED ONE 11/05 1445 DC .ROUTE Heparin Sodium 0 .STK-MED ONE 11/05 1256 DC (Porcine) IV Hydromorphone HCl 2 MG Q6P PRN 10/22 1430 AC 11/06 PO 0208 Insulin Human Regular 2 UNITS .STK-MED ONE 11/05 2337 DC IV 11/05 2338 Insulin Human Regular 2 UNITS .STK-MED ONE 11/05 1817 DC IV 11/05 1818 Insulin Human Regular 2 UNITS .STK-MED ONE 11/05 1235 DC IV 11/05 1236 Insulin Human Regular 0 Q6 11/01 1209 AC 07 SC 2337 Lidocaine 0 .STK-MED ONE 11/05 1504 DC .ROUTE Lidocaine 0 .STK-MED ONE 11/05 1257 DC .ROUTE Lisinopril 40 MG DAILY 10/20 0315 AC 11/05 PO 0931 Methadone HCl 55 MG DAILY 10/20 1000 AC 11/05 PO 0932 Midazolam HCl 0 .STK-MED ONE 11/05 1444 DC .ROUTE Nicotine 21 MG DAILY 10/20 1439 AC 11/05 TOP 0930 Omeprazole 40 MG DAILY AC 11/01 1114 AC 11/06 PO 0547 Potassium Chloride 10 MEQ DAILY 10/20 1000 AC 11/05 PO 0931 Results Last 24 Hours of Lab Results: Laboratory Tests 11/06 624 Chemistry Sodium Pending Potassium Pending Chloride Pending Carbon Dioxide Pending Anion Gap Pending BUN Pending Creatinine Pending BUN/Creatinine Ratio Pending Hematology CBC w Diff Pending WBC Pending RBC Pending Hgb Pending Hct Pending MCV Pending MCH Pending RDW Pending Plt Count Pending MPV Pending PUBS MCHC Pending Assessment/Plan Assessment/Recommendations: Ms. Louie is a 61-year female with PVD complicated by recurrent cellulitis and ulcerations, HCV, lung nodule, and tobacco abuse who presented to the hospital with worsening left leg edema, drainage, and pain. MRI of the left foot is concerning for osteomyelitis. Bone biopsy noted staph coagulase negative diphtheroids. During admission, chest x-ray demonstrated worsening of known right middle lobe lung mass. She had chest x-ray and CT scan in 11/2014 with a 2.2 cm RML mass. She was lost to follow up. CT scan currently demonstrated a 7 cm mass with right hilar and subcarinal mass. Biopsy was done on 11/23/2016. This was complicated by hemothorax. MRI demonstrated numerous brain lesion concerning for metastatic disease. Pathology was consistent with small cell carcinoma. She has T3N2M1 disease, extensive stage. She is getting WBRT at the moment. She is currently being evaluated for placement. She will need chemotherpay like carboplatin and etoposide every 3 weeks after radiation. Extensive stage small cell lung cancer to the brain: 1. Continue current WBRT as per radiation oncology 2. Oral dexamethasone 3. Chemotherapy (outpatient vs inpatient depending on coverage/placement) after radiation 4. Follow up as outpatient within 1 week of discharge for therapy Left LLE osteomyelitis: 1. ID following 2. Podiatry following Please call [phone] with any question or concerns. Problem List: 1. Brain metastases 2. Lung cancer 3. Chronic venous stasis dermatitis of both lower extremities 4. Osteomyelitis
[2016-11-06 09:46] LABS: WHITE BLOOD CELL COUNT 8.3 /CUMM (4.8-10.8)
--- NOTE | 2016-11-06 09:56 | ULTRASOUND REPORT ---
PROCEDURE: IR FLUOROSCOPIC-GUIDED VENOUS ACCESS RIGHT-SIDED CHEST PORT PLACEMENT IR INTERVENTIONAL SETUP US GUIDANCE VASCULAR ACCESS CLINICAL INFORMATION: Lung cancer. CONSENT: Informed consent was obtained from the patient's daughter, over the telephone prior to the procedure. During this process, the procedure and potential alternatives were explained, along with the intended outcome and benefits. The risks of the procedure including the possibility of an unsuccessful procedure, as well as the risks of not doing the procedure were discussed. The daughter was given the opportunity to ask questions regarding the procedure and appeared competent to make decisions. A consent form documenting this telephone discussion was placed in the medical record. A time out procedure was performed. CONSCIOUS SEDATION: The patient received intravenous conscious sedation under my direct supervision. A registered nurse monitored the patient and the patient's vital signs throughout the procedure. The total sedation time was 20 minutes. A total of 2 mg of Versed and 100 mcg fentanyl was given for good effect. ACCESS: Right internal jugular vein under direct ultrasound guidance. The vein patency was assessed and there was concurrent visualization of the vascular needle entry with permanent recording and reporting. IMAGING: Ultrasound and fluoroscopy. FLUOROSCOPY TIME: 30.0 seconds DESCRIPTION: A final time out was called. The right chest wall and neck were prepped in a sterile fashion with maximal barrier protection. All elements of maximal sterile barrier technique were followed including use of cap, mask, sterile gown, sterile gloves, a sterile full body drape and hand hygiene. Also followed was skin preparation with 2% chlorhexidine for cutaneous antisepsis, and sterile ultrasound preparation with sterile gel and probe cover when applicable. The right Internal jugular vein was accessed under direct ultrasound guidance and a guidewire passed centrally. The intravascular portion was measured. The right chest wall pocket was then created and the pocket was sized to the port. A single lumen 6.6-Faroese catheter was then tunneled from the chest wall pocket to the right IJ access site. The catheter was then attached to a Vascath Vaccess CT? power port which was then inserted into the pocket after flushing to confirm the integrity of the port and catheter. The catheter was then cut to length. A 7-Faroese Peel-Away sheath was then advanced over the IJ access guidewire. The 6.0-Faroese catheter was passed through the Peel-Away sheath. The Peel-Away sheath was then removed. Fluoroscopy confirmed the position of the tip of the catheter at the RA/SVC junction. The chest wall pocket was then closed using subcuticular sutures with 3-0 Vicryl. The skin was closed with Dermabond at the chest wall and at the IJ access site. The port was flushed with Hep-Lock solution. IMPRESSION: Successful placement of right-sided Vascath Vaccess CT? power port attached to a single lumen 6.0-Faroese catheter with the tip at the RA/SVC junction. The port may be used immediately. The port is a "power port" and may be used for contrast injections during CT examinations.
[2016-11-06] MEDS ORDERED: NOVOLIN R100 UNIT/2 SC ×2 (11:22→11:43)
[2016-11-06] MEDS ORDERED: HYDROCODON-ACE1 EAC2 PO (11:25)
[2016-11-06 14:37] VITALS: BP 120/80
[2016-11-06] MEDS ORDERED: DEXAMETHASONE4 M1 PO (15:44)
[2016-11-06 22:08] VITALS: BP 120/82
[2016-11-07 06:51] VITALS: BP 150/90
--- NOTE | 2016-11-07 08:16 | PN- Housestaff ---
JEANNETTE LARIOS,ANURADHA 11/07/16 0810: Subjective Follow-up For: SCC stage 4 brain mets, osteomyelitis Subjective: I saw and examined the patient this AM. Pt complaining of leg pain today. Rates it a 11/10. As per nurse pt is due for her vicodin. Denies headaches, visual changes, n/v, fever, chills. Review of Systems Constitutional: Denies: see HPI. Objective Last 24 Hrs of Vital Signs/I&O Vital Signs Date Time Temp Pulse Resp B/P B/P Pulse O2 O2 Flow FiO2 Mean Ox Delivery Rate 11/07 0651 98.1 73 20 150/90 95 Nasal 3.0L Cannula 11/07 0000 Nasal 3.0L Cannula 11/06 2208 98.5 73 18 120/82 98 Nasal 3.0L Cannula 11/06 1626 97 Nasal 3.0L Cannula 11/06 1600 Nasal 3.0L Cannula 11/06 1437 98.2 79 20 120/80 95 Nasal 2.0L Cannula 11/06 0905 73 130/82 11/06 0905 73 130/82 11/06 0850 95 Nasal 3.0L Cannula Intake & Output 11/07 1600 11/07 0800 11/07 0000 Intake Total 200 650 Output Total 700 650 Balance -500 0 Intake, Oral 200 650 Number 1 1 Bowel Movements Output, Urine 700 650 Physical Exam General Appearance: Alert, Cooperative, No Acute Distress Cardiovascular: Regular Rate, Normal S1, Normal S2 Lungs: Clear to Auscultation Abdomen: Normal Bowel Sounds, Soft, No Tenderness Extremities: No Edema, Normal Pulses, dressing on both lower extremities. left calcaneus has sutures that are intact with no erythema or discharge Other Physical Findings: Pt's port cath site on under R midclavicle is intact, no discharge, slightly tender to palpation Assessment/Plan Assessment: 61-year-old female with PMH of chronic venous insufficiency and nonhealing ulcers of bilateral lower extremities, PVD, hepatitis C secondary to IV drug abuse, Pulmonary nodule and active smoker, was admitted to general medicine floor for management of cellulitis and osteomyelitis. MRI of foot on 10/22/16 were consistent with heel osteomyelitis - however debridment was postponed as patient received 3 day course of cefazolin. She has right lung mass that she was supposed to follow up but didn't and the mass now has increased from 2.2 to 7cm in size within a year. She underwent CT guided biopsy for assesment of her mass. The procedure was complicated by hemothorax, therefore pt was transferred to ICU for closer monitoring. Later after the patient stablized, she was transferred back to the general medical floor. Currently she is being managed in the general medical floor for the following issues: 1. 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 With consent of patient, her family was notified of the cancer diagnosis. Daughter is point of contact. Family meeting was held with Dr. Mendoza and daughter is on board with patient's consent for treatment. Final biopsy from [facility] showed SCC. * MRI of brain 10/29/16 shows metastasis with vasogenic edema. * Pending PET scan, probably will be done as an out patient as this is done only on Tuesdays here * Being followed by Dr. Pooja Luis: patient is receiving whole brain radiation therapy. Pt received 5th course of radiation this AM. * Spoke to Dr. Luis's nurse (radiation oncologist) today and was told that Dr. Luis would like to taper PO decadron 4mg slowly: - 4 mg TID for 5 days - 4 mg BID for 5 days - 4 mg daily for 5 days - 4 mg every other day for 5 days. * Pt's glucose is being monitored and is on SQ insulin. * Followed by Dr. Dick Neely: pt will be receiving chemotherapy (carboplatin with etoposide every 3 weeks) requiring port placement. Follow up with Dr. Neely as outpatient within 1 week of discharge. Updated daughter this afternoon at approximately 4:30 and informed her patient requires follow up with Dr. Neely within one week of discharge. Daughter states she will make the appointment. * Pt's port was placed yesterday and appears to be healing well. * CT abd/pelvis w/contrast ordered requested by Dr. Neely: showing no evidence of metastatic disease in abdomen/pelvis. * Avoid oversedation * We'll consider neurosurgical input if she has focal symptoms. No focal neurological symptoms at this time * Respiratory - oxygen requirement currently at 3L NC satting in the mid 90s (no oxygen at home). Respiratory therapy onboard and has been giving Neb treatments and reassessing oxygen requirements. * pt has been afebrile, with stable vitals. Will be discharged to short term rehab facility 2. Osteomyelitis of left heel MRI done on 10/22/16 showed osteomyelitis of left heel. Intially patient received a 3 day course of antibiotics. * Culture showing GPC (coag negative staph) likely a contamination. Remain off abx * Dr. Myrick' PA removed the sutures today 3. Chronic nonhealing ulcers Patient has chronic nonhealing ulcers, secondary to peripheral vascular disease and chronic venous stasis. Wound care with daily dressing. 4. Chronic fungal nail infection Not pursuing any manager terminal antifungal treatment currently. 5. Right knee swelling/pain: Osteoarthritis Patient has long-standing history of right knee osteoarthritis but her swelling and pain has worsened in the last month. X-ray of her right knee showed effusion on the suprapatellar space which was drained and sent for studies by Orthopedic surgeon Dr Mason. Negative for septic arthritis. Osteoarthritis with effusion is the most likely diagnosis. * Ibuprofen 400mg Q6PRN for pain * Followed up as an outpatient. 6. Hemothorax s/p CT guided biopsy -Resolved * Thoracic surgery consulted - recommended coiling of brachial artery in the setting of decompensation/becoming unstable. Patient will be discharged to [facility] tomorrow, most likely after radiation Diet: Regular diet DVT prophylaxis: pt refusing ALPs, pt started on heparin SQ q8h (cleared with radiation oncology) GI prophylaxis: Omeprazole Code status: Full code Problem List: 1. Brain metastases 2. Lung cancer 3. Chronic venous stasis dermatitis of both lower extremities Pain Ratin Pain Location: left leg pain Pain Goal: Pain 7 or less Pain Plan: vicodin and methadone Tomorrow's Labs & Rationales: none ZI LEONE MD 11/07/16 1208: Attending MD Review Statement Attending Statement Attending MD Statement: examined this patient, discuss w/resident/PA/FRONT END JAVA DEVELOPER, agreed w/resident/PA/FRONT END JAVA DEVELOPER, reviewed EMR data (avail), discussed with nursing, discussed with case mgmt, reviewed images, amended to note Attending Assessment/Plan: Patient seen and examined, she denies any complaints. She just sent for radiation treatment this morning. She is half a dental irradiation and at this point. She does see the Port-A-Cath 2 days ago. Currently she is awaiting to be discharged to rehabilitation. She does have a bed available at [facility]. Her daughter needs upon insecure bed. Patient will be discharged on her home medications as well as current any evidence of regimen. Patient will follow-up with primary care doctor, oncology, pulmonology and radiation oncology as an outpatient. Off note H&H is slightly high today likely secondary to hemoconcentration. PO intake is adequate. We will encourage further improvement in by mouth intake.
[2016-11-07 08:24] LABS: ABSOLUTE BASOPHIL COUNT 0 /CUMM (0.0-0.2); ABSOLUTE EOSINOPHIL COUNT 0 /CUMM (0.0-0.7); ABSOLUTE LYMPH COUNT 0.8 /CUMM (1.2-3.4); ABSOLUTE MONOCYTE COUNT 0.4 /CUMM (0.10-0.60); BASOPHIL % 0 % (0.0-2.0); EOSINOPHIL % 0 % (0-5); GRANULOCYTE % 86.6 % (42.2-75.2); HEMATOCRIT 51.4 % (37-47); MEAN CORPUSCULAR HGB 24.8 PG (27.0-31.0); MEAN CORPUSCULAR HGB CONC 31.5 G/DL (33.0-37.0); MEAN CORPUSCULAR VOLUME 78.7 FL (81.0-99.0); MEAN PLATELET VOLUME 8.8 FL (7.4-10.4); PLATELET COUNT 258 /CUMM (130-400); RBC DISTRIBUTION WIDTH 17.7 % (11.5-14.5); RED BLOOD CELL CT 6.53 /CUMM (4.20-5.40); WHITE BLOOD CELL COUNT 9.2 /CUMM (4.8-10.8)
[2016-11-07 13:55] VITALS: BP 120/60
[2016-11-07 14:11] VITALS: BP 120/60
[2016-11-12] MEDS ORDERED: DEXAMETHASONE4 M1 PO (10:15)
[2016-11-12] MEDS ORDERED: NOVOLOG100 UNIT/2 SC (10:25)
== END 2016-11-07 16:51 | DRG 503 ==
LOC: ERH 19:25 → 2NA 23:12 → ERHI 23:12 → 2NB 23:12 → ENRESERV 23:53 → 2NB 10-20 01:22 → CRI 10-24 12:49 → 2NA 10-26 17:28 → ENTRNSPT 10-28 15:49 → CMPTRNSPT 10-28 16:10 → 2NA 11-05 11:49 → ENPENDDIS 11-07 11:32 → 2NA 11-07 16:51
PROVIDERS: Internal Medicine; Pediatrics; Student in an Organized Health Care Education/Training Program; ADMIT Student in an Organized Health Care Education/Training Program
PROC: 0B9D3ZX Drainage of Right Middle Lung Lobe, Percutaneous Approach, Diagnostic (ICD-10-PCS; principal; 2016-10-24)
PROC: 0B9 Respiratory System, Drainage (ICD-10-PCS; 2016-10-24)
PROC: 0QBM0ZZ Excision of Left Tarsal, Open Approach (ICD-10-PCS; 2016-10-28)
PROC: 0JH63XZ Insertion of Tunneled Vascular Access Device into Chest Subcutaneous Tissue and Fascia, Percutaneous Approach (ICD-10-PCS; 2016-11-05)
PROC: 05HM33Z Insertion of Infusion Device into Right Internal Jugular Vein, Percutaneous Approach (ICD-10-PCS; 2016-11-05)
PROC: B513ZZA Fluoroscopy of Right Jugular Veins, Guidance (ICD-10-PCS; 2016-11-05)
DX: M86.8X7 Other osteomyelitis, ankle and foot (principal); S27.1XXA Traumatic hemothorax, initial encounter; G93.6 Cerebral edema; C79.31 Secondary malignant neoplasm of brain; C34.90 Malignant neoplasm of unspecified part of unspecified bronchus or lung; F11.20 Opioid dependence, uncomplicated; L03.115 Cellulitis of right lower limb; J44.9 Chronic obstructive pulmonary disease, unspecified; B35.1 Tinea unguium; L97.511 Non-pressure chronic ulcer of other part of right foot limited to breakdown of skin; I10 Essential (primary) hypertension; F17.210 Nicotine dependence, cigarettes, uncomplicated; I73.9 Peripheral vascular disease, unspecified; L97.521 Non-pressure chronic ulcer of other part of left foot limited to breakdown of skin; Z91.14 Patient's other noncompliance with medication regimen; Y83.9 Surgical procedure, unspecified as the cause of abnormal reaction of the patient, or of later complication, without mention of misadventure at the time of the procedure; R59.9 Enlarged lymph nodes, unspecified; B19.20 Unspecified viral hepatitis C without hepatic coma; R09.02 Hypoxemia; Z96.641 Presence of right artificial hip joint; Z90.49 Acquired absence of other specified parts of digestive tract; I83.018 Varicose veins of right lower extremity with ulcer other part of lower leg; I83.028 Varicose veins of left lower extremity with ulcer other part of lower leg
CPT/HCPCS: 04007; 2NASP; 2NBSP; 70552; 75657; 87070; 87075; 87184; CCU; ERO; 36415; 70553; 73562-RT; 73650-LT; 74177; 77001; 77012; 77290-TC; 77307-TC; 77334-TC; 77336; 77412-TC; 77417-TC; 81001; 82436; 87040; 87071; 87147; 88305; 89060; 93005; 93010; 93970; 96374; 97110-GO; 97116-GO; 97161-GP; 97530-GO; A9579; C1769; C1788; J0690; J0696; J1100; J1170; J1642; J1644; J1815; J1885; J2001; J2270; J3101; J7042

== ENCOUNTER 2017-08-22 22:49 | Inpatient (IN) | payer OTHER, MEDICARE ==
[~2017-08-22] VITALS: Ht 157.5 cm; Wt 58.1 kg
[~2017-08-22 22:49] MED LIST changes: +AMLODIPINE BESY10 M1 PO; +BISACODYL10 M1 RC; +CARDIZEM60 M1 PO; +COMPAZINE10 M1 PO; +DEMECLOCYCLINE300 MG PO; +DEXAMETHASONE4 M1 PO; +DIFLUCAN100 M1 PO; +DILTIAZEM HCL90 MG PO; +EUCERIN CREME454 GM TOP; +FLEET ENEMA133 ML RC; +FUROSEMIDE20 M1 PO; +HYDROCODON-ACE1 EAC2 PO; +LIDO PO; +LIDOCAINE HCL V15 ML PO; +LISINOPRIL40 M1 PO; +LOMOTIL 2.5-0.1 EACH PO; +LOPERAMIDE2 M2 PO; +LYRICA100 M1 PO; +LYRICA75 M1 PO; +MAGIC MOUTH WASH PO; +MAGNESIUM400 M1 PO; +METHADONE HCL10 M1 PO; +METHADONE10 MG/5 M2 PO; +MILK OF MA400 MG/52 PO; +NOVOLIN R100 UNIT/2 SC; +NOVOLOG100 UNIT/2 SC; +NYST PO; +PAIN & FEVER325 M1 PO; +PERCOCET 5-3251 EACH PO; +POTASSIUM CHLO10 ME4 PO; +POTASSIUM CHLO10 ME5 PO; +PRADAXA150 M1 PO; +REMERON15 M2 PO; +SODIUM CHLORIDE1 G2 PO; +ZOFRAN ODT8 M1 PO; +[UNRECOGNIZED DRUG - OTHER] PO; +[UNRECOGNIZED DRUG - OTHER] PO
--- NOTE | 2017-08-22 23:57 | ED AMS/SEIZURE/WEAK/DIZZY ---
History of Present Illness General Chief Complaint: Altered Mental Status Stated Complaint: AMS Source: patient, family, old records Exam Limitations: clinical condition Vital Signs & Intake/Output Vital Signs & Intake/Output Vital Signs Date Time Temp Pulse Resp B/P B/P Pulse O2 O2 Flow FiO2 Mean Ox Delivery Rate 08/23 0202 96.2 126 30 70/30 08/23 0043 126 68/30 08/23 0010 96.2 134 14 66/38 08/22 2308 96.7 132 14 62/32 ED Intake and Output 08/23 0000 08/22 1200 Intake Total 1000 Output Total Balance 1000 Intake, IV 1000 Patient 120 lb Weight Allergies Coded Allergies: NO KNOWN ALLERGIES (UNKNOWN 11/13/16) Reconcile Medications Acetaminophen (Pain & Fever) 325 MG TABLET 2 TAB PO Q4H PRN MILD PAIN/TEMP>100 (Reported) Bisacodyl 10 MG SUPP.RECT 1 SUP RC Q48H PRN CONSTIPATION (Reported) Dabigatran Etexilate Mesylate (Pradaxa 150 MG) 150 MG CAPSULE 150 MG PO BID STROKE PPX Demeclocycline HCl 300 MG TABLET 1 TAB PO BID LOW SODIUM Diltiazem HCl (Cardizem) 60 MG TABLET 60 MG PO Q6 Heart/BP Diphenoxylate HCl/Atropine (Lomotil 2.5-0.025 MG Tablet) 2.5 MG-0.025 MG TABLET 1 TAB PO 4 TIMES/DAY PRN DIARRHEA (Reported) Lanolin Alcohol/Mo/W.pet/Lockhart (Eucerin Creme) 454 GM CREAM..G. 1 JULIA TOP TID PRN SKIN (Reported) [LIDO/DPH/NYST] 8 ML PO Q3H PRN SWISH AND SWALLOW (Reported) Lidocaine HCl (Lidocaine HCl Viscous) 2 % SOLUTION 15 ML PO Q6-PRN PRN MOUTH PAIN Loperamide HCl (Loperamide) 2 MG CAPSULE 2 MG PO Q6P DIARRHEA Magnesium Hydroxide (Milk Of Magnesia) 400 MG/5 ML ORAL.SUSP 30 ML PO Q24H PRN CONSTIPATION - GIVE AT BEDTIME (Reported) Magnesium Oxide (Magnesium) 400 MG CAPSULE 1 CAP PO DAILY SUPPLEMENT ( Reported) Methadone HCl 10 MG/5 ML SOLUTION 55 ML PO DAILY ANALGESICS (Reported) Na Phos,M-B/Na Phos,Di-Ba (Fleet Enema) 19 GRAM-7 GRAM/118 ML ENEMA 1 E RC Q48H PRN CONSTIPATION (Reported) Ondansetron (Zofran Odt) 8 MG TAB.RAPDIS 1 TAB PO Q8H PRN NAUSEA (Reported) place on top of the tongue where it will dissolve, then swallow Oxycodone HCl/Acetaminophen (Percocet 5-325 MG Tablet) 5 MG-325 MG TABLET 1 TAB PO Q6H PRN PAIN (Reported) Potassium Chloride 10 MEQ TABLET.ER 1 TAB PO DAILY SUPPLEMENT (Reported) Pregabalin (Lyrica) 75 MG CAPSULE 1 CAP PO BID PAIN (Reported) Core Measure Meds Pre-Hospital pradaxa Triage Note: PER ECF/EMS UNRESPONSIVE AT FACILITY, USUALLY MORE ALERT, LOW O2 SATS AND LOW BP. UPON ED ARRIVAL PT MINIMALLY RESPONSIVE, INCOTINENT OF LARGE AMT LIQUID STOOL, BP 60'S MANUAL Triage Nurses Notes Reviewed? yes Unable To Obtain Hx Due To: patient confusion Onset: Just prior to arrival Duration: minute(s):, constant, continues in ED Timing: recent history Severity: severe No Modifying Factors: none LMP (ages 10-50): post menopausal : No Patient currently breastfeeds: No HPI: 2 days prior to admission patient was evaluated by oncology with laboratory examination laboratory examinations at baseline. Prior to admission patient was noted to have decreased level of consciousness and low blood pressure with increased work of breathing. Family reported earlier in the day she had no complaints other than fatigue that has been ongoing. There's been no fever chills nausea vomiting diarrhea abdominal pain chest pain headache dysuria rash bleeding. Past History Travel History Traveled to [place] past 21 day No Medical History Any Pertinent Medical History? 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 . MOTHER (MA, TIA). . Relation not specified for: FH: hypertension Heart attack Hx Contributory? No Review of Systems Review of Systems Constitutional: Reports: see HPI, weakness. EENTM: Reports: no symptoms. Respiratory: Reports: see HPI, short of breath. Cardiovascular: Reports: no symptoms. GI: Reports: no symptoms. Genitourinary: Reports: no symptoms. Musculoskeletal: Reports: no symptoms. Skin: Reports: no symptoms. Neurological/Psychological: Reports: no symptoms. Hematologic/Endocrine: Reports: no symptoms. Immunologic/Allergic: Reports: no symptoms. All Other Systems: Reviewed and Negative Physical Exam Physical Exam General Appearance: awake, cachetic, severe distress Head: atraumatic Eyes: Bilateral: normal appearance, PERRL. Ears, Nose, Throat: normal pharynx Neck: normal inspection, supple, full range of motion Respiratory: chest non-tender, decreased breath sounds, accessory muscle use, respiratory distress Cardiovascular: regular rate/rhythm, normal peripheral pulses, tachycardia, norml femoral pulses equa Peripheral Pulses: 4+ carotid (R), 4+ carotid (L) Gastrointestinal: normal bowel sounds, soft, non-tender, no organomegaly Back: normal inspection, normal range of motion Extremities: normal range of motion Neurologic/Psych: awake, program arranger II-XII nml as tested, disoriented x 3 Reflexes: 2+: bicep (R), bicep (L). Skin: rash (bipedal stasis) Lymphatic: no anterior cervical jana Core Measures ACS in differential dx? Yes No ASA d/t Pharmacological CI CVA/TIA Diagnosis No Sepsis Present: Yes Sepsis Focused Exam Completed? Yes Progress Differential Diagnosis: CVA/stroke, dehydration, drug intoxication, electrolyte imbalance, hypoglycemia, hypoxia, intracranial mass/tumor, pneumonia Plan of Care: Orders Procedure Date/time Status Add-on Test (ER Only) 08/23 242 Active MIXED VENOUS BLOOD GAS (GEN) 08/24 239 Active Patient Data 08/23 216 Active Admit to inpatient 08/23 213 Active LACTIC ACID 08/23 212 Complete URINE DRUGS OF ABUSE 08/23 134 Complete PROTHROMBIN TIME 08/23 2315 Complete Fuentes, Insertion/Removal/Asses 08/22 2313 Active CULTURE,URINE 08/22 2313 Active URINALYSIS 08/22 2313 Complete BLOOD CULTURE 08/22 2312 Active TROPONIN LEVEL 08/22 2312 Complete LACTIC ACID 08/22 2312 Complete COMPREHENSIVE METABOLIC PANEL 08/22 2312 Complete CBC WITHOUT DIFFERENTIAL 08/22 2312 Complete EKG 08/22 2312 Active Intake & Output 08/22 2310 Active Current Medications Sig/Ora Start time Last Medication Dose Stop Time Status Admin Norepinephrine 4 MG ONCE ONE 08/23 214 UNir (Levophed Drip) 08/24 215 Sodium Chloride 250 ML (Normal Saline 0.9%) Laboratory Tests 08/23/17 0245: Lactic Acid 8.0 H 08/23/17 0135: Urine Opiates Screen 271, Methadone Screen > 735 H, Barbiturate Screen < 60, Ur Phencyclidine Scrn 16.20, Amphetamines Screen < 100, U Benzodiazepines Scrn < 85 , Urine Cocaine Screen < 50, Urine Cannabis Screen < 5.00, Urinalysis LIGHT H, Urine Color YEL, Urine Clarity CLEAR, Urine pH 6.0, Ur Specific [place] 1.020, Urine Protein 30 H, Urine Ketones NEG, Urine Nitrite NEG, Urine Bilirubin NEG, Urine Urobilinogen 1.0, Ur Leukocyte Esterase TRACE H, Ur Microscopic SEDIMENT EXAMINED, Urine RBC 1-3, Urine WBC 1-3 H, Ur Epithelial Cells MOD H, Urine Bacteria FEW H, Urine Mucus MOD H, Urine Hemoglobin MOD H, Urine Glucose NEG 08/22/17 2330: Anion Gap 11, Estimated GFR > 60, BUN/Creatinine Ratio 45.6 H, Glucose 195 H, Lactic Acid 7.0 H, Calcium 7.9 L, Total Bilirubin 0.6, AST 79 H, ALT 101 H, Alkaline Phosphatase 56, Troponin I 0.05, Total Protein 3.8 L, Albumin 1.7 L, Globulin 2.1, Albumin/Globulin Ratio 0.8 L, PT 36.0 H, INR 3.26 H, CBC w Diff MAN DIFF ORDERED, RBC 3.27 L, MCV 91.3, MCH 30.3, MCHC 33.2, RDW 19.9 H, MPV 8.5, Gran % 90.9 H, Lymphocytes % 8.9 L, Monocytes % 0.2 L, Eosinophils % 0, Basophils % 0, Absolute Granulocytes 3.5, Segmented Neutrophils 79 H, Band Neutrophils 10 H, Absolute Lymphocytes 0.3 L, Lymphocytes 9 L, Monocytes 2, Absolute Monocytes 0 L, Absolute Eosinophils 0, Absolute Basophils 0, Nucleated RBCs 2 H, Platelet Estimate DECREASED, Hypochromic-Microcytic 1+, Poikilocytosis 1+, Microcytic Cells 1+, Stomatocytes RARE, Schistocytes RARE, Fld Total RBCs Counted 100 Microbiology 08/23 0135 URINE ROUT: Urine Culture - RECD 08/23 0115 BLOOD: Blood Culture - RECD 08/23 0000 BLOOD: Blood Culture - RECD Diagnostic Imaging: Viewed by Me: Radiology Read, CT Scan. Discussed w/RAD: Radiology Read, CT Scan. Radiology Impression: No acute intracranial findings identified. Previously identified small intracranial mass lesion on prior MRI of 06/22/2017 are not adequately delineated on CT. CXR Impression: No acute findings identified. Redemonstrated right middle lobe mass. Initial ED EKG: normal axis, normal intervals, normal p-waves, normal QRS complex, rhythm (sinus tachycardia), nonspecific ST T wave chg Prior EKG: unchanged Rhythm Strip: sinus tachycardia Comments: Discussed with health care proxy no intubation no CPR. Pressors can be used via port. ED Sepsis Exam Date of Focused Sepsis Exam: 08/23/17 Time of Focused Sepsis Exam: 0236 Sepsis Cardiac Exam: Tachycardia Sepsis Resp Exam: decreased breath sounds Sepsis Cap Refill Exam: >2 sec Sepsis Peripheral Pulse Exam: Weak Sepsis Peripheral Pulse Location: Radial Sepsis Skin Color Exam: Pale Skin Temp/Moisture Exam: Warm/Dry Departure Departure Disposition: STILL A PATIENT Condition: Stable Clinical Impression Primary Impression: Sepsis associated hypotension Secondary Impressions: Lactic acidosis Referrals: Trevin Kruger MD (PCP/Family) Departure Forms: Customer Survey General Discharge Information Admission Note Spoke With: Malvin Ruelas MD Documentation of Exam: Documentation of any treatments & extenuating circumstances including Concerns Regarding Discharge (functional status, medication knowledge or non-compliance, living conditions, etc.) that warrant an admission rather than observation: ICU monitoring serial lab exam IV pressors follow cultures IV antibiotics medication adjustment oncology evaluation continuing care discharge planning.
[2017-08-23 00:22] LABS: ABSOLUTE BASOPHIL COUNT 0 /CUMM (0.0-0.2); ABSOLUTE EOSINOPHIL COUNT 0 /CUMM (0.0-0.7); ABSOLUTE GRANULOCYTE CT 3.5 /CUMM (1.4-6.5); ABSOLUTE LYMPH COUNT 0.3 /CUMM (1.2-3.4); ABSOLUTE MONOCYTE COUNT 0 /CUMM (0.10-0.60); BASOPHIL % 0 % (0.0-2.0); EOSINOPHIL % 0 % (0-5); HEMATOCRIT 29.8 % (37-47); MEAN CORPUSCULAR HGB 30.3 PG (27.0-31.0); MEAN CORPUSCULAR HGB CONC 33.2 G/DL (33.0-37.0); MEAN CORPUSCULAR VOLUME 91.3 FL (81.0-99.0); MEAN PLATELET VOLUME 8.5 FL (7.4-10.4); RBC DISTRIBUTION WIDTH 19.9 % (11.5-14.5); RED BLOOD CELL CT 3.27 /CUMM (4.20-5.40); WHITE BLOOD CELL COUNT 3.8 /CUMM (4.8-10.8)
--- NOTE | 2017-08-23 00:24 | RADIOLOGY REPORT ---
EXAMINATION: XR PORTABLE CHEST CLINICAL INFORMATION: Weakness, history of metastatic lung cancer COMPARISON: CT 06/22/2017 TECHNIQUE: Portable frontal view of the chest was obtained. FINDINGS: Right IJ port catheter tip lies in the region of the cavoatrial junction. Lung volumes are symmetric. There is a redemonstrated right middle lobe mass. The remainder of the lungs appear clear. No appreciable pneumothorax, though assessment at the lung apices is limited due to patient positioning with overlying chin shadow. No significant pleural effusion or pulmonary edema. Cardiac size is within normal limits. Calcification is present at the aortic arch. No acute osseous findings are seen. IMPRESSION: No acute findings identified. Redemonstrated right middle lobe mass.
[2017-08-23 00:26] LABS: GRANULOCYTE % 90.9 % (42.2-75.2)
--- NOTE | 2017-08-23 00:28 | CT SCAN REPORT ---
EXAMINATION: CT HEAD WITHOUT CONTRAST CLINICAL INFORMATION: Altered mental status with history of metastatic lung cancer COMPARISON: MRI 06/22/2017 TECHNIQUE: Noncontrast CT of the head was performed. DLP: 640.22 mGy-cm FINDINGS: Assessment for intracranial mass lesions is limited in the absence of intravenous contrast. Assessment is also partially limited due to patient positioning. There is no evidence of acute intracranial hemorrhage or territorial infarction. No abnormal mass-effect or midline shift is seen. Ramires to white matter differentiation is well preserved. No extra-axial fluid collections are identified. The ventricles are normal in size. Previously seen small intracranial mass lesions on MRI of 06/22/2017 are not adequately delineated on this noncontrast head CT. There is moderate periventricular white matter hypoattenuation consistent with chronic small vessel ischemic disease. Mild volume loss is noted. The osseous structures and soft tissues are normal. The mastoid air cells and visualized portions of the paranasal sinuses are well-aerated. IMPRESSION: No acute intracranial findings identified. Previously identified small intracranial mass lesion on prior MRI of 06/22/2017 are not adequately delineated on CT.
[2017-08-23 00:36] LABS: PLATELET COUNT 91 /CUMM (130-400)
--- NOTE | 2017-08-23 02:28 | History & Physical ---
[facility] [place] [facility]17 0228: General Information and HPI MD Statement: I have seen and personally examined CHUNG KRISHNA and documented this H&P. The patient is a 62 year old F who presented with a patient stated chief complaint of [weakness]. 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 fib on dabigatran, who is BIBA from [facility] with c/o weakness and lethargy for past 2 weeks. Pt is minimally responsive and all the hsitory obtained from the daughter Lynda by the bedside. Apparently pt was in her usual state of her health until 3 weeks ago, started feeling week, lethargic, increased sleep. At around 9 pm last night pt was found to be less responsive and had low blood pressure( reading unknown) and was brought to for the same. Pt recieved one bolus of normal saline in the ambulance. Pt family denies fever, nausea, vomitting, chest pain, dysuria, diarrhea, fall ,loss of conscious,facial droop, abd pain. no recent travel, change in her meds or antibiotic use. Pt daughter though mentioned, that pt had episodes of confusion and mood swings when she had steroids few weeks ago. Pt was oriented x 3 until last night. Pt was found to be anemic by her hemetologist and was given 2 units of blood transfusion for the same last week. Her last chemo was last . Pt is mostly wheel chair bound.Pt has been drinking and eating ok. Allergies/Medications Allergies: Coded Allergies: NO KNOWN ALLERGIES (UNKNOWN 11/13/16) Compliance With Home Meds: GOOD Past History Travel History Traveled to [place] past 21 day No Medical History Neurological: BRAIN LESION EENT: NONE Cardiovascular: chronic venous insuff, hypertension, PVD Respiratory: COPD, LUNG CANCER Gastrointestinal: NONE Hepatic: hepatitis C Renal: NONE Musculoskeletal: NONE Psychiatric: anxiety, depression, opioid dependence (maintained on methadone) Endocrine: SIADH Blood Disorders: thrombocytopenia Cancer(s): lung cancer, METS TO BRAIN ACCOUNT SUPPORT SPECIALIST/Reproductive: NONE Other Medical Hx: non-healing ulcers of bilateral lower extremities History of MRSA: No History of VRE: No History of CDIFF: No Surgical History Surgical History: appendectomy, cholecystectomy, hip replacement (left), left lower extremity skin graft placement status post multiple surgeries on both lower extremities ECHO Results (as available) EF% 65 Past Family/Social History Family History Relations & Conditions if any FATHER (Diabetes, TIA). . MOTHER ([place], TIA). . Relation not specified for: FH: hypertension Heart attack Psychosocial History Who Do You Live With? child Services at Home: Home Health Aide, Nursing Primary Language: Danish Smoking Status: Former Smoker ETOH Use: occasional use Functional Ability ADLs Independent: dressing, eating, toileting, bathing. Ambulation: walker IADLs Independent: shopping, housework, finances, food prep, telephone, transportation , medication admin. Review of Systems Review of Systems Constitutional: Reports: weakness. Cardiovascular: Reports: no symptoms. Respiratory: Reports: cough. GI: Reports: diarrhea. Genitourinary: Reports: no symptoms. Musculoskeletal: Reports: no symptoms. Exam & Diagnostic Data Last 24 Hrs of Vital Signs/I&O Vital Signs Date Time Temp Pulse Resp B/P B/P Pulse O2 O2 Flow FiO2 Mean Ox Delivery Rate 08/23 0255 96.3 120 34 72/34 08/23 0202 96.2 126 30 70/30 08/23 0043 126 68/30 08/23 0010 96.2 134 14 66/38 08/22 2308 96.7 132 14 62/32 Intake & Output 08/23 0800 08/23 0000 08/22 1600 Intake Total 2100 1000 Output Total 30 Balance 2069 1000 Intake, IV 2100 1000 Output, Urine 30 Patient 120 lb Weight Physical Exam General Appearance LETHARGIC, NOT ABLE TO ANSWER, FOLLOWS SOME OF THE COMMANDS. Skin No Rashes, STAGE 2 DECUBITUS ULCER IN COCCXY HEENT Atraumatic, PERRLA Neck Supple, No JVD, rt port seen with no evidence of infection Cardiovascular Regular Rate, Normal S1, Normal S2 Lungs Clear to Auscultation Abdomen No Hepatospenomegaly, DIFFUSE TENDERNESS + Neurological Strength at 5/5 X4 Ext, Normal Tone, Sensation Intact Extremities No Edema Last 24 Hrs of Labs/Chad: Laboratory Tests 08/23/17 0330: Bicarbonate Actual 17 L, Mixed VBG pH 7.28 L, Mixed VBG pCO2 37 L, Mixed VBG O2 Saturation 30 L, P-50 (Temp Corrected) N, Carboxyhemoglobin 0.9 L, O2 Concentration % 3L, O2 Delivery Method N/C, Phlebotomy Draw Site VENOUS 08/23/17 0245: Lactic Acid 8.0 H 08/23/17 0135: Urine Opiates Screen 271, Methadone Screen > 735 H, Barbiturate Screen < 60, Ur Phencyclidine Scrn 16.20, Amphetamines Screen < 100, U Benzodiazepines Scrn < 85 , Urine Cocaine Screen < 50, Urine Cannabis Screen < 5.00, Urinalysis LIGHT H, Urine Color YEL, Urine Clarity CLEAR, Urine pH 6.0, Ur Specific Chadron 1.020, Urine Protein 30 H, Urine Ketones NEG, Urine Nitrite NEG, Urine Bilirubin NEG, Urine Urobilinogen 1.0, Ur Leukocyte Esterase TRACE H, Ur Microscopic SEDIMENT EXAMINED, Urine RBC 1-3, Urine WBC 1-3 H, Ur Epithelial Cells MOD H, Urine Bacteria FEW H, Urine Mucus MOD H, Urine Hemoglobin MOD H, Urine Glucose NEG 08/22/17 2330: Anion Gap 11, Estimated GFR > 60, BUN/Creatinine Ratio 45.6 H, Glucose 195 H, Lactic Acid 7.0 H, Calcium 7.9 L, Total Bilirubin 0.6, AST 79 H, ALT 101 H, Alkaline Phosphatase 56, Troponin I 0.05, Total Protein 3.8 L, Albumin 1.7 L, Globulin 2.1, Albumin/Globulin Ratio 0.8 L, PT 36.0 H, INR 3.26 H, CBC w Diff MAN DIFF ORDERED, RBC 3.27 L, MCV 91.3, MCH 30.3, MCHC 33.2, RDW 19.9 H, MPV 8.5, Gran % 90.9 H, Lymphocytes % 8.9 L, Monocytes % 0.2 L, Eosinophils % 0, Basophils % 0, Absolute Granulocytes 3.5, Segmented Neutrophils 79 H, Band Neutrophils 10 H, Absolute Lymphocytes 0.3 L, Lymphocytes 9 L, Monocytes 2, Absolute Monocytes 0 L, Absolute Eosinophils 0, Absolute Basophils 0, Nucleated RBCs 2 H, Platelet Estimate DECREASED, Hypochromic-Microcytic 1+, Poikilocytosis 1+, Microcytic Cells 1+, Stomatocytes RARE, Schistocytes RARE, Fld Total RBCs Counted 100 Microbiology 08/23 0135 URINE ROUT: Urine Culture - RECD 08/23 0115 BLOOD: Blood Culture - RECD 08/23 0000 BLOOD: Blood Culture - RECD Diagnostic Data EKG Results sinus tachycardia CXR Results No acute findings identified. Redemonstrated right middle lobe mass. Other Results head CT No acute intracranial findings identified. Previously identified small intracranial mass lesion on prior MRI of 06/22/2017 are not adequately delineated on CT. 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 fib on dabigatran, who is BIBA from [facility] with c/o weakness and lethargy for past 2 weeks. Pt found to have septic shock and admitted to ICU for the same. vitals: temp -96.7, bp-62/32,hr-120 labs: wbc-3.8 band -10, hb 9.9, na -138, lactic acid 7,utox- methadone. cxy- rt middle lobe mass unchanged head ct - no acute changes assessment and plan: 1. AMS- SEPTIC SHOCK- no clear source of infection 2. acute on chronic hypoxic respitory failure 3. pancytopenia- s/p chemo for stage 4 small cell lung cancer. 4. afib on pradexa 5. diarrhea * Admit in ICU. continue levophed, ivf bolus9 pt has got 4 l sofar). Pt in 4l nasal o2. wewill continue the same. If blood pressure not improved, we will start second pressors if neeeded. Source of her infection unkown at this time. We will send blood and urine cultures, strep legionella, cdfiff. We will do ct abd/pelvis and head with contrast. pt was given vanco and ceftaz in ed we will continue the same and add flagyly to cover for anerobes. * pt's BLOOD CULTURES growing GNR, we will follow up with culture and sensitivity. * we will trend lactic acid, troponins and ekg. check cortisol, tsh ,t4 levels. * pt got iv solumedrol in ED, we will start hydrocortisone 100 mg tid. * stage 2 decubitus ulcer - wound care. no evidence of any infection. * oncology, id and crcu consult in am. * continue pradexa, methadone, demeclocycline, lyrica. code- dnr/dni dvt-alps As Ranked By This Provider Problem List: 1. Opioid dependence 2. Hypertension 3. Lung cancer, primary, with metastasis from lung to other site 4. Acute respiratory failure with hypoxia 5. Sepsis associated hypotension 6. Lactic acidosis Core Measures/Misc (01/18) Acute Coronary Syndrome ACS Diagnosis: No Congestive Heart Failure Congestive Heart Failure Diagnosis No Cerebrovascular Accident CVA/TIA Diagnosis: No VTE (View Protocol) VTE Risk Factors Age>40 No Mechanical VTE Prophylaxis d/t Other No VTE Pharm Prophylaxis d/t Other Sepsis (View protocol) Sepsis Present: No Suraj LARIOS, [facility] 08/23/17 0416: Attending MD Review Statement Attending Statement Attending MD Statement: examined this patient, discuss w/resident/PA/SENIOR RESEARCH ANALYST, agreed w/resident/PA/SENIOR RESEARCH ANALYST, discussed with family, reviewed images, amended to note Attending Assessment/Plan: 62 yo F with h/o HTN, Hep C, IVDU on methadone maintenance, chronic hypoxic respiratory failure, COPD on 3L O2, Afib on pradaxa, small cell lung cancer with brain mets s/p chemo-radiation, 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 History obtained from patient's daughter Lynda. Patient is currently undergoing chemotherapy with Irinotecan every 2 weeks (last chemo session was August 20), along with PRBC transfusions for anemia. Patient follows with Dr. Neely and had a follow up last week wherein routine blood results were at baseline. Patient had MRI brain in jun 2017 which showed recurrence of metastatic brain lesions but they were very minute for radiation therapy. Family notes, that over the past 2 weeks, patient has been increasingly lethargic, weak , tired with poor fluid intake (especially with chronic SIADH). No recent medication change or antibiotic use. At baseline, she is bedbound or wheelchair bound, unable to ambulate. While in the ER, patient was minimally responsive, tachypneic, hypotensive and tachycardic. She had two large loose bowel movements on ER arrival. She received 1 L fluid enroute to the ER. Vitals: Tmax 96.7 --> 96.3, HR 100-120's, BP 62/32 --> 72/34, unable to get sats on the patient. Exam: Elderly female, minimally responsive, moaning, tachypneic, squeezes hands on verbal commands, dry mucosa, skin cold to touch, capillary refill > 2 secs, pulses are very feeble, fingers cyanotic, pallor++, Chest basilar rhonchi+, Port -a-cath+, Heart S1S2 regular, tachycardic, ?systolic murmur. Abdo soft, distended, no guarding or rigidity, sluggish bowel sounds, tender in the left lower quadrant, LE: no edema, contracture+. Back: stage 2 open area noted to coccyx. Labs: WBC 3.8, bands 10, H/H 9.9/29.8, Plt 91, INR 3.26, Na 138, BUN 41, creat 0.9, glucose 195, lactic acid 7.0 --> 8.0, Ca 7.9, AST 79, ALT 101, trop 0.05, albumin 1.7. Corrected calcium is 9.9. UA trace LE, WBC 1-3, bacteria few. Urine tox positive for methadone. VB.28/37/44/17. CXR: right IJ port in place, right middle lobe mass (old), no consolidation or effusion. Head CT: no acute findings, previousely identified small intracranial mass lesion on MRI (Jun 2017) not delineated on CT EKG: Sinus tachycardia, LAD, LVH, nothing acute. Echo (2017): EF 65-70%, left ventricular diastolic dysfunction present. Assessment and plan: 1. Unresponsive, altered mental status 2. Shock Septic shock vs Hypovolemic shock currently on pressors 3. Acute on chronic hypoxemic respiratory failure 4. SIRS (bandemia, tachycardic, hypothermia) with no clear source of infection 5. Lactic acidosis 6. Thrombocytopenia, pancytopenia 2/2 chemotherapy and sepsis 7. Diarrhea of unclear etiology need to rule out Cdiff, colitis. 8. Coagulopathy 9. H/o small cell lung cancer with brain mets currently on chemo 10. History of atrial fibrillation 11. Chronic opiate dependence on methadone - Admit to ICU - Vitals Q1 hour - NPO - Aspiration precautions - Bear-hugger to help with hypothermia - Panculture, urine legionella and strep Ag, flu swab, stool Cdiff, stool culture - Patient received 4 L normal saline (3L in ER, 1L enroute), will give another 2 L bolus - Initiate IV levophed via port to maintain a MAP > 65 mmHg - Add neosynephrine if BP does not improve - Strict I/O's, patient's output has been <100 cc till now - Trend lactic acid - Check uric acid, phosphorus to assess for tumor lysis - IV ceftaz and vanco given in ER, will give a dose of Flagyl to cover for anaerobes - ID consult - Check AM cortisol levels, TSH, free T4 - Stress dose steroids IV hydrocortisone 100 mg TID, patient received solumedrol in ER - Hold dexamethasone when on IV steroids - CT chest, abdomen and pelvis with contrast when able - If unable to get CT, get abdomen Xray to assess for air fluid levels or free air - Serial EKG and troponin - CRCU consult - Oncology consult - Hold cardizem, methadone, lyrica, demeclocycline, percocet, pradaxa. - Wound care to back/ coccyx region - According to daughter, patient is complaining of oral pain ?mucositis, unable to assess this due to patient clinical condition. When able, she may benefit from nystatin swish/swallow. - GI prophylaxis IV pantoprazole DVT ppx Alps (due to thrombocytopenia), DNR/I. Discussed in detail with daughter Lynda (POA) about critical condition. She does not wish for any aggressive measures, she is ok with pressors through port. She would want her to be comfortable in case she deteriorates. Microbiology just informed, first set blood culture (aerobic and anaerobic bottles) growing gram negative rods Gram negative bacteremia possible GI or source. We will continue IV ceftaz and flagyl for now. TTS> 65 mins Jean Jones 08/23/17 0439: General Information and HPI Allergies/Medications Home Med list Acetaminophen (Pain & Fever) 325 MG TABLET 2 TAB PO Q4H PRN MILD PAIN/TEMP>100 (Reported) Bisacodyl 10 MG SUPP.RECT 1 SUP RC Q48H PRN CONSTIPATION (Reported) Dabigatran Etexilate Mesylate (Pradaxa 150 MG) 150 MG CAPSULE 150 MG PO BID STROKE PPX Demeclocycline HCl 300 MG TABLET 1 TAB PO BID LOW SODIUM Dexamethasone 4 MG TABLET 0.5 TAB PO BID BRAIN METASTASIS (Reported) Diltiazem HCl (Cardizem) 60 MG TABLET 60 MG PO Q6 Heart/BP Diphenoxylate HCl/Atropine (Lomotil 2.5-0.025 MG Tablet) 2.5 MG-0.025 MG TABLET 1 TAB PO 4 TIMES/DAY PRN DIARRHEA (Reported) Lanolin Alcohol/Mo/W.pet/Manati (Eucerin Creme) 454 GM CREAM..G. 1 JULIA TOP TID PRN SKIN (Reported) [LIDO/DPH/NYST] 8 ML PO Q3H PRN SWISH AND SWALLOW (Reported) Lidocaine HCl (Lidocaine HCl Viscous) 2 % SOLUTION 15 ML PO Q6-PRN PRN MOUTH PAIN Loperamide HCl (Loperamide) 2 MG CAPSULE 2 MG PO Q6P DIARRHEA Magnesium Hydroxide (Milk Of Magnesia) 400 MG/5 ML ORAL.SUSP 30 ML PO Q24H PRN CONSTIPATION - GIVE AT BEDTIME (Reported) Magnesium Oxide (Magnesium) 400 MG CAPSULE 1 CAP PO DAILY SUPPLEMENT ( Reported) Methadone HCl 10 MG/5 ML SOLUTION 27.5 ML PO DAILY ANALGESICS (Reported) Na Phos,M-B/Na Phos,Di-Ba (Fleet Enema) 19 GRAM-7 GRAM/118 ML ENEMA 1 E RC Q48H PRN CONSTIPATION (Reported) Ondansetron (Zofran Odt) 8 MG TAB.RAPDIS 1 TAB PO Q8H PRN NAUSEA (Reported) place on top of the tongue where it will dissolve, then swallow Oxycodone HCl/Acetaminophen (Percocet 5-325 MG Tablet) 5 MG-325 MG TABLET 1 TAB PO Q6H PRN PAIN (Reported) Potassium Chloride 10 MEQ TABLET.ER 1 TAB PO DAILY SUPPLEMENT (Reported) Pregabalin (Lyrica) 75 MG CAPSULE 1 CAP PO BID PAIN (Reported) Resident Review Statement Resident Statement: examined this patient, discussed with hospital intern, agreed with hospital intern, discussed with family, reviewed EMR data (avail), discussed with nursing , discussed with case mgmt, reviewed images Other Findings: Ms. Krishna is a 61-year-old female past medical history of stage IV small cell lung carcinoma with brain metastasis on Irinotecan, with an MRI recently showed recurrent brain metastasis, paraneoplastic syndrome (SIADH), a hepatitis C virus , Hx. of IV drug use, peripheral vascular disease, for full neuropathy, opiate use now on methadone, hypertension, atrial fibrillation s/p ablation on dabigitran who presents from shelter with a c/o altered mental status and lethargic. Patient is actively following with her heme/Onc () regarding metastatic small cell lung cancer, she was noticed recently to have drop in her H&H, she was also noted to be hypotensive, she received 2 units of blood transfusion about 2 weeks ago, her last chemotherapy was last . Yesterday at 9 PM she became unresponsive, her blood pressure noted to be 99 systolic according to family member, came into the ED for more evaluation. She noted to have large hard bowel movement at home. Detailed history as above At ED: Patient noted to be hypotensive down to 70/30 mmHg, she received a total of 4 IV boluses with no improvement of her blood pressure, patient had chemotherapy port on the right chest, she was started on levophed at ED @7.5 MCG. She was also noted to be tachycardic up to 126, no fever, it was difficult to obtain oxygen saturation through pulse ox, however patient placed on 3 L nasal cannula. On examination: She was lethargic, responds to verbal stimuli briefly by squeezing hand weakly She looks pale, moaning She couldn't respond to our question Heart: Difficult to appreciate radial pulse, however pulse is appreciated at her brachial artery which was regular, S1, S2 Chest: Decreased air entry bilateral Abdomen: Generalized tenderness, positive bowel sounds Lower extremity: No edema, cold to touch, fungal infections of the nail, no open skin barier She had stage II pressure ulcer in between Buttocks. She has traumatic Fuentes insertion with streak of blood around it EKG showed sinus tachycardia Imaging as above Assessment: #Altered mental status/lethargy related to sepsis #Sepsis of unknown etiology in a patient whose immunocompromise and chemotherapy #Hypertension requesting pressors secondary to sepsis #Lactic acidosis #Hypoxic respiratory failure #History of small cell lung cancer with brain metastasis on Irinotecan #Normocytic anemia #History of A. fib on Pradaxa #History of IVDA on methadone #History of hypertension #History of hyponatremia/hypomagnesemia Plan: * Will admit the patient to critical care unit * She was started on Levophed at ED, will order IV boluses as needed, if her blood pressure remains low we will start Zaki-Synephrine after Levophed maximized * She was received broad-spectrum antibiotic coverage at ED with vancomycin and ceftazidime, we will add Flagyl to cover anaerobes * Will start maintenance IV fluids, normal saline at 75 per hour * Blood cultures sent by ED, we'll send urine culture * Culture and troponin and EKG given hypotension and tachycardia * She needs abdominal CT given that she has abdominal tenderness and sepsis to rule out any intra-abdominal pathology * Patient has a higher risk of PE given active metastatic cancer however she is on Pradaxa but there is opportunity that she could feel this medication, we were planning to do CTA but however the patient is an stable and that was discussed with attending and nurse at CT department, the plan is to stabilize patient first and obtain imaging when she is medically stable * For now we will order sheet portable abdominal x-ray to rule out any perforation/obstruction.. Etc. * Hemoccult consult at a.m. * ID consult * She is on Decadron 2 mg twice a day at home, given that she is at ICU and hypotensive we will start her on dexamethasone 100 mg 3 times a day (that was discussed with attending and pharmacist) * Will hold Cardizem * Continue her other home medication whenever she is able to tolerate by mouth * Swallow evaluation at a.m. * Wound care for decubitus ulcer * We'll repeat labs at a.m. * We'll trend lactic acid * TRC/ nebs * Will send stool culture and C. difficile given that she has loose stool at emergency department DVT prophylaxis Pradaxa, please discuss with attending at a.m. if we should start heparin GTT given patient is lethargic and not able to take by mouth medication, she is a high risk of clots Situation discussed with the family by our attending Malvin Ruelas MD in details, at this point patient is DNR/DNI, if any deterioration call her daughter Lynda. Update : Labs cold for 2 sets of Blood Cx. positive for Gram negative david Also at 7:30 am, Troponin came back positive 0.47, shooter's helper oncall notified, will continue to hold pradaxa given low H&H and recent blood transfusion, she also has PT: 55 and INR:4.96
--- NOTE | 2017-08-23 03:54 | Admission Certification ---
Admission Certification Certification Statement - As attending physician, I certify that at the time of - admission, based on clinical presentation, severity of - symptoms, need for further diagnostic testing and - therapeutic interventions, and risk of adverse outcomes - without in-hospital treatment, in my clinical assessment, - this patient requires an acute hospital stay for a minimum - of two nights or longer. I have also considered psychsocial - factors such as support system, advanced age, financial - issues, cognitive issues, and failed out-patient treatments, - past re-admission history, safety of patient, and lack of - compliance as applicable. Specific rationale supporting this admission is: Shock likely septic vs hypovolemic, with lactic acidosis requiring pressors and ICU level of care.
--- NOTE | 2017-08-23 03:55 | Event Note ---
Event Note Event Note: Spoke with Danielle lozano RN from CT department about the need for CT-abdomen/ pelvis with IV contrast, and CT-chest, the patient currently is unstable, will consider obtaining imaging when the patient becomes hemodynamically stable. For now portable abdominal x-ray is ordered to rule out intra-abdominal pathology
[2017-08-23] MEDS ORDERED: DEXAMETHASONE4 M1 PO (04:44)
[2017-08-23 06:39] LABS: ABSOLUTE BASOPHIL COUNT 0 /CUMM (0.0-0.2); ABSOLUTE EOSINOPHIL COUNT 0 /CUMM (0.0-0.7); ABSOLUTE GRANULOCYTE CT 3.9 /CUMM (1.4-6.5); ABSOLUTE LYMPH COUNT 0.3 /CUMM (1.2-3.4); ABSOLUTE MONOCYTE COUNT 0 /CUMM (0.10-0.60); BASOPHIL % 0 % (0.0-2.0); EOSINOPHIL % 0.1 % (0-5); HEMATOCRIT 25.3 % (37-47); MEAN CORPUSCULAR HGB 30.7 PG (27.0-31.0); MEAN CORPUSCULAR HGB CONC 33.5 G/DL (33.0-37.0); MEAN CORPUSCULAR VOLUME 91.7 FL (81.0-99.0); MEAN PLATELET VOLUME 10.2 FL (7.4-10.4); PLATELET COUNT 58 /CUMM (130-400); RBC DISTRIBUTION WIDTH 20.6 % (11.5-14.5); RED BLOOD CELL CT 2.76 /CUMM (4.20-5.40); WHITE BLOOD CELL COUNT 4.2 /CUMM (4.8-10.8)
[2017-08-23 07:04] LABS: PTT 105 SEC (25-37)
[2017-08-23 08:00] VITALS: BP 80/00
--- NOTE | 2017-08-23 08:53 | Cons- Infect Disease ---
General Information and HPI Consulting Request Date of Consult: 08/23/17 Requested By: Suraj LARIOS,Malvin Reason for Consult: Positive blood cultures for gram-negative david Source of Information: family, old records Exam Limitations: not alert/orientated, clinical condition History of Present Illness: This is a 62-year-old woman, intermediate resident, with a remote history of IV drug abuse, opioid dependence, maintained on methadone, Hepatitis C, chronic venous insufficiency, with a history of osteomyelitis of the left heel, hypertension, atrial fibrillation, maintained on Pradaxa, COPD, maintained on 3 L of oxygen, small cell lung cancer, metastatic to the brain, status post radiation and maintained on Irinotectan every 2 week via a Port-A-Cath, inserted 9 months prior to admission, with her last treatment 3 days prior to admission, and anemia, requiring periodic blood transfusions, last hospitalized 4 months prior to admission with recurrent SIADH, apparently treated with steroids recently, bed/wheelchair bound for several months and with increasing lethargy, weakness and poor p.o. intake over the past several weeks admitted early this morning after she was found to be unresponsive with a low blood pressure. On admission she was afebrile with a blood pressure in the 60s, nonverbal and minimally responsive. She was incontinent of a large amount of liquid stool. Laboratory data revealed a white blood cell count of 3.8, with 79 segs and 10 bands, H&H 10 and 30, platelets 91,000, BUN/creatinine 41 and 0.9, lactic acid 7.0, AST/ALT 79 and 101, INR 3.26. Urinalysis 1-3 RBC/1-3 WBCs.. Chest x-ray revealed a right middle lobe mass with no acute process. CT of the head was negative for any acute process. She was given 5 L of fluid in the emergency room, but she remained hypotensive and was begun on Levophed. She was given 1 dose of Solumedrol and begun on Vancomycin, Flagyl and Ceftazidime. Earlier this morning blood cultures 2 were reported positive for gram-negative rods and her troponin has increased. At present she is nonverbal and unable to provide any history but she is responsive and nods/shakes her head. Allergies/Medications Allergies: Coded Allergies: NO KNOWN ALLERGIES (UNKNOWN 11/13/16) Home Med List: Acetaminophen (Pain & Fever) 325 MG TABLET 2 TAB PO Q4H PRN MILD PAIN/TEMP>100 (Reported) Bisacodyl 10 MG SUPP.RECT 1 SUP RC Q48H PRN CONSTIPATION (Reported) Dabigatran Etexilate Mesylate (Pradaxa 150 MG) 150 MG CAPSULE 150 MG PO BID STROKE PPX Demeclocycline HCl 300 MG TABLET 1 TAB PO BID LOW SODIUM Dexamethasone 4 MG TABLET 0.5 TAB PO BID BRAIN METASTASIS (Reported) Diltiazem HCl (Cardizem) 60 MG TABLET 60 MG PO Q6 Heart/BP Diphenoxylate HCl/Atropine (Lomotil 2.5-0.025 MG Tablet) 2.5 MG-0.025 MG TABLET 1 TAB PO 4 TIMES/DAY PRN DIARRHEA (Reported) Lanolin Alcohol/Mo/W.pet/[place] (Eucerin Creme) 454 GM CREAM..G. 1 JULIA TOP TID PRN SKIN (Reported) [LIDO/DPH/NYST] 8 ML PO Q3H PRN SWISH AND SWALLOW (Reported) Lidocaine HCl (Lidocaine HCl Viscous) 2 % SOLUTION 15 ML PO Q6-PRN PRN MOUTH PAIN Loperamide HCl (Loperamide) 2 MG CAPSULE 2 MG PO Q6P DIARRHEA Magnesium Hydroxide (Milk Of Magnesia) 400 MG/5 ML ORAL.SUSP 30 ML PO Q24H PRN CONSTIPATION - GIVE AT BEDTIME (Reported) Magnesium Oxide (Magnesium) 400 MG CAPSULE 1 CAP PO DAILY SUPPLEMENT ( Reported) Methadone HCl 10 MG/5 ML SOLUTION 27.5 ML PO DAILY ANALGESICS (Reported) Na Phos,M-B/Na Phos,Di-Ba (Fleet Enema) 19 GRAM-7 GRAM/118 ML ENEMA 1 E RC Q48H PRN CONSTIPATION (Reported) Ondansetron (Zofran Odt) 8 MG TAB.RAPDIS 1 TAB PO Q8H PRN NAUSEA (Reported) place on top of the tongue where it will dissolve, then swallow Oxycodone HCl/Acetaminophen (Percocet 5-325 MG Tablet) 5 MG-325 MG TABLET 1 TAB PO Q6H PRN PAIN (Reported) Potassium Chloride 10 MEQ TABLET.ER 1 TAB PO DAILY SUPPLEMENT (Reported) Pregabalin (Lyrica) 75 MG CAPSULE 1 CAP PO BID PAIN (Reported) Past History Travel History Traveled to [place] past 21 day No Medical History Blood Transfusion Hx: Yes Neurological: BRAIN METS EENT: NONE Cardiovascular: AFIB, chronic venous insuff, hypertension, PVD Respiratory: COPD, LUNG CANCER Gastrointestinal: NONE Hepatic: hepatitis C Renal: NONE Musculoskeletal: NONE Psychiatric: anxiety, depression, opioid dependence (maintained on methadone) Endocrine: SIADH Blood Disorders: thrombocytopenia Cancer(s): lung cancer, METS TO BRAIN 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 . MOTHER (DE, TIA). . Relation not specified for: FH: hypertension Heart attack Psychosocial History Where Do You Live? Extended Care Facility Who Do You Live With? child Services at Home: Home Health Aide, Nursing Primary Language: Cuban Smoking Status: Former Smoker ETOH Use: occasional use Functional Ability ADLs Independent: dressing, eating, toileting, bathing. Ambulation: walker IADLs Independent: shopping, housework, finances, food prep, telephone, transportation , medication admin. ECHO Results (as available) EF% 65 Review of Systems Review of Systems All Other Systems: Reviewed and Negative Exam & Diagnostic Data Last 24 Hrs of Vital Signs/I&O Vital Signs Date Time Temp Pulse Resp B/P B/P Pulse O2 O2 Flow FiO2 Mean Ox Delivery Rate 08/23 0410 109 62/00 08/23 0255 96.3 120 34 72/34 08/23 0202 96.2 126 30 70/30 08/23 0043 126 68/30 08/23 0010 96.2 134 14 66/38 08/22 2308 96.7 132 14 62/32 Intake & Output 08/23 1600 08/23 0800 08/23 0000 Intake Total 9557 1000 Output Total 269 Balance 9288 1000 Intake, IV 9557 1000 Output, Urine 269 Patient 128 lb 120 lb Weight Physical Exam Other Physical Findings: She is awake and alert in no acute distress. She is afebrile. Skin reveals no rash. HEENT exam is negative. Neck is supple with no adenopathy; Port-A-Cath in the right IJ with no inflammation at the site. Lungs bilateral rhonchi. Heart regular rhythm with no murmur. Abdomen is soft, tender to palpation diffusely, with decreased bowel sounds. Back no CVA tenderness. Extremities chronic venous stasis changes both lower extremities, with no edema. Neuro is without focality. Fuentes catheter is in place. Last 24 Hours of Lab Results: Laboratory Tests 08/23 08/23 08/23 0610 0610 0610 Chemistry Sodium (137 - 145 mmol/L) 143 Potassium (3.5 - 5.1 mmol/L) 3.3 L Chloride (98 - 107 mmol/L) 117 H Carbon Dioxide (22 - 30 mmol/L) 17 L Anion Gap (5 - 16) 9 BUN (7 - 17 mg/dL) 35 H Creatinine (0.5 - 1.0 mg/dL) 1.0 Estimated GFR (>60 ml/min) 56 L Glucose (65 - 99 mg/dL) 160 H Lactic Acid (0.7 - 2.1 mmol/L) 6.4 H Uric Acid (2.5 - 6.2 mg/dL) 5.8 Calcium (8.4 - 10.2 mg/dL) 6.2 L Phosphorus (2.5 - 4.5 mg/dL) 3.7 Magnesium (1.6 - 2.3 mg/dL) 1.3 L Total Bilirubin (0.2 - 1.3 mg/dL) 0.7 AST (14 - 36 U/L) 118 H ALT (9 - 52 U/L) 92 H Troponin I (< 0.11 ng/ml) 0.47 *H Albumin (3.5 - 5.0 g/dL) 1.1 L Cortisol AM Sample (4.46 - 22.7 ug/dL) > 123.0 H Coagulation PT (9.4 - 12.5 SEC) 55.0 *H INR (0.90 - 1.19) 4.96 *H APTT (25 - 37 SEC) 105 *H Fibrinogen Activity (200 - 393 MG/DL) Pending Hematology CBC w Diff MAN DIFF ORDERED WBC (4.8 - 10.8 /CUMM) 4.2 L RBC (4.20 - 5.40 /CUMM) 2.76 L Hgb (12.0 - 16.0 G/DL) 8.5 L Hct (37 - 47 %) 25.3 L MCV (81.0 - 99.0 FL) 91.7 MCH (27.0 - 31.0 PG) 30.7 MCHC (33.0 - 37.0 G/DL) 33.5 RDW (11.5 - 14.5 %) 20.6 H Plt Count (130 - 400 /CUMM) 58 L MPV (7.4 - 10.4 FL) 10.2 Gran % (42.2 - 75.2 %) 92.0 H Lymphocytes % (20.5 - 51.1 %) 7.6 L Monocytes % (1.7 - 9.3 %) 0.3 L Eosinophils % (0 - 5 %) 0.1 Basophils % (0.0 - 2.0 %) 0 Absolute Granulocytes (1.4 - 6.5 /CUMM) 3.9 Segmented Neutrophils (42.2 - 75.2 %) 77 H Band Neutrophils (0.0 - 5.0 %) 12 H Absolute Lymphocytes (1.2 - 3.4 /CUMM) 0.3 L Lymphocytes (20.5 - 51.1 %) 6 L Monocytes (1.7 - 9.3 %) 5 Absolute Monocytes (0.10 - 0.60 /CUMM) 0 L Absolute Eosinophils (0.0 - 0.7 /CUMM) 0 Absolute Basophils (0.0 - 0.2 /CUMM) 0 Nucleated RBCs (0.0 - 0.0 /100WBC) 4 H Platelet Estimate (ADEQUATE) DECREASED Normocytic RBCs VERIFIED Normochromic RBCs VERIFIED 08/23 08/23 08/23 0330 0245 0135 Blood Gas Bicarbonate Actual (22 - 26 MEQ/L) 17 L Mixed VBG pH (7.31 - 7.41 PH) 7.28 L Mixed VBG pCO2 (41 - 51 TORR) 37 L Mixed VBG O2 Saturation (35 - 45 TORR) 30 L P-50 (Temp Corrected) N Carboxyhemoglobin (1.5 - 5.0 %) 0.9 L O2 Concentration % 3L O2 Delivery Method N/C Chemistry Lactic Acid (0.7 - 2.1 mmol/L) 8.0 H Miscellaneous Phlebotomy Draw Site VENOUS Toxicology Urine Opiates Screen (>2000 NG/ML) 271 Methadone Screen (>300 NG/ML) > 735 H Barbiturate Screen (>200 NG/ML) < 60 Ur Phencyclidine Scrn (>25 NG/ML) 16.20 Amphetamines Screen (>1000 NG/ML) < 100 U Benzodiazepines Scrn (>200 NG/ML) < 85 Urine Cocaine Screen (>300 NG/ML) < 50 Urine Cannabis Screen (>50 NG/ML) < 5.00 Urines Urinalysis LIGHT H Urine Color (YEL,AMB,STR) YEL Urine Clarity (CLEAR) CLEAR Urine pH (5.0 - 8.0) 6.0 Ur Specific [place] (1.001 - 1.035) 1.020 Urine Protein (NEG,<30 MG/DL) 30 H Urine Ketones (NEG) NEG Urine Nitrite (NEG) NEG Urine Bilirubin (NEG) NEG Urine Urobilinogen (0.1 - 1.0 EU/dl) 1.0 Ur Leukocyte Esterase (NEG) TRACE H Ur Microscopic SEDIMENT EXAMINED Urine RBC (0 - 5 /HPF) 1-3 Urine WBC (0 - 2 /HPF) 1-3 H Ur Epithelial Cells (NONE,FEW) MOD H Urine Bacteria (NEG/NONE) FEW H Urine Mucus (FEW,NONE) MOD H Urine Hemoglobin (NEG) MOD H Urine Glucose (N MG/DL) NEG 08/22 2330 Chemistry Sodium (137 - 145 mmol/L) 138 Potassium (3.5 - 5.1 mmol/L) 3.8 Chloride (98 - 107 mmol/L) 105 Carbon Dioxide (22 - 30 mmol/L) 23 Anion Gap (5 - 16) 11 BUN (7 - 17 mg/dL) 41 H Creatinine (0.5 - 1.0 mg/dL) 0.9 Estimated GFR (>60 ml/min) > 60 BUN/Creatinine Ratio (7 - 25 %) 45.6 H Glucose (65 - 99 mg/dL) 195 H Hemoglobin A1c (4.2 - 5.8 %) Pending Lactic Acid (0.7 - 2.1 mmol/L) 7.0 H Uric Acid (2.5 - 6.2 mg/dL) 6.7 H Calcium (8.4 - 10.2 mg/dL) 7.9 L Phosphorus (2.5 - 4.5 mg/dL) 3.7 Total Bilirubin (0.2 - 1.3 mg/dL) 0.6 AST (14 - 36 U/L) 79 H ALT (9 - 52 U/L) 101 H Alkaline Phosphatase (<127 U/L) 56 Troponin I (< 0.11 ng/ml) 0.05 Total Protein (6.3 - 8.2 g/dL) 3.8 L Albumin (3.5 - 5.0 g/dL) 1.7 L Globulin (1.9 - 4.2 gm/dL) 2.1 Albumin/Globulin Ratio (1.1 - 2.2 %) 0.8 L TSH (0.270 - 4.200 uIU/mL) 1.470 Thyroxine (T4) (4.5 - 10.9 ug/dL) 4.5 Coagulation PT (9.4 - 12.5 SEC) 36.0 H INR (0.90 - 1.19) 3.26 H Hematology CBC w Diff MAN DIFF ORDERED WBC (4.8 - 10.8 /CUMM) 3.8 L RBC (4.20 - 5.40 /CUMM) 3.27 L Hgb (12.0 - 16.0 G/DL) 9.9 L Hct (37 - 47 %) 29.8 L MCV (81.0 - 99.0 FL) 91.3 MCH (27.0 - 31.0 PG) 30.3 MCHC (33.0 - 37.0 G/DL) 33.2 RDW (11.5 - 14.5 %) 19.9 H Plt Count (130 - 400 /CUMM) 91 L MPV (7.4 - 10.4 FL) 8.5 Gran % (42.2 - 75.2 %) 90.9 H Lymphocytes % (20.5 - 51.1 %) 8.9 L Monocytes % (1.7 - 9.3 %) 0.2 L Eosinophils % (0 - 5 %) 0 Basophils % (0.0 - 2.0 %) 0 Absolute Granulocytes (1.4 - 6.5 /CUMM) 3.5 Segmented Neutrophils (42.2 - 75.2 %) 79 H Band Neutrophils (0.0 - 5.0 %) 10 H Absolute Lymphocytes (1.2 - 3.4 /CUMM) 0.3 L Lymphocytes (20.5 - 51.1 %) 9 L Monocytes (1.7 - 9.3 %) 2 Absolute Monocytes (0.10 - 0.60 /CUMM) 0 L Absolute Eosinophils (0.0 - 0.7 /CUMM) 0 Absolute Basophils (0.0 - 0.2 /CUMM) 0 Nucleated RBCs (0.0 - 0.0 /100WBC) 2 H Platelet Estimate (ADEQUATE) DECREASED Hypochromic-Microcytic 1+ Poikilocytosis 1+ Microcytic Cells 1+ Stomatocytes RARE Schistocytes RARE Other Body Source Fld Total RBCs Counted (%) 100 Last 24 Hours of [place] Results: Blood cultures 2 August 23 positive for gram-negative rods Urine culture August 23 pending Diagnostic Data Recent Imaging Findings: Chest x-ray August 22 redemonstrates a right middle lobe mass with no acute process CT of the head August 22 no acute process Assessment/Plan Assessment/Plan Impression: This is a 62-year-old woman with a history of atrial fibrillation, maintained on Pradaxa, COPD, maintained on 3 L of oxygen, small cell lung cancer, metastatic to the brain, status post radiation and maintained on Irinotectan every 2 week via a Port-A-Cath, with her last treatment 3 days prior to admission, with increasing lethargy, weakness and poor p.o. intake over the past several weeks, admitted early this morning after she was found to be unresponsive with a low blood pressure, found on admission to be afebrile and hypotensive with a normal white blood cell count, but with bands and thrombocytopenia, now with blood cultures 2 positive for gram-negative rods. Her clinical picture is consistent with gram-negative sepsis. The source is most likely the GI tract with abdominal tenderness on exam and with a report of liquid stools on admission. She is not neutropenic, status post chemotherapy 3 days prior to admission, making a process such as neutropenic typhilitis unlikely and she has already undergone a cholecystectomy, but other processes including diverticulitis must be considered. Other possible sources for her sepsis include the urinary tract, though her urinalysis is unremarkable, or the Port-A-Cath, placed over 9 months prior to admission, though the site is without inflammation. Further evaluation is limited by her condition and she can continue to be covered broadly for the gram-negative rods pending further evaluation and identification. Her elevated troponin is noted and will await Cardiology evaluation. Suggestion: 1. Would pursue CT of the abdomen and pelvis when her condition allows 2. Stool for C. difficile if diarrhea recurs 3. Follow-up final blood cultures 4. Continue Ceftazidime and Flagyl pending above Consult Acknowledgment - Thank you for your consult request.
--- NOTE | 2017-08-23 09:17 | Cons- CRCU ---
See Addendum Sudheer Castle 08/23/17 0917: General Information and HPI Consulting Request Date of Consult: 08/23/17 Requested By: Dr. 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 Upon presentation the patient had tachycardia, hypothermia and bandemia she was admitted to the ICU with diagnosis of septic shock versus hypovolemic shock. She was started on norepinephrine initially, later on phenylephrine was added to the regimen as her blood pressure was not improving as expected. In the morning her blood pressure continues to be in 70s80s systolic, maximum dose of norepinephrine with phenylephrine at 50. Blood cultures revealing gram-negative rods. Had only 45 mL of urine output since 7 AM. The patient is unable to provide any history given her clinical condition, she is minimally responsive to painful stimuli. Allergies/Medications Allergies: Coded Allergies: NO KNOWN ALLERGIES (UNKNOWN 11/13/16) Home Med List: Acetaminophen (Pain & Fever) 325 MG TABLET 2 TAB PO Q4H PRN MILD PAIN/TEMP>100 (Reported) Bisacodyl 10 MG SUPP.RECT 1 SUP RC Q48H PRN CONSTIPATION (Reported) Dabigatran Etexilate Mesylate (Pradaxa 150 MG) 150 MG CAPSULE 150 MG PO BID STROKE PPX Demeclocycline HCl 300 MG TABLET 1 TAB PO BID LOW SODIUM Dexamethasone 4 MG TABLET 0.5 TAB PO BID BRAIN METASTASIS (Reported) Diltiazem HCl (Cardizem) 60 MG TABLET 60 MG PO Q6 Heart/BP Diphenoxylate HCl/Atropine (Lomotil 2.5-0.025 MG Tablet) 2.5 MG-0.025 MG TABLET 1 TAB PO 4 TIMES/DAY PRN DIARRHEA (Reported) Lanolin Alcohol/Mo/W.pet/[place] (Eucerin Creme) 454 GM CREAM..G. 1 JULIA TOP TID PRN SKIN (Reported) [LIDO/DPH/NYST] 8 ML PO Q3H PRN SWISH AND SWALLOW (Reported) Lidocaine HCl (Lidocaine HCl Viscous) 2 % SOLUTION 15 ML PO Q6-PRN PRN MOUTH PAIN Loperamide HCl (Loperamide) 2 MG CAPSULE 2 MG PO Q6P DIARRHEA Magnesium Hydroxide (Milk Of Magnesia) 400 MG/5 ML ORAL.SUSP 30 ML PO Q24H PRN CONSTIPATION - GIVE AT BEDTIME (Reported) Magnesium Oxide (Magnesium) 400 MG CAPSULE 1 CAP PO DAILY SUPPLEMENT ( Reported) Methadone HCl 10 MG/5 ML SOLUTION 27.5 ML PO DAILY ANALGESICS (Reported) Na Phos,M-B/Na Phos,Di-Ba (Fleet Enema) 19 GRAM-7 GRAM/118 ML ENEMA 1 E RC Q48H PRN CONSTIPATION (Reported) Ondansetron (Zofran Odt) 8 MG TAB.RAPDIS 1 TAB PO Q8H PRN NAUSEA (Reported) place on top of the tongue where it will dissolve, then swallow Oxycodone HCl/Acetaminophen (Percocet 5-325 MG Tablet) 5 MG-325 MG TABLET 1 TAB PO Q6H PRN PAIN (Reported) Potassium Chloride 10 MEQ TABLET.ER 1 TAB PO DAILY SUPPLEMENT (Reported) Pregabalin (Lyrica) 75 MG CAPSULE 1 CAP PO BID PAIN (Reported) Current Medications: Current Medications Sig/Ora Start time Last Medication Dose Route Stop Time Status Admin Acetaminophen 650 MG Q4H PRN 08/23 0445 AC PO Albuterol Sulfate 3 ML BID 08/23 2100 AC 08/23 INH 1127 Ceftazidime 2,000 MG IQ8 08/23 0800 AC 08/23 IV 09 Ceftazidime 0 .STK-MED ONE 08/23 0125 DC .ROUTE Ceftazidime 1,000 MG ONCE ONE 08/23 0045 DC 08/23 IV 08/23 0046 0135 Dabigatran 150 MG BID 08/23 0900 CAN PO Demeclocycline HCl 300 MG BID 08/23 0900 AC PO Dexamethasone 2 MG BID 08/23 0900 CAN PO Hydrocortisone 100 MG TID 08/23 0900 AC 08/23 Sodium Succinate IV 0905 Magnesium Sulfate 1 GM ONCE ONE 08/23 1045 AC 08/23 Dextrose/Water 100 ML IV 08/23 1444 1110 Methylprednisolone 0 .STK-MED ONE 08/23 0125 DC .ROUTE Methylprednisolone 125 MG ONCE ONE 08/23 0115 DC 08/23 IV 08/23 0116 0135 Metronidazole 500 MG Q8H 08/23 1245 AC N/A 1 UNIT IV Metronidazole 500 MG IQ8 08/23 0800 DC N/A 1 UNIT IV Metronidazole 500 MG ONCE ONE 08/23 0430 DC 08/23 N/A 1 UNIT IV 08/23 0529 0442 Non-Formulary 0 SEE ADMIN CRITERIA 08/23 0500 CAN Medication ANY Norepinephrine 4 MG Q24 08/23 0900 DC Sodium Chloride 250 ML IV Norepinephrine 4 MG Q4H 08/23 0800 AC 08/23 Sodium Chloride 250 ML IV 1249 Norepinephrine 0 .STK-MED ONE 08/23 0243 DC IV Norepinephrine 4 MG ONCE ONE 08/23 0215 DC 08/23 Sodium Chloride 250 ML IV 08/23 0216 0255 Phenylephrine HCl 40 MG Q8H 08/23 1400 AC Sodium Chloride 250 ML IV Phenylephrine HCl 0 .STK-MED ONE 08/23 0433 DC .ROUTE Phenylephrine HCl 40 MG Q24H 08/23 0430 CAN Dextrose/Water 250 ML IV Phenylephrine HCl 40 MG Q24H 08/23 0430 AC 08/23 Sodium Chloride 250 ML IV 08/23 1359 0442 Potassium Chloride 20 MEQ ONCE ONE 08/23 1045 DC 08/23 IV 08/23 1046 1249 Sodium Chloride 1,000 ML BOLUS ONE 08/23 1045 DC 08/23 IV 08/23 1144 1040 Sodium Chloride 1,000 ML Q10H 08/23 0545 AC 08/23 IV 0700 Sodium Chloride 1,000 ML BOLUS ONE 08/23 0530 DC 08/23 IV 08/23 0629 0530 Sodium Chloride 1,000 ML ONCE ONE 08/23 0115 DC 08/23 IV 08/23 0214 0135 Sodium Chloride 1,000 ML BOLUS ONE 08/22 2315 DC 08/23 IV 08/23 0014 0025 Sodium Chloride 1,000 ML BOLUS ONE 08/22 2315 DC 08/23 IV 08/23 0014 0117 Vancomycin HCl 0 .STK-MED ONE 08/23 0125 DC .ROUTE Vancomycin HCl 1,000 MG ONCE ONE 08/23 0045 DC 08/23 Dextrose/Water 250 ML IV 08/23 0144 0130 Review of Systems Review of Systems Constitutional: Reports: see HPI. 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 . MOTHER (DE, TIA). . Relation not specified for: FH: hypertension Heart attack Psychosocial History Where Do You Live? Extended Care Facility Who Do You Live With? child Services at Home: Home Health Aide, Nursing Primary Language: Kinyarwanda Smoking Status: Former Smoker ETOH Use: occasional use Functional Ability ADLs Independent: dressing, eating, toileting, bathing. Ambulation: walker IADLs Independent: shopping, housework, finances, food prep, telephone, transportation , medication admin. ECHO Results (as available) EF% 65 Exam & Diagnostic Data Last 24 Hrs of Vital Signs/I&O Vital Signs Date Time Temp Pulse Resp B/P B/P Pulse O2 O2 Flow FiO2 Mean Ox Delivery Rate 08/23 1249 114 80/00 08/23 1135 Nasal 3.0L Cannula 08/23 1132 Nasal 3.0L Cannula 08/23 0905 124 76/00 08/23 0410 109 62/00 08/23 0255 96.3 120 34 72/34 08/23 0202 96.2 126 30 70/30 08/23 0043 126 68/30 08/23 0010 96.2 134 14 66/38 08/22 2308 96.7 132 14 62/32 Intake & Output 08/23 1600 08/23 0800 08/23 0000 Intake Total 9557 1000 Output Total 269 Balance 9288 1000 Intake, IV 9557 1000 Output, Urine 269 Patient 128 lb 120 lb Weight Physical Exam General Appearance: lethargic, unable to perform complete physical exam as patient is not able to cooperate given her clinical condition. Head: atraumatic Respiratory: diminished breath sounds on anterior auscultation. Cardiovascular: tachycardic Gastrointestinal: diminished BS, mild tenderness to palpation Extremities: no edema Last 48 Hrs of Labs/Chad: Laboratory Tests 08/23/17 1156: Troponin I Pending 08/23/17 1156: Lactic Acid Pending 08/23/17 0920: Lactic Acid 4.6 H 08/23/17 0610: Lactic Acid 6.4 H 08/23/17 0610: Cortisol AM Sample > 123.0 H 08/23/17 0610: Anion Gap 9, Estimated GFR 56 L, Glucose 160 H, Uric Acid 5.8, Calcium 6.2 L, Phosphorus 3.7, Magnesium 1.3 L, Total Bilirubin 0.7, AST 118 H, ALT 92 H, Troponin I 0.47 *H, Albumin 1.1 L, PT 55.0 *H, INR 4.96 *H, APTT 105 *H, Fibrinogen Activity 140 L, CBC w Diff MAN DIFF ORDERED, RBC 2.76 L, MCV 91.7, MCH 30.7, MCHC 33.5, RDW 20.6 H, MPV 10.2, Gran % 92.0 H, Lymphocytes % 7.6 L , Monocytes % 0.3 L, Eosinophils % 0.1, Basophils % 0, Absolute Granulocytes 3.9, Segmented Neutrophils 77 H, Band Neutrophils 12 H, Absolute Lymphocytes 0.3 L, Lymphocytes 6 L, Monocytes 5, Absolute Monocytes 0 L, Absolute Eosinophils 0, Absolute Basophils 0, Nucleated RBCs 4 H, Platelet Estimate DECREASED, Normocytic RBCs VERIFIED, Normochromic RBCs VERIFIED 08/23/17 0330: Bicarbonate Actual 17 L, Mixed VBG pH 7.28 L, Mixed VBG pCO2 37 L, Mixed VBG O2 Saturation 30 L, P-50 (Temp Corrected) N, Carboxyhemoglobin 0.9 L, O2 Concentration % 3L, O2 Delivery Method N/C, Phlebotomy Draw Site VENOUS 08/23/17 0245: Lactic Acid 8.0 H 08/23/17 0135: Urine Opiates Screen 271, Methadone Screen > 735 H, Barbiturate Screen < 60, Ur Phencyclidine Scrn 16.20, Amphetamines Screen < 100, U Benzodiazepines Scrn < 85 , Urine Cocaine Screen < 50, Urine Cannabis Screen < 5.00, Urinalysis LIGHT H, Urine Color YEL, Urine Clarity CLEAR, Urine pH 6.0, Ur Specific [place] 1.020, Urine Protein 30 H, Urine Ketones NEG, Urine Nitrite NEG, Urine Bilirubin NEG, Urine Urobilinogen 1.0, Ur Leukocyte Esterase TRACE H, Ur Microscopic SEDIMENT EXAMINED, Urine RBC 1-3, Urine WBC 1-3 H, Ur Epithelial Cells MOD H, Urine Bacteria FEW H, Urine Mucus MOD H, Urine Hemoglobin MOD H, Urine Glucose NEG 08/22/17 2330: Anion Gap 11, Estimated GFR > 60, BUN/Creatinine Ratio 45.6 H, Glucose 195 H, Hemoglobin A1c Pending, Lactic Acid 7.0 H, Uric Acid 6.7 H, Calcium 7.9 L, Phosphorus 3.7, Total Bilirubin 0.6, AST 79 H, ALT 101 H, Alkaline Phosphatase 56, Troponin I 0.05, Total Protein 3.8 L, Albumin 1.7 L, Globulin 2.1, Albumin /Globulin Ratio 0.8 L, TSH 1.470, Thyroxine (T4) 4.5, PT 36.0 H, INR 3.26 H, CBC w Diff MAN DIFF ORDERED, RBC 3.27 L, MCV 91.3, MCH 30.3, MCHC 33.2, RDW 19.9 H, MPV 8.5, Gran % 90.9 H, Lymphocytes % 8.9 L, Monocytes % 0.2 L, Eosinophils % 0, Basophils % 0, Absolute Granulocytes 3.5, Segmented Neutrophils 79 H, Band Neutrophils 10 H, Absolute Lymphocytes 0.3 L, Lymphocytes 9 L, Monocytes 2, Absolute Monocytes 0 L, Absolute Eosinophils 0, Absolute Basophils 0, Nucleated RBCs 2 H, Platelet Estimate DECREASED, Hypochromic-Microcytic 1+, Poikilocytosis 1+, Microcytic Cells 1+, Stomatocytes RARE, Schistocytes RARE, Fld Total RBCs Counted 100 08/22/17 0135: Methadone Screen Cancelled, Barbiturate Screen Cancelled, Ur Phencyclidine Scrn Cancelled, Amphetamines Screen Cancelled, U Benzodiazepines Scrn Cancelled, Urine Cocaine Screen Cancelled, Urine Cannabis Screen Cancelled Assessment/Plan CRCU Impression/Plan: The patient is a 62-year-old female with past medical history significant for 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 Admitted to the ICU for gram-negative sepsis and septic shock. Now anuric, blood pressure systolic 70s with 2 vasopressors. He can set of troponin positive to 0.47 Patient's daughter and POA Lynda is present at bedside. Discussed at length with Lynda regarding patient's poor prognosis and asked regarding goals of care. Lynda states that she and rest of family are aware of the prognosis and the risks however she still wants to continue all treatment and is not feeling to de-escalate care. Noting patient is DNI/DNR. She states that during patient 's prior hospital presentations, she was told by doctors that patient's prognosis is poor however she always recovered. Lynda is hoping that the patient would recover during this hospital presentation as she is a "fighter". Problem list #Altered mental status #Septic shockgram-negative rods, source unknown #Lactic acidosistrending down #Thrombocytopenia, pancytopenia 2/2 chemotherapy and sepsis #NSTEMI type 2 #H/o small cell lung cancer with brain mets currently on chemo #History of atrial fibrillation Plan: * Continue to monitor in the ICU * Systolic blood pressure continues to remain in 70s. * On Maximum dose of norepinephrine, would still go up on phenylephrine * Patient has received total of 5 L IV fluids now on IV normal saline at 100 mL/ h, will administer a bolus of 1 L normal saline and increase the rate of normal saline to 150 mL/h. * Will troponin and EKGs * Will obtain an echocardiogram * We will start aspirin as per cardiology recommendations, continue to hold Pradaxa * Continue IV metronidazole and IV Flagyl * CT of the abdomen when patient is more stable * Nephrology consult placed * Follow stool for C. difficile * DVT prophylaxis mechanical * Patient is DNI/DNR * Case was discussed with ICU attending Dr. Romo and hospitalist attending Dr. Knox, please refer to their attendant for further recommendations. Recommendations: see above Problem List: 1. Septic shock 2. Troponin level elevated Consult Acknowledgment - Thank you for your consult request. Rigoberto Knox 08/23/17 1224: Attending Addendum Attending Brief Note Patient with extensive past medical history of stage 4 lung cancer with mets and folows hematoogy/oncology as outpatient for chemotherapy appears to failure to thrive and malnutrition and poor baseline funcitonal status comes with severe sepsis and shock probably abdominal source now requiring 2 pressors support. Patient also has elevated cardiac enzymes likley demand supply type 2 DE with anemia. ID consulted for abx which recommend iv ceftaz/flagyl. Patient needs imaging ct abd/plvis once her clinical condition improves. CRCU consuted and Recommendatiosn obtained from Dr Romo (known patient to him as outpatient). Cardiology consulted and recommend treatment of underlying septic shock and monitor cardiac enzymes. Patient now developed anuria and CHER likely pre-renal, Consider nephrology consult, not sure if dailysis would benefit in present scenario. Patient with overall grim prognosis. Daughter bedside. Plan of care d/ thu CRCU, family, resident. Call me if any changes. DNR/DNI. Assessment/Plan CRCU Consult Acknowledgment - Thank you for your consult request.
--- NOTE | 2017-08-23 10:13 | RADIOLOGY REPORT ---
EXAMINATION: XR PORTABLE ABDOMEN CLINICAL INFORMATION: Abdominal pain. Lactic acidosis. COMPARISON: No relevant prior imaging. TECHNIQUE: AP view of the abdomen. FINDINGS: There is a paucity of bowel gas. Solitary contours are normal. Chronic changes of a cholecystectomy are noted. There is degenerative scoliosis with a pronounced leftward convex curvature centered at L3. Slight right lateral subluxation of L2 on L3. No evidence of acute fracture. Chronic changes of a left hip arthroplasty are noted. IMPRESSION: Unremarkable abdominal radiograph.
--- NOTE | 2017-08-23 10:57 | Cons- Cardiology ---
General Information and HPI Consulting Request Date of Consult: 08/23/17 Requested By: Suraj LARIOS,Malvin History of Present Illness: Magda is a 62 year old female with history of hypertension, hepatitic C, peripheral vascular disease and IVDA. She now carries a history of metastatic small cell lung cancer with metastases to the brain, prior tumor lysis syndrome and thrombocytopenia. She was seen by cardiology in the past for paroxysmal atrial fibrillation. Over the past two weaks this patient has had weakness and fatigue. Yesterday the patient had a clear deterioration in her mental status. A couple large and watery bowel movements were noted but the patient otherwise did not offer any history of fever, chills, nausea, vomiting, dysuria, chest discomfort, shortness of breath, lightheadedness or palpitations. She has been hypotensive with decreased oxygenation. Labs revealed a borderline elevated troponin with low H/H and throbocytopenia. Allergies/Medications Allergies: Coded Allergies: NO KNOWN ALLERGIES (UNKNOWN 11/13/16) Home Med List: Acetaminophen (Pain & Fever) 325 MG TABLET 2 TAB PO Q4H PRN MILD PAIN/TEMP>100 (Reported) Bisacodyl 10 MG SUPP.RECT 1 SUP RC Q48H PRN CONSTIPATION (Reported) Dabigatran Etexilate Mesylate (Pradaxa 150 MG) 150 MG CAPSULE 150 MG PO BID STROKE PPX Demeclocycline HCl 300 MG TABLET 1 TAB PO BID LOW SODIUM Dexamethasone 4 MG TABLET 0.5 TAB PO BID BRAIN METASTASIS (Reported) Diltiazem HCl (Cardizem) 60 MG TABLET 60 MG PO Q6 Heart/BP Diphenoxylate HCl/Atropine (Lomotil 2.5-0.025 MG Tablet) 2.5 MG-0.025 MG TABLET 1 TAB PO 4 TIMES/DAY PRN DIARRHEA (Reported) Lanolin Alcohol/Mo/W.pet/[place] (Eucerin Creme) 454 GM CREAM..G. 1 JULIA TOP TID PRN SKIN (Reported) [LIDO/DPH/NYST] 8 ML PO Q3H PRN SWISH AND SWALLOW (Reported) Lidocaine HCl (Lidocaine HCl Viscous) 2 % SOLUTION 15 ML PO Q6-PRN PRN MOUTH PAIN Loperamide HCl (Loperamide) 2 MG CAPSULE 2 MG PO Q6P DIARRHEA Magnesium Hydroxide (Milk Of Magnesia) 400 MG/5 ML ORAL.SUSP 30 ML PO Q24H PRN CONSTIPATION - GIVE AT BEDTIME (Reported) Magnesium Oxide (Magnesium) 400 MG CAPSULE 1 CAP PO DAILY SUPPLEMENT ( Reported) Methadone HCl 10 MG/5 ML SOLUTION 27.5 ML PO DAILY ANALGESICS (Reported) Na Phos,M-B/Na Phos,Di-Ba (Fleet Enema) 19 GRAM-7 GRAM/118 ML ENEMA 1 E RC Q48H PRN CONSTIPATION (Reported) Ondansetron (Zofran Odt) 8 MG TAB.RAPDIS 1 TAB PO Q8H PRN NAUSEA (Reported) place on top of the tongue where it will dissolve, then swallow Oxycodone HCl/Acetaminophen (Percocet 5-325 MG Tablet) 5 MG-325 MG TABLET 1 TAB PO Q6H PRN PAIN (Reported) Potassium Chloride 10 MEQ TABLET.ER 1 TAB PO DAILY SUPPLEMENT (Reported) Pregabalin (Lyrica) 75 MG CAPSULE 1 CAP PO BID PAIN (Reported) Review of Systems Review of Systems: A review of systems is unremarkable. 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 . MOTHER ([place], TIA). . Relation not specified for: FH: hypertension Heart attack Psychosocial History Where Do You Live? Extended Care Facility Who Do You Live With? child Services at Home: Home Health Aide, Nursing Primary Language: Sami Smoking Status: Former Smoker ETOH Use: occasional use Functional Ability ADLs Independent: dressing, eating, toileting, bathing. Ambulation: walker IADLs Independent: shopping, housework, finances, food prep, telephone, transportation , medication admin. ECHO Results (as available) EF% 65 Exam & Diagnostic Data Vital Signs and I&O Vital Signs Date Time Temp Pulse Resp B/P B/P Pulse O2 O2 Flow FiO2 Mean Ox Delivery Rate 08/23 0905 124 76/00 08/23 0410 109 62/00 08/23 0255 96.3 120 34 72/34 08/23 0202 96.2 126 30 70/30 08/23 0043 126 68/30 08/23 0010 96.2 134 14 66/38 08/22 2308 96.7 132 14 62/32 Intake & Output 08/23 1600 08/23 0800 08/23 0000 08/22 1600 08/22 0800 08/22 0000 Intake Total 9557 1000 Output Total 269 Balance 9288 1000 Intake, IV 9557 1000 Output, Urine 269 Patient 128 lb 120 lb Weight Physical Exam: General: WD/overweight female in NAD; awake but lethargic HEENT: NC/AT, PERRL, EOMI Neck: no obvious JVD in a thick neck, no carotid bruit Heart: tachy and regular Lungs: clear bilaterally Abdomen: soft, mildly tender to palptation with decreased bowel sounds Extremities: no edema, venous stasis changes Assessment/Plan Assessment/Plan * This patient has some ischemic anterolateral ST depressions along with a small rise in cardiac enzymes consistent with ischemia. 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 Begin aspirin. Hold Pradaxa until it is clear that her H/H is stable. A small drop is suspected to be related to IV fluid administration. * Follow cardiac enzymes until they peak. * Obtain an echocardiogram * This patient appears septic. Continue antibiotic therapy and IV fluids. Levophed can be increased as needed to maintain a systolic pressure of at least 90mmHg. Consult Acknowledgment - Thank you for your consult request.
--- NOTE | 2017-08-23 15:45 | Cons- Nephrology ---
General Information and HPI Consulting Request Date of Consult: 08/23/17 Requested By: Suraj LARIOS,Malvin Reason for Consult: OLIGURIA, CHER Source of Information: patient, old records Exam Limitations: clinical condition, confusion History of Present Illness: I was asked to see this patient who is a DNR/DNI for CHER with creat 1.0 up from 0.5 baseline, with oliguria. She is a 62-year-old woman, care home resident, with a remote history of IV drug abuse, opioid dependence, maintained on methadone, Hepatitis C, chronic venous insufficiency, with a history of osteomyelitis of the left heel, hypertension, atrial fibrillation, maintained on Pradaxa, COPD, maintained on 3 L of oxygen, small cell lung cancer, metastatic to the brain, status post radiation and maintained on Irinotectan every 2 week via a Port-A-Cath, inserted 9 months prior to admission, with her last treatment 3 days prior to admission, and anemia, requiring periodic blood transfusions, last hospitalized 4 months prior to admission with recurrent SIADH & seen by dr Hall/Dr Gamez and treated with demeclocycline. Admitted last night with fatigue/malaise and found to be severely hypotensive with a blood pressure in the 60s to 80s systolic. Currently on to max dose pressors, levothyroid and norepinephrine. Creatinine currently 1.0 which is doubled from baseline of 0.5 and she's been oliguric with urine output of approximately 15 mL per hour. She did also more lethargy and confusion. She is a prior history of brain metastases seen on MRI however CAT scan without contrast revealed no overt brain masses on admission. Blood cultures are growing gram-negative david. Allergies/Medications Allergies: Coded Allergies: NO KNOWN ALLERGIES (UNKNOWN 11/13/16) Home Med List: Acetaminophen (Pain & Fever) 325 MG TABLET 2 TAB PO Q4H PRN MILD PAIN/TEMP>100 (Reported) Bisacodyl 10 MG SUPP.RECT 1 SUP RC Q48H PRN CONSTIPATION (Reported) Dabigatran Etexilate Mesylate (Pradaxa 150 MG) 150 MG CAPSULE 150 MG PO BID STROKE PPX Demeclocycline HCl 300 MG TABLET 1 TAB PO BID LOW SODIUM Dexamethasone 4 MG TABLET 0.5 TAB PO BID BRAIN METASTASIS (Reported) Diltiazem HCl (Cardizem) 60 MG TABLET 60 MG PO Q6 Heart/BP Diphenoxylate HCl/Atropine (Lomotil 2.5-0.025 MG Tablet) 2.5 MG-0.025 MG TABLET 1 TAB PO 4 TIMES/DAY PRN DIARRHEA (Reported) Lanolin Alcohol/Mo/W.pet/[place] (Eucerin Creme) 454 GM CREAM..G. 1 JULIA TOP TID PRN SKIN (Reported) [LIDO/DPH/NYST] 8 ML PO Q3H PRN SWISH AND SWALLOW (Reported) Lidocaine HCl (Lidocaine HCl Viscous) 2 % SOLUTION 15 ML PO Q6-PRN PRN MOUTH PAIN Loperamide HCl (Loperamide) 2 MG CAPSULE 2 MG PO Q6P DIARRHEA Magnesium Hydroxide (Milk Of Magnesia) 400 MG/5 ML ORAL.SUSP 30 ML PO Q24H PRN CONSTIPATION - GIVE AT BEDTIME (Reported) Magnesium Oxide (Magnesium) 400 MG CAPSULE 1 CAP PO DAILY SUPPLEMENT ( Reported) Methadone HCl 10 MG/5 ML SOLUTION 27.5 ML PO DAILY ANALGESICS (Reported) Na Phos,M-B/Na Phos,Di-Ba (Fleet Enema) 19 GRAM-7 GRAM/118 ML ENEMA 1 E RC Q48H PRN CONSTIPATION (Reported) Ondansetron (Zofran Odt) 8 MG TAB.RAPDIS 1 TAB PO Q8H PRN NAUSEA (Reported) place on top of the tongue where it will dissolve, then swallow Oxycodone HCl/Acetaminophen (Percocet 5-325 MG Tablet) 5 MG-325 MG TABLET 1 TAB PO Q6H PRN PAIN (Reported) Potassium Chloride 10 MEQ TABLET.ER 1 TAB PO DAILY SUPPLEMENT (Reported) Pregabalin (Lyrica) 75 MG CAPSULE 1 CAP PO BID PAIN (Reported) Current Medications: Current Medications Sig/Ora Start time Last Medication Dose Route Stop Time Status Admin Acetaminophen 650 MG Q4H PRN 08/23 0445 AC PO Albuterol Sulfate 3 ML BID 08/23 2100 AC 08/23 INH 1127 Aspirin 81 MG DAILY 08/24 0900 CAN PO Aspirin 300 MG DAILY 08/23 1334 AC 08/23 VA 1426 Aspirin 325 MG ONCE ONE 08/23 1300 DC PO 08/23 1301 Ceftazidime 2,000 MG IQ8 08/23 0800 AC 08/23 IV 1529 Ceftazidime 0 .STK-MED ONE 08/23 0125 DC .ROUTE Ceftazidime 1,000 MG ONCE ONE 08/23 0045 DC 08/23 IV 08/23 0046 0135 Dabigatran 150 MG BID 08/23 0900 CAN PO Demeclocycline HCl 300 MG BID 08/23 0900 AC PO Dexamethasone 2 MG BID 08/23 0900 CAN PO Hydrocortisone 100 MG TID 08/23 0900 AC 08/23 Sodium Succinate IV 1426 Magnesium Sulfate 1 GM ONCE ONE 08/23 1045 DC 08/23 Dextrose/Water 100 ML IV 08/23 1444 1110 Methylprednisolone 0 .STK-MED ONE 08/23 0125 DC .ROUTE Methylprednisolone 125 MG ONCE ONE 08/23 0115 DC 08/23 IV 08/23 0116 0135 Metronidazole 500 MG Q8H 08/23 1245 AC 08/23 N/A 1 UNIT IV 1350 Metronidazole 500 MG IQ8 08/23 0800 DC N/A 1 UNIT IV Metronidazole 500 MG ONCE ONE 08/23 0430 DC 08/23 N/A 1 UNIT IV 08/23 0529 0442 Non-Formulary 0 SEE ADMIN CRITERIA 08/23 0500 CAN Medication ANY Norepinephrine 4 MG Q24 08/23 0900 DC Sodium Chloride 250 ML IV Norepinephrine 4 MG Q4H 08/23 0800 AC 08/23 Sodium Chloride 250 ML IV 1529 Norepinephrine 0 .STK-MED ONE 08/23 0243 DC IV Norepinephrine 4 MG ONCE ONE 08/23 0215 DC 08/23 Sodium Chloride 250 ML IV 08/23 0216 0255 Phenylephrine HCl 40 MG Q8H 08/23 1400 AC 08/23 Sodium Chloride 250 ML IV 1333 Phenylephrine HCl 0 .STK-MED ONE 08/23 0433 DC .ROUTE Phenylephrine HCl 40 MG Q24H 08/23 0430 CAN Dextrose/Water 250 ML IV Phenylephrine HCl 40 MG Q24H 08/23 0430 DC 08/23 Sodium Chloride 250 ML IV 08/23 1359 0442 Potassium Chloride 20 MEQ ONCE ONE 08/23 1045 DC 08/23 IV 08/23 1046 1249 Sodium Chloride 1,000 ML BOLUS ONE 08/23 1045 DC 08/23 IV 08/23 1144 1040 Sodium Chloride 1,000 ML Q10H 08/23 0545 AC 08/23 IV 0700 Sodium Chloride 1,000 ML BOLUS ONE 08/23 0530 DC 08/23 IV 08/23 0629 0530 Sodium Chloride 1,000 ML ONCE ONE 08/23 0115 DC 08/23 IV 08/23 0214 0135 Sodium Chloride 1,000 ML BOLUS ONE 08/22 2315 DC 08/23 IV 08/23 0014 0025 Sodium Chloride 1,000 ML BOLUS ONE 08/22 2315 DC 08/23 IV 08/23 0014 0117 Vancomycin HCl 0 .STK-MED ONE 08/23 0125 DC .ROUTE Vancomycin HCl 1,000 MG ONCE ONE 08/23 0045 DC 08/23 Dextrose/Water 250 ML IV 08/23 0144 0130 Review of Systems Review of Systems: Unable to obtain due to delirium and patient's clinical and her clinical condition Past History Travel History Traveled to [place] past 21 day No Medical History Blood Transfusion Hx: Yes Neurological: BRAIN METS EENT: NONE Cardiovascular: AFIB, chronic venous insuff, hypertension, PVD Respiratory: COPD, LUNG CANCER Gastrointestinal: NONE Hepatic: hepatitis C Renal: NONE Musculoskeletal: NONE Psychiatric: anxiety, depression, opioid dependence (maintained on methadone) Endocrine: SIADH Blood Disorders: thrombocytopenia Cancer(s): lung cancer, METS TO BRAIN 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 . MOTHER (PA, TIA). . Relation not specified for: FH: hypertension Heart attack Psychosocial History Where Do You Live? Extended Care Facility Who Do You Live With? child Services at Home: Home Health Aide, Nursing Primary Language: Dominican Smoking Status: Former Smoker ETOH Use: occasional use Functional Ability ADLs Independent: dressing, eating, toileting, bathing. Ambulation: walker IADLs Independent: shopping, housework, finances, food prep, telephone, transportation , medication admin. ECHO Results (as available) EF% 65 Exam & Diagnostic Data Vital Signs and I&O Vital Signs Date Time Temp Pulse Resp B/P B/P Pulse O2 O2 Flow FiO2 Mean Ox Delivery Rate 08/23 1529 128 80/00 08/23 1249 114 80/00 08/23 1135 Nasal 3.0L Cannula 08/23 1132 Nasal 3.0L Cannula 08/23 0905 124 76/00 08/23 0410 109 62/00 08/23 0255 96.3 120 34 72/34 08/23 0202 96.2 126 30 70/30 08/23 0043 126 68/30 08/23 0010 96.2 134 14 66/38 08/22 2308 96.7 132 14 62/32 Intake & Output 08/23 0400 08/22 0400 08/21 0400 Intake Total 7457 3100 Output Total 239 30 Balance 7218 3070 Intake, IV 7457 3100 Output, Urine 239 30 Patient 128 lb 120 lb Weight Physical Exam: General: Frail. tachypnic. HEENT: NC/AT. No icterus. dry mucosa Neck: negative for ОЛЬГА, JVD CV: RRR, no m/r/g Pulm: CTAB, no rales Abd: soft, mild diffuse tenderness Lower Ext: neg edema or chronic venous changes Back: negative for CVA tenderness Neuro: neg tremor, asterixis Skin: no rash, jaundice : + martinez catheter chest wall+ Rt mediport Results Pertinent Lab Results: Laboratory Tests 08/23 08/23 08/23 08/23 08/23 1450 1156 1156 0920 0610 Chemistry Lactic Acid (0.7 - 2.1 mmol/L) 3.7 H 4.1 H 4.6 H 6.4 H Troponin I (< 0.11 ng/ml) 0.47 *H 08/23 08/23 08/23 0610 0610 0330 Blood Gas Bicarbonate Actual (22 - 26 MEQ/L) 17 L Mixed VBG pH (7.31 - 7.41 PH) 7.28 L Mixed VBG pCO2 (41 - 51 TORR) 37 L Mixed VBG O2 Saturation (35 - 45 TORR) 30 L P-50 (Temp Corrected) N Carboxyhemoglobin (1.5 - 5.0 %) 0.9 L O2 Concentration % 3L O2 Delivery Method N/C Chemistry Sodium (137 - 145 mmol/L) 143 Potassium (3.5 - 5.1 mmol/L) 3.3 L Chloride (98 - 107 mmol/L) 117 H Carbon Dioxide (22 - 30 mmol/L) 17 L Anion Gap (5 - 16) 9 BUN (7 - 17 mg/dL) 35 H Creatinine (0.5 - 1.0 mg/dL) 1.0 Estimated GFR (>60 ml/min) 56 L Glucose (65 - 99 mg/dL) 160 H Uric Acid (2.5 - 6.2 mg/dL) 5.8 Calcium (8.4 - 10.2 mg/dL) 6.2 L Phosphorus (2.5 - 4.5 mg/dL) 3.7 Magnesium (1.6 - 2.3 mg/dL) 1.3 L Total Bilirubin (0.2 - 1.3 mg/dL) 0.7 AST (14 - 36 U/L) 118 H ALT (9 - 52 U/L) 92 H Troponin I (< 0.11 ng/ml) 0.47 *H Albumin (3.5 - 5.0 g/dL) 1.1 L Cortisol AM Sample (4.46 - 22.7 ug/dL) > 123.0 H Coagulation PT (9.4 - 12.5 SEC) 55.0 *H INR (0.90 - 1.19) 4.96 *H APTT (25 - 37 SEC) 105 *H Fibrinogen Activity (200 - 393 MG/DL) 140 L Hematology CBC w Diff MAN DIFF ORDERED WBC (4.8 - 10.8 /CUMM) 4.2 L RBC (4.20 - 5.40 /CUMM) 2.76 L Hgb (12.0 - 16.0 G/DL) 8.5 L Hct (37 - 47 %) 25.3 L MCV (81.0 - 99.0 FL) 91.7 MCH (27.0 - 31.0 PG) 30.7 MCHC (33.0 - 37.0 G/DL) 33.5 RDW (11.5 - 14.5 %) 20.6 H Plt Count (130 - 400 /CUMM) 58 L MPV (7.4 - 10.4 FL) 10.2 Gran % (42.2 - 75.2 %) 92.0 H Lymphocytes % (20.5 - 51.1 %) 7.6 L Monocytes % (1.7 - 9.3 %) 0.3 L Eosinophils % (0 - 5 %) 0.1 Basophils % (0.0 - 2.0 %) 0 Absolute Granulocytes (1.4 - 6.5 /CUMM) 3.9 Segmented Neutrophils (42.2 - 75.2 %) 77 H Band Neutrophils (0.0 - 5.0 %) 12 H Absolute Lymphocytes (1.2 - 3.4 /CUMM) 0.3 L Lymphocytes (20.5 - 51.1 %) 6 L Monocytes (1.7 - 9.3 %) 5 Absolute Monocytes (0.10 - 0.60 /CUMM) 0 L Absolute Eosinophils (0.0 - 0.7 /CUMM) 0 Absolute Basophils (0.0 - 0.2 /CUMM) 0 Nucleated RBCs (0.0 - 0.0 /100WBC) 4 H Platelet Estimate (ADEQUATE) DECREASED Normocytic RBCs VERIFIED Normochromic RBCs VERIFIED Miscellaneous Phlebotomy Draw Site VENOUS 08/23 08/23 0245 0135 Chemistry Lactic Acid (0.7 - 2.1 mmol/L) 8.0 H Toxicology Urine Opiates Screen (>2000 NG/ML) 271 Methadone Screen (>300 NG/ML) > 735 H Barbiturate Screen (>200 NG/ML) < 60 Ur Phencyclidine Scrn (>25 NG/ML) 16.20 Amphetamines Screen (>1000 NG/ML) < 100 U Benzodiazepines Scrn (>200 NG/ML) < 85 Urine Cocaine Screen (>300 NG/ML) < 50 Urine Cannabis Screen (>50 NG/ML) < 5.00 Urines Urinalysis LIGHT H Urine Color (YEL,AMB,STR) YEL Urine Clarity (CLEAR) CLEAR Urine pH (5.0 - 8.0) 6.0 Ur Specific [place] (1.001 - 1.035) 1.020 Urine Protein (NEG,<30 MG/DL) 30 H Urine Ketones (NEG) NEG Urine Nitrite (NEG) NEG Urine Bilirubin (NEG) NEG Urine Urobilinogen (0.1 - 1.0 EU/dl) 1.0 Ur Leukocyte Esterase (NEG) TRACE H Ur Microscopic SEDIMENT EXAMINED Urine RBC (0 - 5 /HPF) 1-3 Urine WBC (0 - 2 /HPF) 1-3 H Ur Epithelial Cells (NONE,FEW) MOD H Urine Bacteria (NEG/NONE) FEW H Urine Mucus (FEW,NONE) MOD H Urine Hemoglobin (NEG) MOD H Urine Glucose (N MG/DL) NEG 08/22 08/22 9220 0135 Chemistry Sodium (137 - 145 mmol/L) 138 Potassium (3.5 - 5.1 mmol/L) 3.8 Chloride (98 - 107 mmol/L) 105 Carbon Dioxide (22 - 30 mmol/L) 23 Anion Gap (5 - 16) 11 BUN (7 - 17 mg/dL) 41 H Creatinine (0.5 - 1.0 mg/dL) 0.9 Estimated GFR (>60 ml/min) > 60 BUN/Creatinine Ratio (7 - 25 %) 45.6 H Glucose (65 - 99 mg/dL) 195 H Hemoglobin A1c (4.2 - 5.8 %) Pending Lactic Acid (0.7 - 2.1 mmol/L) 7.0 H Uric Acid (2.5 - 6.2 mg/dL) 6.7 H Calcium (8.4 - 10.2 mg/dL) 7.9 L Phosphorus (2.5 - 4.5 mg/dL) 3.7 Total Bilirubin (0.2 - 1.3 mg/dL) 0.6 AST (14 - 36 U/L) 79 H ALT (9 - 52 U/L) 101 H Alkaline Phosphatase (<127 U/L) 56 Troponin I (< 0.11 ng/ml) 0.05 Total Protein (6.3 - 8.2 g/dL) 3.8 L Albumin (3.5 - 5.0 g/dL) 1.7 L Globulin (1.9 - 4.2 gm/dL) 2.1 Albumin/Globulin Ratio (1.1 - 2.2 %) 0.8 L TSH (0.270 - 4.200 uIU/mL) 1.470 Thyroxine (T4) (4.5 - 10.9 ug/dL) 4.5 Coagulation PT (9.4 - 12.5 SEC) 36.0 H INR (0.90 - 1.19) 3.26 H Hematology CBC w Diff MAN DIFF ORDERED WBC (4.8 - 10.8 /CUMM) 3.8 L RBC (4.20 - 5.40 /CUMM) 3.27 L Hgb (12.0 - 16.0 G/DL) 9.9 L Hct (37 - 47 %) 29.8 L MCV (81.0 - 99.0 FL) 91.3 MCH (27.0 - 31.0 PG) 30.3 MCHC (33.0 - 37.0 G/DL) 33.2 RDW (11.5 - 14.5 %) 19.9 H Plt Count (130 - 400 /CUMM) 91 L MPV (7.4 - 10.4 FL) 8.5 Gran % (42.2 - 75.2 %) 90.9 H Lymphocytes % (20.5 - 51.1 %) 8.9 L Monocytes % (1.7 - 9.3 %) 0.2 L Eosinophils % (0 - 5 %) 0 Basophils % (0.0 - 2.0 %) 0 Absolute Granulocytes (1.4 - 6.5 /CUMM) 3.5 Segmented Neutrophils (42.2 - 75.2 %) 79 H Band Neutrophils (0.0 - 5.0 %) 10 H Absolute Lymphocytes (1.2 - 3.4 /CUMM) 0.3 L Lymphocytes (20.5 - 51.1 %) 9 L Monocytes (1.7 - 9.3 %) 2 Absolute Monocytes (0.10 - 0.60 /CUMM) 0 L Absolute Eosinophils (0.0 - 0.7 /CUMM) 0 Absolute Basophils (0.0 - 0.2 /CUMM) 0 Nucleated RBCs (0.0 - 0.0 /100WBC) 2 H Platelet Estimate (ADEQUATE) DECREASED Hypochromic-Microcytic 1+ Poikilocytosis 1+ Microcytic Cells 1+ Stomatocytes RARE Schistocytes RARE Other Body Source Fld Total RBCs Counted (%) 100 Toxicology Methadone Screen Cancelled Barbiturate Screen Cancelled Ur Phencyclidine Scrn Cancelled Amphetamines Screen Cancelled U Benzodiazepines Scrn Cancelled Urine Cocaine Screen Cancelled Urine Cannabis Screen Cancelled Assessment/Plan Assessment/Recommendations Assessment: Acute kidney injury: Suspect on spectrum of prerenal azotemia and ischemic ATN secondary to septic shock. Despite recent chemotherapy there is no evidence of tumor lysis syndrome with the normal uric acid and phosphorus level. There is no hydro-on CT in June. I Agree with pressor support, IV fluids and IV antibiotics to address the underlying septic shock. Urine output seems to be picking up a bit now that her blood pressures improved from the 60s to the 80s- 90s systolic, however her overall prognosis is extremely poor given her metastatic malignancy, immunocompromise state, and the severity of her critical illness. Additional renal workup is not necessary. Hemodialysis is not warranted in this situation. Would trend her electrolyte levels and replete cautiously when necessary. History of SIADH secondary to small cell lung CA. Sodium level currently in normal range 143. Agree with holding the demeclocycline. If vasopressin is necessary will need close monitoring of her sodium level. Case discussed with the covering housestaff. Recommendations: As above Thank you for the consult Alvin Martins MD
[2017-08-23 16:00] VITALS: BP 84/00
--- NOTE | 2017-08-23 19:13 | Event Note ---
Event Note Event Note: Housestaff, surgical PA, nacho are not certified to place A-line. Anesthesiology evaluated the patient and is not comfortable to place the line given radial pulse not palpable and patient has elevated INR and is on 3 pressors. Discussed with ICU attending Dr. Romo. Per Dr. Romo, the risks of placing an A-line in this patient outweighs the benefits. Therefore not recommended. Dr. Romo also believes that the patient would not need an ABG at this point and can be maintained on high flow oxygen if needed. Later on he talked directly to nursing staff and respiratory and made recommendations to respiratory regarding oxygen supplementation.
[2017-08-23 19:40] LABS: PT 56.4 SEC (9.4-12.5)
--- NOTE | 2017-08-23 20:39 | ECHOCARDIOGRAM REPORT ---
CHUNG KRISHNA Age: 62 : 1955 Gender: F Exam Date: 08/23/2017 13:53 Exam Location: [facility] Ht (in): 62 Wt (lb): 128 BSA: 1.60 BP: 80 / 0 Ordering Physician: Debra Castle, Referring Physician: John Mckenna MD, PhD Technologist: aimee [email or web address] Room Number: 113 Indications: LV FUNCTION AFTER ACS Rhythm: Sinus tachycardia Technical Quality: fair FINDINGS Left Ventricle Small left ventricular size with normal wall thickness. Normal systolic function with no obvious regional wall motion abnormalities. Diastolic filling pattern is consistent with impaired LV relaxation. The ejection fraction is visually estimated at 80%. Right Ventricle The right ventricle is normal in size and function. Right Atrium The right atrium is normal in size. Left Atrium The left atrium is normal in size. The interatrial septum is intact. Mitral Valve The mitral valve is normal in structure and function. There is no mitral regurgitation. Aortic Valve Structurally normal aortic valve without significant sclerosis or stenosis. There is a mild outflow tract obstuction. There is trace aortic regurgitation. Tricuspid Valve The tricuspid valve is normal in structure and function. There is mild to moderate tricuspid regurgitation. Pulmonary artery systolic pressure is normal. Pulmonic Valve Structurally normal pulmonic valve. There is no pulmonic regurgitation. Pericardium Normal pericardium without effusion. No pleural effusion. Great Vessels Normal aortic root dimension. The aortic arch and great vessels are well seen and are normal. CONCLUSIONS 1. Small and underfilled left ventricle. 2. Hyperdynamic left ventricle with EF of 80% with impaired LV relaxation. 3. Mild to moderate tricuspid regurgitation. 4. Mild outflow tract obstruction. John Mckenna M.D. (Electronically Signed) Final Date: 23 August 2017 20:38 MEASUREMENTS (Male / Female) Normal Values 2D ECHO LV Diastolic Diameter PLAX 3.6 cm 4.2 - 5.9 / 3.9 - 5.3 cm LV Systolic Diameter PLAX 1.9 cm 2.1 - 4.0 cm LV Fractional Shortening PLAX 47.2 % 25 - 46 % LV Ejection Fraction 2D Teich 79.5 % IVS Diastolic Thickness 1.2 cm LVPW Diastolic Thickness 1.1 cm LV Relative Wall Thickness 0.6 LVOT Diameter 1.8 cm Aortic Root Diameter 2.6 cm LA Systolic Diameter LX 2.1 cm 3.0 - 4.0 / 2.7 - 3.8 cm LA Volume 40.0 cm 18 - 58 / 22 - 52 cm DOPPLER AV Peak Velocity 142.0 cm/s AV Peak Gradient 8.1 mmHg AV Mean Velocity 107.0 cm/s AV Mean Gradient 5.0 mmHg AV Velocity Time Integral 15.8 cm LVOT Peak Velocity 88.7 cm/s LVOT Peak Gradient 3.1 mmHg LVOT Mean Velocity 66.1 cm/s LVOT Mean Gradient 2.0 mmHg LVOT Velocity Time Integral 9.7 cm LVOT Stroke Volume 24.6 cm AV Area Cont Eq vti 1.6 cm AV Area Cont Eq pk 1.6 cm MV Peak Velocity 77.2 cm/s MV Peak Gradient 2.4 mmHg MV Mean Velocity 61.9 cm/s MV Mean Gradient 2.0 mmHg Mitral E Point Velocity 60.7 cm/s Mitral A Point Velocity 81.9 cm/s Mitral E to A Ratio 0.7 MV Deceleration Time 62.0 ms TR Peak Velocity 280.0 cm/s TR Peak Gradient 31.4 mmHg Right Atrial Pressure 5.0 mmHg Pulmonary Artery Systolic Pressu 36.4 mmHg Right Ventricular Systolic Press 36.4 mmHg PV Peak Velocity 160.0 cm/s PV Peak Gradient 10.2 mmHg PV Mean Velocity 112.0 cm/s PV Mean Gradient 6.0 mmHg PV Velocity Time Integral 19.2 cm LV E' Lateral Velocity 7.7 cm/s Mitral E to LV E' Lateral Ratio 7.9 LV E' Septal Velocity 6.2 cm/s Mitral E to LV E' Septal Ratio 9.7
[2017-08-23 20:45] VITALS: BP 110/00
--- NOTE | 2017-08-23 23:34 | Event Note ---
Event Note Event Note: Situation: Monitor showed asystole on Ms Truppi Brief: Around 11:30, patient's monitor started showing asystole. I examined the patient, her pupillary reflex was absent. Heart and lung sounds were absent on auscultation, radial pulse was nonpalpable. Patient was pronounced at 11: 30pm
== END 2017-08-23 23:30 | disposition expired | DRG 871 ==
LOC: ERH 22:49 → CRI 08-23 02:14 → ERHI 08-23 02:14 → CRI 08-23 04:49
PROVIDERS: Emergency Medicine; Internal Medicine Endocrinology, Diabetes & Metabolism; Student in an Organized Health Care Education/Training Program
DX: A41.50 Gram-negative sepsis, unspecified (principal); R65.21 Severe sepsis with septic shock; J96.21 Acute and chronic respiratory failure with hypoxia; I21.A1 Myocardial infarction type 2; N17.0 Acute kidney failure with tubular necrosis; D61.810 Antineoplastic chemotherapy induced pancytopenia; E22.2 Syndrome of inappropriate secretion of antidiuretic hormone; C79.31 Secondary malignant neoplasm of brain; E87.2 Acidosis; C34.90 Malignant neoplasm of unspecified part of unspecified bronchus or lung; F11.20 Opioid dependence, uncomplicated; L97.829 Non-pressure chronic ulcer of other part of left lower leg with unspecified severity; L89.152 Pressure ulcer of sacral region, stage 2; L97.819 Non-pressure chronic ulcer of other part of right lower leg with unspecified severity; Z99.81 Dependence on supplemental oxygen; I48.2 Chronic atrial fibrillation; Z66 Do not resuscitate; B18.2 Chronic viral hepatitis C; I87.2 Venous insufficiency (chronic) (peripheral); I10 Essential (primary) hypertension; J44.9 Chronic obstructive pulmonary disease, unspecified; Z87.891 Personal history of nicotine dependence; Z99.3 Dependence on wheelchair; I73.9 Peripheral vascular disease, unspecified; F32.9 Major depressive disorder, single episode, unspecified; F41.9 Anxiety disorder, unspecified; T45.1X5D Adverse effect of antineoplastic and immunosuppressive drugs, subsequent encounter; Z90.49 Acquired absence of other specified parts of digestive tract; Z96.642 Presence of left artificial hip joint
CPT/HCPCS: CCU; 36415; 71045; 74018; 80307; 81001; 82436; 87040; 87045; 87070; 87086; 93005; 93010; 93306; 96361; 96365; 96375; J0713; J1720; J2930; J3370; J7040; J7060